=== PATIENT | female | born 1950 | race Caucasian/White ===

== ENCOUNTER 2020-10-20 09:28 | Outpatient (REF) | payer MEDICARE, SELFPAY ==
[2020-10-20 10:09] LABS: MANUAL DIFF FLAG NO
[2020-10-20 10:17] LABS: Basophils Absolute Auto 0.1 X10*3/uL (0.0-0.2); Basophils Percent Auto 0.7 % (0-2); Eosinophils Absolute Auto 0.2 X10*3/uL (0.0-0.4); Eosinophils Percent Auto 2.5 % (0-4); Hematocrit 37.3 % (37-47); Hemoglobin 12.7 g/dl (12.0-16.0); Imm Gran Abs Auto 0.04 X10*3/uL (0.00-0.03); Imm Gran Pct Auto 0.6 % (0.0-0.4); Lymphocytes Absolute Auto 1.5 X10*3/uL (1.2-4.9); Lymphocytes Percent Auto 20.9 % (20-40); Mean Corpuscular Hemoglobin 30.9 pg (27.0-33.0); Mean Corpuscular Volume 90.8 fL (80-98); Mean Platelet Volume 11.9 fL (9.4-12.3); Monocytes Absolute Auto 0.5 X10*3/uL (0.1-1.2); Monocytes Percent Auto 6.9 % (2-11); Neutrophils Percent Auto 68.4 % (45-73); Platelet Count 230 X10*3/uL (160-400); Red Blood Count 4.11 X10*6/uL (4.20-5.50); Red Cell Distribution Width 12.3 % (11.0-16.0); White Blood Count 7.3 X10*3/uL (4.8-10.8)
[2020-10-20 10:34] LABS: Anion Gap 12 (12-20); Blood Urea Nitrogen 14 mg/dL (9-16); Calcium 9.3 mg/dL (8.4-10.2); Carbon Dioxide 25 mmol/L (22-29); Chloride 106 mmol/L (96-108); Estimated Glomerular Filt Rate 57; Glucose Fasting 146 mg/dL (60-99); Glucose Urine UA NEG (NEG); Leukocyte Esterase Urine NEG (NEG); Nitrite Urine POS (NEG); PH 5.5 (5.0-8.0); Potassium 4.3 mmol/l (3.3-5.1); Sodium 139 mmol/L (135-145); Specific Gravity - Urine >= 1.030 (1.005-1.025); Urine Blood NEG (NEG); Urine Ketones NEG (NEG); Urine Protein NEG (NEG-TRACE)
[2020-10-20 10:41] LABS: Appearance Urine HAZY; Color Urine YELLOW
[2020-10-20 11:31] LABS: Bacteria Urine 2+ /LPF; RBC Urine 0-2 /HPF (0); Squamous Epithelial Cell Urine 2+ /LPF
== END 2020-10-20 09:29 | disposition home or self-care (01) ==
LOC: HO.LAB 09:28
PROVIDERS: PCP Internal Medicine; Visit Provider Nurse Practitioner Family
DX: N23 Unspecified renal colic (principal)
CPT/HCPCS: 36415; 80048; 81001; 85025

== ENCOUNTER 2020-10-22 14:20 | Outpatient (REF) | payer MEDICARE, SELFPAY ==
--- NOTE | 2020-10-22 14:23 | US_ITS ---
EXAMINATION: US RETROPERITONEAL LIMITED (RENAL ONLY) CLINICAL INFORMATION: Unspecified renal colic. COMPARISON: KUB dated 11/28/2006. TECHNIQUE: Real-time imaging of the kidneys. FINDINGS: RIGHT KIDNEY: 12.2 x 4.1 x 6.1 cm (SAG x AP x TRV). The kidney is normal in size, contour, and echogenicity. Renal cortical thickness is normal. No renal calculi or hydronephrosis. There is anechoic cyst right kidney upper pole measuring 1.8 x 1.3 x 1.5 cm LEFT KIDNEY: 11.4 x 5.7 x 5.4 cm (SAG x AP x TRV). The kidney is normal in size, lobulated contour and normal echogenicity. Renal cortical thickness is normal. No calculi or focal parenchymal lesions. No hydronephrosis. US/US renal BI IMPRESSION: Anechoic cyst upper pole right kidney. Slightly laterally left kidney contour but no focal lesion seen. There are no echogenic renal calculi or hydronephrosis.
== END 2020-10-22 14:21 | disposition home or self-care (01) ==
LOC: HO.HMGCX 14:20
PROVIDERS: PCP Internal Medicine; Visit Provider Nurse Practitioner Family
DX: N23 Unspecified renal colic (principal)
CPT/HCPCS: 76775

== ENCOUNTER → 2021-03-02 12:59 | Outpatient (BNVA) | payer MEDICARE, SELFPAY | PROVIDERS: PCP Internal Medicine; Referring Provider Internal Medicine; Visit Provider Internal Medicine | DX: I25.10 Atherosclerotic heart disease of native coronary artery without angina pectoris (principal); I10 Essential (primary) hypertension; E78.5 Hyperlipidemia, unspecified; E11.8 Type 2 diabetes mellitus with unspecified complications; F17.200 Nicotine dependence, unspecified, uncomplicated; Z95.5 Presence of coronary angioplasty implant and graft; Z79.899 Other long term (current) drug therapy; Z71.6 Tobacco abuse counseling | CPT/HCPCS: 93005; 99212 ==

== ENCOUNTER 2021-05-07 12:32 | Outpatient (REF) | payer MEDICARE, SELFPAY ==
--- NOTE | ~2021-05-07 | MM_ITS ---
EXAMINATION: BONE DENSITOMETRY CLINICAL INDICATION: Other specified disorders of bone density and structure. COMPARISON: Previous BD dated 11/28/2017 and baseline BD dated 11/28/2006. TECHNIQUE: Using a [employer] DXA System (software version: 13.1) manufactured by [employer], dual-energy x-ray absorptiometry was performed of the lumbar spine and left hip. The images are of good technical quality. Summary results are attached. FINDINGS: AP SPINE L1-L4: Current: BMD 1.231 g/cm2, Z-score 1.7, T-score 0.4, normal, 3.2% increase from previous, 18.8% increase from baseline (<5% change is not significant). Prior: BMD 1.193 g/cm2. Baseline: BMD 1.036 g/cm2. LEFT FEMUR, NECK: Current: BMD 0.888 g/cm2, Z-score 0.4, T-score -1.1, osteopenia. Prior: BMD 0.842 g/cm2. Baseline: BMD 0.908 g/cm2. LEFT FEMUR, TOTAL: Current: BMD 0.979 g/cm2, Z-score 1.1, T-score -0.2, normal, 5.0% decrease from previous, 2.6% decrease from baseline (<5% change is not significant). Prior: BMD 1.031 g/cm2. Baseline: BMD 1.005 g/cm2. IDENTIFIED RISK FACTORS: Recurrent falls, low calcium intake. Early menopause, secondary osteoporosis, glucocorticoids (chronic), thiazide, hysterectomy, bilateral oophorectomy. HISTORY OF FRACTURE: None listed. MEDICATIONS: Calcium supplements or multivitamin, vitamin D. MM/XR DEXA axial skeleton IMPRESSION: 1. DIAGNOSIS: Osteopenia based on the lowest T-score value of -1.1 in the femoral neck applying World Health Organization criteria. 2. 10-YEAR FRACTURE RISK PREDICTION, FRAX: Major osteoporotic fracture (clinical spine, forearm, hip or shoulder) 14.4%. Hip fracture 2.0%. 3. Treatment Recommendations: NOF guidelines recommend consideration for treatment in postmenopausal women and men age 50 and older presenting with the following: -A hip or vertebral (clinical or morphometric) fracture. -T-score less than or equal to -2.5 at the femoral neck or spine after appropriate evaluation to exclude secondary causes. -Low bone mass at the hip or spine and a 10-year fracture probability by FRAX of greater than or equal to 3% for hip fracture or greater than or equal to 20% for major osteoporotic fracture based on the [place] adapted WHO algorithm. 4. Other Recommendations: All treatment decisions require clinical judgment and consideration of individual patient factors, including patient preferences, comorbidities, previous drug use, risk factors not captured in the FRAX model (e.g. frailty, falls, vitamin D deficiency, increased bone turnover, interval significant decline in bone density) and possible under or overestimation of fracture risk by FRAX. Additional medical evaluation for secondary cause of low bone mineral density may be appropriate. FUTURE SCAN RECOMMENDATION: People with diagnosed cases of osteoporosis or at high risk for fracture should have regular bone mineral density tests. For patients eligible for Medicare, routine testing is allowed once every 2 years. The testing frequency can be increased to one year for patients who have rapidly progressing disease, those who are receiving or discontinuing medical therapy to restore bone mass, or have additional risk factors.
--- NOTE | ~2021-05-07 | MM_ITS ---
EXAMINATION: MM SCREENING DIGITAL BREAST TOMOSYNTHESIS, BILATERAL CLINICAL INFORMATION: Screening. Asymptomatic. The lifetime risk of breast cancer based on the Tyrer-Cuzick Model is 3%. COMPARISON: Mammography: 11/28/2017, 11/02/2016, 04/11/2015 TECHNIQUE: Digital breast tomosynthesis is performed in both the craniocaudal and mediolateral oblique views along with computer-aided detection (CAD). Synthesized 2D images are generated from the tomosynthesis. Additional left MLO view is provided. FINDINGS: There are scattered areas of fibroglandular density (ACR BI-RADS breast composition Category b). There are no significant masses, abnormal calcifications, or other abnormalities. Parenchymal pattern is similar to prior studies. No significant changes. MM/MM tomosynthesis screening BI IMPRESSION: No mammographic evidence of malignancy. ASSESSMENT: BI-RADS 1: Negative RECOMMENDATION: Routine annual mammography screening. This patient's information was entered into a reminder system with a target due date for their next mammogram.
== END 2021-05-07 12:33 | disposition home or self-care (01) ==
LOC: HO.MAMMO 12:32
PROVIDERS: PCP Internal Medicine; Visit Provider Internal Medicine
DX: Z12.31 Encounter for screening mammogram for malignant neoplasm of breast (principal); M85.89 Other specified disorders of bone density and structure, multiple sites; E83.51 Hypocalcemia; Z78.0 Asymptomatic menopausal state; E27.49 Other adrenocortical insufficiency; Z90.710 Acquired absence of both cervix and uterus; Z90.722 Acquired absence of ovaries, bilateral
CPT/HCPCS: 77063; 77067; 77080

== ENCOUNTER 2021-06-09 07:44 | Outpatient (REF) | payer MEDICARE, SELFPAY ==
[2021-06-10 09:25] LABS: BV Int Neg Control Negative (Negative)
[2021-06-10 09:26] LABS: BV Int Pos Control Positive (Positive)
== END 2021-06-09 07:45 | disposition home or self-care (01) ==
LOC: HO.LAB 07:44
PROVIDERS: PCP Internal Medicine; Visit Provider Obstetrics & Gynecology
DX: B37.3 Candidiasis of vulva and vagina (principal); B37.2 Candidiasis of skin and nail
CPT/HCPCS: 87480; 87510; 87660; 99212

== ENCOUNTER 2021-09-07 16:39 | Outpatient (REF) | payer MEDICARE, SELFPAY | END 2021-09-07 16:40 | disposition home or self-care (01) | LOC: HO.LNP 16:39 | PROVIDERS: Visit Provider Physician Assistant Medical | DX: Z20.822 Contact with and (suspected) exposure to COVID-19 (principal); R05.9 Cough, unspecified | CPT/HCPCS: U0003; U0005 ==

== ENCOUNTER → 2022-02-23 09:53 | Outpatient (BNVA) | payer MEDICARE, SELFPAY | PROVIDERS: PCP Internal Medicine; Visit Provider Internal Medicine Endocrinology, Diabetes & Metabolism | DX: E11.65 Type 2 diabetes mellitus with hyperglycemia (principal) | CPT/HCPCS: 82947; 83036; 99202 ==

== ENCOUNTER → 2022-02-28 13:26 | Outpatient (BNVA) | payer MEDICARE, SELFPAY | PROVIDERS: PCP Internal Medicine; Visit Provider Registered Nurse Diabetes Educator | DX: E11.65 Type 2 diabetes mellitus with hyperglycemia (principal) | CPT/HCPCS: 99211 ==

== ENCOUNTER 2022-03-01 09:12 | Outpatient (REF) | payer MEDICARE, SELFPAY ==
[2022-03-01 09:46] LABS: MANUAL DIFF FLAG NO
[2022-03-01 10:18] LABS: Basophils Absolute Auto 0.1 X10*3/uL (0.0-0.2); Basophils Percent Auto 0.8 % (0-2); Eosinophils Absolute Auto 0.2 X10*3/uL (0.0-0.4); Eosinophils Percent Auto 2.3 % (0-4); Hematocrit 39.8 % (37.0-47.0); Hemoglobin 13.5 g/dl (12.0-16.0); Imm Gran Abs Auto 0.03 X10*3/uL (0.00-0.03); Imm Gran Pct Auto 0.4 % (0.0-0.4); Lymphocytes Absolute Auto 1.9 X10*3/uL (1.2-4.9); Lymphocytes Percent Auto 21.9 % (20-40); Mean Corpuscular HGB Conc 33.9 g/dl (31.0-35.0); Mean Corpuscular Hemoglobin 30.2 pg (27.0-33.0); Mean Platelet Volume 12.3 fL (9.4-12.3); Monocytes Absolute Auto 0.5 X10*3/uL (0.1-1.2); Monocytes Percent Auto 5.8 % (2-11); Neutrophils Absolute Auto 5.8 x10*3/uL (2.0-8.3); Neutrophils Percent Auto 68.8 % (45-73); Platelet Count 251 X10*3/uL (160-400); Red Blood Count 4.47 X10*6/uL (4.20-5.50); Red Cell Distribution Width 12.3 % (11.0-16.0); White Blood Count 8.4 X10*3/uL (4.8-10.8)
[2022-03-01 10:38] LABS: Alanine Aminotransferase 17 U/L (0-31); Albumin Level 4.6 g/dL (3.5-5.0); Alkaline Phosphatase 51 U/L (39-117); Anion Gap 14 (12-20); Aspartate Amino Transferase 13 U/L (5-31); Bilirubin Total 0.5 mg/dL (0.0-1.0); Blood Urea Nitrogen 17 mg/dL (9-16); Carbon Dioxide 24 mmol/L (22-29); Chloride 106 mmol/L (96-108); Cholesterol 122 mg/dL; Estimated Glomerular Filt Rate 56; Glucose Fasting 166 mg/dL (60-99); HDL Cholesterol 29 mg/dL; LDL Cholesterol Calculated 58 mg/dl; Potassium 4.4 mmol/L (3.3-5.1); Sodium 140 mmol/L (135-145); Total Protein 7.2 g/dL (6.5-8.0); Triglycerides 176 mg/dL
[2022-03-01 10:53] LABS: Estimated Average Glucose 212 mg/dL
[2022-03-01 11:00] LABS: Thyroid Stimulating Hormone 1.47 uIU/mL (0.32-4.0)
[2022-03-01 11:01] LABS: Free T4 (Free Thyroxine) 1.01 ng/dL (0.71-1.85)
[2022-03-01 11:16] LABS: Appearance Urine CLOUDY; Color Urine YELLOW; Glucose Urine UA NEG (NEG); Leukocyte Esterase Urine 1+ (NEG); Nitrite Urine POS (NEG); PH 5.5 (5.0-8.0); Specific Gravity - Urine >= 1.030 (1.005-1.025); Urine Blood NEG (NEG); Urine Ketones NEG (NEG); Urine Protein NEG (NEG-TRACE)
[2022-03-01 11:28] LABS: Folate 8.9 ng/mL (> or = 4.0); Vitamin B12 521 pg/mL (200-900)
[2022-03-01 11:29] LABS: Squamous Epithelial Cell Urine 2+ /LPF
[2022-03-01 11:30] LABS: Bacteria Urine 3+ /LPF; RBC Urine 0 /HPF (0)
[2022-03-01 11:58] LABS: Creatinine Urine 124.28 mg/dL; Microalbum/Creatinine Ratio Ur 24.9 ug/mg cr
[2022-03-05 21:06] LABS: Glutamic acid decarboxylase Ab <5 IU/mL (<5)
== END 2022-03-01 09:13 | disposition home or self-care (01) ==
LOC: HO.LAB 09:12
PROVIDERS: PCP Internal Medicine; Visit Provider Internal Medicine Endocrinology, Diabetes & Metabolism
DX: Z00.00 Encounter for general adult medical examination without abnormal findings (principal); E11.65 Type 2 diabetes mellitus with hyperglycemia; M85.89 Other specified disorders of bone density and structure, multiple sites
CPT/HCPCS: 36415; 80053; 80061; 81001; 81003; 82043; 82306; 82607; 82746; 83036; 84439; 84443; 85025; 86341

== ENCOUNTER 2022-08-05 08:09 | Day surgery (SDC) | payer MEDICARE, SELFPAY ==
[2022-08-01 14:36] VITALS: BMI 28.6
--- NOTE | 2022-08-04 14:13 | P.CONAN_ITS ---
Documented by User: Seda Guzman NP 08/04/22 14:15 HPI - Anesthesia Eval Consult details Narrative: 72yo F for Upper Endoscopy and Colonoscopy *Multiple Med Allergies* PMFSH Active Problems Active Problems: All Active Problems (Updated 08/01/22 @ 14:33 by Venita Armstrong, GEMINI) Colon cancer screening (Acute) Breast cancer screening by mammogram (Acute) Osteopenia (Acute) Vulvovaginitis ish albicans (Acute) Skin candidiasis (Acute) Vaginal candidiasis (Acute) Annual physical exam (Acute) Generalized anxiety disorder (Acute) Tobacco abuse (Acute) Diabetic neuropathy (Acute) COVID-19 virus infection (Acute) Essential hypertension (Acute) Type 2 diabetes mellitus with hyperglycemia (Acute) COPD (chronic obstructive pulmonary disease) (Acute) Osteoarthritis (Acute) Barretts esophagus (Acute) Hypercholesterolemia (Acute) Coronary artery disease (Acute) Past Medical History Medical History Barretts esophagus COPD (chronic obstructive pulmonary disease) Coronary artery disease Cough COVID-19 Diabetic nephropathy Diabetic neuropathy Essential hypertension Hip osteoarthritis Hypercholesterolemia Mitral valve prolapse Myocardial infarct Osteoarthritis Skin rash Type 2 diabetes mellitus with hyperglycemia Vitamin D deficiency Family History Family History Father CVD (cardiovascular disease) Dementia Heart valve replaced Mother Colon cancer Surgical History Surgical History Cystocele H/O heart artery stent History of cholecystectomy History of hysterectomy History of parathyroidectomy Social History Social History Housing: House Alcohol intake: never Patient Tobacco Use Status: Current someday Tobacco user Tobacco use type: Cigarette Cigarettes Per Day: 10 e-Cigarette/Vaping Use: Never Used Second Hand Smoke Exposure: No Use of substances other than those prescribed or required for medical reasons: No Are you DNR?: No Advance Directives: No Advance Directives Information Provided: Yes service: No Current occupational status: retired Cognitive needs: No Hearing needs: No Vision needs: Yes Meds Allergies Allergy/AdvReac Type Severity Reaction Status Date / Time azithromycin Allergy Severe rash Verified 07/19/22 11:34 cortisone [CORTISONE] Allergy Severe RASH HIVES Verified 07/19/22 11:34 AND SWELLING OF THE TONGUE Penicillins Allergy Severe ANAPHYLAXIS Verified 07/19/22 11:34 yeast, dried [yeast] Allergy Severe SHORTNESS Verified 07/19/22 11:34 OF BREATH omeprazole [From Prilosec] Allergy Intermediate BLISTERS Verified 07/19/22 11:34 Sulfa (Sulfonamide Allergy Intermediate Itching Verified 07/19/22 11:34 Antibiotics) niacin [Niacin] Allergy Mild RASH Verified 07/19/22 11:34 tetracycline [Tetracycline] Allergy Mild RASH Verified 07/19/22 11:34 acetic acid [Acetic Acid] Allergy Unknown SHORTNESS Verified 07/19/22 11:34 OF BREATH FROM VINEGAR adhesive tape Allergy Unknown RASH Verified 07/19/22 11:34 Clindamycin HCl Allergy Unknown rash Verified 07/19/22 11:34 fluconazole [Diflucan] Allergy Unknown Unknown Verified 07/19/22 11:34 procaine [From NOVOCAIN] Allergy Unknown RASH,SWELLING Verified 07/19/22 11:34 OF TONGUE,BLISTERING lorazepam [From Ativan] AdvReac Mild VOMITING/NA Verified 07/19/22 11:34 USEA morphine [MORPHINE] AdvReac Unknown NAUSEA Verified 07/19/22 11:34 From AVELOX Allergy Intermediate SWELLING/RA Uncoded 07/19/22 11:34 SH carrots, vinegar, yeast, Allergy Unknown Unknown Uncoded 07/19/22 11:34 chees SEASONAL ALLERGIES Allergy Unknown SNEEZING Uncoded 07/19/22 11:34 Home Medications Medication Instructions Recorded Confirmed Last Taken Type blood sugar diagnostic #10 ea 10/19/20 07/19/22 Unknown History calcium carbonate 600 mg calcium 600 mg PO DAILY 11/13/20 08/01/22 Unknown History (1,500 mg) tablet (Calcium) cholecalciferol (vitamin D3) 50 50 mcg PO DAILY 11/13/20 07/19/22 Unknown History mcg (2,000 unit) capsule aspirin 81 mg tablet,delayed 81 mg PO DAILY 03/02/21 08/01/22 Unknown History release (Adult Low Dose Aspirin) Exam Exam Date and Time: August 04, 2022 1413 Height,Weight and Vital Signs: Height 5 ft 5 in Weight 78.018 kg Pertinent Lab Results Pertinent Lab Results: Laboratory Tests 03/01/22 03/01/22 09:44 09:44 WBC 8.4 Hgb 13.5 Hct 39.8 Plt Count 251 Sodium 140 Potassium 4.4 Chloride 106 Carbon Dioxide 24 BUN 17 H Creatinine 0.98 Assessment and Plan Assessment Anesthesia Assessment: Chart Reviewed Documented by User: Jose Rafael Trejo MD 08/05/22 09:11 [facility] Past Medical History Medical History Barretts esophagus COPD (chronic obstructive pulmonary disease) Coronary artery disease Cough COVID-19 Diabetic nephropathy Diabetic neuropathy Essential hypertension Hip osteoarthritis Hypercholesterolemia Mitral valve prolapse Myocardial infarct Osteoarthritis Skin rash Type 2 diabetes mellitus with hyperglycemia Vitamin D deficiency Family History Family History Father CVD (cardiovascular disease) Dementia Heart valve replaced Mother Colon cancer Family history of problems with anesthesia: No Surgical History Surgical History Cystocele H/O heart artery stent History of cholecystectomy History of hysterectomy History of parathyroidectomy History of Problems with Anesthesia: No Social History Social History Housing: House Alcohol intake: never Patient Tobacco Use Status: Current someday Tobacco user Tobacco use type: Cigarette Cigarettes Per Day: 10 e-Cigarette/Vaping Use: Never Used Second Hand Smoke Exposure: No Use of substances other than those prescribed or required for medical reasons: No Are you DNR?: No Advance Directives: No Advance Directives Information Provided: Yes service: No Current occupational status: retired Cognitive needs: No Hearing needs: No Vision needs: Yes Meds Allergies Allergy/AdvReac Type Severity Reaction Status Date / Time azithromycin Allergy Severe rash Verified 07/19/22 11:34 cortisone [CORTISONE] Allergy Severe RASH HIVES Verified 07/19/22 11:34 AND SWELLING OF THE TONGUE Penicillins Allergy Severe ANAPHYLAXIS Verified 07/19/22 11:34 yeast, dried [yeast] Allergy Severe SHORTNESS Verified 07/19/22 11:34 OF BREATH omeprazole [From Prilosec] Allergy Intermediate BLISTERS Verified 07/19/22 11:34 Sulfa (Sulfonamide Allergy Intermediate Itching Verified 07/19/22 11:34 Antibiotics) niacin [Niacin] Allergy Mild RASH Verified 07/19/22 11:34 tetracycline [Tetracycline] Allergy Mild RASH Verified 07/19/22 11:34 acetic acid [Acetic Acid] Allergy Unknown SHORTNESS Verified 07/19/22 11:34 OF BREATH FROM VINEGAR adhesive tape Allergy Unknown RASH Verified 07/19/22 11:34 Clindamycin HCl Allergy Unknown rash Verified 07/19/22 11:34 fluconazole [Diflucan] Allergy Unknown Unknown Verified 07/19/22 11:34 procaine [From NOVOCAIN] Allergy Unknown RASH,SWELLING Verified 07/19/22 11:34 OF TONGUE,BLISTERING lorazepam [From Ativan] AdvReac Mild VOMITING/NA Verified 07/19/22 11:34 USEA morphine [MORPHINE] AdvReac Unknown NAUSEA Verified 07/19/22 11:34 From AVELOX Allergy Intermediate SWELLING/RA Uncoded 07/19/22 11:34 SH carrots, vinegar, yeast, Allergy Unknown Unknown Uncoded 07/19/22 11:34 chees SEASONAL ALLERGIES Allergy Unknown SNEEZING Uncoded 07/19/22 11:34 Home Medications Medication Instructions Recorded Confirmed Last Taken Type blood sugar diagnostic #10 ea 10/19/20 07/19/22 Unknown History calcium carbonate 600 mg calcium 600 mg PO DAILY 11/13/20 08/01/22 Unknown History (1,500 mg) tablet (Calcium) cholecalciferol (vitamin D3) 50 50 mcg PO DAILY 11/13/20 07/19/22 Unknown History mcg (2,000 unit) capsule aspirin 81 mg tablet,delayed 81 mg PO DAILY 03/02/21 08/01/22 Unknown History release (Adult Low Dose Aspirin) Exam Airway Mallampati Class: II TM Dist: >3cm Neck ROM: Full Loose/Missing/Broken Teeth: Yes (upper b/l side teeth all missing. total of 6 teeth up yop, lower missing many globally) Heart: [id number] Lungs: cta b/l Assessment and Plan Assessment Anesthesia Assessment: Anesthesia Plan Discussed Final Anesthetic Review Family History of Problems with Anesthesia: No History of Problems with Anesthesia: No NPO: Yes ASA Class: III Final Preanesthetic Review: No Changes in Pt Med Stat, Meds/Allgs Chart Reviewed, Consent Obtained/Reviewed and Anes Risks/Benef Reviewed Patient Risk: Intermediate Procedure Risk: Intermediate Assessment/Block/Sedation in SS: Assess/Block/Sedation-SS Anesthetic Plan Anesthetic Plan: MAC: and Agree w/ Assess. and Plan Disposition: Standard PACU
[2022-08-05 08:39] VITALS: BMI 28.3
[2022-08-05 08:58] VITALS: BP 138/65; PULSE 77; RESP 16; TEMP 36.1; O2SAT 96
[2022-08-05 09:08] LABS: Glucose, Whole Blood 136 mg/dL (60-115)
[2022-08-05] MEDS: Lactated Ringers 1,000 ML 100 ML IVCONT (09:09)
--- NOTE | 2022-08-05 09:42 | MHC.SHP ---
Pre-Procedural Eval Section A Date of Service: 08/05/22 The patient is an INPATIENT: No Changes since office visit: No Cold of Flu in the past 2 weeks, No New Medical Problems, No Changes in Medication and No Patient answered all questions The History & Physical has been completed within 30 days and I have reviewed it.: Yes Section B Chief Complaint: barretts,screening,hx of polyps Allergies: Allergies Allergy/AdvReac Type Severity Reaction Status Date / Time azithromycin Allergy Severe rash Verified 07/19/22 11:34 cortisone [CORTISONE] Allergy Severe RASH HIVES Verified 07/19/22 11:34 AND SWELLING OF THE TONGUE Penicillins Allergy Severe ANAPHYLAXIS Verified 07/19/22 11:34 yeast, dried [yeast] Allergy Severe SHORTNESS Verified 07/19/22 11:34 OF BREATH omeprazole [From Prilosec] Allergy Intermediate BLISTERS Verified 07/19/22 11:34 Sulfa (Sulfonamide Allergy Intermediate Itching Verified 07/19/22 11:34 Antibiotics) niacin [Niacin] Allergy Mild RASH Verified 07/19/22 11:34 tetracycline [Tetracycline] Allergy Mild RASH Verified 07/19/22 11:34 acetic acid [Acetic Acid] Allergy Unknown SHORTNESS Verified 07/19/22 11:34 OF BREATH FROM VINEGAR adhesive tape Allergy Unknown RASH Verified 07/19/22 11:34 Clindamycin HCl Allergy Unknown rash Verified 07/19/22 11:34 fluconazole [Diflucan] Allergy Unknown Unknown Verified 07/19/22 11:34 procaine [From NOVOCAIN] Allergy Unknown RASH,SWELLING Verified 07/19/22 11:34 OF TONGUE,BLISTERING lorazepam [From Ativan] AdvReac Mild VOMITING/NA Verified 07/19/22 11:34 USEA morphine [MORPHINE] AdvReac Unknown NAUSEA Verified 07/19/22 11:34 From AVELOX Allergy Intermediate SWELLING/RA Uncoded 07/19/22 11:34 SH carrots, vinegar, yeast, Allergy Unknown Unknown Uncoded 07/19/22 11:34 chees SEASONAL ALLERGIES Allergy Unknown SNEEZING Uncoded 07/19/22 11:34 Plan I have reviewed the history and physical and performed a pertinent physical examination on my patient. No changes have occurred unless specified.
[2022-08-05 10:28] VITALS: BP 129/61; PULSE 74; RESP 24; TEMP 36.3; O2SAT 99
--- NOTE | 2022-08-05 10:29 | P.BOP_ITS ---
Brief Operative Note Date of Service: 08/05/22 Pre-op diagnosis: screening,barretts Post-op diagnosis: same Procedure: egd colon Surgeon: Lior Villanueva Anesthesia: MAC Was an Tubing Machine Tender used for this Procedure?: No Estimated blood loss (mL): 2 Pathology: other Condition: stable Disposition: PACU
[2022-08-05 10:43] VITALS: BP 133/71; PULSE 75; RESP 20; TEMP 36.3; O2SAT 94
--- NOTE | 2022-08-05 23:55 | OP_ITS ---
SURGEON: Lior Villanueva MD INDICATIONS: 1. Bernal esophagus. 2. Colon cancer screening. PREOPERATIVE DIAGNOSIS: POSTOPERATIVE DIAGNOSIS: PROCEDURE PERFORMED: 1. Upper endoscopy with biopsy. 2. Colonoscopy to terminal ileum with biopsy. ESTIMATED BLOOD LOSS: COMPLICATIONS: ANESTHESIA: Monitored anesthesia care. ASSISTANTS: SPECIMENS: DESCRIPTION OF PROCEDURE: The procedure was performed on 08/05/2022. History and physical performed. The risks and benefits of the procedure were explained to the patient. Informed consent was obtained. The patient was placed in left lateral decubitus position. The Olympus videogastroscope was introduced into the esophagus, stomach, and duodenum. Examination was performed. The scope was removed. She was repositioned for colonoscopy. A digital rectal exam was performed and was found to be normal. The Olympus pediatric videocolonoscope was introduced into the rectum to the cecum without difficulty. The cecum was identified by transillumination, palpation, and identification of ileocecal valve. Examination was performed. The scope was removed. She tolerated both procedures well and returned to recovery room in stable condition. FINDINGS: Upper endoscopy of esophagus: The esophagus was remarkable for irregular EG junction. Biopsies were obtained from the EG junction. There were no raised lesions or ulcerated areas. Stomach: Stomach showed no evidence of masses, ulcers, or bleeding. Multiple benign-appearing gastric polyps were present in the body and fundus measuring less than 10 mm. These had been previously biopsied. Duodenum: The bulb and second portion were normal. Colonoscopy: The terminal ileum was examined and appeared normal. The visualized colonic mucosa within normal limits without evidence of masses or ulcers and biopsies were obtained from terminal ileum because of the patient's prior history of ileitis. No ileitis was identified. No polyps were seen. There was some stool colored mucosa limiting the sensitivity examination for detection of small polyps. This was washed and suctioned. No polyps were identified. Retroflexed examination showed some internal hemorrhoids. IMPRESSION: 1. Bernal esophagus. 2. Normal colonoscopy. RECOMMENDATIONS: 1. Follow up with biopsy results. 2. Consider repeat colonoscopy in 10 years for average risk individuals. MD NAHID Bundy/VIPUL / [id number]
== END 2022-08-05 11:15 | disposition home or self-care (01) ==
PROVIDERS: PCP Internal Medicine; Visit Provider Internal Medicine Gastroenterology
PROC: (CPT 45380; principal; 2022-08-05 09:30)
DX: Z12.11 Encounter for screening for malignant neoplasm of colon (principal); Z86.010 Personal history of colon polyps; Z80.0 Family history of malignant neoplasm of digestive organs; K64.8 Other hemorrhoids; K22.70 Barrett's esophagus without dysplasia; K21.9 Gastro-esophageal reflux disease without esophagitis; K31.7 Polyp of stomach and duodenum; Z79.899 Other long term (current) drug therapy; I25.10 Atherosclerotic heart disease of native coronary artery without angina pectoris; I25.2 Old myocardial infarction; Z98.61 Coronary angioplasty status; I25.82 Chronic total occlusion of coronary artery; I10 Essential (primary) hypertension; E11.9 Type 2 diabetes mellitus without complications; J45.909 Unspecified asthma, uncomplicated; Z79.51 Long term (current) use of inhaled steroids; Z79.4 Long term (current) use of insulin; Z79.82 Long term (current) use of aspirin; Z88.0 Allergy status to penicillin; Z88.1 Allergy status to other antibiotic agents; Z88.8 Allergy status to other drugs, medicaments and biological substances; F17.210 Nicotine dependence, cigarettes, uncomplicated; Z90.49 Acquired absence of other specified parts of digestive tract
CPT/HCPCS: 45380; 43239; 82947; 88305; 88313

== ENCOUNTER → 2022-09-21 09:06 | Outpatient (BNVA) | payer MEDICARE, SELFPAY | PROVIDERS: PCP Internal Medicine; Visit Provider Internal Medicine Endocrinology, Diabetes & Metabolism | DX: E11.65 Type 2 diabetes mellitus with hyperglycemia (principal); Z79.4 Long term (current) use of insulin | CPT/HCPCS: 82947; 99212 ==

== ENCOUNTER 2022-10-03 08:34 | Outpatient (REF) | payer MEDICARE, SELFPAY ==
[2022-10-03 10:14] LABS: Creatinine Urine 74.66 mg/dL; Microalbum/Creatinine Ratio Ur 33.4 ug/mg cr
[2022-10-03 10:16] LABS: Anion Gap 14 (12-20); Blood Urea Nitrogen 24 mg/dL (9-16); Carbon Dioxide 25 mmol/L (22-29); Chloride 107 mmol/L (96-108); Cholesterol 129 mg/dL; Estimated Glomerular Filt Rate 47; Glucose Random 153 mg/dL (60-115); HDL Cholesterol 30 mg/dL; LDL Cholesterol Calculated 60 mg/dl; Potassium 4.4 mmol/L (3.3-5.1); Sodium 142 mmol/L (135-145); Triglycerides 197 mg/dL
== END 2022-10-03 08:35 | disposition home or self-care (01) ==
LOC: HO.LAB 08:34
PROVIDERS: PCP Internal Medicine; Visit Provider Internal Medicine Endocrinology, Diabetes & Metabolism
DX: Z00.00 Encounter for general adult medical examination without abnormal findings (principal); E11.65 Type 2 diabetes mellitus with hyperglycemia
CPT/HCPCS: 36415; 80048; 80061; 82043

== ENCOUNTER → 2022-10-04 15:00 | Outpatient (BNVA) | payer MEDICARE, SELFPAY | PROVIDERS: PCP Internal Medicine; Visit Provider Registered Nurse Diabetes Educator | DX: E11.65 Type 2 diabetes mellitus with hyperglycemia (principal) | CPT/HCPCS: 99211 ==

== ENCOUNTER → 2022-10-19 14:39 | Outpatient (BNVA) | payer MEDICARE, SELFPAY | PROVIDERS: PCP Internal Medicine; Referring Provider Internal Medicine; Visit Provider Internal Medicine | DX: I25.10 Atherosclerotic heart disease of native coronary artery without angina pectoris (principal); I10 Essential (primary) hypertension; E78.5 Hyperlipidemia, unspecified; E11.8 Type 2 diabetes mellitus with unspecified complications; F17.210 Nicotine dependence, cigarettes, uncomplicated; I25.2 Old myocardial infarction; Z79.4 Long term (current) use of insulin; Z79.82 Long term (current) use of aspirin; Z79.899 Other long term (current) drug therapy | CPT/HCPCS: 93005; 99212 ==

== ENCOUNTER → 2022-12-13 09:31 | Outpatient (BNVA) | payer MEDICARE, SELFPAY | PROVIDERS: PCP Internal Medicine; Visit Provider Internal Medicine Endocrinology, Diabetes & Metabolism | DX: E11.65 Type 2 diabetes mellitus with hyperglycemia (principal); Z79.4 Long term (current) use of insulin | CPT/HCPCS: 82947; 99212 ==

== ENCOUNTER → 2023-01-04 10:56 | Outpatient (BNVA) | payer MEDICARE, SELFPAY | PROVIDERS: PCP Internal Medicine; Visit Provider Nurse Practitioner Family | DX: N39.0 Urinary tract infection, site not specified (principal) | CPT/HCPCS: 51798; 99202 ==

== ENCOUNTER 2023-01-11 12:20 | Outpatient (REF) | payer MEDICARE, SELFPAY ==
[2023-01-11 13:30] LABS: Appearance Urine Hazy; Color Urine Yellow; Glucose Urine UA 500 mg/dL (Negative); Leukocyte Esterase Urine Small (1+) (Negative); Nitrite Urine Positive (Negative); Specific Gravity - Urine >= 1.030 (1.005-1.025); UMIC TRIGGER UA YES; Urine Blood Negative (Negative); Urine Ketones Negative (Negative); Urine Protein Negative (Neg-Trace)
[2023-01-11 13:47] LABS: RBC Urine 0-2 /HPF (0-2)
[2023-01-11 13:48] LABS: Bacteria Urine 2+ (None Seen); Hyaline Casts Urine 0-2 /LPF (0-2)
== END 2023-01-11 12:21 | disposition home or self-care (01) ==
LOC: HO.LAB 12:20
PROVIDERS: PCP Internal Medicine; Visit Provider Nurse Practitioner Family
DX: N39.0 Urinary tract infection, site not specified (principal)
CPT/HCPCS: 81001; 87086; 87088; 87186

== ENCOUNTER 2023-02-20 09:40 | Outpatient (REF) | payer MEDICARE, SELFPAY ==
--- NOTE | ~2023-02-20 | US_ITS ---
EXAMINATION: US RETROPERITONEAL LIMITED (RENAL ONLY) CLINICAL INFORMATION: Urinary tract infection, site not specified. COMPARISON: Bilateral renal ultrasound dated 10/22/2020. KUBs dated 11/28/2006 and 03/21/2006. TECHNIQUE: Real-time imaging of the kidneys. FINDINGS: RIGHT KIDNEY: 12.2 x 4.2 x 5.9 cm (SAG x AP x TRV). The kidney is normal in size, contour, and echogenicity. Renal cortical thickness is normal. No renal calculi or hydronephrosis. Simple cyst in the upper pole measuring 1.3 cm, for which no imaging follow-up is recommended. LEFT KIDNEY: 11.4 x 5.0 x 4.7 cm (SAG x AP x TRV). The kidney is normal in size and echogenicity. Renal cortical thickness is normal. No calculi or focal parenchymal lesions. No hydronephrosis. US/US renal BI IMPRESSION: No acute sonographic abnormalities.
== END 2023-02-20 09:41 | disposition home or self-care (01) ==
LOC: HO.US 09:40
PROVIDERS: PCP Internal Medicine; Visit Provider Nurse Practitioner Family
DX: N39.0 Urinary tract infection, site not specified (principal)
CPT/HCPCS: 76775

== ENCOUNTER 2023-02-22 10:23 | Outpatient (REF) | payer MEDICARE, SELFPAY ==
--- NOTE | ~2023-02-22 | US_ITS ---
EXAMINATION: US PELVIS LIMITED (BLADDER) CLINICAL INFORMATION: Urinary tract infection. COMPARISON: Bilateral renal ultrasounds dated 02/20/2023 and 10/22/2020. KUB dated 11/28/2006. TECHNIQUE: Real-time imaging of the bladder. FINDINGS: BLADDER: Well distended and normal. Bilateral ureteral jets are demonstrated. Prevoid bladder volume is 259 mL. Postvoid bladder volume is 257 mL. US/US bladder IMPRESSION: Significant postvoid residual volume. No bladder wall thickening or radiopaque calculi. Normal bilateral ureteral jets.
== END 2023-02-22 10:24 | disposition home or self-care (01) ==
LOC: HO.HMGCX 10:23
PROVIDERS: PCP Internal Medicine; Visit Provider Nurse Practitioner Family
DX: N39.0 Urinary tract infection, site not specified (principal)
CPT/HCPCS: 76857

== ENCOUNTER 2023-03-07 09:25 | Outpatient (REF) | payer MEDICARE, SELFPAY | END 2023-03-07 09:26 | disposition home or self-care (01) | LOC: HO.LNP 09:25 | PROVIDERS: PCP Internal Medicine; Visit Provider Nurse Practitioner Family | DX: N39.0 Urinary tract infection, site not specified (principal); B37.9 Candidiasis, unspecified; F17.210 Nicotine dependence, cigarettes, uncomplicated; Z79.4 Long term (current) use of insulin; Z79.899 Other long term (current) drug therapy | CPT/HCPCS: 51798; 87086; 87088; 87186; 99212 ==

== ENCOUNTER → 2023-03-10 10:56 | Outpatient (BNVA) | payer MEDICARE, SELFPAY | PROVIDERS: PCP Internal Medicine; Visit Provider Nurse Practitioner Family ==

== ENCOUNTER 2023-04-08 10:24 | Outpatient (REF) | payer MEDICARE, SELFPAY ==
--- NOTE | ~2023-04-08 | MM_ITS ---
EXAMINATION: MM SCREENING DIGITAL BREAST TOMOSYNTHESIS, BILATERAL CLINICAL INFORMATION: Screening. Asymptomatic. The lifetime risk of breast cancer based on the Tyrer-Cuzick Model is 2%. COMPARISON: Mammography: 05/07/2021, 11/28/2017, 11/02/2016 TECHNIQUE: Digital breast tomosynthesis is performed in both the craniocaudal and mediolateral oblique views along with computer-aided detection (CAD). Synthesized 2D images are generated from the tomosynthesis. FINDINGS: There are scattered areas of fibroglandular density (ACR BI-RADS breast composition Category b). There are no significant masses, abnormal calcifications, or other abnormalities. Parenchymal pattern is similar to prior studies. There is no developing density or architectural abnormality. The axilla and skin contours are unremarkable. No significant changes. MM/MM tomosynthesis screening BI IMPRESSION: No mammographic evidence of malignancy. ASSESSMENT: BI-RADS 1: Negative RECOMMENDATION: Routine annual mammography screening. This patient's information was entered into a reminder system with a target due date for their next mammogram.
== END 2023-04-08 10:25 | disposition home or self-care (01) ==
LOC: HO.MAMMO 10:24
PROVIDERS: PCP Internal Medicine; Visit Provider Internal Medicine
DX: Z12.31 Encounter for screening mammogram for malignant neoplasm of breast (principal)
CPT/HCPCS: 77063; 77067

== ENCOUNTER 2023-04-19 11:50 | Outpatient (REF) | payer MEDICARE, SELFPAY ==
[2023-04-19 13:27] LABS: Appearance Urine Clear; Color Urine Yellow; Glucose Urine UA >=1000 mg/dL (Negative); Leukocyte Esterase Urine Trace (Negative); Nitrite Urine Negative (Negative); PH 5.5 (5.0-9.0); Specific Gravity - Urine 1.025 (1.005-1.025); UMIC TRIGGER UA YES; Urine Blood Negative (Negative); Urine Ketones Negative (Negative); Urine Protein Negative (Neg-Trace)
[2023-04-19 13:33] LABS: Bacteria Urine None Seen (None Seen); Hyaline Casts Urine 0-2 /LPF (0-2); RBC Urine 0-2 /HPF (0-2); WBC Urine 0-5 /HPF (0-5)
== END 2023-04-19 11:51 | disposition home or self-care (01) ==
LOC: HO.LAB 11:50
PROVIDERS: PCP Internal Medicine; Visit Provider Internal Medicine
DX: N39.0 Urinary tract infection, site not specified (principal)
CPT/HCPCS: 81001

== ENCOUNTER 2023-05-10 09:18 | Outpatient (AMB) | payer MEDICARE, SELFPAY ==
--- NOTE | 2023-05-10 09:19 | MHC.OFFVIS ---
Intake Vital Signs 05/10/23 09:22 Height 5 ft 5 in Weight 172 lb 13.478 oz BMI 28.8 BP 134/60 Blood Pressure Location Rt brachial Position Sitting Pulse 67 Pulse Source Pulse Oximeter Intake Visit Reasons: f/u Type 2 DM Intake Note: Patient present today to follow up on Type 2 Diabetes Mellitus. Last Diabetic Eye exam: December 2022 Last Podiatry Visit: Does not see a Rn Delivery Random Glucose: 224 mg/dl HgA1C: 8.7% 02/17/2023 Branch Services Manager Required: No Accompanied by: Grand Child Allergies azithromycin Allergy (Severe, Verified 05/10/23 09:23) rash cortisone [CORTISONE] Allergy (Severe, Verified 05/10/23 09:23) RASH HIVES AND SWELLING OF THE TONGUE nitrofurantoin Allergy (Severe, Verified 05/10/23 09:23) tongue swelling Penicillins Allergy (Severe, Verified 05/10/23 09:23) ANAPHYLAXIS yeast, dried [yeast] Allergy (Severe, Verified 05/10/23 09:23) SHORTNESS OF BREATH empagliflozin [From Jardiance] Allergy (Intermediate, Verified 05/10/23 09:23) swollen tongue omeprazole [From Prilosec] Allergy (Intermediate, Verified 05/10/23 09:23) BLISTERS Sulfa (Sulfonamide Antibiotics) Allergy (Intermediate, Verified 05/10/23 09:23) Itching niacin [Niacin] Allergy (Mild, Verified 05/10/23 09:23) RASH tetracycline [Tetracycline] Allergy (Mild, Verified 05/10/23 09:23) RASH acetic acid [Acetic Acid] Allergy (Unknown, Verified 05/10/23 09:23) SHORTNESS OF BREATH FROM VINEGAR adhesive tape Allergy (Unknown, Verified 05/10/23 09:23) RASH Clindamycin HCl Allergy (Unknown, Verified 05/10/23 09:23) rash procaine [From NOVOCAIN] Allergy (Unknown, Verified 05/10/23 09:23) RASH,SWELLING OF TONGUE,BLISTERING cefixime [From Suprax] Adverse Reaction (Intermediate, Verified 05/10/23 09:23) Swelling in throat dulaglutide [From Trulicity] Adverse Reaction (Intermediate, Verified 05/10/23 09:23) swelling of tongue lorazepam [From Ativan] Adverse Reaction (Mild, Verified 05/10/23 09:23) VOMITING/NAUSEA morphine [MORPHINE] Adverse Reaction (Unknown, Verified 05/10/23 09:23) NAUSEA fosfomycin Allergy (Severe, Uncoded 05/10/23 09:23) tongue swelling jardiance Allergy (Severe, Uncoded 05/10/23 09:23) Yeast infection levofloxacin Allergy (Severe, Uncoded 05/10/23 09:23) Hives From AVELOX Allergy (Intermediate, Uncoded 05/10/23 09:23) SWELLING/RASH carrots, vinegar, yeast, chees Allergy (Unknown, Uncoded 05/10/23 09:23) Unknown SEASONAL ALLERGIES Allergy (Unknown, Uncoded 05/10/23 09:23) SNEEZING HPI HPI Comments History of Present Illness Details 72 YO F who is seen in consultation for T2DM at the request of PCP. Initially diagnosed with T2DM in 2004 . Was initially started on treatment with metformin . Has taken a G LP 1 namely Trulicity in the past but stated it was stopped because it was ineffective but tolerated well. Janumet stopped by PCP and switched to metformin Lantus 48 units Lispro 5 units TID (not taking) metformin 1000 mg BID Trulicity couldn't tolerate because of tongue swelling glucometer download shows she is checking her point cares 1X a day on average. Average glucose is 141 with range 96-234 . 87% range with 13% hyperglycemia and 0% very hyperglycemic and no hypoglycemia Does not Reports low sugars . . No Family history of T2DM . Has eyes checked yearly, last eye exam Had appt 12/29/2022 , Has retinopathy. Has neuropathy takes gabapentin ,,Not sees podiatry. Denies nephropathy, on ARI/ARB. Has HLD, on [statin]. . Has CAD.Stents 2004 and 2011 She has challenges since taking care of her handicapped grandson and feels that grandson might dislodge a Sensor Saw diabetes education. [facility] Medical History (Updated 04/13/23 @ 09:10 by William Colón MD) Barretts esophagus Breast cancer screening by mammogram Colon cancer screening COPD (chronic obstructive pulmonary disease) Coronary artery disease Cough COVID-19 Diabetic nephropathy Diabetic neuropathy Essential hypertension Hip osteoarthritis Hypercholesterolemia Mitral valve prolapse Myocardial infarct Osteoarthritis Skin rash Tobacco abuse Type 2 diabetes mellitus with hyperglycemia Vitamin D deficiency Surgical History Cystocele H/O heart artery stent History of cholecystectomy History of hysterectomy History of parathyroidectomy Family History Father CVD (cardiovascular disease) Dementia Heart valve replaced Mother Colon cancer Social History Housing: House Alcohol intake: never Patient Tobacco Use Status: Current someday Tobacco user Tobacco use type: Cigarette Cigarettes Per Day: 1 Years Smoked: 40 +/- e-Cigarette/Vaping Use: Never Used Second Hand Smoke Exposure: No service: No Current occupational status: retired Cognitive needs: No Hearing needs: No Vision needs: Yes Female Reproductive History Menstrual Age of Menarche: 9 Physical Exam Vital Signs: Last Vital Signs Pulse 67 05/10/23 09:22 BP 134/60 05/10/23 09:22 BMI result Body Mass Index 28.8 Absence of Cushingoid features. Absence of acromegalic features. Neck exam reveals nl size thyroid about 15 gms. No thyroid nodules palpable. No carotid bruits present. Lungs CTA. Heart S1 S2, Reg R/R. No M/R/ G. Skin exam reveals absence of vitiligo or acanthosis nigricans. Abdominal exam reveals Soft NT/ND with NA BS. No organomegaly present. Neck Other: . Extrem Other: Visual exam of foot performed. No ulcerations or open lesions. No onchomycosis, no callouses.Pulses 2 + distally Sensation intact to monofilament exam. Vibratory sensation sensed is decreased with 128 Hz tuning fork Assessment & Plan Assessment & Plan (1) Type 2 diabetes mellitus with hyperglycemia: Comment: December 2016 eye and lasik Code(s): E11.65 - Type 2 diabetes mellitus with hyperglycemia Qualifiers: Diabetes mellitus fci insulin use: without fci use Qualified Code(s): E11.65 - Type 2 diabetes mellitus with hyperglycemia Plan: This is a 72-year-old white female with a history of type 2 diabetes being treated with metformin, and basal-bolus insulin with poor glycemic control and no known microvascular or macrovascular complications. Plan is have the patient hookup the Dexcom G6. She will follow-up with the natural resources extension educator. I will attempt to start Ozempic 0.25 mg Q weekly with titration as tolerated. If she cannot tolerate the Ozempic, we could reinitiate prandial insulin based on sensor readings Medications: New semaglutide (Ozempic) for 4 weeks 0.25 mg (0.4 mL) subcut QWEEK 3 mL 4RF Coding Level of Care Code Est Pt Level 4 (76241) Diagnoses Type 2 diabetes mellitus with hyperglycemia E11.65 Diabetes mellitus watermaster insulin use: without fci use
[2023-05-10 09:22] VITALS: BP 134/60; PULSE 67; BMI 28.8
[2023-05-10 09:35] LABS: Glucose, Whole Blood 224 mg/dL (60-115)
== END 2023-05-10 09:49 | disposition home or self-care (01) ==
PROVIDERS: PCP Internal Medicine; Visit Provider Internal Medicine Endocrinology, Diabetes & Metabolism
DX: E11.65 Type 2 diabetes mellitus with hyperglycemia (principal)
CPT/HCPCS: 99214

== ENCOUNTER → 2023-05-10 09:18 | Outpatient (BNVA) | payer MEDICARE, SELFPAY | PROVIDERS: Visit Provider Internal Medicine Endocrinology, Diabetes & Metabolism | DX: E11.65 Type 2 diabetes mellitus with hyperglycemia (principal) | CPT/HCPCS: 82947; 99212 ==

== ENCOUNTER 2023-05-23 14:18 | Outpatient (AMB) | payer MEDICARE, SELFPAY ==
--- NOTE | 2023-05-23 14:20 | MHC.PC.OV ---
Vital Signs 05/23/23 14:21 Height 5 ft 5 in Weight 171 lb BMI 28.5 BP 140/78 H Blood Pressure Location Lt brachial Position Sitting Pulse 64 Pulse Source Pulse Oximeter Pulse Oximetry (%) 97 Oxygen Delivery Method Room Air Intake Visit Reasons: DM, allergic reaction Allergies azithromycin Allergy (Severe, Verified 05/23/23 14:21) rash cortisone [CORTISONE] Allergy (Severe, Verified 05/23/23 14:21) RASH HIVES AND SWELLING OF THE TONGUE nitrofurantoin Allergy (Severe, Verified 05/23/23 14:21) tongue swelling Penicillins Allergy (Severe, Verified 05/23/23 14:21) ANAPHYLAXIS yeast, dried [yeast] Allergy (Severe, Verified 05/23/23 14:21) SHORTNESS OF BREATH empagliflozin [From Jardiance] Allergy (Intermediate, Verified 05/23/23 14:21) swollen tongue omeprazole [From Prilosec] Allergy (Intermediate, Verified 05/23/23 14:21) BLISTERS Sulfa (Sulfonamide Antibiotics) Allergy (Intermediate, Verified 05/23/23 14:21) Itching niacin [Niacin] Allergy (Mild, Verified 05/23/23 14:21) RASH tetracycline [Tetracycline] Allergy (Mild, Verified 05/23/23 14:21) RASH acetic acid [Acetic Acid] Allergy (Unknown, Verified 05/23/23 14:21) SHORTNESS OF BREATH FROM VINEGAR adhesive tape Allergy (Unknown, Verified 05/23/23 14:21) RASH Clindamycin HCl Allergy (Unknown, Verified 05/23/23 14:21) rash procaine [From NOVOCAIN] Allergy (Unknown, Verified 05/23/23 14:21) RASH,SWELLING OF TONGUE,BLISTERING cefixime [From Suprax] Adverse Reaction (Intermediate, Verified 05/23/23 14:21) Swelling in throat dulaglutide [From Trulicity] Adverse Reaction (Intermediate, Verified 05/23/23 14:21) swelling of tongue lorazepam [From Ativan] Adverse Reaction (Mild, Verified 05/23/23 14:21) VOMITING/NAUSEA morphine [MORPHINE] Adverse Reaction (Unknown, Verified 05/23/23 14:21) NAUSEA fosfomycin Allergy (Severe, Uncoded 05/23/23 14:21) tongue swelling jardiance Allergy (Severe, Uncoded 05/23/23 14:21) Yeast infection levofloxacin Allergy (Severe, Uncoded 05/23/23 14:21) Hives From AVELOX Allergy (Intermediate, Uncoded 05/23/23 14:21) SWELLING/RASH carrots, vinegar, yeast, chees Allergy (Unknown, Uncoded 05/23/23 14:21) Unknown SEASONAL ALLERGIES Allergy (Unknown, Uncoded 05/23/23 14:21) SNEEZING Tobacco use date assessed: 11/11/22 Fall risk assessment: No Falls in past year Last assessed Fall Risk: 05/23/23 Dental Screening Dental Screen Date: 05/23/23 Did you have a dental visit in the last 12 months?: Yes Did you have a dental problem in the last 6 months where you did not have access to dental care?: No Was dental information given to patient?: Patient has dentist HPI DM, allergic reaction HPI Details 72-year-old overweight female with diabetes mellitus uncontrolled COPD Bernal's esophagus hypercholesterolemia coronary artery disease hypertension last seen in March 2023 for physical exam patient is here for follow-up review of the notes has been follow up with endocrinology on and metformin basal bolus insulin. 3 weekd ago R shoulder carrying a heavy bag patient was referred to the Allergy and immunology to try to find out what antibiotic she is really allergic to and she was turned down because she was told that the do not do all testing. But discussed with the patient on the need to get checking in the Allergy immunology are the better % do it so called on the allergy immunology and they do penicillins to start with. With this advised patient to get a schedule with them. [facility] Medical History (Updated 05/23/23 @ 14:56 by William Colón MD) Barretts esophagus Breast cancer screening by mammogram Colon cancer screening COPD (chronic obstructive pulmonary disease) Coronary artery disease Cough COVID-19 Diabetic nephropathy Diabetic neuropathy Essential hypertension Hip osteoarthritis Hypercholesterolemia Mitral valve prolapse Myocardial infarct Osteoarthritis Skin rash Tobacco abuse Type 2 diabetes mellitus with hyperglycemia Vitamin D deficiency Surgical History Cystocele H/O heart artery stent History of cholecystectomy History of hysterectomy History of parathyroidectomy Family History Father CVD (cardiovascular disease) Dementia Heart valve replaced Mother Colon cancer Social History Housing: House Alcohol intake: never Patient Tobacco Use Status: Current someday Tobacco user Tobacco use type: Cigarette Cigarettes Per Day: 1 Years Smoked: 40 +/- Packs per year/per ci.00 e-Cigarette/Vaping Use: Never Used Second Hand Smoke Exposure: No service: No Current occupational status: retired Cognitive needs: No Hearing needs: No Vision needs: Yes Female Reproductive History Menstrual Age of Menarche: 9 Questionnaire PHQ-9 Over the last 2 weeks, how often have you been bothered by any of the following problems? 1. Little interest or pleasure in doing things: not at all 2. Feeling down, depressed, or hopeless: not at all 3. Trouble falling or staying asleep, or sleeping too much: not at all 4. Feeling tired or having little energy: not at all 5. Poor appetite or overeating: not at all 6. Feeling bad about yourself - or that you are a failure or have let yourself or your family down: not at all 7. Trouble concentrating on things, such as reading the newspaper or watching television: not at all 8. Moving or speaking so slowly that other people could have noticed. Or the opposite - being so fidgety or restless that you have been moving around a lot more than usual: not at all 9. Thoughts that you would be better off or of hurting yourself in some way: not at all Total score: 0 Depression Screening Interpretation: Negative Source: Developed by Drs. Michelet Roman, Clement Machuca and colleagues, with an educational debra from [employer]. Thrive Questionnaire Date Thrive assessed: 11/11/22 AUDIT C Alcohol Use Questionnaire (AUDIT-C) 1. How often do you have a drink containing alcohol?: Monthly or less 2. How many drinks containing alcohol do you have on a typical day when you are drinking?: 1 or 2 3. How often do you have six or more drinks on one occasion?: Never Total Score: 1 TALON-7 AMB Questionnaire TALON-7 Date TALON - 7 assessed: 11/11/22 Source: Developed by Drs. Michelet Roman, Clement Machuca and colleagues, with an educational debra from [employer]. Physical exam (Primary Care) Vital Signs: Last Vital Signs Pulse 64 05/23/23 14:21 BP 140/78 H 05/23/23 14:21 Pulse Ox 97 05/23/23 14:21 Oxygen Delivery Method Room Air 05/23/23 14:21 Care Plan Goal for BP management: tender on the R shoulder lateral m anterior , and posterior area, pain also on the R lateral epicondylitis area BMI result Body Mass Index 28.5 Tobacco/Smoking Status: Tobacco use Status Tobacco use date assessed 11/11/22 05/23/23 14:22 Patient Tobacco Use Status Current someday Tobacco 05/23/23 14:22 Tobacco use type Cigarette 05/23/23 14:22 e-Cigarette/Vaping Use Never Used 05/23/23 14:22 PHQ-9: PHQ-9 Score PHQ-9: Total score 0 05/23/23 14:56 Depression Screening Interpretation: Negative Thrive Assessment: Date of Thrive Assessment Date Thrive assessed 11/11/22 05/23/23 14:22 Const General: alert; No acute distress Eyes Conjunctivae: conjunctivae normal Resp Auscultation: clear to auscultation bilaterally Cardio Rate: regular rate Rhythm: regular rhythm GI Inspection: Yes normal to inspection Extrem General: Yes normal to inspection and No edema Results AMB Hemoglobin A1c AMB Hemoglobin A1c 9.1 % Last Edit by Yusra Davison CMA on 05/23/23 14:47 Results Reviewed Results Reviewed: Laboratory Last Values Hgb A1c (Clinic) 9.1 % (4.0-6.0) H 05/23/23 14:22 Assessment and Plan Assessment & Plan (1) Type 2 diabetes mellitus with hyperglycemia: Comment: December 2016 eye and lasik Code(s): E11.65 - Type 2 diabetes mellitus with hyperglycemia Qualifiers: Diabetes mellitus chcf insulin use: without long term care phlebotomist use Qualified Code(s): E11.65 - Type 2 diabetes mellitus with hyperglycemia Plan: Decrease the amount of carbohydrate intake, pasta, bread, rice and potatoes are all sugar and that is aside from all the sweet stuff, remember that fruits are good but they are Sweet also. Hemoglobin A1c goal of less than 7.0 patient follows up with Endocrinology right (2) COPD (chronic obstructive pulmonary disease): Code(s): J44.9 - Chronic obstructive pulmonary disease, unspecified Qualifiers: COPD type: emphysema Emphysema type: panlobular Qualified Code(s): J43.1 - Panlobular emphysema Plan: Continue with inhalers as needed (3) Barretts esophagus: Code(s): K22.70 - Bernal's esophagus without dysplasia Qualifiers: Bernal's esophagus type: without dysplasia Qualified Code(s): K22.70 - Bernal's esophagus without dysplasia Plan: Avoid the foods that causes that usually spicy foods, tomato products, juices, coffee, soda and foods that your sensitive to. After eating do not lie down, allow 3-4 hours before in lie down. And keep the head of bed above 30 degrees to avoid the acid from going up. (4) Hypercholesterolemia: Code(s): E78.00 - Pure hypercholesterolemia, unspecified Plan: Avoid fried foods, chicken skin, eggs, butter margarine, pastries and meat. Be it pork or beef they have a lot of cholesterol LDL goal of less than 70 and triglyceride of less than 150 patient is on fenofibrate 160 mg and rosuvastatin 20 mg once a day (5) Coronary artery disease: Comment: Stent placement January 2012 Code(s): I25.10 - Atherosclerotic heart disease of [place] coronary artery without angina pectoris Qualifiers: Associated angina: without angina Coronary Disease-Associated Artery/Lesion type: [place] artery [place] vs. transplanted heart: [place] heart Qualified Code(s): I25.10 - Atherosclerotic heart disease of [place] coronary artery without angina pectoris Plan: Control the cholesterol, weight, blood pressure, diabetes (6) Generalized anxiety disorder: Code(s): F41.1 - Generalized anxiety disorder Plan: Continue with medication (7) Essential hypertension: Code(s): I10 - Essential (primary) hypertension Plan: Continue with blood pressure medication. Decrease salt intake and exercise patient is on spironolactone 25 twice a day metoprolol lisinopril 40 mg (8) Multiple drug allergies: Code(s): Z88.9 - Allergy status to unspecified drugs, medicaments and biological substances (9) Lateral epicondylitis, right elbow: Code(s): M77.11 - Lateral epicondylitis, right elbow (10) Shoulder pain, right: Code(s): M25.511 - Pain in right shoulder Orders: Orders PT Evaluation and Treatment Today M25.511 - Pain in right shoulder, M77.11 - Lateral epicondylitis, right elbow XR DEXA axial skeleton Today M81.0 - Age-related osteoporosis without current pathological fracture, M85.89 - Other specified disorders of bone density and structure, multiple sites AMB Hemoglobin A1c Today Z13.9 - Encounter for screening, unspecified Referrals Allergy & Immunology Referral Z88.9 - Allergy status to unspecified drugs, medicaments and biological substances Allergy & Immunology Referral T78.40XA - Allergy, unspecified, initial encounter, Z88.9 - Allergy status to unspecified drugs, medicaments and biological substances Orthopedics Referral M25.511 - Pain in right shoulder, M77.11 - Lateral epicondylitis, right elbow Medications: New blood pressure monitor (Blood Pressure Kit) As directed 1 ea 0RF I10 - Essential (primary) hypertension Refilled lisinopril 40 mg PO DAILY 90 tabs 2RF I10 - Essential (primary) hypertension lansoprazole 30 mg PO DAILY 90 caps 3RF M77.11 - Lateral epicondylitis, right elbow fenofibrate 160 mg PO DAILY 90 tabs 2RF M77.11 - Lateral epicondylitis, right elbow Coding Level of Care Code Est Pt Level 4 (81180) Diagnoses Type 2 diabetes mellitus with hyperglycemia E11.65 Diabetes mellitus chcf insulin use: without chcf use COPD (chronic obstructive pulmonary disease) J43.1 COPD type: emphysema Emphysema type: panlobular Barretts esophagus K22.70 Bernal's esophagus type: without dysplasia Hypercholesterolemia E78.00 Coronary artery disease I25.10 Associated angina: without angina Coronary Disease-Associated Artery/Lesion type: [place] artery [place] vs. transplanted heart: [place] heart Generalized anxiety disorder F41.1 Essential hypertension I10 Multiple drug allergies Z88.9 Lateral epicondylitis, right elbow M77.11 Shoulder pain, right M25.511
[2023-05-23 14:21] VITALS: BP 140/78; PULSE 64; O2SAT 97; BMI 28.5
== END 2023-05-23 15:07 | disposition home or self-care (01) ==
PROVIDERS: Visit Provider Internal Medicine
DX: E11.65 Type 2 diabetes mellitus with hyperglycemia (principal); K22.70 Barrett's esophagus without dysplasia; I10 Essential (primary) hypertension; Z88.9 Allergy status to unspecified drugs, medicaments and biological substances; E78.00 Pure hypercholesterolemia, unspecified; I25.10 Atherosclerotic heart disease of native coronary artery without angina pectoris; F41.1 Generalized anxiety disorder; J43.1 Panlobular emphysema; M77.11 Lateral epicondylitis, right elbow; M25.511 Pain in right shoulder
CPT/HCPCS: 83036; 99214

== ENCOUNTER 2023-06-30 09:49 | Outpatient (AMB) | payer MEDICARE, SELFPAY ==
--- NOTE | 2023-06-30 09:51 | A.OFFVIS_ITS ---
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 Xrays obtained in office. Patient reports about 6-7 weeks ago while carrying groceries her arm got pulled down causing a jerking motion that caused pain hours later as well as swelling. She has numbness in hand and is unable to lay on right side. Hx of right RTC injury in 2003 and was working with PT. Limited ROM stating unable to put her arm behind her. Finds little relief with Ibuprofen and asperceme. Allergies azithromycin Allergy (Severe, Verified 06/30/23 10:19) rash cortisone [CORTISONE] Allergy (Severe, Verified 06/30/23 10:19) RASH HIVES AND SWELLING OF THE TONGUE nitrofurantoin Allergy (Severe, Verified 06/30/23 10:19) tongue swelling Penicillins Allergy (Severe, Verified 06/30/23 10:19) ANAPHYLAXIS yeast, dried [yeast] Allergy (Severe, Verified 06/30/23 10:19) SHORTNESS OF BREATH empagliflozin [From Jardiance] Allergy (Intermediate, Verified 06/30/23 10:19) swollen tongue omeprazole [From Prilosec] Allergy (Intermediate, Verified 06/30/23 10:19) BLISTERS Sulfa (Sulfonamide Antibiotics) Allergy (Intermediate, Verified 06/30/23 10:19) Itching niacin [Niacin] Allergy (Mild, Verified 06/30/23 10:19) RASH tetracycline [Tetracycline] Allergy (Mild, Verified 06/30/23 10:19) RASH acetic acid [Acetic Acid] Allergy (Unknown, Verified 06/30/23 10:19) SHORTNESS OF BREATH FROM VINEGAR adhesive tape Allergy (Unknown, Verified 06/30/23 10:19) RASH Clindamycin HCl Allergy (Unknown, Verified 06/30/23 10:19) rash procaine [From NOVOCAIN] Allergy (Unknown, Verified 06/30/23 10:19) RASH,SWELLING OF TONGUE,BLISTERING cefixime [From Suprax] Adverse Reaction (Intermediate, Verified 06/30/23 10:19) Swelling in throat dulaglutide [From Trulicity] Adverse Reaction (Intermediate, Verified 06/30/23 10:19) swelling of tongue lorazepam [From Ativan] Adverse Reaction (Mild, Verified 06/30/23 10:19) VOMITING/NAUSEA morphine [MORPHINE] Adverse Reaction (Unknown, Verified 06/30/23 10:19) NAUSEA fosfomycin Allergy (Severe, Uncoded 06/30/23 10:19) tongue swelling jardiance Allergy (Severe, Uncoded 06/30/23 10:19) Yeast infection levofloxacin Allergy (Severe, Uncoded 06/30/23 10:19) Hives From AVELOX Allergy (Intermediate, Uncoded 06/30/23 10:19) SWELLING/RASH carrots, vinegar, yeast, chees Allergy (Unknown, Uncoded 06/30/23 10:19) Unknown SEASONAL ALLERGIES Allergy (Unknown, Uncoded 06/30/23 10:19) SNEEZING HPI 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 She also c/o limited ROM and numbness in her hand. She finds difficulty to reach her back or lay on her right side. She finds mild relief with ibuprofen and aspercreme. She has a history of right RTC injury in 2003. [facility] Medical History (Updated 06/30/23 @ 10:39 by Malaika Landaverde PA-C) Barretts esophagus Breast cancer screening by mammogram Colon cancer screening COPD (chronic obstructive pulmonary disease) Coronary artery disease Cough COVID-19 Diabetic nephropathy Diabetic neuropathy Essential hypertension Hip osteoarthritis Hypercholesterolemia Mitral valve prolapse Myocardial infarct Osteoarthritis Skin rash Tobacco abuse Type 2 diabetes mellitus with hyperglycemia Vitamin D deficiency Surgical History Cystocele H/O heart artery stent History of cholecystectomy History of hysterectomy History of parathyroidectomy Family History Father CVD (cardiovascular disease) Dementia Heart valve replaced Mother Colon cancer Social History (Updated 06/30/23 @ 10:21 by MACHELLE Carcamo) Housing: House Alcohol intake: never Patient Tobacco Use Status: Current someday Tobacco user Tobacco use type: Cigarette Cigarettes Per Day: 1 Years Smoked: 40 +/- e-Cigarette/Vaping Use: Never Used Second Hand Smoke Exposure: No service: No Current occupational status: retired Current occupation: right hand dominant Cognitive needs: No Hearing needs: No Vision needs: Yes Female Reproductive History Menstrual Age of Menarche: 9 Review of Systems Const All systems reviewed & are unremarkable except as noted in HPI and below Physical Exam Vital Signs: BMI result Body Mass Index 28.5 Const General: cooperative, healthy appearing, comfortable, no acute distress, well developed and alert Orientation/consciousness: patient oriented x3 HEENT Head: Yes normal to inspection, Yes normocephalic and Yes atraumatic Eyes General: appearance normal, both eyes and all related structures Resp Effort & Inspection: normal respiratory effort and able to speak in complete sentences Cardio Rate: regular rate Peripheral pulses: Peripheral pulses 2+ throughout GI Palpation (GI): Soft to palpation Skin Lesions: no lesions Rashes: no rashes Neuro General: patient oriented x3 Extrem Other: Right shoulder normal to inspection. Tenderness over the bicipital groove and along the deltoid region of the shoulder. Forward flexion to 175, external rotation to 90, internal rotation to S1. She has some discomfort with RTC strength testing but is able to activate the tendon. Negative Flanagan and cross body abduction. NVI. Results Reviewed Results Reviewed: X-rays of the right shoulder obtained in the office today show mild AC joint arthritis with type 2 acromion. Assessment & Plan Assessment & Plan (1) Tendinitis of right rotator cuff: Code(s): M75.81 - Other shoulder lesions, right shoulder Plan We discussed options which include physical therapy, steroid injection and anti- inflammatories use. She is unable to have a steroid injection given the side effects she experiences with metallic taste. She is currently taking ibuprofen at home and was receptive to beginning a course of formal physical therapy. She will work on ROM, RTC and periscapular stabilization. I also encouraged them to work on e stim and an iontophoresis if she is able to tolerate this. If symptoms persist or worsens, patient will contact the office and we can discuss further options like an MRI, otherwise follow-up as needed. Orders: Orders XR shoulder RT min 2V Today M25.511 - Pain in right shoulder PT Evaluation and Treatment Today M75.81 - Other shoulder lesions, right shoulder Patient Instructions: Scribed for Malaika Landaverde PA-C, by Kaden Ruiz medical biller/coder, on 06/30/2023 at 10:00 AM KRISTEN. Malaika Leiva PA-C, have personally reviewed and agree with the information entered by the scribe. Coding Level of Care Code New Pt Level 3 (93416) Diagnoses Tendinitis of right rotator cuff M75.81
[2023-06-30 10:26] VITALS: BMI 28.5
== END 2023-06-30 11:41 | disposition home or self-care (01) ==
PROVIDERS: PCP Internal Medicine; Visit Provider Physician Assistant
DX: M75.81 Other shoulder lesions, right shoulder (principal)
CPT/HCPCS: 99203

== ENCOUNTER 2023-06-30 13:39 | Outpatient (REF) | payer MEDICARE, SELFPAY ==
--- NOTE | ~2023-06-30 | XR_ITS ---
EXAMINATION: XR SHOULDER, RIGHT CLINICAL INFORMATION: Pain. COMPARISON: None available. TECHNIQUE: AP neutral, scapular Y and axillary views of the right shoulder are submitted. FINDINGS: Bony alignment and mineralization are normal. The glenohumeral joint is intact. The acromioclavicular and coracoclavicular intervals are normal. There is cortical irregularity of the greater tuberosity of the proximal right humerus. No fracture or dislocation is seen. There is no soft tissue calcification or foreign body. No right pneumothorax is seen. XR/XR shoulder RT min 2V IMPRESSION: 1. No fracture or dislocation is seen. 2. There is cortical irregularity of the greater tuberosity proximal right humerus, which can be associated with rotator cuff impingement. No bernadette calcific tendinitis is seen.
== END 2023-06-30 13:40 | disposition home or self-care (01) ==
LOC: HO.HOSX 13:39
PROVIDERS: Visit Provider Physician Assistant
DX: M25.511 Pain in right shoulder (principal); M75.81 Other shoulder lesions, right shoulder
CPT/HCPCS: 73030; 99202

== ENCOUNTER 2023-07-21 10:56 | Outpatient (REF) | payer MEDICARE, SELFPAY ==
--- NOTE | ~2023-07-21 | MM_ITS ---
EXAMINATION: BONE DENSITOMETRY CLINICAL INDICATION: Age-related osteoporosis without current pathological fracture. COMPARISON: Previous BD dated 05/07/2021 and baseline BD dated 11/28/2006. TECHNIQUE: Using a [employer] DXA System (software version: 13.1) manufactured by [employer], dual-energy x-ray absorptiometry was performed of the lumbar spine and left hip. The images are of good technical quality. Summary results are attached. FINDINGS: LEFT FEMUR, NECK: Current: BMD 0.891 g/cm2, Z-score 0.6, T-score -1.1, osteopenia. Prior: BMD 0.888 g/cm2. Baseline: BMD 0.908 g/cm2. LEFT FEMUR, TOTAL: Current: BMD 1.004 g/cm2, Z-score 1.4, T-score 0.0, normal, 2.6% increase from previous, 0.1% decrease from baseline (<5% change is not significant). Prior: BMD 0.979 g/cm2. Baseline: BMD 1.005 g/cm2. AP SPINE L1-L4: Current: BMD 1.294 g/cm2, Z-score 2.3, T-score 0.9, normal, 5.1% increase from previous, 24.9% increase from baseline (<5% change is not significant). Prior: BMD 1.231 g/cm2. Baseline: BMD 1.036 g/cm2. IDENTIFIED RISK FACTORS: Early menopause, secondary osteoporosis, hysterectomy, bilateral oophorectomy, glucocorticoids (chronic), recurrent falls. HISTORY OF FRACTURE: None listed. MEDICATIONS: Calcium supplements or multivitamin, vitamin D. MM/XR DEXA axial skeleton IMPRESSION: 1. DIAGNOSIS: Osteopenia based on the lowest T-score value of -1.1 in the femoral neck applying World Health Organization criteria. 2. 10-YEAR FRACTURE RISK PREDICTION, FRAX: Major osteoporotic fracture (clinical spine, forearm, hip or shoulder) 14.9%. Hip fracture 2.5%. 3. Treatment Recommendations: NOF guidelines recommend consideration for treatment in postmenopausal women and men age 50 and older presenting with the following: -A hip or vertebral (clinical or morphometric) fracture. -T-score less than or equal to -2.5 at the femoral neck or spine after appropriate evaluation to exclude secondary causes. -Low bone mass at the hip or spine and a 10-year fracture probability by FRAX of greater than or equal to 3% for hip fracture or greater than or equal to 20% for major osteoporotic fracture based on the [place] adapted WHO algorithm. 4. Other Recommendations: All treatment decisions require clinical judgment and consideration of individual patient factors, including patient preferences, comorbidities, previous drug use, risk factors not captured in the FRAX model (e.g. frailty, falls, vitamin D deficiency, increased bone turnover, interval significant decline in bone density) and possible under or overestimation of fracture risk by FRAX. Additional medical evaluation for secondary cause of low bone mineral density may be appropriate. FUTURE SCAN RECOMMENDATION: People with diagnosed cases of osteoporosis or at high risk for fracture should have regular bone mineral density tests. For patients eligible for Medicare, routine testing is allowed once every 2 years. The testing frequency can be increased to one year for patients who have rapidly progressing disease, those who are receiving or discontinuing medical therapy to restore bone mass, or have additional risk factors.
== END 2023-07-21 10:57 | disposition home or self-care (01) ==
LOC: HO.MAMMO 10:56
PROVIDERS: PCP Internal Medicine; Visit Provider Internal Medicine
DX: Z13.820 Encounter for screening for osteoporosis (principal); Z78.0 Asymptomatic menopausal state; M81.0 Age-related osteoporosis without current pathological fracture; M85.89 Other specified disorders of bone density and structure, multiple sites
CPT/HCPCS: 77080

== ENCOUNTER 2023-07-27 13:36 | Outpatient (AMB) | payer MEDICARE, SELFPAY ==
--- NOTE | 2023-07-27 13:38 | A.OFFVIS_ITS ---
Intake Vital Signs 07/27/23 13:41 Height 5 ft 5 in Weight 170 lb 10.205 oz BMI 28.4 BP 160/67 H Blood Pressure Location Rt brachial Position Sitting Respiration 16 Pulse 76 Pulse Source Pulse Oximeter Pulse Oximetry (%) 96 Oxygen Delivery Method Room Air Intake Visit Reasons: 6 month follow up Intake Note: Patient here for follow up with no EKG Allergies azithromycin Allergy (Severe, Verified 07/27/23 13:44) rash cortisone [CORTISONE] Allergy (Severe, Verified 07/27/23 13:44) RASH HIVES AND SWELLING OF THE TONGUE nitrofurantoin Allergy (Severe, Verified 07/27/23 13:44) tongue swelling Penicillins Allergy (Severe, Verified 07/27/23 13:44) ANAPHYLAXIS yeast, dried [yeast] Allergy (Severe, Verified 07/27/23 13:44) SHORTNESS OF BREATH empagliflozin [From Jardiance] Allergy (Intermediate, Verified 07/27/23 13:44) swollen tongue omeprazole [From Prilosec] Allergy (Intermediate, Verified 07/27/23 13:44) BLISTERS Sulfa (Sulfonamide Antibiotics) Allergy (Intermediate, Verified 07/27/23 13:44) Itching niacin [Niacin] Allergy (Mild, Verified 07/27/23 13:44) RASH tetracycline [Tetracycline] Allergy (Mild, Verified 07/27/23 13:44) RASH acetic acid [Acetic Acid] Allergy (Unknown, Verified 07/27/23 13:44) SHORTNESS OF BREATH FROM VINEGAR adhesive tape Allergy (Unknown, Verified 07/27/23 13:44) RASH Clindamycin HCl Allergy (Unknown, Verified 07/27/23 13:44) rash procaine [From NOVOCAIN] Allergy (Unknown, Verified 07/27/23 13:44) RASH,SWELLING OF TONGUE,BLISTERING cefixime [From Suprax] Adverse Reaction (Intermediate, Verified 07/27/23 13:44) Swelling in throat dulaglutide [From Trulicity] Adverse Reaction (Intermediate, Verified 07/27/23 13:44) swelling of tongue lorazepam [From Ativan] Adverse Reaction (Mild, Verified 07/27/23 13:44) VOMITING/NAUSEA morphine [MORPHINE] Adverse Reaction (Unknown, Verified 07/27/23 13:44) NAUSEA fosfomycin Allergy (Severe, Uncoded 07/27/23 13:44) tongue swelling jardiance Allergy (Severe, Uncoded 07/27/23 13:44) Yeast infection levofloxacin Allergy (Severe, Uncoded 07/27/23 13:44) Hives From AVELOX Allergy (Intermediate, Uncoded 07/27/23 13:44) SWELLING/RASH carrots, vinegar, yeast, chees Allergy (Unknown, Uncoded 07/27/23 13:44) Unknown SEASONAL ALLERGIES Allergy (Unknown, Uncoded 07/27/23 13:44) SNEEZING Medication List - Last Reconciled 07/27/23 by Dion Roque MD albuterol sulfate 90 mcg/actuation 1 puff PO Q4H PRN aspirin (Adult Low Dose Aspirin) 81 mg PO DAILY blood pressure monitor (Blood Pressure Kit) As directed blood pressure test kit-large As directed blood sugar diagnostic As directed blood sugar diagnostic (Accu-Chek Guide test strips) As directed check BS TID blood sugar diagnostic (Accu-Chek Guide test strips) As directed check the BS TID calcium carbonate (Calcium) 600 mg PO DAILY cholecalciferol (vitamin D3) 50 mcg PO DAILY cyanocobalamin (vitamin B-12) 1,000 mcg PO DAILY fenofibrate 160 mg PO DAILY fluticasone propionate 50 mcg/actuation 2 sprays intranasal DAILY 90 days gabapentin 100 mg PO DAILY 90 days insulin glargine (Lantus Solostar U-100 Insulin) 48 units (0.48 mL) subcut DAILY 90 days lancets (Accu-Chek Fastclix Lancet Drum) 1 ea topical TID 90 days lansoprazole 30 mg PO DAILY lisinopril 40 mg PO DAILY metformin 1,000 mg PO BIDWMEAL 90 days metoprolol tartrate PO; 2 tabs in the AM, 1 tabs in the PM 90 days pen needle, diabetic (BD Ultra-Fine Micro Pen Needle) As directed inject once a day Insulin pen needle, diabetic (BD Marisela 2nd Gen Pen Needle) As directed rosuvastatin 20 mg PO DAILY spironolactone 25 mg PO BID HPI HPI Comments History of Present Illness Details Alicia returns for follow-up regarding coronary artery disease. To recall, she had a myocardial infarction in 2004 and had LAD stent placed. Then had NSTEMI 2011 leading to another stent placement. Then she had chest pains in 2019 leading to one further cardiac catheterization but no new interventions. Then another episode of chest pain leading to [facility] hospitalization and had a stress test and then discharged home. Otherwise numerous cardiovascular risk factors including diabetes, hypertension, dyslipidemia. Chronic smoker. Overall, she is feeling good. No new concerns. No symptoms like angina. [facility] Medical History (Updated 06/30/23 @ 10:39 by Malaika Landaverde PA-C) Myocardial infarct COVID-19 Tobacco abuse Cough Skin rash Breast cancer screening by mammogram Colon cancer screening Essential hypertension Mitral valve prolapse Diabetic neuropathy Type 2 diabetes mellitus with hyperglycemia Hip osteoarthritis Diabetic nephropathy Vitamin D deficiency COPD (chronic obstructive pulmonary disease) Osteoarthritis Barretts esophagus Hypercholesterolemia Coronary artery disease Surgical History Cystocele H/O heart artery stent History of cholecystectomy History of hysterectomy History of parathyroidectomy Family History (Reviewed 05/10/23 @ 09:24 by Phyllis Lizarraga [facility]) Father CVD (cardiovascular disease) Dementia Heart valve replaced Mother Colon cancer Social History (Updated 06/30/23 @ 10:21 by Richa Cortes Makayla) Housing: House Alcohol intake: never Patient Tobacco Use Status: Current someday Tobacco user Tobacco use type: Cigarette Cigarettes Per Day: 1 Years Smoked: 40 +/- e-Cigarette/Vaping Use: Never Used Second Hand Smoke Exposure: No service: No Current occupational status: retired Current occupation: right hand dominant Cognitive needs: No Hearing needs: No Vision needs: Yes Female Reproductive History Menstrual Age of Menarche: 9 Review of Systems Const Denies weakness ENT Denies dizziness Card Denies chest pain, Denies chest pain with activity, Denies syncope, Denies rapid heart rate, Denies pedal edema, Denies edema, Denies leg edema, Denies lightheadedness, Denies palpitations, Denies dyspnea, Denies dyspnea on exertion and Denies orthopnea Resp Denies cough, Denies dyspnea and Denies dyspnea on exertion GI Denies hematochezia and Denies change in stool character Reports no additional complaints and Reports as per HPI Musc Denies abnormal gait, Denies muscle weakness, Denies numbness, Denies radiating pain into limb and Denies tingling Skin/Breast Reports system reviewed and no additional complaints, except as documented and Reports as per HPI Neuro Denies abnormal gait, Denies dizziness, Denies syncope, Denies numbness, Denies tingling and Denies weakness Psych Reports no additional complaints and Reports as per HPI Endo Denies palpitations Wilbur/Lymph Reports no additional complaints and Reports as per HPI Aller/Immun Reports no additional complaints and Reports as per HPI Physical Exam Vital Signs: Last Vital Signs Pulse 76 07/27/23 13:41 Resp 16 07/27/23 13:41 BP 160/67 H 07/27/23 13:41 Pulse Ox 96 07/27/23 13:41 Oxygen Delivery Method Room Air 07/27/23 13:41 BMI result Body Mass Index 28.4 Const General: comfortable and no acute distress Orientation/consciousness: patient oriented x3 HEENT Other: Unremarkable Head: Yes normal to inspection Neck Neck: Yes normal visual inspection Chest Chest palpation & inspection: normal inspection of the chest Resp Auscultation: clear to auscultation bilaterally Cardio Palpation: normal PMI Heart sounds: S1 normal heart sound present, S2 normal heart sound present, no gallops, no murmurs and no rubs GI Palpation (GI): Soft to palpation Back/Spine/Pelvis Other: unremarkable Skin General skin exam: no rashes or lesions noted Neuro General: patient oriented x3 Extrem General: Yes normal to inspection Psych Mental Status: mental status grossly normal Assessment & Plan Assessment & Plan (1) Atherosclerotic cardiovascular disease: Code(s): I25.10 - Atherosclerotic heart disease of teller coronary artery without angina pectoris Plan: Last cardiac catheterization reviewed from 2019. That revealed moderate mid LAD disease with patent proximal LAD stent/mild ISR. Nonobstructive disease elsewhere. Myocardial perfusion imaging study with modified Abraham protocol 10/2019 showed normal perfusion at exercise capacity of 4.6 Mets. Echocardiogram from 2017 with normal LVEF, mild diastolic dysfunction and otherwise unremarkable. Remains stable. Can continue aspirin statins. Last LDL 60 mg/dL. (2) Essential hypertension: Code(s): I10 - Essential (primary) hypertension Plan: Blood pressure on the higher side. On lisinopril/spironolactone. Add amlodipine. Advised patient to monitor home blood pressures and report. (3) Other and unspecified hyperlipidemia: Code(s): E78.5 - Hyperlipidemia, unspecified Plan: On rosuvastatin 20 mg daily. Not able tolerate anything higher. LDL 60 mg/dL. (4) Type 2 diabetes mellitus with unspecified complications: Code(s): E11.8 - Type 2 diabetes mellitus with unspecified complications Plan: On insulin, Janumet. Last hemoglobin A1c is 9.1%. Less than optimal control. Medications: New amlodipine 5 mg PO DAILY 90 tabs 3RF Coding Level of Care Code Est Pt Level 4 (00971) Diagnoses Atherosclerotic cardiovascular disease I25.10 Essential hypertension I10 Other and unspecified hyperlipidemia E78.5 Type 2 diabetes mellitus with unspecified complications E11.8
[2023-07-27 13:41] VITALS: BP 160/67; PULSE 76; RESP 16; O2SAT 96; BMI 28.4
== END 2023-07-27 14:06 | disposition home or self-care (01) ==
PROVIDERS: PCP Internal Medicine; Visit Provider Internal Medicine
DX: I25.10 Atherosclerotic heart disease of native coronary artery without angina pectoris (principal); I10 Essential (primary) hypertension; E78.5 Hyperlipidemia, unspecified; E11.8 Type 2 diabetes mellitus with unspecified complications
CPT/HCPCS: 99214

== ENCOUNTER → 2023-07-27 13:36 | Outpatient (BNVA) | payer MEDICARE, SELFPAY | PROVIDERS: PCP Internal Medicine; Visit Provider Internal Medicine | DX: I25.10 Atherosclerotic heart disease of native coronary artery without angina pectoris (principal); I10 Essential (primary) hypertension; E78.5 Hyperlipidemia, unspecified; E11.8 Type 2 diabetes mellitus with unspecified complications; Z79.4 Long term (current) use of insulin; Z79.82 Long term (current) use of aspirin; Z79.899 Other long term (current) drug therapy | CPT/HCPCS: 99212 ==

== ENCOUNTER 2023-09-06 13:36 | Outpatient (AMB) | payer MEDICARE, SELFPAY ==
[2023-09-06 14:44] VITALS: BP 130/72; PULSE 74; TEMP 36.6; O2SAT 97; BMI 29.0
--- NOTE | 2023-09-06 14:44 | AM.OFFWIN_ITS ---
Intake Vital Signs 09/06/23 14:44 Height 5 ft 5 in Weight 174 lb 6 oz BMI 29.0 BP 130/72 Blood Pressure Location Lt brachial Position Sitting Pulse 74 Pulse Source Pulse Oximeter Temp 97.8 F Temp Source Temporal Artery Scan Pulse Oximetry (%) 97 Oxygen Delivery Method Room Air Intake Visit Reasons: EP, headache, cough, chest congestion (masked) Intake Note: pt is here for c/o headache, cough, chest congestion over 2 weeks Patient Tobacco Use Status: Current someday Tobacco user Allergies azithromycin Allergy (Severe, Verified 09/06/23 14:44) rash cortisone [CORTISONE] Allergy (Severe, Verified 09/06/23 14:44) RASH HIVES AND SWELLING OF THE TONGUE nitrofurantoin Allergy (Severe, Verified 09/06/23 14:44) tongue swelling Penicillins Allergy (Severe, Verified 09/06/23 14:44) ANAPHYLAXIS yeast, dried [yeast] Allergy (Severe, Verified 09/06/23 14:44) SHORTNESS OF BREATH empagliflozin [From Jardiance] Allergy (Intermediate, Verified 09/06/23 14:44) swollen tongue omeprazole [From Prilosec] Allergy (Intermediate, Verified 09/06/23 14:44) BLISTERS Sulfa (Sulfonamide Antibiotics) Allergy (Intermediate, Verified 09/06/23 14:44) Itching niacin [Niacin] Allergy (Mild, Verified 09/06/23 14:44) RASH tetracycline [Tetracycline] Allergy (Mild, Verified 09/06/23 14:44) RASH acetic acid [Acetic Acid] Allergy (Unknown, Verified 09/06/23 14:44) SHORTNESS OF BREATH FROM VINEGAR adhesive tape Allergy (Unknown, Verified 09/06/23 14:44) RASH Clindamycin HCl Allergy (Unknown, Verified 09/06/23 14:44) rash procaine [From NOVOCAIN] Allergy (Unknown, Verified 09/06/23 14:44) RASH,SWELLING OF TONGUE,BLISTERING cefixime [From Suprax] Adverse Reaction (Intermediate, Verified 09/06/23 14:44) Swelling in throat dulaglutide [From Trulicity] Adverse Reaction (Intermediate, Verified 09/06/23 14:44) swelling of tongue lorazepam [From Ativan] Adverse Reaction (Mild, Verified 09/06/23 14:44) VOMITING/NAUSEA morphine [MORPHINE] Adverse Reaction (Unknown, Verified 09/06/23 14:44) NAUSEA fosfomycin Allergy (Severe, Uncoded 07/27/23 13:44) tongue swelling jardiance Allergy (Severe, Uncoded 07/27/23 13:44) Yeast infection levofloxacin Allergy (Severe, Uncoded 07/27/23 13:44) Hives From AVELOX Allergy (Intermediate, Uncoded 07/27/23 13:44) SWELLING/RASH carrots, vinegar, yeast, chees Allergy (Unknown, Uncoded 07/27/23 13:44) Unknown SEASONAL ALLERGIES Allergy (Unknown, Uncoded 07/27/23 13:44) SNEEZING Do you need a note to return to daycare/school/sports/work: Yes HPI HPI Comments History of Present Illness Details Patient is a 73-year-old female in today for a sick visit. Patient reports for the past 2 weeks she has had a cough that is sometimes dry and sometimes productive, headache, body aches, And low-grade fever. Patient denies shortness of breath chest pain. Patient has tried her albuterol inhaler at home, with little effect. States that it feels like she needs to produce expectorant, but feels like she is unable to actually clear the phlegm. Patient has several allergies and sensitivities to medications, including many a ntibiotics. For patient's head is normocephalic, TM visible pearly novak. No nasal discharge. Pharynx normal. Patient has expiratory wheeze. Breath sounds slightly diminished. Patient likely has upper respiratory infection. Unlikely to be atypical presentation coronary syndrome, pneumonia, or acute respiratory distress. Patient will be given DuoNeb treatment in office. Will prescribe prednisone to be taken over the next 5 days. Will get back to patient with chest x-ray and respiratory swab results. Patient has been educated on signs of worsening symptoms, and when to return to the walk-in and when to present to the emergency room. Patient has been educated on the side effects of medications. [facility] Medical History (Updated 06/30/23 @ 10:39 by Malaika Landaverde PA-C) Myocardial infarct COVID-19 Tobacco abuse Cough Skin rash Breast cancer screening by mammogram Colon cancer screening Essential hypertension Mitral valve prolapse Diabetic neuropathy Type 2 diabetes mellitus with hyperglycemia Hip osteoarthritis Diabetic nephropathy Vitamin D deficiency COPD (chronic obstructive pulmonary disease) Osteoarthritis Barretts esophagus Hypercholesterolemia Coronary artery disease Surgical History Cystocele H/O heart artery stent History of cholecystectomy History of hysterectomy History of parathyroidectomy Family History Father CVD (cardiovascular disease) Dementia Heart valve replaced Mother Colon cancer Social History (Updated 06/30/23 @ 10:21 by Richa Cortes Makayla) Housing: House Alcohol intake: never Patient Tobacco Use Status: Current someday Tobacco user Tobacco use type: Cigarette Cigarettes Per Day: 1 Years Smoked: 40 +/- e-Cigarette/Vaping Use: Never Used Second Hand Smoke Exposure: No service: No Current occupational status: retired Current occupation: right hand dominant Cognitive needs: No Hearing needs: No Vision needs: Yes Female Reproductive History Menstrual Age of Menarche: 9 Review of Systems Const All systems reviewed & are unremarkable except as noted in HPI and below Reports headache(s) Eyes Denies eye discharge ENT Denies dizziness, Denies otalgia, Denies facial pain, Reports headache(s) and Reports sore throat Resp Reports cough and Reports wheezing Neuro Denies dizziness and Reports headache(s) Aller/Immun Reports wheezing Physical Exam Vital Signs: Last Vital Signs Temp 97.8 F 09/06/23 14:44 Pulse 74 09/06/23 14:44 BP 130/72 09/06/23 14:44 Pulse Ox 97 09/06/23 14:44 Oxygen Delivery Method Room Air 09/06/23 14:44 BMI result Body Mass Index 29.0 Vital signs reviewed are unremarkable Const General: cooperative and no acute distress Orientation/consciousness: patient oriented x3 Limitations: no limitations HEENT Head: Yes normocephalic Ears: TM's normal bilaterally General nose exam: Normal external nose present Neck Neck: Yes normal visual inspection and Yes no lymphadenopathy Resp Effort & Inspection: Actively coughing and no respiratory distress Auscultation: wheezes Cardio Rate: regular rate Rhythm: regular rhythm Neuro General: patient oriented x3 Assessment & Plan Assessment & Plan (1) Upper respiratory infection: Code(s): J06.9 - Acute upper respiratory infection, unspecified Qualifiers: URI type: unspecified viral URI Qualified Code(s): J06.9 - Acute upper respiratory infection, unspecified Plan: patient has had chest x-ray and upper respiratory swab. Patient had DuoNeb treatment in office with good effect. Mucous was loose post treatment. Patient will be prescribed prednisone to be taken over the next 5 days. Patient has been educated on side effects of medication. Instructed on signs of worsening symptoms and when to return to the walk-in clinic and when to present to the ER. Orders: Orders AMB Nebulizer Treatment Today R05.9 - Cough, unspecified SARS-CoV2/FLU/RSV Today J06.9 - Acute upper respiratory infection, unspecified XR chest 2V Today J39.9 - Disease of upper respiratory tract, unspecified Medications: New ipratropium-albuterol 0.5 mg-3 mg(2.5 mg base)/3 mL 3 mL inhalation ONCE 3 mL 0RF R05.9 - Cough, unspecified Coding Level of Care Code Est Pt Level 3 (61995) Diagnoses Viral upper respiratory tract infection J06.9 URI type: unspecified viral URI
== END 2023-09-06 16:27 | disposition home or self-care (01) ==
PROVIDERS: PCP Internal Medicine; Visit Provider Nurse Practitioner Primary Care
DX: J06.9 Acute upper respiratory infection, unspecified (principal)
CPT/HCPCS: 99213

== ENCOUNTER 2023-09-06 15:12 | Outpatient (REF) | payer MEDICARE, SELFPAY ==
--- NOTE | ~2023-09-06 | XR_ITS ---
EXAMINATION: XR CHEST CLINICAL INFORMATION: Upper respiratory tract infection. COMPARISON: 08/20/2019 TECHNIQUE: 2 views of the chest were obtained. FINDINGS: The lungs are well expanded. No focal consolidation. No pleural effusion. Cardiac silhouette is unchanged. XR/XR chest 2V IMPRESSION: No acute abnormality.
[2023-09-06 18:29] LABS: Influenza A PCR NEGATIVE (Negative); Influenza B PCR NEGATIVE (Negative); Resp Syncy Virus RNA Qual PCR NEGATIVE (Negative); SARS COV2 PCR INHOUSE NEGATIVE (Negative)
== END 2023-09-06 15:13 | disposition home or self-care (01) ==
LOC: HO.HMGCX 15:12
PROVIDERS: PCP Internal Medicine; Visit Provider Nurse Practitioner Primary Care
DX: J06.9 Acute upper respiratory infection, unspecified (principal); Z11.52 Encounter for screening for COVID-19
CPT/HCPCS: 0241U; 71046

== ENCOUNTER 2023-10-09 15:14 | Outpatient (AMB) | payer MEDICARE, SELFPAY ==
[2023-10-09 15:18] VITALS: BP 142/68; PULSE 69; O2SAT 97; BMI 28.8
--- NOTE | 2023-10-09 15:18 | MHC.PC.OV ---
Vital Signs 10/09/23 15:18 Height 5 ft 5 in Weight 173 lb BMI 28.8 BP 142/68 H Pulse 69 Pulse Source Pulse Oximeter Pulse Oximetry (%) 97 Oxygen Delivery Method Room Air Intake Visit Reasons: Discuss Allergies / Medications - need A1C Scrum Coach Required: No Allergies cortisone [CORTISONE] Allergy (Severe, Verified 10/09/23 15:21) RASH HIVES AND SWELLING OF THE TONGUE nitrofurantoin Allergy (Severe, Verified 10/09/23 15:21) tongue swelling Penicillins Allergy (Severe, Verified 10/09/23 15:21) ANAPHYLAXIS yeast, dried [yeast] Allergy (Severe, Verified 10/09/23 15:21) SHORTNESS OF BREATH empagliflozin [From Jardiance] Allergy (Intermediate, Verified 10/09/23 15:21) swollen tongue omeprazole [From Prilosec] Allergy (Intermediate, Verified 10/09/23 15:21) BLISTERS Sulfa (Sulfonamide Antibiotics) Allergy (Intermediate, Verified 10/09/23 15:21) Itching niacin [Niacin] Allergy (Mild, Verified 10/09/23 15:21) RASH tetracycline [Tetracycline] Allergy (Mild, Verified 10/09/23 15:21) RASH acetic acid [Acetic Acid] Allergy (Unknown, Verified 10/09/23 15:21) SHORTNESS OF BREATH FROM VINEGAR adhesive tape Allergy (Unknown, Verified 10/09/23 15:21) RASH Clindamycin HCl Allergy (Unknown, Verified 10/09/23 15:21) rash procaine [From NOVOCAIN] Allergy (Unknown, Verified 10/09/23 15:21) RASH,SWELLING OF TONGUE,BLISTERING cefixime [From Suprax] Adverse Reaction (Intermediate, Verified 10/09/23 15:21) Swelling in throat dulaglutide [From Trulicity] Adverse Reaction (Intermediate, Verified 10/09/23 15:21) swelling of tongue hydrochlorothiazide Adverse Reaction (Intermediate, Unverified 10/09/23 15:55) hypercalcemia lorazepam [From Ativan] Adverse Reaction (Mild, Verified 10/09/23 15:21) VOMITING/NAUSEA morphine [MORPHINE] Adverse Reaction (Unknown, Verified 10/09/23 15:21) NAUSEA fosfomycin Allergy (Severe, Uncoded 10/09/23 15:21) tongue swelling jardiance Allergy (Severe, Uncoded 10/09/23 15:21) Yeast infection levofloxacin Allergy (Severe, Uncoded 10/09/23 15:21) Hives From AVELOX Allergy (Intermediate, Uncoded 10/09/23 15:21) SWELLING/RASH carrots, vinegar, yeast, chees Allergy (Unknown, Uncoded 10/09/23 15:21) Unknown SEASONAL ALLERGIES Allergy (Unknown, Uncoded 10/09/23 15:21) SNEEZING Medication List - Last Reconciled 10/09/23 by William Colón MD albuterol sulfate 90 mcg/actuation 1 puff PO Q4H PRN amlodipine 10 mg PO DAILY aspirin (Adult Low Dose Aspirin) 81 mg PO DAILY blood pressure monitor (Blood Pressure Kit) As directed blood pressure test kit-large As directed blood sugar diagnostic As directed blood sugar diagnostic (Accu-Chek Guide test strips) As directed check BS TID blood sugar diagnostic (Accu-Chek Guide test strips) As directed check the BS TID calcium carbonate (Calcium) 600 mg PO DAILY cholecalciferol (vitamin D3) 50 mcg PO DAILY cyanocobalamin (vitamin B-12) 1,000 mcg PO DAILY fenofibrate 160 mg PO DAILY fluticasone propionate 50 mcg/actuation 2 sprays intranasal DAILY 90 days gabapentin 100 mg PO DAILY 90 days insulin aspart U-100 (Novolog FlexPen U-100 Insulin aspart) 2- 10 units TID subcutaneously use as directed; Sliding scale insulin glargine (Lantus Solostar U-100 Insulin) 48 units (0.48 mL) subcut DAILY 90 days lancets (Accu-Chek Fastclix Lancet Drum) 1 ea topical TID 90 days lansoprazole 30 mg PO DAILY lisinopril 40 mg PO DAILY metformin 1,000 mg PO BIDWMEAL 90 days metoprolol tartrate PO; 2 tabs in the AM, 1 tabs in the PM 90 days pen needle, diabetic (BD Ultra-Fine Micro Pen Needle) As directed inject once a day Insulin pen needle, diabetic (BD Marisela 2nd Gen Pen Needle) As directed rosuvastatin 20 mg PO DAILY spironolactone 25 mg PO BID Tobacco use date assessed: 10/09/23 Fall risk assessment: No Falls in past year Last assessed Fall Risk: 10/09/23 HPI Discuss Allergies / Medications - need A1C HPI Details 73-year-old overweight female smoker with uncontrolled diabetes mellitus COPD Bernal's esophagus hypercholesterolemia coronary artery disease(2005 [place] with LAD stent, 2012 and STEMI another stent) cardiac catheterization 2019 stress test nuclear October 2019 negative. hypertension generalized anxiety disorder last seen in April 2023 patient is here for follow-up patient's colonoscopy is up-to-date July 2022 mammograms up-to-date bone density is up-to-date. Patient had an upper respiratory tract infection in 09/06/2023 chest x-ray as well as flu RSV COVID test negative. Patient did follow-up with cardiology June 2023 continuing with aspirin 81 mg and statins. For the blood pressure on lisinopril spironolactone additional amlodipine given. Review of the notes also in June 2023 had an x-ray of the right shoulder showing rotator cuff impingement [facility] Medical History (Updated 10/09/23 @ 16:14 by William Colón MD) Tobacco abuse Myocardial infarct COVID-19 Cough Skin rash Breast cancer screening by mammogram Colon cancer screening Essential hypertension Mitral valve prolapse Diabetic neuropathy Type 2 diabetes mellitus with hyperglycemia Hip osteoarthritis Diabetic nephropathy Vitamin D deficiency COPD (chronic obstructive pulmonary disease) Osteoarthritis Barretts esophagus Hypercholesterolemia Coronary artery disease Surgical History H/O heart artery stent Cystocele History of parathyroidectomy History of hysterectomy History of cholecystectomy Family History Father CVD (cardiovascular disease) Dementia Heart valve replaced Mother Colon cancer Social History (Updated 06/30/23 @ 10:21 by MACHELLE Carcamo) Housing: House Alcohol intake: never Patient Tobacco Use Status: Current someday Tobacco user Tobacco use type: Cigarette Cigarettes Per Day: 1 Years Smoked: 40 +/- Packs per year/per ci.00 e-Cigarette/Vaping Use: Never Used Second Hand Smoke Exposure: No service: No Current occupational status: retired Current occupation: right hand dominant Cognitive needs: No Hearing needs: No Vision needs: Yes Female Reproductive History Menstrual Age of Menarche: 9 Questionnaire Thrive Questionnaire Date Thrive assessed: 11/11/22 AUDIT C Alcohol Use Questionnaire (AUDIT-C) 1. How often do you have a drink containing alcohol?: Monthly or less 2. How many drinks containing alcohol do you have on a typical day when you are drinking?: 1 or 2 3. How often do you have six or more drinks on one occasion?: Never Total Score: 1 TALON-7 AMB Questionnaire TALON-7 Date TALON - 7 assessed: 11/11/22 Source: Developed by Drs. Michelet Roman, Kelly Bynum, Clement Malloy and colleagues, with an educational debra from [employer]. Physical exam (Primary Care) Vital Signs: Last Vital Signs Pulse 69 10/09/23 15:18 BP 142/68 H 10/09/23 15:18 Pulse Ox 97 10/09/23 15:18 Oxygen Delivery Method Room Air 10/09/23 15:18 BMI result Body Mass Index 28.8 Tobacco/Smoking Status: Tobacco use Status Tobacco use date assessed 10/09/23 10/09/23 15:24 Patient Tobacco Use Status Current someday Tobacco 10/09/23 15:24 Tobacco use type Cigarette 10/09/23 15:24 e-Cigarette/Vaping Use Never Used 10/09/23 15:24 Thrive Assessment: Date of Thrive Assessment Date Thrive assessed 11/11/22 10/09/23 15:24 Const General: alert; No acute distress Eyes Conjunctivae: conjunctivae normal Resp Auscultation: clear to auscultation bilaterally Cardio Rate: regular rate Rhythm: regular rhythm GI Inspection: Yes normal to inspection Extrem General: Yes normal to inspection and No edema Office Procedures Flu Questionnaire Does the patient have a severe egg allergy?: No Does the patient have severe life threatening allergies?: No Does the patient have a fever or illness today?: No Has the patient ever had Guillain-[place] Syndrome?: No Has the patient ever had any past reaction to a flu shot?: No Results AMB Hemoglobin A1c AMB Hemoglobin A1c 9.6 % Last Edit by MACHELLE Carlisle on 10/09/23 15:30 Immunizations flu vacc [id number] 6mos up(PF) 60 mcg(15 mcgx4)/0.5 mL IM syringe Performing Provider: William Colón MD Performing Location: [facility] Administered by: MACHELLE Carlisle on 10/09/23 15:29 Dose Route Admin Location Dispensed Lot Number Expiration Date NDC Treasury Director 0.5 mL IM Left Deltoid 0.5 mL [id number] 04/28/24 37358-310-26 [email or web address] VIS Given Date VIS Provided VIS Publication Date 10/09/23 Single Vaccine 21 Eligibility Eligibility Date Funding Source Not VFC Eligible 10/09/23 Private Results Reviewed Results Reviewed: Laboratory Last Values Hgb A1c (Clinic) 9.6 % (4.0-6.0) H 10/09/23 14:32 Assessment and Plan Assessment & Plan (1) Type 2 diabetes mellitus with hyperglycemia: Comment: December 2016 eye and lasik Code(s): E11.65 - Type 2 diabetes mellitus with hyperglycemia Qualifiers: Diabetes mellitus assisted insulin use: without assisted use Qualified Code(s): E11.65 - Type 2 diabetes mellitus with hyperglycemia Plan: Decrease the amount of carbohydrate intake, pasta, bread, rice and potatoes are all sugar and that is aside from all the sweet stuff, remember that fruits are good but they are Sweet also. Hemoglobin A1c goal of less than 7.0 patient is on Lantus and metformin. With the higher hemoglobin A1c will add short-acting insulin to take 3 times a day before meals. Sliding scale given to the patient. (2) Coronary artery disease: Comment: Stent placement January 2012 Code(s): I25.10 - Atherosclerotic heart disease of [place] coronary artery without angina pectoris Qualifiers: Coronary Disease-Associated Artery/Lesion type: [place] artery [place] vs. transplanted heart: [place] heart Associated angina: without angina Qualified Code(s): I25.10 - Atherosclerotic heart disease of [place] coronary artery without angina pectoris Plan: Control the cholesterol, weight, blood pressure, diabetes continue with aspirin 81 mg once a day (3) Hypercholesterolemia: Code(s): E78.00 - Pure hypercholesterolemia, unspecified Plan: Avoid fried foods, chicken skin, eggs, butter margarine, pastries and meat. Be it pork or beef they have a lot of cholesterol LDL goal of less than 70 and triglyceride of less than 150 patient is on fenofibrate and rosuvastatin. Request for blood work (4) Barretts esophagus: Code(s): K22.70 - Bernal's esophagus without dysplasia Qualifiers: Bernal's esophagus type: without dysplasia Qualified Code(s): K22.70 - Bernal's esophagus without dysplasia Plan: Avoid the foods that causes that usually spicy foods, tomato products, juices, coffee, soda and foods that your sensitive to. After eating do not lie down, allow 3-4 hours before in lie down. And keep the head of bed above 30 degrees to avoid the acid from going up. (5) COPD (chronic obstructive pulmonary disease): Code(s): J44.9 - Chronic obstructive pulmonary disease, unspecified Qualifiers: COPD type: emphysema Emphysema type: panlobular Qualified Code(s): J43.1 - Panlobular emphysema Plan: Continue with inhaler as needed (6) Essential hypertension: Code(s): I10 - Essential (primary) hypertension Plan: Continue with blood pressure medication. Decrease salt intake and exercise amlodipine 5 mg once a day lisinopril 40 mg once a day metoprolol tartrate. Blood pressure continues to be elevated will add/increase amlodipine (7) Generalized anxiety disorder: Code(s): F41.1 - Generalized anxiety disorder Plan: Continue with present medication (8) Tobacco abuse: Comment: august 2022 STopped Code(s): Z72.0 - Tobacco use Plan: Patient Strongly advised to stop smoking! Orders: Orders Complete Blood Count Auto Diff Today E11.65 - Type 2 diabetes mellitus with hyperglycemia Comprehensive Met. Panel Today E11.65 - Type 2 diabetes mellitus with hyperglycemia Free T4 (Free Thyroxine) Today E11.65 - Type 2 diabetes mellitus with hyperglycemia Thyroid Stimulating Hormone Today E11.65 - Type 2 diabetes mellitus with hyperglycemia Lipid Panel Today E11.65 - Type 2 diabetes mellitus with hyperglycemia, E78.00 - Pure hypercholesterolemia, unspecified Creatinine Urine Today E11.65 - Type 2 diabetes mellitus with hyperglycemia Vitamin B12 and Folate Today E11.65 - Type 2 diabetes mellitus with hyperglycemia Vitamin D 25-OH Total Today E11.65 - Type 2 diabetes mellitus with hyperglycemia AMB Hemoglobin A1c Today E11.65 - Type 2 diabetes mellitus with hyperglycemia Influenza [id number] Immunization Today Z23 - Encounter for immunization Microalbumin, Random (w Creat) Today E11.65 - Type 2 diabetes mellitus with hyperglycemia Medications: New insulin aspart U-100 (Novolog FlexPen U-100 Insulin aspart) 2- 10 units TID subcutaneously use as directed; Sliding scale 15 mL 3RF E11.65 - Type 2 diabetes mellitus with hyperglycemia Changed From amlodipine 5 mg PO DAILY 90 tabs 3RF To amlodipine 10 mg PO DAILY 90 tabs 3RF From pen needle, diabetic (BD Ultra-Fine Micro Pen Needle) As directed inject once a day Insulin 100 ea 3RF E11.65 - Type 2 diabetes mellitus with hyperglycemia To pen needle, diabetic (BD Ultra-Fine Micro Pen Needle) As directed inject4 x a day Insulin 400 ea 3RF E11.65 - Type 2 diabetes mellitus with hyperglycemia Coding Level of Care Code Est Pt Level 4 (05342) Diagnoses Type 2 diabetes mellitus with hyperglycemia, without long-term current use of insulin E11.65 Diabetes mellitus assisted insulin use: without moth exterminator use Coronary artery disease involving [place] coronary artery of [place] heart without angina pectoris I25.10 Coronary Disease-Associated Artery/Lesion type: [place] artery [place] vs. transplanted heart: [place] heart Associated angina: without angina Hypercholesterolemia E78.00 Bernal's esophagus without dysplasia K22.70 Bernla's esophagus type: without dysplasia Panlobular emphysema J43.1 COPD type: emphysema Emphysema type: panlobular Essential hypertension I10 Generalized anxiety disorder F41.1 Tobacco abuse Z72.0
== END 2023-10-09 16:16 | disposition home or self-care (01) ==
PROVIDERS: PCP Internal Medicine; Visit Provider Internal Medicine
DX: E11.65 Type 2 diabetes mellitus with hyperglycemia (principal); J43.1 Panlobular emphysema; I25.10 Atherosclerotic heart disease of native coronary artery without angina pectoris; Z23 Encounter for immunization; E78.00 Pure hypercholesterolemia, unspecified; K22.70 Barrett's esophagus without dysplasia; I10 Essential (primary) hypertension; F41.1 Generalized anxiety disorder; Z72.0 Tobacco use
CPT/HCPCS: 83036; 90471; 90686; 99214

== ENCOUNTER 2023-12-15 10:42 | Outpatient (REF) | payer MEDICARE, SELFPAY ==
[2023-12-15 10:57] LABS: MANUAL DIFF FLAG NO
[2023-12-15 11:46] LABS: Appearance Urine Cloudy; Color Urine Yellow; Glucose Urine UA 500 mg/dL (Negative); Leukocyte Esterase Urine Small (1+) (Negative); Nitrite Urine Positive (Negative); PH 5.5 (5.0-9.0); UMIC TRIGGER UA YES; Urine Blood Negative (Negative); Urine Ketones Negative (Negative); Urine Protein Negative (Neg-Trace)
[2023-12-15 11:49] LABS: Bacteria Urine 4+ (None Seen); Hyaline Casts Urine 0-2 /LPF (0-2); RBC Urine 0-2 /HPF (0-2); WBC Urine >50 /HPF (0-5)
[2023-12-15 12:20] LABS: Creatinine Urine 98.58 mg/dL; Microalbum/Creatinine Ratio Ur 29.4 ug/mg cr (<30)
[2023-12-15 12:21] LABS: Basophils Absolute Auto 0.1 X10*3/uL (0.0-0.2); Basophils Percent Auto 0.7 % (0-2); Eosinophils Absolute Auto 0.2 X10*3/uL (0.0-0.4); Eosinophils Percent Auto 2.7 % (0-4); Hematocrit 36.2 % (37.0-47.0); Hemoglobin 12.6 g/dl (12.0-16.0); Imm Gran Abs Auto 0.02 X10*3/uL (0.00-0.03); Imm Gran Pct Auto 0.3 % (0.0-0.4); Lymphocytes Absolute Auto 1.6 X10*3/uL (1.2-4.9); Lymphocytes Percent Auto 22.7 % (20-40); Mean Corpuscular HGB Conc 34.8 g/dl (31.0-35.0); Mean Corpuscular Hemoglobin 31.3 pg (27.0-33.0); Mean Platelet Volume 11.8 fL (9.4-12.3); Monocytes Absolute Auto 0.5 X10*3/uL (0.1-1.2); Monocytes Percent Auto 6.9 % (2-11); Neutrophils Absolute Auto 4.7 x10*3/uL (2.0-8.3); Neutrophils Percent Auto 66.7 % (45-73); Platelet Count 244 X10*3/uL (160-400); Red Blood Count 4.02 X10*6/uL (4.20-5.50); Red Cell Distribution Width 12.3 % (11.0-16.0); White Blood Count 7.1 X10*3/uL (4.8-10.8)
[2023-12-15 12:44] LABS: Alanine Aminotransferase 15 U/L (0-31); Albumin Level 4.4 g/dL (3.5-5.0); Alkaline Phosphatase 56 U/L (39-117); Anion Gap 12 (12-20); Aspartate Amino Transferase 14 U/L (5-31); Bilirubin Total 0.3 mg/dL (0.0-1.0); Blood Urea Nitrogen 18 mg/dL (9-16); Calcium 9.3 mg/dL (8.4-10.2); Carbon Dioxide 25 mmol/L (22-29); Chloride 105 mmol/L (96-108); Cholesterol 115 mg/dL (<200); Estimated Glomerular Filt Rate 54; Free T4 (Free Thyroxine) 0.92 ng/dL (0.71-1.85); Glucose Random 253 mg/dL (60-115); HDL Cholesterol 31 mg/dL (>40); LDL Cholesterol Calculated 54 mg/dL (<100); Sodium 138 mmol/L (135-145); Thyroid Stimulating Hormone 1.33 uIU/mL (0.32-4.0); Total Protein 7.1 g/dL (6.5-8.0); Triglycerides 152 mg/dL (<150); Vitamin D 25-OH Total 32.6 ng/mL (>30)
[2023-12-15 12:53] LABS: Folate 6.1 ng/mL (> or = 4.0); Vitamin B12 759 pg/mL (200-900)
== END 2023-12-15 10:43 | disposition home or self-care (01) ==
LOC: HO.LAB 10:42
PROVIDERS: PCP Internal Medicine; Visit Provider Internal Medicine
DX: E11.65 Type 2 diabetes mellitus with hyperglycemia (principal); E78.00 Pure hypercholesterolemia, unspecified; N39.0 Urinary tract infection, site not specified
CPT/HCPCS: 36415; 80053; 80061; 81001; 82043; 82306; 82570; 82607; 82746; 84439; 84443; 85025

== ENCOUNTER 2023-12-18 15:19 | Outpatient (AMB) | payer MEDICARE, SELFPAY ==
--- NOTE | 2023-12-18 15:22 | MHC.PC.OV ---
Vital Signs 12/18/23 15:25 Height 5 ft 5 in Weight 174 lb 6 oz BMI 29.0 BP 120/60 Blood Pressure Location Lt brachial Position Sitting Pulse 67 Pulse Source Pulse Oximeter Pulse Oximetry (%) 96 Oxygen Delivery Method Room Air Intake Visit Reasons: Hypertension Intake Note: Patient is here to follow up on HTN, DM. Paper Stacker Required: No Setter Induction Heating Equipment: Not Required per policy Accompanied by: Self / Same As Patient Allergies cortisone [CORTISONE] Allergy (Severe, Verified 12/18/23 15:24) RASH HIVES AND SWELLING OF THE TONGUE nitrofurantoin Allergy (Severe, Verified 12/18/23 15:24) tongue swelling Penicillins Allergy (Severe, Verified 12/18/23 15:24) ANAPHYLAXIS yeast, dried [yeast] Allergy (Severe, Verified 12/18/23 15:24) SHORTNESS OF BREATH empagliflozin [From Jardiance] Allergy (Intermediate, Verified 12/18/23 15:24) swollen tongue omeprazole [From Prilosec] Allergy (Intermediate, Verified 12/18/23 15:24) BLISTERS Sulfa (Sulfonamide Antibiotics) Allergy (Intermediate, Verified 12/18/23 15:24) Itching niacin [Niacin] Allergy (Mild, Verified 12/18/23 15:24) RASH tetracycline [Tetracycline] Allergy (Mild, Verified 12/18/23 15:24) RASH acetic acid [Acetic Acid] Allergy (Unknown, Verified 12/18/23 15:24) SHORTNESS OF BREATH FROM VINEGAR adhesive tape Allergy (Unknown, Verified 12/18/23 15:24) RASH Clindamycin HCl Allergy (Unknown, Verified 12/18/23 15:24) rash procaine [From NOVOCAIN] Allergy (Unknown, Verified 12/18/23 15:24) RASH,SWELLING OF TONGUE,BLISTERING cefixime [From Suprax] Adverse Reaction (Intermediate, Verified 12/18/23 15:24) Swelling in throat dulaglutide [From Trulicity] Adverse Reaction (Intermediate, Verified 12/18/23 15:24) swelling of tongue hydrochlorothiazide Adverse Reaction (Intermediate, Verified 12/18/23 15:24) hypercalcemia lorazepam [From Ativan] Adverse Reaction (Mild, Verified 12/18/23 15:24) VOMITING/NAUSEA morphine [MORPHINE] Adverse Reaction (Unknown, Verified 12/18/23 15:24) NAUSEA fosfomycin Allergy (Severe, Uncoded 12/18/23 15:24) tongue swelling jardiance Allergy (Severe, Uncoded 12/18/23 15:24) Yeast infection levofloxacin Allergy (Severe, Uncoded 12/18/23 15:24) Hives From AVELOX Allergy (Intermediate, Uncoded 12/18/23 15:24) SWELLING/RASH carrots, vinegar, yeast, chees Allergy (Unknown, Uncoded 12/18/23 15:24) Unknown SEASONAL ALLERGIES Allergy (Unknown, Uncoded 12/18/23 15:24) SNEEZING Medication List - Last Reconciled 12/18/23 by William Colón MD albuterol sulfate 90 mcg/actuation 1 puff PO Q4H PRN amlodipine 10 mg PO DAILY aspirin (Adult Low Dose Aspirin) 81 mg PO DAILY blood pressure monitor (Blood Pressure Kit) As directed blood pressure test kit-large As directed blood sugar diagnostic As directed blood sugar diagnostic (Accu-Chek Guide test strips) As directed check BS TID blood sugar diagnostic (Accu-Chek Guide test strips) As directed check the BS TID calcium carbonate (Calcium) 600 mg PO DAILY cholecalciferol (vitamin D3) 50 mcg PO DAILY cyanocobalamin (vitamin B-12) 1,000 mcg PO DAILY doxycycline hyclate 100 mg PO BID fenofibrate 160 mg PO DAILY fluticasone propionate 50 mcg/actuation 2 sprays intranasal DAILY 90 days gabapentin 100 mg PO DAILY 90 days insulin glargine (Lantus Solostar U-100 Insulin) 48 units (0.48 mL) subcut DAILY 90 days insulin lispro (Humalog KwikPen (U-100) Insulin) 10 units (0.1 mL) subcut TID 30 days lancets (Accu-Chek Fastclix Lancet Drum) 1 ea topical TID 90 days lansoprazole 30 mg PO DAILY lisinopril 40 mg PO DAILY metformin 1,000 mg PO BIDWMEAL 90 days metoprolol tartrate PO; 2 tabs in the AM, 1 tabs in the PM 90 days pen needle, diabetic (BD Ultra-Fine Micro Pen Needle) As directed inject4 x a day Insulin pen needle, diabetic (BD Marisela 2nd Gen Pen Needle) As directed rosuvastatin 20 mg PO DAILY spironolactone 25 mg PO BID Tobacco use date assessed: 12/18/23 Fall risk assessment: 2 + Falls in past year Last assessed Fall Risk: 12/18/23 Dental Screening Dental Screen Date: 12/18/23 Did you have a dental visit in the last 12 months?: Yes Did you have a dental problem in the last 6 months where you did not have access to dental care?: No Was dental information given to patient?: Patient has dentist HPI Hypertension HPI Details 73-year-old overweight female smoker with uncontrolled diabetes mellitus coronary artery disease hypercholesterolemia Bernal's esophagus COPD hypertension and generalized anxiety disorder coming in for follow-up. Last seen in September 2023. Patient was started on short-acting insulin but did not receive it as the insurance did not cover for NovoLog but I was not informed. As far as smoking is concerned patient does smoke here and there and discussed that has not really stopping smoking. As far as the blood work is concerned discussed about the results. [facility] Medical History (Updated 10/09/23 @ 16:14 by William Colón MD) Tobacco abuse Myocardial infarct COVID-19 Cough Skin rash Breast cancer screening by mammogram Colon cancer screening Essential hypertension Mitral valve prolapse Diabetic neuropathy Type 2 diabetes mellitus with hyperglycemia Hip osteoarthritis Diabetic nephropathy Vitamin D deficiency COPD (chronic obstructive pulmonary disease) Osteoarthritis Barretts esophagus Hypercholesterolemia Coronary artery disease Surgical History H/O heart artery stent Cystocele History of parathyroidectomy History of hysterectomy History of cholecystectomy Family History Father CVD (cardiovascular disease) Dementia Heart valve replaced Mother Colon cancer Social History Housing: House Alcohol intake: never Patient Tobacco Use Status: Current someday Tobacco user Tobacco use type: Cigarette Cigarettes Per Day: 1 Years Smoked: 40 +/- Packs per year/per ci.00 e-Cigarette/Vaping Use: Never Used Second Hand Smoke Exposure: No service: No Current occupational status: retired Current occupation: right hand dominant Cognitive needs: No Hearing needs: No Vision needs: Yes Female Reproductive History Menstrual Age of Menarche: 9 Questionnaire PHQ-9 Over the last 2 weeks, how often have you been bothered by any of the following problems? 1. Little interest or pleasure in doing things: not at all 2. Feeling down, depressed, or hopeless: not at all 3. Trouble falling or staying asleep, or sleeping too much: not at all 4. Feeling tired or having little energy: not at all 5. Poor appetite or overeating: not at all 6. Feeling bad about yourself - or that you are a failure or have let yourself or your family down: not at all 7. Trouble concentrating on things, such as reading the newspaper or watching television: not at all 8. Moving or speaking so slowly that other people could have noticed. Or the opposite - being so fidgety or restless that you have been moving around a lot more than usual: not at all 9. Thoughts that you would be better off or of hurting yourself in some way: not at all Total score: 0 Depression Screening Interpretation: Negative Depression Screening Done: Yes Source: Developed by Drs. Michelet Roman, Kelly Bynum, Clement Malloy and colleagues, with an educational debra from [employer]. Thrive Questionnaire Date Thrive assessed: 12/18/23 I am a: Patient Within the past 12 months, did the food you bought not last and you didn't have the money to get more?: Never true Within the past 12 months, did you worry whether your food would run out before you got money to buy more?: Never true Do you have trouble paying for medicines?: No Do you have trouble getting transportation to medical appointments?: No Do you have trouble paying your heating and electricity bill?: No Do you have trouble taking care of your child, family member or friend?: No Do you have trouble with day-to-day activities such as bathing, preparing meals, shopping, managing finances, etc.?: No Are you currently unemployed and looking for a job?: No Are you interested in more education?: No Currently or been in a relationship where the following occur: no concerns reported THRIVE Score: 0 AUDIT C Alcohol Use Questionnaire (AUDIT-C) 1. How often do you have a drink containing alcohol?: Never Total Score: 0 TALON-7 AMB Questionnaire TALON-7 Date TALON - 7 assessed: 12/18/23 Feeling nervous, anxious, or on edge: 0 = Not at all Not being able to stop or control worryin = Not at all Worrying too much about different things: 0 = Not at all Trouble relaxin = Not at all Being so restless that it is hard to sit still: 0 = Not at all Becoming easily annoyed or irritable: 0 = Not at all Feeling afraid as if something awful might happen: 0 = Not at all Total TALON-7 score (0-4 normal; 5-9 mild; 10-14 moderate; 15-21 severe): 0 Source: Developed by Drs. Michelet Roman, Kelly Bynum, Clement Malloy and colleagues, with an educational debra from [employer]. Physical exam (Primary Care) Vital Signs: Last Vital Signs Pulse 67 12/18/23 15:25 BP 120/60 12/18/23 15:25 Pulse Ox 96 12/18/23 15:25 Oxygen Delivery Method Room Air 12/18/23 15:25 BMI result Body Mass Index 29.0 Tobacco/Smoking Status: Tobacco use Status Tobacco use date assessed 12/18/23 12/18/23 15:27 Patient Tobacco Use Status Current someday Tobacco 12/18/23 15:27 Tobacco use type Cigarette 12/18/23 15:27 e-Cigarette/Vaping Use Never Used 12/18/23 15:27 PHQ-9: PHQ-9 Score PHQ-9: Total score 0 12/18/23 15:27 Depression Screening Interpretation: Negative Thrive Assessment: Date of Thrive Assessment Date Thrive assessed 12/18/23 12/18/23 15:27 Currently or been in a relationship where the following occur: no concerns reported Const General: alert; No acute distress Eyes Conjunctivae: conjunctivae normal Resp Auscultation: clear to auscultation bilaterally Cardio Rate: regular rate Rhythm: regular rhythm GI Inspection: Yes normal to inspection Extrem General: Yes normal to inspection and No edema Assessment and Plan Assessment & Plan (1) Tobacco abuse: Comment: august 2022 STopped Code(s): Z72.0 - Tobacco use Plan: still smoking once in a while and did smoke 1 week ago (2) COPD (chronic obstructive pulmonary disease): Code(s): J44.9 - Chronic obstructive pulmonary disease, unspecified Qualifiers: COPD type: emphysema Emphysema type: panlobular Qualified Code(s): J43.1 - Panlobular emphysema Plan: Continue with the inhalers (3) Barretts esophagus: Code(s): K22.70 - Bernal's esophagus without dysplasia Qualifiers: Bernal's esophagus type: without dysplasia Qualified Code(s): K22.70 - Bernal's esophagus without dysplasia Plan: Avoid the foods that causes that usually spicy foods, tomato products, juices, coffee, soda and foods that your sensitive to. After eating do not lie down, allow 3-4 hours before in lie down. And keep the head of bed above 30 degrees to avoid the acid from going up. (4) Hypercholesterolemia: Code(s): E78.00 - Pure hypercholesterolemia, unspecified Plan: Avoid fried foods, chicken skin, eggs, butter margarine, pastries and meat. Be it pork or beef they have a lot of cholesterol LDL goal of less than 70 and triglyceride of less than 150 blood work done November 2023 (5) Coronary artery disease: Comment: Stent placement January 2012 Code(s): I25.10 - Atherosclerotic heart disease of [place] coronary artery without angina pectoris Qualifiers: Coronary Disease-Associated Artery/Lesion type: [place] artery [place] vs. transplanted heart: [place] heart Associated angina: without angina Qualified Code(s): I25.10 - Atherosclerotic heart disease of [place] coronary artery without angina pectoris Plan: Control the cholesterol, weight, blood pressure, diabetes continue with aspirin 81 mg once a day (6) Type 2 diabetes mellitus with hyperglycemia: Comment: December 2016 eye and lasik Code(s): E11.65 - Type 2 diabetes mellitus with hyperglycemia Qualifiers: Diabetes mellitus senior care insulin use: without senior care use Qualified Code(s): E11.65 - Type 2 diabetes mellitus with hyperglycemia Plan: Decrease the amount of carbohydrate intake, pasta, bread, rice and potatoes are all sugar and that is aside from all the sweet stuff, remember that fruits are good but they are Sweet also. Hemoglobin A1c goal of less than 7.0. Patient takes NovoLog and Lantus metformin a 1000 mg twice a day (7) Essential hypertension: Code(s): I10 - Essential (primary) hypertension Plan: Continue with blood pressure medication. Decrease salt intake and exercise continue with lisinopril 40 mg once a day (8) Urinary tract infection: Code(s): N39.0 - Urinary tract infection, site not specified Plan: due to multiple allergy to antibiotics - referral to ID Orders: Referrals Infectious Disease Referral N39.0 - Urinary tract infection, site not specified Medications: New insulin lispro (Humalog KwikPen (U-100) Insulin) or as directed 10 units (0.1 mL) subcut TID 30 days 15 mL 4RF E11.65 - Type 2 diabetes mellitus with hyperglycemia Discontinued insulin aspart U-100 (Novolog FlexPen U-100 Insulin aspart) Discontinued Reason: Insurance Denied 2- 10 units TID subcutaneously use as directed; Sliding scale 15 mL 3RF E11.65 - Type 2 diabetes mellitus with hyperglycemia Coding Level of Care Code Est Pt Level 4 (09258) Diagnoses Tobacco abuse Z72.0 Panlobular emphysema J43.1 COPD type: emphysema Emphysema type: panlobular Bernal's esophagus without dysplasia K22.70 Bernal's esophagus type: without dysplasia Hypercholesterolemia E78.00 Coronary artery disease involving [place] coronary artery of [place] heart without angina pectoris I25.10 Coronary Disease-Associated Artery/Lesion type: [place] artery [place] vs. transplanted heart: [place] heart Associated angina: without angina Type 2 diabetes mellitus with hyperglycemia, without long-term current use of insulin E11.65 Diabetes mellitus intermodal dispatcher insulin use: without senior care use Essential hypertension I10 Urinary tract infection N39.0
[2023-12-18 15:25] VITALS: BP 120/60; PULSE 67; O2SAT 96; BMI 29.0
== END 2023-12-18 15:57 | disposition home or self-care (01) ==
PROVIDERS: PCP Internal Medicine; Visit Provider Internal Medicine
DX: J43.1 Panlobular emphysema (principal); E11.65 Type 2 diabetes mellitus with hyperglycemia; Z72.0 Tobacco use; K22.70 Barrett's esophagus without dysplasia; E78.00 Pure hypercholesterolemia, unspecified; I25.10 Atherosclerotic heart disease of native coronary artery without angina pectoris; I10 Essential (primary) hypertension; N39.0 Urinary tract infection, site not specified
CPT/HCPCS: 99214

== ENCOUNTER 2024-01-08 13:19 | Outpatient (AMB) | payer MEDICARE, SELFPAY ==
--- NOTE | 2024-01-08 13:23 | MHC.OFFVIS ---
Intake Vital Signs 01/08/24 13:36 Height 5 ft 5 in Weight 176 lb BMI 29.3 Pulse 80 Pulse Source Pulse Oximeter Pulse Oximetry (%) 98 Intake Visit Reasons: REf.Po,Lorenver,UTI Allergies cortisone [CORTISONE] Allergy (Severe, Verified 03 13:36) RASH HIVES AND SWELLING OF THE TONGUE nitrofurantoin Allergy (Severe, Verified 01/08/24 13:36) tongue swelling Penicillins Allergy (Severe, Verified 01/08/24 13:36) ANAPHYLAXIS yeast, dried [yeast] Allergy (Severe, Verified 01/08/24 13:36) SHORTNESS OF BREATH empagliflozin [From Jardiance] Allergy (Intermediate, Verified 01/08/24 13:36) swollen tongue omeprazole [From Prilosec] Allergy (Intermediate, Verified 01/08/24 13:36) BLISTERS Sulfa (Sulfonamide Antibiotics) Allergy (Intermediate, Verified 01/08/24 13:36) Itching niacin [Niacin] Allergy (Mild, Verified 01/08/24 13:36) RASH tetracycline [Tetracycline] Allergy (Mild, Verified 01/08/24 13:36) RASH acetic acid [Acetic Acid] Allergy (Unknown, Verified 01/08/24 13:36) SHORTNESS OF BREATH FROM VINEGAR adhesive tape Allergy (Unknown, Verified 01/08/24 13:36) RASH Clindamycin HCl Allergy (Unknown, Verified 01/08/24 13:36) rash procaine [From NOVOCAIN] Allergy (Unknown, Verified 01/08/24 13:36) RASH,SWELLING OF TONGUE,BLISTERING cefixime [From Suprax] Adverse Reaction (Intermediate, Verified 01/08/24 13:36) Swelling in throat dulaglutide [From Trulicity] Adverse Reaction (Intermediate, Verified 01/08/24 13:36) swelling of tongue hydrochlorothiazide Adverse Reaction (Intermediate, Verified 01/08/24 13:36) hypercalcemia lorazepam [From Ativan] Adverse Reaction (Mild, Verified 01/08/24 13:36) VOMITING/NAUSEA morphine [MORPHINE] Adverse Reaction (Unknown, Verified 01/08/24 13:36) NAUSEA fosfomycin Allergy (Severe, Uncoded 12/18/23 15:24) tongue swelling jardiance Allergy (Severe, Uncoded 02/19/24 15:24) Yeast infection levofloxacin Allergy (Severe, Uncoded 12/18/23 15:24) Hives From AVELOX Allergy (Intermediate, Uncoded 12/18/23 15:24) SWELLING/RASH carrots, vinegar, yeast, chees Allergy (Unknown, Uncoded 12/18/23 15:24) Unknown SEASONAL ALLERGIES Allergy (Unknown, Uncoded 12/18/23 15:24) SNEEZING HPI HPI Comments History of Present Illness Details She is referred by Dr Colón for concern over urinary tract infections. She reports having had UTIs since age 8 and has been on multiple antibiotics over the years. She has bladder and rectal prolapse again and has had surgery by Dr Garcia or Urology three times for it with good success and liked him very much. She has seen Kandi Paez NP Urology here but reports not seeing the Urologist. She has accumulated allergies to macrobid with tongue swelling,PCN anaphylaxis,sulfa itching,tetracycline rash,Clindamycin rash,cefoxitin throat swelling ,Levaquin hives and fosfomycin tongue swelling. She does take benadryl with antibiotics. She is worried that there is nothing she can use. Most recently she had pelvic cramping and frequency with small amounts urine and had WBC found in urine. on December 15 although there is no urine or blood culture seen here. She was given Doxycycline 100 mg bid on 12/15 and noticed after two days she had throat swelling and stopped medication. She has not been on methenamine and doesnt mention vaginal estrogen. She also has diabetes and has glucose in urine. She has had Klebsiella pneumonia 02/2023 sensitive to Gentamicin in urine. She has been referred to Allergy Clinic but not sure what can be done there. She has DM,CAD,COPD. [facility] Medical History Tobacco abuse Myocardial infarct COVID-19 Cough Skin rash Breast cancer screening by mammogram Colon cancer screening Essential hypertension Mitral valve prolapse Diabetic neuropathy Type 2 diabetes mellitus with hyperglycemia Hip osteoarthritis Diabetic nephropathy Vitamin D deficiency COPD (chronic obstructive pulmonary disease) Osteoarthritis Barretts esophagus Hypercholesterolemia Coronary artery disease Surgical History H/O heart artery stent Cystocele History of parathyroidectomy History of hysterectomy History of cholecystectomy Family History Father CVD (cardiovascular disease) Dementia Heart valve replaced Mother Colon cancer Social History Housing: House Alcohol intake: never Patient Tobacco Use Status: Current someday Tobacco user Tobacco use type: Cigarette Cigarettes Per Day: 1 Years Smoked: 40 +/- e-Cigarette/Vaping Use: Never Used Second Hand Smoke Exposure: No service: No Current occupational status: retired Current occupation: right hand dominant Cognitive needs: No Hearing needs: No Vision needs: Yes Female Reproductive History Menstrual Age of Menarche: 9 Review of Systems Const All systems reviewed & are unremarkable except as noted in HPI and below Physical Exam Vital Signs: Last Vital Signs Pulse 80 01/08/24 13:36 Pulse Ox 98 01/08/24 13:36 BMI result Body Mass Index 29.3 Const General: cooperative HEENT Other: upper mouth area ?torus palatini ?other Head: Yes normal to inspection Face and sinus: Yes normal facial exam Mouth: Normal oral and palatal mucosa present Teeth and gingiva: dentition normal Eyes General: appearance normal, both eyes and all related structures Pupils: Equal, round and reactive pupils present Resp Effort & Inspection: normal respiratory effort Cardio Rate: regular rate Rhythm: regular rhythm GI Palpation (GI): Soft to palpation and nontender General: Yes no CVA tenderness Back/Spine/Pelvis Back: no CVA tenderness Skin General skin exam: no rashes or lesions noted Neuro General: moves all extremities Cranial nerves: Yes Equal, round and reactive pupils present Extrem General: Yes normal to inspection Psych Appearance: grossly normal Assessment & Plan Assessment & Plan (1) Allergic reaction: Code(s): T78.40XA - Allergy, unspecified, initial encounter (2) Urinary tract infection: Code(s): N39.0 - Urinary tract infection, site not specified (3) Female cystocele: Code(s): N81.10 - Cystocele, unspecified Plan: She has UTI and no oral agents able to tolerate due to allergic reactions even Doxycycline recently. That urinary tract infection she says did disappear on own and has not had sepsis or chills or fever. She does take cranberry juice but denies taking other urine acidifying agents. It is probably true not much Allergy can offer except immediate short term desensitization to penicillin if urgently needed for a particular immediate reason and this desensitization is not always residential. Bladder prolapse is concern. Plan She can try one week methenamine 1 g bid ,start with one week and then give monthly script if working for urinary symptoms and see in six months. I dont need to see her again if not on this medication. For now if fever or chills or sepsis type symptoms such as confusion come to ER ,possibly Gentamicin IV can work. Otherwise see Urology (wants to see pelvic floor clinic at [facility]). Otherwise maximize blood glucose control. Call us within a week about methenamine. She is going to have us see her boyfriend she mentioned about chronic MRSA postop knee infection as he currently is seen in [place]. Coding Level of Care Code New Pt Level 4 (74163) Diagnoses Allergic reaction T78.40XA Urinary tract infection N39.0 Female cystocele N81.10
[2024-01-08 13:36] VITALS: PULSE 80; O2SAT 98; BMI 29.3
== END 2024-01-08 14:06 | disposition home or self-care (01) ==
LOC: HO.HID 13:19
PROVIDERS: PCP Internal Medicine; Visit Provider Internal Medicine
DX: T78.40XA Allergy, unspecified, initial encounter (principal); N39.0 Urinary tract infection, site not specified; N81.10 Cystocele, unspecified
CPT/HCPCS: 99204; 99214

== ENCOUNTER → 2024-01-08 13:19 | Outpatient (BNVA) | payer MEDICARE, SELFPAY | PROVIDERS: PCP Internal Medicine; Visit Provider Internal Medicine | DX: N39.0 Urinary tract infection, site not specified (principal); N81.10 Cystocele, unspecified; T78.40XA Allergy, unspecified, initial encounter | CPT/HCPCS: 99202 ==

== ENCOUNTER 2024-01-24 10:11 | Outpatient (AMB) | payer MEDICARE, SELFPAY ==
[2024-01-24 10:16] VITALS: BP 138/64; PULSE 69; BMI 28.6
--- NOTE | 2024-01-24 10:16 | A.OFFVIS_ITS ---
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 Accompanied by: Self / Same As Patient Allergies cortisone [CORTISONE] Allergy (Severe, Verified 01/24/24 10:17) RASH HIVES AND SWELLING OF THE TONGUE nitrofurantoin Allergy (Severe, Verified 01/24/24 10:17) tongue swelling Penicillins Allergy (Severe, Verified 01/24/24 10:17) ANAPHYLAXIS yeast, dried [yeast] Allergy (Severe, Verified 01/24/24 10:17) SHORTNESS OF BREATH empagliflozin [From Jardiance] Allergy (Intermediate, Verified 01/24/24 10:17) swollen tongue omeprazole [From Prilosec] Allergy (Intermediate, Verified 01/24/24 10:17) BLISTERS Sulfa (Sulfonamide Antibiotics) Allergy (Intermediate, Verified 01/24/24 10:17) Itching niacin [Niacin] Allergy (Mild, Verified 01/24/24 10:17) RASH tetracycline [Tetracycline] Allergy (Mild, Verified 01/24/24 10:17) RASH acetic acid [Acetic Acid] Allergy (Unknown, Verified 01/24/24 10:17) SHORTNESS OF BREATH FROM VINEGAR adhesive tape Allergy (Unknown, Verified 01/24/24 10:17) RASH Clindamycin HCl Allergy (Unknown, Verified 01/24/24 10:17) rash procaine [From NOVOCAIN] Allergy (Unknown, Verified 01/24/24 10:17) RASH,SWELLING OF TONGUE,BLISTERING cefixime [From Suprax] Adverse Reaction (Intermediate, Verified 01/24/24 10:17) Swelling in throat dulaglutide [From Trulicity] Adverse Reaction (Intermediate, Verified 01/24/24 1 0:17) swelling of tongue hydrochlorothiazide Adverse Reaction (Intermediate, Verified 01/24/24 10:17) hypercalcemia methenamine Adverse Reaction (Intermediate, Verified 01/24/24 10:18) Yeast Infection lorazepam [From Ativan] Adverse Reaction (Mild, Verified 01/24/24 10:17) VOMITING/NAUSEA morphine [MORPHINE] Adverse Reaction (Unknown, Verified 01/24/24 10:17) NAUSEA fosfomycin Allergy (Severe, Uncoded 01/24/24 10:17) tongue swelling jardiance Allergy (Severe, Uncoded 01/24/24 10:17) Yeast infection levofloxacin Allergy (Severe, Uncoded 01/24/24 10:17) Hives From AVELOX Allergy (Intermediate, Uncoded 01/24/24 10:17) SWELLING/RASH carrots, vinegar, yeast, chees Allergy (Unknown, Uncoded 01/24/24 10:17) Unknown SEASONAL ALLERGIES Allergy (Unknown, Uncoded 01/24/24 10:17) SNEEZING Medication List - Last Reconciled 01/24/24 by Dion Roque MD albuterol sulfate 90 mcg/actuation 1 puff PO Q4H PRN amlodipine 10 mg PO DAILY aspirin (Adult Low Dose Aspirin) 81 mg PO DAILY blood pressure monitor (Blood Pressure Kit) As directed blood pressure test kit-large As directed blood sugar diagnostic As directed blood sugar diagnostic (Accu-Chek Guide test strips) As directed check BS TID blood sugar diagnostic (Accu-Chek Guide test strips) As directed check the BS TID calcium carbonate (Calcium) 600 mg PO DAILY cholecalciferol (vitamin D3) 50 mcg PO DAILY cyanocobalamin (vitamin B-12) 1,000 mcg PO DAILY fenofibrate 160 mg PO DAILY fluticasone propionate 50 mcg/actuation 2 sprays intranasal DAILY 90 days gabapentin 100 mg PO DAILY 90 days insulin glargine (Lantus Solostar U-100 Insulin) 48 units (0.48 mL) subcut DAILY 90 days insulin lispro (Humalog KwikPen (U-100) Insulin) 10 units (0.1 mL) subcut TID 30 days lancets (Accu-Chek Fastclix Lancet Drum) 1 ea topical TID 90 days lansoprazole 30 mg PO DAILY lisinopril 40 mg PO DAILY metformin 1,000 mg PO BIDWMEAL 90 days metoprolol tartrate PO; 2 tabs in the AM, 1 tabs in the PM 90 days pen needle, diabetic (BD Ultra-Fine Micro Pen Needle) As directed inject4 x a day Insulin pen needle, diabetic (BD Marisela 2nd Gen Pen Needle) As directed rosuvastatin 20 mg PO DAILY spironolactone 25 mg PO BID HPI HPI Comments History of Present Illness Details Alicia returns for follow-up regarding coronary artery disease. To recall, she had a myocardial infarction in 2004 and had LAD stent placed. Then had NSTEMI 2011 leading to another stent placement. Then she had chest pains in 2019 leading to one further cardiac catheterization but no new interventions. Then another episode of chest pain leading to [facility] pitalization and had a stress test and then discharged home. Otherwise numerous cardiovascular risk factors including diabetes, hypertension, dyslipidemia. Chronic smoker. Since last seen, no new complaints. No angina or shortness of breath or palpitations or in fact anything cardiac sounding. She states she has no cardiac issues whatsoever. [facility] Medical History Tobacco abuse Myocardial infarct COVID-19 Cough Skin rash Breast cancer screening by mammogram Colon cancer screening Essential hypertension Mitral valve prolapse Diabetic neuropathy Type 2 diabetes mellitus with hyperglycemia Hip osteoarthritis Diabetic nephropathy Vitamin D deficiency COPD (chronic obstructive pulmonary disease) Osteoarthritis Barretts esophagus Hypercholesterolemia Coronary artery disease Surgical History H/O heart artery stent Cystocele History of parathyroidectomy History of hysterectomy History of cholecystectomy Family History Father CVD (cardiovascular disease) Dementia Heart valve replaced Mother Colon cancer Social History Housing: House Alcohol intake: never Patient Tobacco Use Status: Current someday Tobacco user Tobacco use type: Cigarette Cigarettes Per Day: 1 Years Smoked: 40 +/- e-Cigarette/Vaping Use: Never Used Second Hand Smoke Exposure: No service: No Current occupational status: retired Current occupation: right hand dominant Cognitive needs: No Hearing needs: No Vision needs: Yes Female Reproductive History Menstrual Age of Menarche: 9 Review of Systems Const Denies weakness ENT Denies dizziness Card Denies chest pain, Denies chest pain with activity, Denies syncope, Denies rapid heart rate, Denies pedal edema, Denies edema, Denies leg edema, Denies lightheadedness, Denies palpitations, Denies dyspnea, Denies dyspnea on exertion and Denies orthopnea Resp Denies cough, Denies dyspnea and Denies dyspnea on exertion GI Denies hematochezia and Denies change in stool character Musc Denies abnormal gait, Denies muscle cramps, Denies muscle weakness, Denies numbness, Denies radiating pain into limb and Denies tingling Neuro Denies abnormal gait, Denies dizziness, Denies syncope, Denies numbness, Denies tingling and Denies weakness Endo Denies palpitations Physical Exam Vital Signs: Last Vital Signs Pulse 69 01/24/24 10:16 BP 138/64 01/24/24 10:16 BMI result Body Mass Index 28.6 Const General: comfortable and no acute distress Orientation/consciousness: patient oriented x3 HEENT Other: Unremarkable Head: Yes normal to inspection Neck Neck: Yes normal visual inspection Chest Chest palpation & inspection: normal inspection of the chest Resp Auscultation: clear to auscultation bilaterally Cardio Palpation: normal PMI Heart sounds: S1 normal heart sound present, S2 normal heart sound present, no gallops, no murmurs and no rubs GI Palpation (GI): Soft to palpation Back/Spine/Pelvis Other: unremarkable Skin General skin exam: no rashes or lesions noted Neuro General: patient oriented x3 Extrem General: Yes normal to inspection Psych Mental Status: mental status grossly normal Office Procedures EKG Details: EKG with sinus rhythm at 69/Min; right bundle-branch block pattern. [id number], Complete Assessment & Plan Assessment & Plan (1) Atherosclerotic cardiovascular disease: Code(s): I25.10 - Atherosclerotic heart disease of [place] coronary artery without angina pectoris Plan: Last cardiac catheterization reviewed from 2019. That revealed moderate mid LAD disease with patent proximal LAD stent/mild ISR. Nonobstructive disease elsewhere. Myocardial perfusion imaging study with modified Abraham protocol 10/2019 showed normal perfusion at exercise capacity of 4.6 Mets. Echocardiogram from 2017 with normal LVEF, mild diastolic dysfunction and otherwise unremarkable. Clinically no angina at all. Right bundle-branch block on the EKGs probably from smoking and any lung disease like COPD. Can continue aspirin, statins. Last LDL 54 mg/dL. (2) Essential hypertension: Code(s): I10 - Essential (primary) hypertension Plan: Stable on current regimen including amlodipine, lisinopril, spironolactone. (3) Other and unspecified hyperlipidemia: Code(s): E78.5 - Hyperlipidemia, unspecified Plan: On rosuvastatin 20 mg daily. Not able tolerate anything higher. LDL 60 mg/dL. (4) Type 2 diabetes mellitus with unspecified complications: Code(s): E11.8 - Type 2 diabetes mellitus with unspecified complications Plan: On insulin, Metformin. Last hemoglobin A1c is 9.6%. Not adequately controlled. Coding Level of Care Code Est Pt Level 4 (05538) Diagnoses Atherosclerotic cardiovascular disease I25.10 Essential hypertension I10 Other and unspecified hyperlipidemia E78.5 Type 2 diabetes mellitus with unspecified complications E11.8 CPT Codes EKG - CPT: 85018-[id number], Complete ([id number])
== END 2024-01-24 10:32 | disposition home or self-care (01) ==
PROVIDERS: PCP Internal Medicine; Visit Provider Internal Medicine
DX: I25.10 Atherosclerotic heart disease of native coronary artery without angina pectoris (principal); I10 Essential (primary) hypertension; E78.5 Hyperlipidemia, unspecified; E11.8 Type 2 diabetes mellitus with unspecified complications
CPT/HCPCS: 93010; 99214

== ENCOUNTER → 2024-01-24 10:11 | Outpatient (BNVA) | payer MEDICARE, SELFPAY | PROVIDERS: PCP Internal Medicine; Visit Provider Internal Medicine | DX: I25.10 Atherosclerotic heart disease of native coronary artery without angina pectoris (principal); I25.2 Old myocardial infarction; I10 Essential (primary) hypertension; E78.5 Hyperlipidemia, unspecified; E11.8 Type 2 diabetes mellitus with unspecified complications; F17.210 Nicotine dependence, cigarettes, uncomplicated | CPT/HCPCS: 93005; 99212 ==

== ENCOUNTER 2024-02-07 13:12 | Outpatient (AMB) | payer MEDICARE, SELFPAY ==
--- NOTE | 2024-02-07 13:15 | MHC.PC.OV ---
Vital Signs 02/07/24 13:16 Height 5 ft 5 in Weight 172 lb BMI 28.6 BP 140/76 H Blood Pressure Location Lt brachial Position Sitting Pulse 79 Pulse Source Pulse Oximeter Pulse Oximetry (%) 96 Oxygen Delivery Method Room Air Intake Visit Reasons: DM Allergies cortisone [CORTISONE] Allergy (Severe, Verified 02/07/24 13:16) RASH HIVES AND SWELLING OF THE TONGUE nitrofurantoin Allergy (Severe, Verified 02/07/24 13:16) tongue swelling Penicillins Allergy (Severe, Verified 02/07/24 13:16) ANAPHYLAXIS yeast, dried [yeast] Allergy (Severe, Verified 02/07/24 13:16) SHORTNESS OF BREATH empagliflozin [From Jardiance] Allergy (Intermediate, Verified 02/07/24 13:16) swollen tongue omeprazole [From Prilosec] Allergy (Intermediate, Verified 02/07/24 13:16) BLISTERS Sulfa (Sulfonamide Antibiotics) Allergy (Intermediate, Verified 02/07/24 13:16) Itching niacin [Niacin] Allergy (Mild, Verified 02/07/24 13:16) RASH tetracycline [Tetracycline] Allergy (Mild, Verified 02/07/24 13:16) RASH acetic acid [Acetic Acid] Allergy (Unknown, Verified 02/07/24 13:16) SHORTNESS OF BREATH FROM VINEGAR adhesive tape Allergy (Unknown, Verified 02/07/24 13:16) RASH Clindamycin HCl Allergy (Unknown, Verified 02/07/24 13:16) rash procaine [From NOVOCAIN] Allergy (Unknown, Verified 02/07/24 13:16) RASH,SWELLING OF TONGUE,BLISTERING cefixime [From Suprax] Adverse Reaction (Intermediate, Verified 02/07/24 13:16) Swelling in throat dulaglutide [From Trulicity] Adverse Reaction (Intermediate, Verified 02/07/24 13:16) swelling of tongue hydrochlorothiazide Adverse Reaction (Intermediate, Verified 02/07/24 13:16) hypercalcemia methenamine Adverse Reaction (Intermediate, Verified 02/07/24 13:16) Yeast Infection lorazepam [From Ativan] Adverse Reaction (Mild, Verified 02/07/24 13:16) VOMITING/NAUSEA morphine [MORPHINE] Adverse Reaction (Unknown, Verified 02/07/24 13:16) NAUSEA fosfomycin Allergy (Severe, Uncoded 02/07/24 13:16) tongue swelling jardiance Allergy (Severe, Uncoded 02/07/24 13:16) Yeast infection levofloxacin Allergy (Severe, Uncoded 02/07/24 13:16) Hives From AVELOX Allergy (Intermediate, Uncoded 02/07/24 13:16) SWELLING/RASH carrots, vinegar, yeast, chees Allergy (Unknown, Uncoded 02/07/24 13:16) Unknown SEASONAL ALLERGIES Allergy (Unknown, Uncoded 02/07/24 13:16) SNEEZING Medication List - Last Reconciled 02/07/24 by William Colón MD albuterol sulfate 90 mcg/actuation 1 puff PO Q4H PRN amlodipine 10 mg PO DAILY aspirin (Adult Low Dose Aspirin) 81 mg PO DAILY blood pressure monitor (Blood Pressure Kit) As directed blood pressure test kit-large As directed blood sugar diagnostic As directed blood sugar diagnostic (Accu-Chek Guide test strips) As directed check BS TID blood sugar diagnostic (Accu-Chek Guide test strips) As directed check the BS TID calcium carbonate (Calcium) 600 mg PO DAILY cholecalciferol (vitamin D3) 50 mcg PO DAILY cyanocobalamin (vitamin B-12) 1,000 mcg PO DAILY fenofibrate 160 mg PO DAILY fluticasone propionate 50 mcg/actuation 2 sprays intranasal DAILY 90 days gabapentin 100 mg PO DAILY 90 days insulin glargine (Lantus Solostar U-100 Insulin) 48 units (0.48 mL) subcut DAILY 90 days insulin lispro (Humalog KwikPen (U-100) Insulin) 6 u in am , 8 u noon and 6 u evening subcutaneously 3 times a day; or as directed 30 days lancets (Accu-Chek Fastclix Lancet Drum) 1 ea topical TID 90 days lansoprazole 30 mg PO DAILY lisinopril 40 mg PO DAILY metformin 1,000 mg PO BIDWMEAL 90 days metoprolol tartrate PO; 2 tabs in the AM, 1 tabs in the PM 90 days pen needle, diabetic (BD Ultra-Fine Micro Pen Needle) As directed inject4 x a day Insulin pen needle, diabetic (BD Marisela 2nd Gen Pen Needle) As directed rosuvastatin 20 mg PO DAILY spironolactone 25 mg PO BID Tobacco use date assessed: 02/07/24 Fall risk assessment: No Falls in past year Last assessed Fall Risk: 02/07/24 Dental Screening Dental Screen Date: 02/07/24 Did you have a dental visit in the last 12 months?: Yes Did you have a dental problem in the last 6 months where you did not have access to dental care?: No Was dental information given to patient?: Patient has dentist HPI DM HPI Details 73-year-old overweight female smoker with uncontrolled diabetes mellitus Barretts esophagus hypercholesterolemia coronary artery disease(ND 2004 lad stent) hypertension coming in for follow-up. Last seen in November 2023. Patient's colonoscopy is up-to-date mammograms up-to-date in bone density up-to-date. Patient has followed up with Cardiology seen in December2023 went through patient's machine and blood sugars patient's blood sugar in the morning are running about 134 to 238. And so patient has been using mostly 2 units in the morning at noon time blood sugars are running at 380 and dinner blood sugars are running about 160-180 with the bedtime sugars running 200-300. So discussed with the patient to do a fixed insulin does of the Humalog at 6 units in the morning, 8 units at noon and 6 units at dinner time. [facility] Medical History Tobacco abuse Myocardial infarct COVID-19 Cough Skin rash Breast cancer screening by mammogram Colon cancer screening Essential hypertension Mitral valve prolapse Diabetic neuropathy Type 2 diabetes mellitus with hyperglycemia Hip osteoarthritis Diabetic nephropathy Vitamin D deficiency COPD (chronic obstructive pulmonary disease) Osteoarthritis Barretts esophagus Hypercholesterolemia Coronary artery disease Surgical History H/O heart artery stent Cystocele History of parathyroidectomy History of hysterectomy History of cholecystectomy Family History Father CVD (cardiovascular disease) Dementia Heart valve replaced Mother Colon cancer Social History Housing: House Alcohol intake: never Patient Tobacco Use Status: Current someday Tobacco user Tobacco use type: Cigarette Cigarettes Per Day: 1 Years Smoked: 40 +/- e-Cigarette/Vaping Use: Never Used Second Hand Smoke Exposure: No service: No Current occupational status: retired Current occupation: right hand dominant Cognitive needs: No Hearing needs: No Vision needs: Yes Female Reproductive History Menstrual Age of Menarche: 9 Questionnaire PHQ-9 Over the last 2 weeks, how often have you been bothered by any of the following problems? 1. Little interest or pleasure in doing things: not at all 2. Feeling down, depressed, or hopeless: not at all 3. Trouble falling or staying asleep, or sleeping too much: not at all 4. Feeling tired or having little energy: not at all 5. Poor appetite or overeating: not at all 6. Feeling bad about yourself - or that you are a failure or have let yourself or your family down: not at all 7. Trouble concentrating on things, such as reading the newspaper or watching television: not at all 8. Moving or speaking so slowly that other people could have noticed. Or the opposite - being so fidgety or restless that you have been moving around a lot more than usual: not at all 9. Thoughts that you would be better off or of hurting yourself in some way: not at all Total score: 0 Depression Screening Interpretation: Negative Depression Screening Done: Yes Source: Developed by Drs. Michelet Roman, Kelly Bynum, Clement Malloy and colleagues, with an educational debra from [employer]. Thrive Questionnaire Date Thrive assessed: 02/07/24 I am a: Patient What is your living situation today?: I have a steady place to live Within the past 12 months, did the food you bought not last and you didn't have the money to get more?: Never true Within the past 12 months, did you worry whether your food would run out before you got money to buy more?: Never true Do you have trouble paying for medicines?: No Do you have trouble getting transportation to medical appointments?: No Do you have trouble paying your heating and electricity bill?: No Do you have trouble taking care of your child, family member or friend?: No Do you have trouble with day-to-day activities such as bathing, preparing meals, shopping, managing finances, etc.?: No Are you currently unemployed and looking for a job?: No Are you interested in more education?: No Currently or been in a relationship where the following occur: no concerns reported THRIVE Score: 0 AUDIT C Alcohol Use Questionnaire (AUDIT-C) 1. How often do you have a drink containing alcohol?: Never Total Score: 0 TALON-7 AMB Questionnaire TALON-7 Date TALON - 7 assessed: 02/07/24 Feeling nervous, anxious, or on edge: 0 = Not at all Not being able to stop or control worryin = Not at all Worrying too much about different things: 0 = Not at all Trouble relaxin = Not at all Being so restless that it is hard to sit still: 0 = Not at all Becoming easily annoyed or irritable: 0 = Not at all Feeling afraid as if something awful might happen: 0 = Not at all Total TALON-7 score (0-4 normal; 5-9 mild; 10-14 moderate; 15-21 severe): 0 Source: Developed by Drs. Michelet Roman, Kelly Bynum, Clement Malloy and colleagues, with an educational debra from [employer]. Physical exam (Primary Care) Vital Signs: Last Vital Signs Pulse 79 02/07/24 13:16 BP 140/76 H 02/07/24 13:16 Pulse Ox 96 02/07/24 13:16 Oxygen Delivery Method Room Air 02/07/24 13:16 BMI result Body Mass Index 28.6 Tobacco/Smoking Status: Tobacco use Status Tobacco use date assessed 02/07/24 02/07/24 13:24 Patient Tobacco Use Status Current someday Tobacco 02/07/24 13:24 Tobacco use type Cigarette 02/07/24 13:24 e-Cigarette/Vaping Use Never Used 02/07/24 13:24 PHQ-9: PHQ-9 Score PHQ-9: Total score 0 02/07/24 13:24 Depression Screening Interpretation: Negative Thrive Assessment: Date of Thrive Assessment Date Thrive assessed 02/07/24 02/07/24 13:24 Currently or been in a relationship where the following occur: no concerns reported Const General: alert; No acute distress Eyes Conjunctivae: conjunctivae normal Resp Auscultation: clear to auscultation bilaterally Cardio Rate: regular rate Rhythm: regular rhythm GI Inspection: Yes normal to inspection Extrem General: Yes normal to inspection and No edema Results AMB Hemoglobin A1c AMB Hemoglobin A1c 8.9 % Last Edit by Yusra Davison CMA on 02/07/24 13:44 Assessment and Plan Assessment & Plan (1) Type 2 diabetes mellitus with hyperglycemia: Comment: December 2016 eye and lasik Code(s): E11.65 - Type 2 diabetes mellitus with hyperglycemia Qualifiers: 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 Hemoglobin A1c goal of less than 7.0. Patient on Lantus at 48 units with Humalog sliding scale metformin a 1000 mg twice a day (2) COPD (chronic obstructive pulmonary disease): Code(s): J44.9 - Chronic obstructive pulmonary disease, unspecified Qualifiers: COPD type: emphysema Emphysema type: panlobular Qualified Code(s): J43.1 - Panlobular emphysema Plan: Continue with the inhaler as needed (3) Barretts esophagus: Code(s): K22.70 - Bernal's esophagus without dysplasia Qualifiers: Bernal's esophagus type: without dysplasia Qualified Code(s): K22.70 - Bernal's esophagus without dysplasia Plan: Avoid the foods that causes that usually spicy foods, tomato products, juices, coffee, soda and foods that your sensitive to. After eating do not lie down, allow 3-4 hours before in lie down. And keep the head of bed above 30 degrees to avoid the acid from going up. (4) Hypercholesterolemia: Code(s): E78.00 - Pure hypercholesterolemia, unspecified Plan: Avoid fried foods, chicken skin, eggs, butter margarine, pastries and meat. Be it pork or beef they have a lot of cholesterol November 2022 last blood work on rosuvastatin 20 mg once a day and fenofibrate 160 mg once a day (5) Coronary artery disease: Comment: Stent placement January 2012 Code(s): I25.10 - Atherosclerotic heart disease of [place] coronary artery without angina pectoris Qualifiers: Coronary Disease-Associated Artery/Lesion type: [place] artery [place] vs. transplanted heart: [place] heart Associated angina: without angina Qualified Code(s): I25.10 - Atherosclerotic heart disease of [place] coronary artery without angina pectoris Plan: Control the cholesterol, weight, blood pressure, diabetes continue with baby aspirin once a day (6) Essential hypertension: Code(s): I10 - Essential (primary) hypertension Plan: Continue with blood pressure medication. Decrease salt intake and exercise takes amlodipine 10 mg once a day lisinopril 40 mg once a day metoprolol tartrate 50 mg twice a day (7) Generalized anxiety disorder: Code(s): F41.1 - Generalized anxiety disorder Plan: Continue with present medication Medications: Changed From insulin lispro (Humalog KwikPen (U-100) Insulin) or as directed 10 units (0.1 mL) subcut TID 30 days 15 mL 4RF E11.65 - Type 2 diabetes mellitus with hyperglycemia To insulin lispro (Humalog KwikPen (U-100) Insulin) 6 u in am , 8 u noon and 6 u evening subcutaneously 3 times a day; or as directed 30 days 15 mL 4RF E11.65 - Type 2 diabetes mellitus with hyperglycemia Coding Level of Care Code Est Pt Level 4 (47464) Diagnoses Type 2 diabetes mellitus with hyperglycemia, without long-term current use of insulin E11.65 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 transplanted heart: [place] heart Associated angina: without angina Essential hypertension I10 Generalized anxiety disorder F41.1
[2024-02-07 13:16] VITALS: BP 140/76; PULSE 79; O2SAT 96; BMI 28.6
== END 2024-02-07 13:52 | disposition home or self-care (01) ==
PROVIDERS: PCP Internal Medicine; Visit Provider Internal Medicine
DX: E11.65 Type 2 diabetes mellitus with hyperglycemia (principal); J43.1 Panlobular emphysema; K22.70 Barrett's esophagus without dysplasia; E78.00 Pure hypercholesterolemia, unspecified; I25.10 Atherosclerotic heart disease of native coronary artery without angina pectoris; I10 Essential (primary) hypertension; F41.1 Generalized anxiety disorder
CPT/HCPCS: 83036; 99214

== ENCOUNTER 2024-03-17 20:20 | Emergency (ER) | payer MEDICARE, SELFPAY ==
--- NOTE | 2024-03-17 | ECG_ITS ---
Test Reason : HEAVY CHEST Blood Pressure : / mmHG Vent. Rate : 080 BPM Atrial Rate : 080 BPM P-R Int : 172 ms QRS Dur : 124 ms QT Int : 422 ms P-R-T Axes : 057 051 035 degrees QTc Int : 486 ms Normal sinus rhythm Right bundle branch block Abnormal ECG When compared with ECG of 20-AUG-2019 10:24, Right bundle branch block is now Present Referred By: Generic ED Physician Electronically Signed By:Ted De Souza
--- NOTE | ~2024-03-17 | XR_ITS ---
EXAMINATION: XR CHEST CLINICAL INFORMATION: Chest pain. Lower extremity edema. COMPARISON: 09/06/2023 TECHNIQUE: Frontal view of the chest was obtained. FINDINGS: The cardiomediastinal silhouette is stable. There is no focal lung consolidation or pleural effusion. The bony structures and soft tissues are unremarkable. XR/XR chest 1V IMPRESSION: No acute cardiopulmonary process.
[2024-03-17 20:23] VITALS: BP 165/70; PULSE 85; RESP 22; TEMP 37.1; O2SAT 95; BMI 29.7
[2024-03-17 21:04] LABS: MANUAL DIFF FLAG NO
[2024-03-17 21:05] LABS: Basophils Absolute Auto 0.1 X10*3/uL (0.0-0.2); Basophils Percent Auto 0.7 % (0-2); Eosinophils Absolute Auto 0.3 X10*3/uL (0.0-0.4); Hematocrit 36.2 % (37.0-47.0); Hemoglobin 12.7 g/dl (12.0-16.0); Imm Gran Abs Auto 0.02 X10*3/uL (0.00-0.03); Imm Gran Pct Auto 0.2 % (0.0-0.4); Lymphocytes Absolute Auto 2.6 X10*3/uL (1.2-4.9); Lymphocytes Percent Auto 30.2 % (20-40); Mean Corpuscular HGB Conc 35.1 g/dl (31.0-35.0); Mean Corpuscular Hemoglobin 31.2 pg (27.0-33.0); Mean Corpuscular Volume 88.9 fL (80.0-98.0); Mean Platelet Volume 11.5 fL (9.4-12.3); Monocytes Absolute Auto 0.5 X10*3/uL (0.1-1.2); Monocytes Percent Auto 6.1 % (2-11); Neutrophils Absolute Auto 5.2 x10*3/uL (2.0-8.3); Neutrophils Percent Auto 59.8 % (45-73); Platelet Count 263 X10*3/uL (160-400); Red Blood Count 4.07 X10*6/uL (4.20-5.50); Red Cell Distribution Width 12.3 % (11.0-16.0); White Blood Count 8.6 X10*3/uL (4.8-10.8)
[2024-03-17 21:10] LABS: INTERNATIONAL NORM RATIO 0.9 (0.9-1.1); Prothrombin Time 11.3 SEC (11.1-13.3)
[2024-03-17 21:22] LABS: Alanine Aminotransferase 18 U/L (0-31); Albumin Level 4.5 g/dL (3.5-5.0); Alkaline Phosphatase 58 U/L (39-117); Anion Gap 17 (12-20); Aspartate Amino Transferase 15 U/L (5-31); Bilirubin Total 0.3 mg/dL (0.0-1.0); Blood Urea Nitrogen 21 mg/dL (9-16); Calcium 10.3 mg/dL (8.4-10.2); Carbon Dioxide 22 mmol/L (22-29); Chloride 103 mmol/L (96-108); Creatinine Clr Calc Pharmacy 52.9; Estimated Glomerular Filt Rate 55; Glucose Random 292 mg/dL (60-115); Magnesium 1.2 mg/dL (1.6-2.6); Potassium 3.8 mmol/L (3.3-5.1); Sodium 138 mmol/L (135-145)
[2024-03-17 21:25] LABS: B Type Natriuretic Peptide 18 pg/mL (<100)
[2024-03-17 21:28] LABS: Troponin-I High Sensitivity < 2.7 ng/L (<3.5-17.0)
--- NOTE | 2024-03-17 22:26 | ED.GENADULT ---
HPI - General Adult General Chief complaint: General Medical Stated complaint: both legs swollen/chest feels heavy(not pain) Time Seen by Provider: 03/17/24 22:26 Source: patient Mode of arrival: ambulatory Limitations: no limitations History of Present Illness ED Provider: Linda Vora NP HPI narrative: Patient is a 73-year-old female with history of NE, HTN, T2DM, diabetic neuropathy, COPD, osteoarthritis, CAD presenting to the emergency department with complaint of new swelling to bilateral lower legs. She reports some improvement in swelling while asleep/when she woke in the morning, but reports swelling worsened throughout the day. Complains of chronic foot pain due to neuropathy for which she is on gabapentin. She then commented that she had some heartburn, and states her daughters insisted she come in for evaluation. States she did not eat dinner, only a few crackers. Denies associated dyspnea, diaphoresis, dizziness, lightheadednes. MD complaint: leg swelling, heartburn Onset (ago): day(s) Location: abdomen and lower extremity Quality: burning (epigastric) Associated symptoms: denies other symptoms Treatments prior to arrival: none Related Data Home Medications ?Medication ?Instructions ?Recorded ?Confirmed blood sugar diagnostic #10 ea 10/19/20 02/07/24 calcium carbonate (Calcium 600) 600 mg PO DAILY 11/13/20 02/07/24 cholecalciferol (vitamin D3) 50 50 mcg PO DAILY 11/13/20 02/07/24 mcg (2,000 unit) capsule aspirin 81 mg tablet,delayed 81 mg PO DAILY 03/02/21 02/07/24 release (Adult Low Dose Aspirin) pen needle, diabetic 32 gauge x #50 ea 09/21/22 02/07/24 (BD Marisela 2nd Gen Pen Needle) Previous Rx's ?Medication ?Instructions ?Recorded blood sugar diagnostic (Accu-Chek ##3 07/19/22 Guide test strips) blood sugar diagnostic (Accu-Chek #3 boxes 07/19/22 Guide test strips) lancets (Accu-Chek Fastclix Lancet 1 ea topical TID 90 days #306 ea 07/19/22 Drum) blood pressure test kit-large #1 ea 12/21/22 gabapentin 100 mg capsule 100 mg PO DAILY 90 days #90 caps 03/06/23 blood pressure monitor (Blood #1 ea 05/23/23 Pressure Kit) fenofibrate 160 mg tablet 160 mg PO DAILY #90 tabs 05/23/23 lisinopril 40 mg tablet 40 mg PO DAILY #90 tabs 05/23/23 lansoprazole 30 mg capsule,delayed 30 mg PO DAILY #90 caps 07/26/23 release albuterol sulfate 90 mcg/actuation 1 puff PO Q4H PRN shortness of 09/01/23 aerosol inhaler breath or wheezing #18 grams amlodipine 10 mg tablet 10 mg PO DAILY #90 tabs 10/09/23 pen needle, diabetic 32 gauge x #400 ea 10/09/23/ (BD Ultra-Fine Micro Pen Needle) metformin 1,000 mg tablet 1,000 mg PO BIDWMEAL 90 days #180 11/02/23 tabs cyanocobalamin (vitamin B-12) 1,000 mcg PO DAILY #90 tabs 11/22/23 1,000 mcg tablet spironolactone 25 mg tablet 25 mg PO BID #180 tabs 11/22/23 fluticasone propionate 50 2 spray intranasal DAILY 90 days 12/25/23 mcg/actuation nasal #3 ea spray,suspension metoprolol tartrate 50 mg tablet See Rx Instructions PO .COMPLEX 90 12/28/23 days #270 tabs rosuvastatin 20 mg tablet 20 mg PO DAILY #90 tabs 01/25/24 insulin lispro 100 unit/mL See Rx Instructions subcut TID 30 02/07/24 subcutaneous pen (Humalog KwikPen days #15 mL (U-100) Insulin) insulin glargine 100 unit/mL (3 48 unit (0.48 mL) subcut DAILY 90 02/21/24 mL) subcutaneous pen (Lantus days #15 mL Solostar U-100 Insulin) Allergies Allergy/AdvReac Type Severity Reaction Status Date / Time cortisone [CORTISONE] Allergy Severe RASH HIVES Verified 03/17/24 20:26 AND SWELLING OF THE TONGUE nitrofurantoin Allergy Severe tongue Verified 03/17/24 20:26 swelling Penicillins Allergy Severe ANAPHYLAXIS Verified 03/17/24 20:26 yeast, dried [yeast] Allergy Severe SHORTNESS Verified 03/17/24 20:26 OF BREATH empagliflozin Allergy Intermediate swollen Verified 03/17/24 20:26 [From Jardiance] tongue omeprazole [From Prilosec] Allergy Intermediate BLISTERS Verified 03/17/24 20:26 Sulfa (Sulfonamide Allergy Intermediate Itching Verified 03/17/24 20:26 Antibiotics) niacin [Niacin] Allergy Mild RASH Verified 03/17/24 20:26 tetracycline [Tetracycline] Allergy Mild RASH Verified 03/17/24 20:26 acetic acid [Acetic Acid] Allergy Unknown SHORTNESS Verified 03/17/24 20:26 OF BREATH FROM VINEGAR adhesive tape Allergy Unknown RASH Verified 03/17/24 20:26 Clindamycin HCl Allergy Unknown rash Verified 03/17/24 20:26 procaine [From NOVOCAIN] Allergy Unknown RASH,SWELLING Verified 03/17/24 20:26 OF TONGUE,BLISTERING cefixime [From Suprax] AdvReac Intermediate Swelling Verified 03/17/24 20:26 in throat dulaglutide [From Trulicity] AdvReac Intermediate swelling Verified 03/17/24 20:26 of tongue hydrochlorothiazide AdvReac Intermediate hypercalcem Verified 03/17/24 20:26 ia methenamine AdvReac Intermediate Yeast Verified 03/17/24 20:26 Infection lorazepam [From Ativan] AdvReac Mild VOMITING/NA Verified 03/17/24 20:26 USEA morphine [MORPHINE] AdvReac Unknown NAUSEA Verified 03/17/24 20:26 fosfomycin Allergy Severe tongue Uncoded 02/07/24 13:16 swelling jardiance Allergy Severe Yeast Uncoded 02/07/24 13:16 infection levofloxacin Allergy Severe Hives Uncoded 02/07/24 13:16 From AVELOX Allergy Intermediate SWELLING/RA Uncoded 02/07/24 13:16 SH carrots, vinegar, yeast, Allergy Unknown Unknown Uncoded 02/07/24 13:16 chees SEASONAL ALLERGIES Allergy Unknown SNEEZING Uncoded 02/07/24 13:16 Review of Systems Review of Systems: As per HPI. Yes all other systems are reviewed and are negative Constitutional: Constitutional: Reports as per HPI [facility] Past Medical History Medical History Tobacco abuse Myocardial infarct COVID-19 Cough Skin rash Breast cancer screening by mammogram Colon cancer screening Essential hypertension Mitral valve prolapse Diabetic neuropathy Type 2 diabetes mellitus with hyperglycemia Hip osteoarthritis Diabetic nephropathy Vitamin D deficiency COPD (chronic obstructive pulmonary disease) Osteoarthritis Barretts esophagus Hypercholesterolemia Coronary artery disease Surgical History H/O heart artery stent Cystocele History of parathyroidectomy History of hysterectomy History of cholecystectomy Family History Family History Father CVD (cardiovascular disease) Dementia Heart valve replaced Mother Colon cancer Social History Social History Housing: House Alcohol intake: never Patient Tobacco Use Status: Current someday Tobacco user Tobacco use type: Cigarette Cigarettes Per Day: 1 Years Smoked: 40 +/- Smoked in Last 30 Days: No e-Cigarette/Vaping Use: Never Used Second Hand Smoke Exposure: No Advance Directives: No Advance Directives Information Provided: No Do you have a plan to hurt others: No Plan service: No Current occupational status: retired Current occupation: right hand dominant Cognitive needs: No Hearing needs: No Vision needs: Yes Physical Exam ED Vital Signs: Vital Signs - 24 hr 03/17/24 20:23 03/18/24 00:36 Temperature 98.7 F 98.2 F Pulse Rate 85 75 Respiratory Rate 22 H 22 H Blood Pressure 165/70 H 126/54 L Pulse Oximetry 95 94 Oxygen Delivery Method Room Air Room Air BMI result Body Mass Index 29.7 Vital signs have been reviewed and appear to be correct. Blood pressure elevated. Heart rate normal. Respiratory rate normal. Temperature normal. Oxygen saturation normal. Const General: cooperative, healthy appearing and no acute distress Orientation/consciousness: oriented to person, oriented to place, oriented to time and patient oriented x3 Limitations: no limitations [facility] Head: Yes normocephalic and Yes atraumatic Ears: external ears normal General nose exam: Normal external nose present Face and sinus: Yes face symmetric Mouth: oropharynx normal and moist mucous membranes Throat: Yes uvula midline Eyes Pupils: Equal, round and reactive pupils present Neck Neck: Yes normal visual inspection and Yes supple Resp Effort & Inspection: normal respiratory effort and able to speak in complete sentences Auscultation: clear to auscultation bilaterally Cardio Rate: regular rate Rhythm: regular rhythm Heart sounds: S1 normal heart sound present and S2 normal heart sound present GI Palpation (GI): Soft to palpation and nontender Auscultation: normoactive bowel sounds General: Yes no CVA tenderness Back/Spine/Pelvis Back: no CVA tenderness Skin General skin exam: elasticity normal and turgor normal Neuro General: oriented to person, oriented to place, oriented to time, patient oriented x3, moves all extremities, no focal motor deficits and CN's II-XI intact bilaterally Cranial nerves: Yes Equal, round and reactive pupils present Cognition (Neuro): normal cognition Extrem General: Yes full ROM, Yes no pedal edema and Yes no calf tenderness Right lower extremity: ankle Details: edema Details: pitting and 1+; no tenderness and no unusual warmth and foot Details: vascular exam Details: dorsalis pedis pulse present and posterior tibial pulse present Left lower extremity: ankle Details: pitting edema Details: pitting and 1+; no tenderness and no warmth and foot Details: vascular exam Details: dorsalis pedis pulse present and posterior tibial pulse present Psych Mental Status: mental status grossly normal Affect: normal affect Thought process: Normal thought process present Medications Administered Discontinued Medications Generic Name Dose Route Start Last Admin Trade Name Freq PRN Reason Stop Dose Admin Magnesium Sulfate 2 gm in 50 mls @ 25 mls/hr 03/17/24 22:28 03/18/24 00:47 Magnesium Sulfate/H2o IV 03/18/24 00:27 Infused ONCE ONE Infusion Medical Decision Making Medical Decision Making [facility] Narrative: Patient is a 73-year-old female with history of NE, HTN, T2DM, diabetic neuropathy, COPD, osteoarthritis, CAD presenting to the emergency department with complaint of new swelling to bilateral lower legs. On exam patient is awake, A+Ox3, VS WNL, afebrile, normal neurological exam without focal deficits, physical exam findings as above. Given reported symptoms and physical exam findings, initial differential includes ACS, GERD, PUD, dependent edema, CHF. Labs notable for no leukocytosis, no anemia, elevated BUN, elevated glucose, no anion gap, magnesium of 1.2, negative troponin, normal TSH. IV magnesium ordered, will repeat troponin. Initial EKG notable for normal sinus rhythm with right bundle branch block which patient has no history of on prior EKGs. HEART score of 6. 23:26 Patient complaining of feeling lightheaded, having additional episode of heartburn, states lasted just a few minutes. Will repeat EKG and troponin. X-ray notable for no evidence of CHF. My interpretation is in agreement with the radiologist's interpretation. BNP is within normal limits. Repeat troponin negative. Case discussed with Dr. Adam who accepts admission to medicine. Differential Diagnosis Differential Diagnoses: The differential diagnosis associated with the presentation includes As per [facility]. Admission/Observation Consideration of admission/observation: Escalation of care including admission/observation considered Consult Healthcare Provider Management of the patient was discussed with: Hospitalist Lab Data [facility] Lab Attestation statement: I reviewed the patient's lab results. As per MDM. 03/17/24 20:57 03/17/24 20:57 Labs: Lab Results 03/17/24 Range/Units 20:57 WBC 8.6 (4.8-10.8) X10*3/uL RBC 4.07 L (4.20-5.50) X10*6/uL Hgb 12.7 (12.0-16.0) g/dl Hct 36.2 L (37.0-47.0) % MCV 88.9 (80.0-98.0) fL MCH 31.2 (27.0-33.0) pg MCHC 35.1 H (31.0-35.0) g/dl RDW 12.3 (11.0-16.0) % Plt Count 263 (160-400) X10*3/uL MPV 11.5 (9.4-12.3) fL Immature Gran % (Auto) 0.2 (0.0-0.4) % Neut % (Auto) 59.8 (45-73) % Lymph % (Auto) 30.2 (20-40) % [place] % (Auto) 6.1 (2-11) % Eos % (Auto) 3.0 (0-4) % Baso % (Auto) 0.7 (0-2) % Lymph # (Auto) 2.6 (1.2-4.9) X10*3/uL [place] # (Auto) 0.5 (0.1-1.2) X10*3/uL Eos # (Auto) 0.3 (0.0-0.4) X10*3/uL Baso # (Auto) 0.1 (0.0-0.2) X10*3/uL Abs Immat Gran (auto) 0.02 (0.00-0.03) X10*3/uL Absolute Neuts (auto) 5.2 (2.0-8.3) x10*3/uL Absolute Nucleated RBC 0.000 (0.0-0.012) X10*3/uL Nucleated RBC % (auto) 0.0 (0.0-0.2) /100WBC PT 11.3 (11.1-13.3) SEC INR 0.9 (0.9-1.1) Sodium 138 (135-145) mmol/L Potassium 3.8 (3.3-5.1) mmol/L Chloride 103 (96-108) mmol/L Carbon Dioxide 22 (22-29) mmol/L Anion Gap 17 (12-20) BUN 21 H (9-16) mg/dL Creatinine 0.98 (0.5-1.4) mg/dL Estim Creat Clear Calc 52.9 Estimated GFR 55 Random Glucose 292 H (60-115) mg/dL Calcium 10.3 H D (8.4-10.2) mg/dL Magnesium 1.2 L* (1.6-2.6) mg/dL Total Bilirubin 0.3 (0.0-1.0) mg/dL AST 15 (5-31) U/L ALT 18 (0-31) U/L Alkaline Phosphatase 58 (39-117) U/L Troponin I High Sens < 2.7 (<3.5-17.0) ng/L B-Natriuretic Peptide 18 (<100) pg/mL Total Protein 7.0 (6.5-8.0) g/dL Albumin 4.5 (3.5-5.0) g/dL TSH 2.09 (0.32-4.0) uIU/mL Independent Interpretation I performed an independent interpretation of an: EKG (First EKG shows normal sinus rhythm with right bundle-branch block, rate 80 beats per minute, normal IL interval, prolonged QTC, no history of RBBB on prior EKGs; 2nd EKG shows normal sinus rhythm with right bundle-branch block, rate 76 beats per minute, normal IL interval, prolonged QTC) Scores Heart Score History: -1- moderately suspicious ECG: -1- non specific repolarization disturbance Age: -2- > or = 65 Risk factory: -2- 3 or more risk factors or treated atherosclerosis Troponin: -0- < or = normal limit Score: 6 Risk: 16.6% Discharge Plan Discharge Patient Disposition: Admitted As Inpatient Print Language: Kinyarwanda
[2024-03-17] MEDS: Magnesium Sulfate/H2O 2 GM/50 ML PIGGYBACK IV (22:45)
[2024-03-17 23:16] LABS: TSH reflex Free T4 2.09 uIU/mL (0.32-4.0)
--- NOTE | 2024-03-17 23:25 | ECG_ITS ---
Test Reason : chest pain Blood Pressure : / mmHG Vent. Rate : 076 BPM Atrial Rate : 076 BPM P-R Int : 166 ms QRS Dur : 124 ms QT Int : 438 ms P-R-T Axes : 043 045 026 degrees QTc Int : 492 ms Normal sinus rhythm Right bundle branch block Abnormal ECG When compared with ECG of 17-MAR-2024 20:49, No significant change was found Referred By: Leana Vora Electronically Signed By:Ted De Souza
[2024-03-18 00:36] VITALS: BP 126/54; PULSE 75; RESP 22; TEMP 36.8; O2SAT 94
--- NOTE | 2024-03-18 00:51 | PC.NURSE ---
Pt c/o complaint of new swelling to bilateral lower legs. She reports some improvement in swelling while asleep/when she woke in the morning, but reports swelling worsened throughout the day. c/o chronic foot pain due to neuropathy for which she is on gabapentin. She then commented that she had some heartburn, a MG infusing tolerating well denies any Chest pressure
[2024-03-18 01:01] LABS: Troponin-I High Sensitivity < 2.7 ng/L (<3.5-17.0)
[2024-03-18 01:09] LABS: Glucose, Whole Blood 203 mg/dL (60-115)
--- NOTE | 2024-03-18 01:50 | MHC.EDTECH ---
Pt ambulated to and from bathroom with steady gait, denied any shortness of breath or lightheadedness. RN aware. Pt back to bed, vital signs taken, call garcia within reach.
[2024-03-18 02:06] VITALS: BP 135/48; PULSE 75; RESP 22; TEMP 36.6; O2SAT 93
--- NOTE | 2024-03-18 03:30 | PC.NURSE ---
pt assessed, spo2 86-88% ON ROOM AIR while sleeping, nasal cannula placed oxygen at 1Liter
[2024-03-18 04:20] VITALS: BP 135/46; PULSE 69; RESP 18; O2SAT 91
[2024-03-18 05:23] VITALS: BP 132/38; PULSE 69; RESP 16; TEMP 36.6; O2SAT 92
--- NOTE | 2024-03-18 06:42 | PM.EVENT ---
Event Note Date of Service: 03/18/24 Event Note: ED provider discussed case with me. Patient presented to ED c/o heartburn and asked to admit pt due to hypomagnesemia. I recommeded to repeat magnesium level and decide to admit if magnesium level is still low, otherwise, I do not see indications for admission. Repeat magnesium level has not been obtained. I did order it. Time Spent With Patient Time: Total time managing care of this patient today ____ minutes.
[2024-03-18 07:33] LABS: Glucose, Whole Blood 209 mg/dL (60-115)
[2024-03-18 07:46] VITALS: BP 148/78; PULSE 77; RESP 14; TEMP 36.6; O2SAT 96
[2024-03-18 08:01] LABS: MANUAL DIFF FLAG NO
[2024-03-18 08:04] LABS: Basophils Absolute Auto 0.1 X10*3/uL (0.0-0.2); Basophils Percent Auto 0.6 % (0-2); Eosinophils Absolute Auto 0.2 X10*3/uL (0.0-0.4); Eosinophils Percent Auto 2.5 % (0-4); Hemoglobin 12.6 g/dl (12.0-16.0); Imm Gran Abs Auto 0.02 X10*3/uL (0.00-0.03); Imm Gran Pct Auto 0.2 % (0.0-0.4); Lymphocytes Percent Auto 21.6 % (20-40); Mean Corpuscular Hemoglobin 31.2 pg (27.0-33.0); Mean Corpuscular Volume 89.1 fL (80.0-98.0); Monocytes Absolute Auto 0.6 X10*3/uL (0.1-1.2); Monocytes Percent Auto 6.8 % (2-11); Neutrophils Absolute Auto 6.4 x10*3/uL (2.0-8.3); Neutrophils Percent Auto 68.3 % (45-73); Platelet Count 254 X10*3/uL (160-400); Red Blood Count 4.04 X10*6/uL (4.20-5.50); Red Cell Distribution Width 12.4 % (11.0-16.0); White Blood Count 9.4 X10*3/uL (4.8-10.8)
[2024-03-18 08:22] LABS: Alanine Aminotransferase 17 U/L (0-31); Albumin Level 4.4 g/dL (3.5-5.0); Alkaline Phosphatase 58 U/L (39-117); Anion Gap 15 (12-20); Aspartate Amino Transferase 15 U/L (5-31); Bilirubin Direct 0.2 mg/dL (0.0-0.5); Bilirubin Total 0.4 mg/dL (0.0-1.0); Blood Urea Nitrogen 16 mg/dL (9-16); Calcium 9.9 mg/dL (8.4-10.2); Carbon Dioxide 25 mmol/L (22-29); Chloride 105 mmol/L (96-108); Creatinine Clr Calc Pharmacy 57.6; Estimated Glomerular Filt Rate > 60; Glucose Random 221 mg/dL (60-115); Magnesium 1.7 mg/dL (1.6-2.6); Potassium 4.6 mmol/L (3.3-5.1); Sodium 140 mmol/L (135-145); Total Protein 6.9 g/dL (6.5-8.0)
[2024-03-18 08:24] LABS: Troponin-I High Sensitivity < 2.7 ng/L (<3.5-17.0)
[2024-03-18 09:27] VITALS: BP 148/78; PULSE 77; RESP 14; TEMP 36.6; O2SAT 96
== END 2024-03-18 09:27 | disposition home or self-care (01) ==
PROVIDERS: Physician Assistant; Registered Nurse Emergency; Emergency Provider Internal Medicine; PCP Internal Medicine
DX: R60.0 Localized edema (principal); E83.42 Hypomagnesemia; K21.9 Gastro-esophageal reflux disease without esophagitis; R07.89 Other chest pain; E11.9 Type 2 diabetes mellitus without complications; I10 Essential (primary) hypertension; E78.00 Pure hypercholesterolemia, unspecified; J44.9 Chronic obstructive pulmonary disease, unspecified; Z79.4 Long term (current) use of insulin; Z79.02 Long term (current) use of antithrombotics/antiplatelets; F17.210 Nicotine dependence, cigarettes, uncomplicated
CPT/HCPCS: 36415; 71045; 80048; 80053; 80076; 82947; 83735; 83880; 84443; 84484; 85025; 85610; 93005; 96365; 96366; 99285; J3475

== ENCOUNTER → 2024-03-17 20:49 | Outpatient (BNV) | payer MEDICARE, SELFPAY | PROVIDERS: Emergency Provider Internal Medicine; PCP Internal Medicine; Visit Provider Internal Medicine Cardiovascular Disease | DX: I45.10 Unspecified right bundle-branch block (principal); R94.31 Abnormal electrocardiogram [ECG] [EKG] | CPT/HCPCS: 93010 ==

== ENCOUNTER 2024-03-20 14:03 | Outpatient (AMB) | payer MEDICARE, SELFPAY ==
--- NOTE | 2024-03-20 14:30 | A.OFFPC_ITS ---
Vital Signs 03/20/24 14:31 Height 5 ft 5 in Weight 172 lb BMI 28.6 BP 118/62 Blood Pressure Location Lt brachial Position Sitting Pulse 79 Pulse Source Pulse Oximeter Pulse Oximetry (%) 98 Oxygen Delivery Method Room Air Intake Visit Reasons: DM Allergies cortisone [CORTISONE] Allergy (Severe, Verified 03/20/24 14:31) RASH HIVES AND SWELLING OF THE TONGUE nitrofurantoin Allergy (Severe, Verified 03/20/24 14:31) tongue swelling Penicillins Allergy (Severe, Verified 03/20/24 14:31) ANAPHYLAXIS yeast, dried [yeast] Allergy (Severe, Verified 03/20/24 14:31) SHORTNESS OF BREATH empagliflozin [From Jardiance] Allergy (Intermediate, Verified 03/20/24 14:31) swollen tongue omeprazole [From Prilosec] Allergy (Intermediate, Verified 03/20/24 14:31) BLISTERS Sulfa (Sulfonamide Antibiotics) Allergy (Intermediate, Verified 03/20/24 14:31) Itching niacin [Niacin] Allergy (Mild, Verified 03/20/24 14:31) RASH tetracycline [Tetracycline] Allergy (Mild, Verified 03/20/24 14:31) RASH acetic acid [Acetic Acid] Allergy (Unknown, Verified 03/20/24 14:31) SHORTNESS OF BREATH FROM VINEGAR adhesive tape Allergy (Unknown, Verified 03/20/24 14:31) RASH Clindamycin HCl Allergy (Unknown, Verified 03/20/24 14:31) rash procaine [From NOVOCAIN] Allergy (Unknown, Verified 03/20/24 14:31) RASH,SWELLING OF TONGUE,BLISTERING cefixime [From Suprax] Adverse Reaction (Intermediate, Verified 03/20/24 14:31) Swelling in throat dulaglutide [From Trulicity] Adverse Reaction (Intermediate, Verified 03/20/24 14:31) swelling of tongue hydrochlorothiazide Adverse Reaction (Intermediate, Verified 03/20/24 14:31) hypercalcemia methenamine Adverse Reaction (Intermediate, Verified 03/20/24 14:31) Yeast Infection lorazepam [From Ativan] Adverse Reaction (Mild, Verified 03/20/24 14:31) VOMITING/NAUSEA morphine [MORPHINE] Adverse Reaction (Unknown, Verified 03/20/24 14:31) NAUSEA fosfomycin Allergy (Severe, Uncoded 03/20/24 14:31) tongue swelling jardiance Allergy (Severe, Uncoded 03/20/24 14:31) Yeast infection levofloxacin Allergy (Severe, Uncoded 03/20/24 14:31) Hives From AVELOX Allergy (Intermediate, Uncoded 03/20/24 14:31) SWELLING/RASH carrots, vinegar, yeast, chees Allergy (Unknown, Uncoded 03/20/24 14:31) Unknown SEASONAL ALLERGIES Allergy (Unknown, Uncoded 03/20/24 14:31) SNEEZING Medication List - Last Reconciled 03/20/24 by William Colón MD albuterol sulfate 90 mcg/actuation 1 puff PO Q4H PRN amlodipine 5 mg (1/2 x 10 mg) PO DAILY aspirin (Adult Low Dose Aspirin) 81 mg PO DAILY blood pressure monitor (Blood Pressure Kit) As directed blood pressure test kit-large As directed blood sugar diagnostic As directed blood sugar diagnostic (Accu-Chek Guide test strips) As directed check BS TID blood sugar diagnostic (Accu-Chek Guide test strips) As directed check the BS TID calcium carbonate (Calcium 600) 600 mg PO DAILY cholecalciferol (vitamin D3) 50 mcg PO DAILY cyanocobalamin (vitamin B-12) 1,000 mcg PO DAILY fenofibrate 160 mg PO DAILY fluticasone propionate 50 mcg/actuation 2 sprays intranasal DAILY 90 days gabapentin 100 mg PO DAILY 90 days insulin glargine (Lantus Solostar U-100 Insulin) 48 units subcut BEDTIME insulin lispro (Humalog KwikPen (U-100) Insulin) 10 u in am , 12 u noon and 6 u evening subcutaneously 3 times a day; or as directed 30 days lancets (Accu-Chek Fastclix Lancet Drum) 1 ea topical TID 90 days lansoprazole 30 mg PO DAILY lisinopril 40 mg PO DAILY metformin 1,000 mg PO BIDWMEAL 90 days metoprolol tartrate PO; 2 tabs in the AM, 1 tabs in the PM 90 days pen needle, diabetic (BD Ultra-Fine Micro Pen Needle) As directed inject4 x a day Insulin pen needle, diabetic (BD Marisela 2nd Gen Pen Needle) As directed rosuvastatin 20 mg PO DAILY spironolactone 25 mg PO BID Tobacco use date assessed: 02/07/24 Fall risk assessment: No Falls in past year Last assessed Fall Risk: 03/20/24 Dental Screening Dental Screen Date: 02/07/24 HPI DM HPI Details 73-year-old overweight female with uncon trolled diabetes mellitus COPD Barretts esophagus hypercholesterolemia coronary artery disease hypertension and generalized anxiety disorder last seen in January 2024. Colonoscopy up-to-date 07/2022 mammogram is up-to-date bone density is up-to-date. Review of the notes ER visit in February 2024 with lower extremity swelling. Patient also complains of chronic foot pain on gabapentin blood work was requested noted magnesium to be low and replacement done. [facility]LY [facility] Medical History Tobacco abuse Myocardial infarct COVID-19 Cough Skin rash Breast cancer screening by mammogram Colon cancer screening Essential hypertension Mitral valve prolapse Diabetic neuropathy Type 2 diabetes mellitus with hyperglycemia Hip osteoarthritis Diabetic nephropathy Vitamin D deficiency COPD (chronic obstructive pulmonary disease) Osteoarthritis Barretts esophagus Hypercholesterolemia Coronary artery disease Surgical History H/O heart artery stent Cystocele History of parathyroidectomy History of hysterectomy History of cholecystectomy Family History Father CVD (cardiovascular disease) Dementia Heart valve replaced Mother Colon cancer Social History Housing: House Alcohol intake: never Patient Tobacco Use Status: Current someday Tobacco user Tobacco use type: Cigarette Cigarettes Per Day: 1 Years Smoked: 40 +/- e-Cigarette/Vaping Use: Never Used Second Hand Smoke Exposure: No service: No Current occupational status: retired Current occupation: right hand dominant Cognitive needs: No Hearing needs: No Vision needs: Yes Female Reproductive History Menstrual Age of Menarche: 9 Questionnaire PHQ-9 Over the last 2 weeks, how often have you been bothered by any of the following problems? 1. Little interest or pleasure in doing things: not at all 2. Feeling down, depressed, or hopeless: not at all 3. Trouble falling or staying asleep, or sleeping too much: not at all 4. Feeling tired or having little energy: not at all 5. Poor appetite or overeating: not at all 6. Feeling bad about yourself - or that you are a failure or have let yourself or your family down: not at all 7. Trouble concentrating on things, such as reading the newspaper or watching television: not at all 8. Moving or speaking so slowly that other people could have noticed. Or the opposite - being so fidgety or restless that you have been moving around a lot more than usual: not at all 9. Thoughts that you would be better off or of hurting yourself in some way: not at all Total score: 0 Depression Screening Interpretation: Negative Depression Screening Done: Yes Source: Developed by Drs. Michelet Roman, Kelly Bynum, Clement Malloy and colleagues, with an educational debra from [employer]. Thrive Questionnaire Date Thrive assessed: 02/07/24 AUDIT C Alcohol Use Questionnaire (AUDIT-C) 1. How often do you have a drink containing alcohol?: Never Total Score: 0 TALON-7 AMB Questionnaire TALON-7 Date TALON - 7 assessed: 02/07/24 Source: Developed by Drs. Michelet Roman, Kelly Bynum, Clement Malloy and colleagues, with an educational debra from [employer]. Physical exam (Primary Care) Vital Signs: Last Vital Signs Pulse 79 03/20/24 14:31 BP 118/62 03/20/24 14:31 Pulse Ox 98 03/20/24 14:31 Oxygen Delivery Method Room Air 03/20/24 14:31 BMI result Body Mass Index 28.6 Tobacco/Smoking Status: Tobacco use Status Tobacco use date assessed 02/07/24 03/20/24 14:37 Patient Tobacco Use Status Current someday Tobacco 03/20/24 14:37 Tobacco use type Cigarette 03/20/24 14:37 e-Cigarette/Vaping Use Never Used 03/20/24 14:37 PHQ-9: PHQ-9 Score PHQ-9: Total score 0 03/20/24 14:37 Depression Screening Interpretation: Negative Thrive Assessment: Date of Thrive Assessment Date Thrive assessed 02/07/24 03/20/24 14:37 Const General: alert; No acute distress Eyes Conjunctivae: conjunctivae normal Chest Other: Ulnar deviation of the right 5th finger noted Resp Auscultation: clear to auscultation bilaterally Cardio Rate: regular rate Rhythm: regular rhythm GI Inspection: Yes normal to inspection Extrem General: Yes normal to inspection and No edema Assessment and Plan Assessment & Plan (1) Coronary artery disease: Comment: Stent placement January 2012 Code(s): I25.10 - Atherosclerotic heart disease of [place] coronary artery without angina pectoris Qualifiers: Coronary Disease-Associated Artery/Lesion type: [place] artery [place] vs. transplanted heart: [place] heart Associated angina: without angina Qualified Code(s): I25.10 - Atherosclerotic heart disease of [place] coronary artery without angina pectoris Plan: Control the cholesterol, weight, blood pressure, diabetes continue with aspirin 81 mg once a day (2) Hypercholesterolemia: Code(s): E78.00 - Pure hypercholesterolemia, unspecified Plan: That was Avoid fried foods, chicken skin, eggs, butter margarine, pastries and meat. Be it pork or beef they have a lot of cholesterol LDL goal of less than 70 preferably less than 60 on fenofibrate and rosuvastatin 20 mg once a day November 2023 LDL at goal at 54 (3) Type 2 diabetes mellitus with hyperglycemia: Comment: December 2016 eye and lasik Code(s): E11.65 - Type 2 diabetes mellitus with hyperglycemia Qualifiers: Diabetes mellitus shelter insulin use: without shelter use Qualified Code(s): E11.65 - Type 2 diabetes mellitus with hyperglycemia Plan: Decrease the amount of carbohydrate intake, pasta, bread, rice and potatoes are all sugar and that is aside from all the sweet stuff, remember that fruits are good but they are Sweet also. Hemoglobin A1c goal of less than 7.0 on metformin a 1000 mg twice a day Humalog sliding scale Lantus at 48 units once a day swelling of the tongue from Trulicity Jardiance had same problem.. Blood sugar numbers checked and record provided will do some adjustment on insulin (4) Barretts esophagus: Code(s): K22.70 - Bernal's esophagus without dysplasia Qualifiers: Bernal's esophagus type: without dysplasia Qualified Code(s): K22.70 - Bernal's esophagus without dysplasia Plan: Avoid the foods that causes that usually spicy foods, tomato products, juices, coffee, soda and foods that your sensitive to. After eating do not lie down, allow 3-4 hours before in lie down. And keep the head of bed above 30 degrees to avoid the acid from going up. (5) COPD (chronic obstructive pulmonary disease): Code(s): J44.9 - Chronic obstructive pulmonary disease, unspecified Qualifiers: COPD type: emphysema Emphysema type: panlobular Qualified Code(s): J43.1 - Panlobular emphysema Plan: Continue with the inhaler (6) Essential hypertension: Code(s): I10 - Essential (primary) hypertension Plan: Continue with blood pressure medication. Decrease salt intake and exercise amlodipine 10 mg once a day lisinopril 40 mg once a day metoprolol tartrate. PAtient admits has not been taking lisinopril. So because of the BP good - advised to start on lisinopril 40 mg and decrease amlodipine to 5 mg- discussed the side effects from amlodipine with leg swelling. (7) Deviation of finger of right hand: Code(s): M20.001 - Unspecified deformity of right finger(s) Orders: Orders Comprehensive Met. Panel 3 Months E11.65 - Type 2 diabetes mellitus with hyperglycemia Magnesium 3 Months E11.65 - Type 2 diabetes mellitus with hyperglycemia Thyroid Stimulating Hormone 3 Months E11.65 - Type 2 diabetes mellitus with hyperglycemia Free T4 (Free Thyroxine) 3 Months E11.65 - Type 2 diabetes mellitus with hyperglycemia XR hand RT 2V Today M20.001 - Unspecified deformity of right finger(s) Rheumatoid Factor 3 Months M20.001 - Unspecified deformity of right finger(s) Erythrocyte Sedimentation Rate 3 Months M20.001 - Unspecified deformity of right finger(s) Complete Blood Count Auto Diff 3 Months E11.65 - Type 2 diabetes mellitus with hyperglycemia Hemoglobin A1c 3 Months E11.65 - Type 2 diabetes mellitus with hyperglycemia Vitamin B12 and Folate 3 Months E11.65 - Type 2 diabetes mellitus with hyperglycemia Lipid Panel 3 Months E11.65 - Type 2 diabetes mellitus with hyperglycemia, E78.00 - Pure hypercholesterolemia, unspecified B Type Natriuretic Peptide 3 Months I25.10 - Atherosclerotic heart disease of [place] coronary artery without angina pectoris Medications: Changed From amlodipine 10 mg PO DAILY 90 tabs 3RF To amlodipine 5 mg (1/2 x 10 mg) PO DAILY 90 tabs 3RF From insulin lispro (Humalog KwikPen (U-100) Insulin) 6 u in am , 8 u noon and 6 u evening subcutaneously 3 times a day; or as directed 30 days 15 mL 4RF E11.65 - Type 2 diabetes mellitus with hyperglycemia To insulin lispro (Humalog KwikPen (U-100) Insulin) 10 u in am , 12 u noon and 6 u evening subcutaneously 3 times a day; or as directed 30 days 15 mL 4RF E11.65 - Type 2 diabetes mellitus with hyperglycemia Refilled lisinopril 40 mg PO DAILY 90 tabs 2RF I10 - Essential (primary) hypertension blood sugar diagnostic (Accu-Chek Guide test strips) As directed check the BS TID 300 ea 3RF E11.65 - Type 2 diabetes mellitus with hyperglycemia fenofibrate 160 mg PO DAILY 90 tabs 2RF M77.11 - Lateral epicondylitis, right elbow Coding Level of Care Code Est Pt Level 4 (91543) Diagnoses Coronary artery disease involving [place] coronary artery of [place] heart without angina pectoris I25.10 Coronary Disease-Associated Artery/Lesion type: [place] artery [place] vs. transplanted heart: [place] heart Associated angina: without angina Hypercholesterolemia E78.00 Type 2 diabetes mellitus with hyperglycemia, without long-term current use of insulin E11.65 Diabetes mellitus long term care pharmacist insulin use: without shelter use Bernal's esophagus without dysplasia K22.70 Bernal's esophagus type: without dysplasia Panlobular emphysema J43.1 COPD type: emphysema Emphysema type: panlobular Essential hypertension I10 Deviation of finger of right hand M20.001
[2024-03-20 14:31] VITALS: BP 118/62; PULSE 79; O2SAT 98; BMI 28.6
== END 2024-03-20 15:24 | disposition home or self-care (01) ==
LOC: HO.HMGH 14:06
PROVIDERS: PCP Internal Medicine; Visit Provider Internal Medicine
DX: I25.10 Atherosclerotic heart disease of native coronary artery without angina pectoris (principal); J43.1 Panlobular emphysema; E11.65 Type 2 diabetes mellitus with hyperglycemia; E78.00 Pure hypercholesterolemia, unspecified; K22.70 Barrett's esophagus without dysplasia; I10 Essential (primary) hypertension; M20.001 Unspecified deformity of right finger(s)
CPT/HCPCS: 99214

== ENCOUNTER 2024-04-22 11:20 | Outpatient (REF) | payer MEDICARE, SELFPAY ==
--- NOTE | ~2024-04-22 | XR_ITS ---
EXAMINATION: XR HAND, RIGHT CLINICAL INFORMATION: Arthritic pain and deformity, worse of the fifth digit. COMPARISON: None available. TECHNIQUE: PA, lateral, and oblique views of the right hand. FINDINGS: Bony alignment and mineralization are normal. There is moderate osteoarthritic change of the first carpometacarpal joint. There is arthritic change of the second, third and fifth distal interphalangeal joints. This is particularly pronounced of the fifth distal interphalangeal joint, where there is full effacement of the joint space. No fracture or dislocation is seen. There is mild osteoarthritic change of the first carpometacarpal joint. There is narrowing of the radiocarpal joint. The proximal and distal carpal rows are intact. There is no focal bone erosion. There is no focal soft tissue swelling, gas or foreign body. XR/XR hand RT 2V IMPRESSION: There are multi-focal osteoarthritic changes of the right hand and wrist, as detailed. No fracture or dislocation is seen. There is no bone erosion.
[2024-04-22 11:52] LABS: MANUAL DIFF FLAG NO
[2024-04-22 12:40] LABS: Basophils Absolute Auto 0.1 X10*3/uL (0.0-0.2); Basophils Percent Auto 0.6 % (0-2); Eosinophils Absolute Auto 0.2 X10*3/uL (0.0-0.4); Eosinophils Percent Auto 2.2 % (0-4); Hematocrit 36.1 % (37.0-47.0); Hemoglobin 12.6 g/dl (12.0-16.0); Imm Gran Abs Auto 0.03 X10*3/uL (0.00-0.03); Imm Gran Pct Auto 0.3 % (0.0-0.4); Lymphocytes Absolute Auto 1.9 X10*3/uL (1.2-4.9); Lymphocytes Percent Auto 21.6 % (20-40); Mean Corpuscular HGB Conc 34.9 g/dl (31.0-35.0); Mean Corpuscular Hemoglobin 31.4 pg (27.0-33.0); Mean Platelet Volume 11.5 fL (9.4-12.3); Monocytes Absolute Auto 0.5 X10*3/uL (0.1-1.2); Neutrophils Percent Auto 69.3 % (45-73); Platelet Count 261 X10*3/uL (160-400); Red Blood Count 4.01 X10*6/uL (4.20-5.50); Red Cell Distribution Width 12.7 % (11.0-16.0); White Blood Count 8.7 X10*3/uL (4.8-10.8)
[2024-04-22 12:49] LABS: Estimated Average Glucose 192 mg/dL; Hemoglobin A1c % 8.3 % (<6.0)
[2024-04-22 13:09] LABS: Appearance Urine Cloudy; Color Urine Yellow; Glucose Urine UA 100 mg/dL (Negative); Leukocyte Esterase Urine Trace (Negative); Nitrite Urine Positive (Negative); PH 5.5 (5.0-9.0); Specific Gravity - Urine 1.025 (1.005-1.025); UMIC TRIGGER UA YES; Urine Blood Negative (Negative); Urine Ketones Trace mg/dL (Negative); Urine Protein Negative (Neg-Trace)
[2024-04-22 13:19] LABS: Erythrocyte Sedimentation Rate 8 MM/HR (0-20)
[2024-04-22 13:26] LABS: Bacteria Urine 4+ (None Seen); Hyaline Casts Urine 0-2 /LPF (0-2); RBC Urine 0-2 /HPF (0-2); WBC Urine 0-5 /HPF (0-5)
[2024-04-22 13:35] LABS: B Type Natriuretic Peptide 23 pg/mL (<100)
[2024-04-22 13:46] LABS: Rheumatoid Factor < 13.0 IU/mL (<15.0)
[2024-04-22 13:54] LABS: Creatinine Urine 169.84 mg/dL
[2024-04-22 13:57] LABS: Free T4 (Free Thyroxine) 0.85 ng/dL (0.71-1.85); Thyroid Stimulating Hormone 1.32 uIU/mL (0.32-4.0)
[2024-04-22 14:12] LABS: Folate 5.6 ng/mL (> or = 4.0); Vitamin B12 738 pg/mL (200-900)
[2024-04-22 14:17] LABS: Alanine Aminotransferase 16 U/L (0-31); Albumin Level 4.5 g/dL (3.5-5.0); Alkaline Phosphatase 62 U/L (39-117); Anion Gap 16 (12-20); Aspartate Amino Transferase 14 U/L (5-31); Bilirubin Total 0.3 mg/dL (0.0-1.0); Blood Urea Nitrogen 20 mg/dL (9-16); Calcium 9.9 mg/dL (8.4-10.2); Carbon Dioxide 25 mmol/L (22-29); Chloride 106 mmol/L (96-108); Cholesterol 116 mg/dL (<200); Estimated Glomerular Filt Rate 53; Glucose Random 200 mg/dL (60-115); HDL Cholesterol 30 mg/dL (>40); LDL Cholesterol Calculated 29 mg/dL (<100); Magnesium 1.2 mg/dL (1.6-2.6); Sodium 143 mmol/L (135-145); Total Protein 7.1 g/dL (6.5-8.0); Triglycerides 287 mg/dL (<150)
== END 2024-04-22 11:21 | disposition home or self-care (01) ==
LOC: HO.XRAY 11:20
PROVIDERS: PCP Internal Medicine; Visit Provider Internal Medicine
DX: M20.001 Unspecified deformity of right finger(s) (principal); E11.65 Type 2 diabetes mellitus with hyperglycemia; I25.10 Atherosclerotic heart disease of native coronary artery without angina pectoris; E78.00 Pure hypercholesterolemia, unspecified; N39.0 Urinary tract infection, site not specified
CPT/HCPCS: 36415; 73120; 80053; 80061; 81001; 82570; 82607; 82746; 83036; 83735; 83880; 84439; 84443; 85025; 85652; 86431

== ENCOUNTER 2024-04-29 16:09 | Outpatient (AMB) | payer MEDICARE, SELFPAY ==
[2024-04-29 16:26] VITALS: BP 110/50; PULSE 70; O2SAT 98; BMI 29.3
--- NOTE | 2024-04-29 16:26 | A.OFFPC_ITS ---
Vital Signs 04/29/24 16:26 Height 5 ft 5 in Weight 176 lb BMI 29.3 BP 110/50 L Blood Pressure Location Lt brachial Position Sitting Pulse 70 Pulse Source Pulse Oximeter Pulse Oximetry (%) 98 Oxygen Delivery Method Room Air Intake Visit Reasons: Annual Physical - see comment Medical Historian Required: No Noteman: Not Required per policy Accompanied by: Self / Same As Patient Allergies cortisone [CORTISONE] Allergy (Severe, Verified 04/29/24 16:26) RASH HIVES AND SWELLING OF THE TONGUE nitrofurantoin Allergy (Severe, Verified 04/29/24 16:26) tongue swelling Penicillins Allergy (Severe, Verified 04/29/24 16:26) ANAPHYLAXIS yeast, dried [yeast] Allergy (Severe, Verified 04/29/24 16:26) SHORTNESS OF BREATH empagliflozin [From Jardiance] Allergy (Intermediate, Verified 04/29/24 16:) swollen tongue omeprazole [From Prilosec] Allergy (Intermediate, Verified 04/29/24 16:) BLISTERS Sulfa (Sulfonamide Antibiotics) Allergy (Intermediate, Verified 04/29/24 16:26) Itching niacin [Niacin] Allergy (Mild, Verified 04/29/24 16:26) RASH tetracycline [Tetracycline] Allergy (Mild, Verified 04/29/24 16:26) RASH acetic acid [Acetic Acid] Allergy (Unknown, Verified 04/29/24 16:26) SHORTNESS OF BREATH FROM VINEGAR adhesive tape Allergy (Unknown, Verified 04/29/24 16:26) RASH Clindamycin HCl Allergy (Unknown, Verified 04/29/24 16:26) rash procaine [From NOVOCAIN] Allergy (Unknown, Verified 04/29/24 16:26) RASH,SWELLING OF TONGUE,BLISTERING cefixime [From Suprax] Adverse Reaction (Intermediate, Verified 04/29/24 16:26) Swelling in throat dulaglutide [From Trulicity] Adverse Reaction (Intermediate, Verified 04/29/24 16:26) swelling of tongue hydrochlorothiazide Adverse Reaction (Intermediate, Verified 04/29/24 16:26) hypercalcemia methenamine Adverse Reaction (Intermediate, Verified 04/29/24 16:26) Yeast Infection lorazepam [From Ativan] Adverse Reaction (Mild, Verified 04/29/24 16:26) VOMITING/NAUSEA morphine [MORPHINE] Adverse Reaction (Unknown, Verified 04/29/24 16:26) NAUSEA fosfomycin Allergy (Severe, Uncoded 04/29/24 16:26) tongue swelling jardiance Allergy (Severe, Uncoded 04/29/24 16:26) Yeast infection levofloxacin Allergy (Severe, Uncoded 04/29/24 16:26) Hives From AVELOX Allergy (Intermediate, Uncoded 04/29/24 16:26) SWELLING/RASH carrots, vinegar, yeast, chees Allergy (Unknown, Uncoded 04/29/24 16:26) Unknown SEASONAL ALLERGIES Allergy (Unknown, Uncoded 04/29/24 16:26) SNEEZING Medication List - Last Reconciled 04/29/24 by William Colón MD albuterol sulfate 90 mcg/actuation 1 puff PO Q4H PRN amlodipine 5 mg (1/2 x 10 mg) PO DAILY aspirin (Adult Low Dose Aspirin) 81 mg PO DAILY blood pressure monitor (Blood Pressure Kit) As directed blood pressure test kit-large As directed blood sugar diagnostic As directed blood sugar diagnostic (Accu-Chek Guide test strips) As directed check BS TID blood sugar diagnostic (Accu-Chek Guide test strips) As directed check the BS TID calcium carbonate (Calcium 600) 600 mg PO DAILY cholecalciferol (vitamin D3) 50 mcg PO DAILY cyanocobalamin (vitamin B-12) 1,000 mcg PO DAILY fenofibrate 160 mg PO DAILY fluticasone propionate 50 mcg/actuation 2 sprays intranasal DAILY 90 days gabapentin 100 mg PO DAILY 90 days insulin glargine (Lantus Solostar U-100 Insulin) 48 units subcut BEDTIME insulin lispro (Humalog KwikPen (U-100) Insulin) 10 u in am , 12 u noon and 6 u evening subcutaneously 3 times a day; or as directed 30 days lancets (Accu-Chek Fastclix Lancet Drum) 1 ea topical TID 90 days lansoprazole 30 mg PO DAILY lisinopril 40 mg PO DAILY magnesium oxide 400 mg PO DAILY metformin 1,000 mg PO BIDWMEAL 90 days metoprolol tartrate PO; 2 tabs in the AM, 1 tabs in the PM 90 days pen needle, diabetic (BD Ultra-Fine Micro Pen Needle) As directed inject4 x a day Insulin pen needle, diabetic (BD Marisela 2nd Gen Pen Needle) As directed rosuvastatin 20 mg PO DAILY spironolactone 25 mg PO BID Tobacco use date assessed: 02/07/24 Fall risk assessment: No Falls in past year Last assessed Fall Risk: 04/29/24 Dental Screening Dental Screen Date: 02/07/24 HPI Annual Physical - see comment HPI Details 73-year-old overweight female with an un controlled diabetes mellitus coronary artery disease hypercholesterolemia Barretts esophagus COPD hypertension coming in for physical exam last seen in 03/18/2024 last hemoglobin A1c is 8.9 now hemoglobin A1c is 8.3. Patient's colonoscopy last done in 08/18/2022 mammogram is due this month bone density is up-to-date. [facility] Medical History (Updated 04/29/24 @ 16:56 by William Colón MD) Tobacco abuse Myocardial infarct COVID-19 Cough Skin rash Breast cancer screening by mammogram Colon cancer screening Essential hypertension Mitral valve prolapse Diabetic neuropathy Type 2 diabetes mellitus with hyperglycemia Hip osteoarthritis Diabetic nephropathy Vitamin D deficiency COPD (chronic obstructive pulmonary disease) Osteoarthritis Barretts esophagus Hypercholesterolemia Coronary artery disease Surgical History H/O heart artery stent Cystocele History of parathyroidectomy History of hysterectomy History of cholecystectomy Family History Father CVD (cardiovascular disease) Dementia Heart valve replaced Mother Colon cancer Social History (Updated 04/29/24 @ 16:54 by William Colón MD) Housing: House Alcohol intake: never Patient Tobacco Use Status: Former Tobacco user Tobacco use type: Cigarette Cigarettes Per Day: 1 Years Smoked: 40 +/- quit 02/2024 e-Cigarette/Vaping Use: Never Used Second Hand Smoke Exposure: No service: No Current occupational status: retired Current occupation: right hand dominant Cognitive needs: No Hearing needs: No Vision needs: Yes Female Reproductive History Menstrual Age of Menarche: 9 Questionnaire Thrive Questionnaire Date Thrive assessed: 02/07/24 TALON-7 AMB Questionnaire TALON-7 Date TALON - 7 assessed: 02/07/24 Source: Developed by Drs. Michelet Roman, Kelly Bynum, Clement Malloy and colleagues, with an educational debra from [employer]. Review of Systems Const Denies poor appetite and Denies weakness Eyes Denies no additional complaints ENT Reports Normal hearing present, Denies dizziness, Denies nasal congestion, Denies tinnitus and Denies sore throat Card Denies chest pain, Denies syncope, Denies rapid heart rate and Denies dyspnea Resp Denies cough and Denies dyspnea GI Denies change in stool character, Reports constipation, Denies diarrhea, Denies nausea and Denies vomiting Denies urinary frequency, Denies difficulty voiding and Denies dysuria Neuro Reports Normal hearing present, Denies confusion, Denies dizziness, Denies syncope and Denies weakness Psych Denies confusion Physical exam (Primary Care) Vital Signs: Last Vital Signs Pulse 70 04/29/24 16:26 BP 110/50 L 04/29/24 16:26 Pulse Ox 98 04/29/24 16:26 Oxygen Delivery Method Room Air 04/29/24 16:26 BMI result Body Mass Index 29.3 Tobacco/Smoking Status: Tobacco use Status Tobacco use date assessed 02/07/24 04/29/24 16:28 Patient Tobacco Use Status Former Tobacco user 04/29/24 16:54 Tobacco use type Cigarette 04/29/24 16:54 e-Cigarette/Vaping Use Never Used 04/29/24 16:54 Thrive Assessment: Date of Thrive Assessment Date Thrive assessed 02/07/24 04/29/24 16:28 Const General: No confusion Orientation/consciousness: No confusion HENMT Head: Yes normocephalic Ears: external ears normal and TM's normal bilaterally Face and sinus: Yes normal facial exam Mouth: moist mucous membranes Throat: Yes tonsils normal Eyes Conjunctivae: conjunctivae normal Pupils: Equal, round and reactive pupils present and Pupil accommodation reflex normal Direct Ophthalmoscopy: normal light reflex Neck Neck: No lymphadenopathy Thyroid: Thyroid normal Chest Chest palpation & inspection: normal inspection of the chest Resp Effort & Inspection: normal respiratory effort and no audible wheezes Auscultation: clear to auscultation bilaterally, no crackles, no wheezes and lung sounds not diminished Cardio Rate: regular rate Rhythm: regular rhythm Peripheral pulses: radial pulses present and dorsalis pedis present GI Palpation (GI): no masses Auscultation: normal bowel sounds and normoactive bowel sounds Rectal Exam - Female: deferred Skin General skin exam: no rashes or lesions noted Rashes: no rashes Neuro General: No confusion Cranial nerves: Yes Equal, round and reactive pupils present and Yes Normal hearing present Cognition (Neuro): normal cognition Gait exam (Neuro): Normal gait present Motor exam (neuro): 5/5 motor strength present throughout Deep tendon reflexes (DTR's): Right brachioradialis reflex intensity grade: 2+, Left brachioradialis reflex intensity grade: 2+, Right patellar reflex intensity grade: 2+ and Left patellar reflex intensity grade: 2+ Extrem General: No edema Immunizations tetanus-diphtheria toxoids-Td 2 Lf unit-2 Lf unit/0.5 mL IM suspension Performing Provider: William Colón MD Performing [facility] Administered by: PAOLA Morrow on 04/29/24 17:17 Dose Route Admin Location Dispensed Lot Number Expiration Date NDC Toll Mechanic 0.5 mL IM Left Deltoid 0.5 mL [id number] 12/09/24 [address]-3 [employer] VIS Given Date VIS Provided VIS Publication Date 04/29/24 Single Vaccine 21 Eligibility Eligibility Date Funding Source Not [facility] Eligible 04/29/24 [facility] Assessment and Plan Assessment & Plan (1) Annual physical exam: Code(s): Z00.00 - Encounter for general adult medical examination without abnormal findings Plan: Patient is advised to eat healthy, keep well hydrated, keep active and have adequate sleep. (2) Type 2 diabetes mellitus with hyperglycemia: Comment: December 2016 eye and lasik Code(s): E11.65 - Type 2 diabetes mellitus with hyperglycemia Qualifiers: Diabetes mellitus fpc insulin use: without oil burner servicer and installer use Qualified Code(s): E11.65 - Type 2 diabetes mellitus with hyperglycemia Plan: Decrease the amount of carbohydrate intake, pasta, bread, rice and potatoes are all sugar and that is aside from all the sweet stuff, remember that fruits are good but they are Sweet also. Hemoglobin A1c goal of less than 7.0 patient is taking Lantus at 48 units at bedtime Humalog sliding scale metformin a 1000 mg twice a day (3) Hypercholesterolemia: Code(s): E78.00 - Pure hypercholesterolemia, unspecified Plan: Avoid fried foods, chicken skin, eggs, butter margarine, pastries and meat. Be it pork or beef they have a lot of cholesterol LDL goal of less than 70 and triglyceride of less than 150 patient on rosuvastatin 20 mg at once a day fenofibrate 160 mg once a day (4) Essential hypertension: Code(s): I10 - Essential (primary) hypertension Plan: Continue with blood pressure medication. Decrease salt intake and exercise on amlodipine 5 mg once a day lisinopril 40 mg once a day and spironolactone 25 mg twice a day (5) Barretts esophagus: Code(s): K22.70 - Bernal's esophagus without dysplasia Qualifiers: Bernal's esophagus type: without dysplasia Qualified Code(s): K22.70 - Bernal's esophagus without dysplasia Plan: Avoid the foods that causes that usually spicy foods, tomato products, juices, coffee, soda and foods that your sensitive to. After eating do not lie down, allow 3-4 hours before in lie down. And keep the head of bed above 30 degrees to avoid the acid from going up. (6) Coronary artery disease: Comment: Stent placement January 2012 Code(s): I25.10 - Atherosclerotic heart disease of [place] coronary artery without angina pectoris Qualifiers: Associated angina: without angina Coronary Disease-Associated Artery/Lesion type: [place] artery [place] vs. transplanted heart: [place] heart Qualified Code(s): I25.10 - Atherosclerotic heart disease of [place] coronary artery without angina pectoris Plan: Control the cholesterol, weight, blood pressure, diabetes continue with aspirin 81 mg once a day (7) Generalized anxiety disorder: Code(s): F41.1 - Generalized anxiety disorder Plan: Stable (8) Tobacco abuse: Comment: august 2022 STopped 02/2024 Code(s): Z72.0 - Tobacco use (9) Hearing deficit: Code(s): H91.90 - Unspecified hearing loss, unspecified ear Plan: aware of the ear problem Orders: Orders Td State Immunization Today Z23 - Encounter for immunization Medications: New tetanus-diphtheria toxoids-Td 0.5 mL IM ONCE 0.5 mL 0RF Z23 - Encounter for immunization magnesium oxide 400 mg PO DAILY 30 caps 2RF Coding Level of Care Code Est Pt Prev Care >65y(35326) Diagnoses Annual physical exam Z00.00 Type 2 diabetes mellitus with hyperglycemia, without long-term current use of insulin E11.65 Diabetes mellitus fpc insulin use: without oil burner servicer and installer use Hypercholesterolemia E78.00 Essential hypertension I10 Bernal's esophagus without dysplasia K22.70 Bernal's esophagus type: without dysplasia Coronary artery disease involving [place] coronary artery of [place] heart without angina pectoris I25.10 Associated angina: without angina Coronary Disease-Associated Artery/Lesion type: [place] artery [place] vs. transplanted heart: [place] heart Generalized anxiety disorder F41.1 Tobacco abuse Z72.0 Hearing deficit H91.90
== END 2024-04-29 17:24 | disposition home or self-care (01) ==
PROVIDERS: PCP Internal Medicine; Visit Provider Internal Medicine
DX: Z00.00 Encounter for general adult medical examination without abnormal findings (principal); E11.65 Type 2 diabetes mellitus with hyperglycemia; E78.00 Pure hypercholesterolemia, unspecified; Z23 Encounter for immunization; I10 Essential (primary) hypertension; K22.70 Barrett's esophagus without dysplasia; I25.10 Atherosclerotic heart disease of native coronary artery without angina pectoris; F41.1 Generalized anxiety disorder; Z72.0 Tobacco use
CPT/HCPCS: 90471; 90714; 99397

== ENCOUNTER 2024-05-09 13:20 | Outpatient (REF) | payer MEDICARE, SELFPAY ==
[2024-05-09 14:33] LABS: Magnesium 1.5 mg/dL (1.6-2.6)
== END 2024-05-09 13:21 | disposition home or self-care (01) ==
LOC: HO.LAB 13:20
PROVIDERS: PCP Internal Medicine; Visit Provider Internal Medicine
DX: E83.42 Hypomagnesemia (principal)
CPT/HCPCS: 36415; 83735

== ENCOUNTER 2024-05-10 15:02 | Outpatient (AMB) | payer MEDICARE, SELFPAY ==
[2024-05-10 15:15] VITALS: BP 132/68; PULSE 72; O2SAT 96; BMI 29.3
--- NOTE | 2024-05-10 15:15 | A.OFFPC_ITS ---
Vital Signs 05/10/24 15:15 Height 5 ft 5 in Weight 176 lb BMI 29.3 BP 132/68 Blood Pressure Location Lt brachial Position Sitting Pulse 72 Pulse Source Pulse Oximeter Pulse Oximetry (%) 96 Oxygen Delivery Method Room Air Intake Visit Reasons: DM Allergies cortisone [CORTISONE] Allergy (Severe, Verified 05/10/24 15:16) RASH HIVES AND SWELLING OF THE TONGUE nitrofurantoin Allergy (Severe, Verified 05/10/24 15:16) tongue swelling Penicillins Allergy (Severe, Verified 05/10/24 15:16) ANAPHYLAXIS yeast, dried [yeast] Allergy (Severe, Verified 05/10/24 15:16) SHORTNESS OF BREATH empagliflozin [From Jardiance] Allergy (Intermediate, Verified 05/10/24 15:16) swollen tongue omeprazole [From Prilosec] Allergy (Intermediate, Verified 05/10/24 15:16) BLISTERS Sulfa (Sulfonamide Antibiotics) Allergy (Intermediate, Verified 05/10/24 15:16) Itching niacin [Niacin] Allergy (Mild, Verified 05/10/24 15:16) RASH tetracycline [Tetracycline] Allergy (Mild, Verified 05/10/24 15:16) RASH acetic acid [Acetic Acid] Allergy (Unknown, Verified 05/10/24 15:16) SHORTNESS OF BREATH FROM VINEGAR adhesive tape Allergy (Unknown, Verified 05/10/24 15:16) RASH Clindamycin HCl Allergy (Unknown, Verified 05/10/24 15:16) rash procaine [From NOVOCAIN] Allergy (Unknown, Verified 05/10/24 15:16) RASH,SWELLING OF TONGUE,BLISTERING cefixime [From Suprax] Adverse Reaction (Intermediate, Verified 05/10/24 15:16) Swelling in throat dulaglutide [From Trulicity] Adverse Reaction (Intermediate, Verified 05/10/24 15:16) swelling of tongue hydrochlorothiazide Adverse Reaction (Intermediate, Verified 05/10/24 15:16) hypercalcemia methenamine Adverse Reaction (Intermediate, Verified 05/10/24 15:16) Yeast Infection lorazepam [From Ativan] Adverse Reaction (Mild, Verified 05/10/24 15:16) VOMITING/NAUSEA morphine [MORPHINE] Adverse Reaction (Unknown, Verified 05/10/24 15:16) NAUSEA fosfomycin Allergy (Severe, Uncoded 05/10/24 15:16) tongue swelling jardiance Allergy (Severe, Uncoded 05/10/24 15:16) Yeast infection levofloxacin Allergy (Severe, Uncoded 05/10/24 15:16) Hives From AVELOX Allergy (Intermediate, Uncoded 05/10/24 15:16) SWELLING/RASH carrots, vinegar, yeast, chees Allergy (Unknown, Uncoded 05/10/24 15:16) Unknown SEASONAL ALLERGIES Allergy (Unknown, Uncoded 05/10/24 15:16) SNEEZING Tobacco use date assessed: 02/07/24 Fall risk assessment: 1 Fall in past year Last assessed Fall Risk: 05/10/24 Dental Screening Dental Screen Date: 02/07/24 HPI DM HPI Details 73-year-old overweight female smoker wit h uncontrolled diabetes mellitus hypertension hypercholesterolemia Barretts esophagus coronary artery disease and generalized anxiety disorder coming in for follow-up. Last seen for physical earlier this month. Patient is up-to-date with colonoscopy due for mammogram this time. BS am 91-160 noon 95-260 dinner 148-135 PFSH Medical History (Updated 05/10/24 @ 15:41 by William Colón MD) Tobacco abuse Myocardial infarct COVID-19 Cough Skin rash Breast cancer screening by mammogram Colon cancer screening Essential hypertension Mitral valve prolapse Diabetic neuropathy Type 2 diabetes mellitus with hyperglycemia Hip osteoarthritis Diabetic nephropathy Vitamin D deficiency COPD (chronic obstructive pulmonary disease) Osteoarthritis Barretts esophagus Hypercholesterolemia Coronary artery disease Surgical History H/O heart artery stent Cystocele History of parathyroidectomy History of hysterectomy History of cholecystectomy Family History Father CVD (cardiovascular disease) Dementia Heart valve replaced Mother Colon cancer Social History (Updated 04/29/24 @ 16:54 by William Colón MD) Housing: House Alcohol intake: never Patient Tobacco Use Status: Former Tobacco user Tobacco use type: Cigarette Cigarettes Per Day: 1 Years Smoked: 40 +/- quit 02/2024 e-Cigarette/Vaping Use: Never Used Second Hand Smoke Exposure: No service: No Current occupational status: retired Current occupation: right hand dominant Cognitive needs: No Hearing needs: No Vision needs: Yes Female Reproductive History Menstrual Age of Menarche: 9 Questionnaire PHQ-9 Over the last 2 weeks, how often have you been bothered by any of the following problems? 1. Little interest or pleasure in doing things: not at all 2. Feeling down, depressed, or hopeless: not at all 3. Trouble falling or staying asleep, or sleeping too much: not at all 4. Feeling tired or having little energy: not at all 5. Poor appetite or overeating: not at all 6. Feeling bad about yourself - or that you are a failure or have let yourself or your family down: not at all 7. Trouble concentrating on things, such as reading the newspaper or watching television: not at all 8. Moving or speaking so slowly that other people could have noticed. Or the opposite - being so fidgety or restless that you have been moving around a lot more than usual: not at all 9. Thoughts that you would be better off or of hurting yourself in some way: not at all Total score: 0 Depression Screening Interpretation: Negative Depression Screening Done: Yes Source: Developed by Drs. Michleet Roman, Clement Machuca and colleagues, with an educational debra from [employer]. Thrive Questionnaire Date Thrive assessed: 02/07/24 AUDIT C Alcohol Use Questionnaire (AUDIT-C) 1. How often do you have a drink containing alcohol?: Never Total Score: 0 TALON-7 AMB Questionnaire TALON-7 Date TALON - 7 assessed: 02/07/24 Source: Developed by Drs. Michelet Roman, Clement Machuca and colleagues, with an educational debra from [employer]. Physical exam (Primary Care) Vital Signs: Last Vital Signs Pulse 72 05/10/24 15:15 BP 132/68 05/10/24 15:15 Pulse Ox 96 05/10/24 15:15 Oxygen Delivery Method Room Air 05/10/24 15:15 BMI result Body Mass Index 29.3 Tobacco/Smoking Status: Tobacco use Status Tobacco use date assessed 02/07/24 05/10/24 15:25 Patient Tobacco Use Status Former Tobacco user 05/10/24 15:25 Tobacco use type Cigarette 05/10/24 15:25 e-Cigarette/Vaping Use Never Used 07/12/24 15:25 PHQ-9: PHQ-9 Score PHQ-9: Total score 0 05/10/24 15:43 Depression Screening Interpretation: Negative Thrive Assessment: Date of Thrive Assessment Date Thrive assessed 02/07/24 05/10/24 15:25 Const General: alert; No acute distress Eyes Conjunctivae: conjunctivae normal Resp Auscultation: clear to auscultation bilaterally Cardio Rate: regular rate Rhythm: regular rhythm GI Inspection: Yes normal to inspection Extrem General: Yes normal to inspection and No edema Assessment and Plan Assessment & Plan (1) Hypomagnesemia: Code(s): E83.42 - Hypomagnesemia Plan: Patient has been taking magnesium will try to increase the dose. (2) Type 2 diabetes mellitus with hyperglycemia: Comment: December 2016 eye and lasik Code(s): E11.65 - Type 2 diabetes mellitus with hyperglycemia Qualifiers: Diabetes mellitus intermediate insulin use: without intermediate use Qualified Code(s): E11.65 - Type 2 diabetes mellitus with hyperglycemia Plan: Decrease the amount of carbohydrate intake, pasta, bread, rice and potatoes are all sugar and that is aside from all the sweet stuff, remember that fruits are good but they are Sweet also. Hemoglobin A1c goal of less than 7.0 patient is on insulin at 48 units once a day with Humalog sliding scale metformin a 1000 mg twice a day (3) COPD (chronic obstructive pulmonary disease): Code(s): J44.9 - Chronic obstructive pulmonary disease, unspecified Qualifiers: COPD type: emphysema Emphysema type: panlobular Qualified Code(s): J43.1 - Panlobular emphysema Plan: Continue with the inhalers with albuterol as needed (4) Barretts esophagus: Code(s): K22.70 - Bernal's esophagus without dysplasia Qualifiers: Bernal's esophagus type: without dysplasia Qualified Code(s): K22.70 - Bernal's esophagus without dysplasia Plan: Avoid the foods that causes that usually spicy foods, tomato products, juices, coffee, soda and foods that your sensitive to. After eating do not lie down, allow 3-4 hours before in lie down. And keep the head of bed above 30 degrees to avoid the acid from going up. (5) Coronary artery disease: Comment: Stent placement January 2012 Code(s): I25.10 - Atherosclerotic heart disease of [place] coronary artery without angina pectoris Qualifiers: Associated angina: without angina Coronary Disease-Associated Artery/Lesion type: [place] artery [place] vs. transplanted heart: [place] heart Qualified Code(s): I25.10 - Atherosclerotic heart disease of [place] coronary artery without angina pectoris Plan: Control the cholesterol, weight, blood pressure, diabetes continue with aspirin 81 mg once a day (6) Hypercholesterolemia: Code(s): E78.00 - Pure hypercholesterolemia, unspecified Plan: Avoid fried foods, chicken skin, eggs, butter margarine, pastries and meat. Be it pork or beef they have a lot of cholesterol on fenofibrate 160 mg once a day and rosuvastatin 20 mg once a day Medications: Changed From insulin lispro (Humalog KwikPen (U-100) Insulin) 10 u in am , 12 u noon and 6 u evening subcutaneously 3 times a day; or as directed 30 days 15 mL 4RF E11.65 - Type 2 diabetes mellitus with hyperglycemia To insulin lispro (Humalog KwikPen (U-100) Insulin) 10 u in am , 14 u noon and 6 u evening subcutaneously 3 times a day; or as directed 15 mL 4RF 30 days E11.65 - Type 2 diabetes mellitus with hyperglycemia Coding Level of Care Code Est Pt Level 4 (68569) Diagnoses Hypomagnesemia E83.42 Type 2 diabetes mellitus with hyperglycemia, without long-term current use of insulin E11.65 Diabetes mellitus exterminator insulin use: without exterminator use Panlobular emphysema J43.1 COPD type: emphysema Emphysema type: panlobular Bernal's esophagus without dysplasia K22.70 Bernal's esophagus type: without dysplasia Coronary artery disease involving [place] coronary artery of [place] heart without angina pectoris I25.10 Associated angina: without angina Coronary Disease-Associated Artery/Lesion type: [place] artery [place] vs. transplanted heart: [place] heart Hypercholesterolemia E78.00
== END 2024-05-10 16:00 | disposition home or self-care (01) ==
PROVIDERS: PCP Internal Medicine; Visit Provider Internal Medicine
DX: E83.42 Hypomagnesemia (principal); E11.65 Type 2 diabetes mellitus with hyperglycemia; J43.1 Panlobular emphysema; K22.70 Barrett's esophagus without dysplasia; I25.10 Atherosclerotic heart disease of native coronary artery without angina pectoris; E78.00 Pure hypercholesterolemia, unspecified
CPT/HCPCS: 99214

== ENCOUNTER 2024-05-19 15:56 | Emergency (ER) | payer MEDICARE, SELFPAY ==
[2024-05-19 15:59] VITALS: BP 138/63; PULSE 78; RESP 18; TEMP 36; O2SAT 96; BMI 29.0
--- NOTE | 2024-05-19 16:00 | ED.GENADULT ---
HPI - General Adult General Chief complaint: Nausea/Vomiting/Diarrhea Stated complaint: diarrhea, tremors, weakness, headache, low energy Time Seen by Provider: 05/19/24 17:21 History of Present Illness ED Provider: Markie YOUNG narrative: The patient is a 73-year-old woman who says that at around 04:00 this morning she developed copious loose stools. She says that she has had more loose bowel movements this morning and today than she can count. She says that at 1 point she felt that she was having diffuse muscle spasms and that her jaw felt like it was locked up. She has had nausea. No significant abdominal pain. Patient had a presentation that was somewhat similar 2 months ago. At that time she also had significant peripheral edema. She had recently been started on amlodipine. She was treated and released from the emergency room. Her amlodipine dosage was reduced and she was also put on lisinopril. She has had no recurrence of the peripheral edema. Your magnesium when she was here on March 17 was 1.2. She also had an outpatient check of her magnesium on 04/22. It was 1.2 at that time as well. She is on oral magnesium at this point. While waiting to be seen in the emergency room the patient has loose stool seemed to have subsided but she still feels quite weak and worn out. No fevers. Related Data Home Medications ?Medication ?Instructions ?Recorded ?Confirmed blood sugar diagnostic #10 ea 10/19/20 04/29/24 calcium carbonate (Calcium 600) 600 mg PO DAILY 11/13/20 04/29/24 cholecalciferol (vitamin D3) 50 50 mcg PO DAILY 11/13/20 04/29/24 mcg (2,000 unit) capsule aspirin 81 mg tablet,delayed 81 mg PO DAILY 03/02/21 04/29/24 release (Adult Low Dose Aspirin) pen needle, diabetic 32 gauge x #50 ea 09/21/22 04/29/24 (BD Marisela 2nd Gen Pen Needle) insulin glargine 100 unit/mL (3 48 unit subcut BEDTIME 03/18/24 04/29/24 mL) subcutaneous pen (Lantus Solostar U-100 Insulin) Previous Rx's ?Medication ?Instructions ?Recorded blood sugar diagnostic (Accu-Chek ##3 07/19/22 Guide test strips) lancets (Accu-Chek Fastclix Lancet 1 ea topical TID 90 days #306 ea 07/19/22 Drum) blood pressure test kit-large #1 ea 12/21/22 blood pressure monitor (Blood #1 ea 05/23/23 Pressure Kit) lansoprazole 30 mg capsule,delayed 30 mg PO DAILY #90 caps 07/26/23 release albuterol sulfate 90 mcg/actuation 1 puff PO Q4H PRN shortness of 09/01/23 aerosol inhaler breath or wheezing #18 grams pen needle, diabetic 32 gauge x #400 ea 10/09/2311/02 (BD Ultra-Fine Micro Pen Needle) metformin 1,000 mg tablet 1,000 mg PO BIDWMEAL 90 days #180 11/02/23 tabs cyanocobalamin (vitamin B-12) 1,000 mcg PO DAILY #90 tabs 11/22/23 1,000 mcg tablet spironolactone 25 mg tablet 25 mg PO BID #180 tabs 11/22/23 fluticasone propionate 50 2 spray intranasal DAILY 90 days 12/25/23 mcg/actuation nasal #3 ea spray,suspension metoprolol tartrate 50 mg tablet See Rx Instructions PO .COMPLEX 90 12/28/23 days #270 tabs rosuvastatin 20 mg tablet 20 mg PO DAILY #90 tabs 01/25/24 amlodipine 10 mg tablet 5 mg (1/2 x 10 mg) PO DAILY #90 03/20/24 tabs blood sugar diagnostic (Accu-Chek #300 ea 03/20/24 Guide test strips) fenofibrate 160 mg tablet 160 mg PO DAILY #90 tabs 03/20/24 lisinopril 40 mg tablet 40 mg PO DAILY #90 tabs 03/20/24 gabapentin 100 mg capsule 100 mg PO DAILY 90 days #90 caps 03/29/24 magnesium oxide 400 mg PO DAILY #30 caps 04/29/24 insulin lispro 100 unit/mL See Rx Instructions subcut TID 30 05/10/24 subcutaneous pen (Humalog #15 mL (U-100) Insulin) Allergies Allergy/AdvReac Type Severity Reaction Status Date / Time cortisone [CORTISONE] Allergy Severe RASH HIVES Verified 05/19/24 16:04 AND SWELLING OF THE TONGUE nitrofurantoin Allergy Severe tongue Verified 05/19/24 16:04 swelling Penicillins Allergy Severe ANAPHYLAXIS Verified 05/19/24 16:04 yeast, dried [yeast] Allergy Severe SHORTNESS Verified 05/19/24 16:04 OF BREATH empagliflozin Allergy Intermediate swollen Verified 05/19/24 16:04 [From Jardiance] tongue omeprazole [From Prilosec] Allergy Intermediate BLISTERS Verified 05/19/24 16:04 Sulfa (Sulfonamide Allergy Intermediate Itching Verified 05/19/24 16:04 Antibiotics) niacin [Niacin] Allergy Mild RASH Verified 05/19/24 16:04 tetracycline [Tetracycline] Allergy Mild RASH Verified 05/19/24 16:04 acetic acid [Acetic Acid] Allergy Unknown SHORTNESS Verified 05/19/24 16:04 OF BREATH FROM VINEGAR adhesive tape Allergy Unknown RASH Verified 05/19/24 16:04 Clindamycin HCl Allergy Unknown rash Verified 05/19/24 16:04 procaine [From NOVOCAIN] Allergy Unknown RASH,SWELLING Verified 05/19/24 16:04 OF TONGUE,BLISTERING cefixime [From Suprax] AdvReac Intermediate Swelling Verified 05/19/24 16:04 in throat dulaglutide [From Trulicity] AdvReac Intermediate swelling Verified 05/19/24 16:04 of tongue hydrochlorothiazide AdvReac Intermediate hypercalcem Verified 05/19/24 16:04 ia methenamine AdvReac Intermediate Yeast Verified 05/19/24 16:04 Infection lorazepam [From Ativan] AdvReac Mild VOMITING/NA Verified 05/19/24 16:04 USEA morphine [MORPHINE] AdvReac Unknown NAUSEA Verified 05/19/24 16:04 fosfomycin Allergy Severe tongue Uncoded 05/10/24 15:16 swelling jardiance Allergy Severe Yeast Uncoded 05/10/24 15:16 infection levofloxacin Allergy Severe Hives Uncoded 05/10/24 15:16 From AVELOX Allergy Intermediate SWELLING/RA Uncoded 05/10/24 15:16 SH carrots, vinegar, yeast, Allergy Unknown Unknown Uncoded 05/10/24 15:16 chees SEASONAL ALLERGIES Allergy Unknown SNEEZING Uncoded 05/10/24 15:16 Review of Systems Review of Systems: Yes all other systems are reviewed and are negative PMFSH Past Medical History Medical History (Updated 05/19/24 @ 19:05 by Kamron Aden MD) Tobacco abuse Myocardial infarct COVID-19 Cough Skin rash Breast cancer screening by mammogram Colon cancer screening Essential hypertension Mitral valve prolapse Diabetic neuropathy Type 2 diabetes mellitus with hyperglycemia Hip osteoarthritis Diabetic nephropathy Vitamin D deficiency COPD (chronic obstructive pulmonary disease) Osteoarthritis Barretts esophagus Hypercholesterolemia Coronary artery disease Surgical History H/O heart artery stent Cystocele History of parathyroidectomy History of hysterectomy History of cholecystectomy Family History Family History Father CVD (cardiovascular disease) Dementia Heart valve replaced Mother Colon cancer Social History Social History (Updated 04/29/24 @ 16:54 by William Colón MD) Housing: House Alcohol intake: never Patient Tobacco Use Status: Former Tobacco user Tobacco use type: Cigarette Cigarettes Per Day: 1 Years Smoked: 40 +/- quit 02/2024 e-Cigarette/Vaping Use: Never Used Second Hand Smoke Exposure: No Advance Directives: No Advance Directives Information Provided: Yes Do you have a plan to hurt others: No Plan service: No Current occupational status: retired Current occupation: right hand dominant Cognitive needs: No Hearing needs: No Vision needs: Yes Physical Exam ED Vital Signs: Vital Signs - 24 hr 05/19/24 15:59 05/19/24 16:42 05/19/24 19:16 Temperature 96.8 F 97.7 F 97.9 F Pulse Rate 78 75 74 Respiratory Rate 18 16 17 Blood Pressure 138/63 104/51 L 126/52 L Pulse Oximetry 96 93 95 Oxygen Delivery Method Room Air Room Air Room Air BMI result Body Mass Index 29.0 Const Other: The patient is awake and alert. She looks somewhat worn out but not acutely toxic. HENMT Other: Face is symmetrical. Mucous membranes moist. Eyes Other: Pupils are round equal, no scleral icterus Neck Other: No JVD Resp Effort & Inspection: normal respiratory effort Auscultation: clear to auscultation bilaterally Cardio Rate: regular rate Rhythm: regular rhythm Heart sounds: S1 normal heart sound present and S2 normal heart sound present GI Other: Abdomen is soft and non-tender Skin Other: Skin is pale and dry. Neuro Other: The patient is awake and alert with a normal mental status. Cranial nerves are intact. Moving all extremities normally. Normal coordination. Grossly neurologically intact. Extrem Other: No peripheral edema Course Course Course Narrative: This is a rapid medical exam. Deferred additional HPI, ROS, PE to primary provider. 73 yo female with history of HTN, DM, OA, CAD here with complaints of multiple episodes of diarrhea (>20), nausea. No vomiting, abdominal pain, fever. C/o generalized malaise, weakness, body cramps and concerned magnesium was low. Negative covid at home. Will obtain labs, stool studies, viral testing. 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 Medications Administered Discontinued Medications Generic Name Dose Route Start Last Admin Trade Name Freq PRN Reason Stop Dose Admin Sodium Chloride 1,000 mls @ 999 mls/hr 05/19/24 17:30 05/19/24 18:01 Ns IV 05/19/24 18:30 999 mls/hr .Q1H1M TIANNA Administration Magnesium Sulfate 2 gm in 50 mls @ 150 mls/hr 05/19/24 17:29 05/19/24 18:31 Magnesium Sulfate/H2o IV 05/19/24 17:48 Infused ONCE ONE Infusion Medical Decision Making Medical Decision Making [facility] Narrative: The patient is a very pleasant 73-year-old woman who reports having numerous loose stools starting at 04:00 this morning. She then felt weak and worn out. She came to the emergency room. She has been having problems with low magnesium lately. She is on supplemental magnesium already. After arriving in the emergency room her loose stool seemed to have spontaneously stopped. She has a benign abdomen. I think she may be mildly dehydrated. Her magnesium is slightly low. She was given 1 L of IV normal saline and 2 g of IV magnesium. She felt considerably better. She seemed well enough for discharge. Lab Data 05/19/24 16:33 05/19/24 16:33 Labs: Lab Results 05/19/24 Range/Units 16:33 WBC 8.9 (4.8-10.8) X10*3/uL RBC 4.20 (4.20-5.50) X10*6/uL Hgb 13.2 (12.0-16.0) g/dl Hct 38.1 (37.0-47.0) % MCV 90.7 (80.0-98.0) fL MCH 31.4 (27.0-33.0) pg MCHC 34.6 (31.0-35.0) g/dl RDW 12.7 (11.0-16.0) % Plt Count 308 (160-400) X10*3/uL MPV 11.3 (9.4-12.3) fL Immature Gran % (Auto) 0.2 (0.0-0.4) % Neut % (Auto) 70.6 (45-73) % Lymph % (Auto) 21.1 (20-40) % Beadle % (Auto) 5.1 (2-11) % Eos % (Auto) 2.3 (0-4) % Baso % (Auto) 0.7 (0-2) % Lymph # (Auto) 1.9 (1.2-4.9) X10*3/uL Beadle # (Auto) 0.5 (0.1-1.2) X10*3/uL Eos # (Auto) 0.2 (0.0-0.4) X10*3/uL Baso # (Auto) 0.1 (0.0-0.2) X10*3/uL Abs Immat Gran (auto) 0.02 (0.00-0.03) X10*3/uL Absolute Neuts (auto) 6.3 (2.0-8.3) x10*3/uL Absolute Nucleated RBC 0.000 (0.0-0.012) X10*3/uL Nucleated RBC % (auto) 0.0 (0.0-0.2) /100WBC Sodium 140 (135-145) mmol/L Potassium 4.4 (3.3-5.1) mmol/L Chloride 109 H (96-108) mmol/L Carbon Dioxide 20 L (22-29) mmol/L Anion Gap 15 (12-20) BUN 22 H (9-16) mg/dL Creatinine 1.04 (0.5-1.4) mg/dL Estim Creat Clear Calc 49.3 Estimated GFR 52 Random Glucose 112 (60-115) mg/dL Calcium 10.6 H D (8.4-10.2) mg/dL Magnesium 1.5 L (1.6-2.6) mg/dL Total Bilirubin 0.3 (0.0-1.0) mg/dL Direct Bilirubin 0.1 (0.0-0.5) mg/dL AST 12 (5-31) U/L ALT 14 (0-31) U/L Alkaline Phosphatase 62 (39-117) U/L Total Protein 7.5 (6.5-8.0) g/dL Albumin 4.7 (3.5-5.0) g/dL Influenza Type A (PCR) NEGATIVE (Negative) Influenza Type B (PCR) NEGATIVE (Negative) RSV RNA Qual (PCR) NEGATIVE (Negative) SARS-CoV-2 RNA (RT-PCR) NEGATIVE (Negative) Discharge Plan Discharge Clinical Impression: Frequent loose stools Patient Disposition: Home, Self-Care Additional Instructions: Your magnesium was only slightly low today. Your magnesium was 1.5 today. This was only slightly low (normal is from 1.6-2.6). Please continue your regular medications including your supplemental magnesium. Please plan on following up with your regular doctor if you have any ongoing symptoms. Return to the emergency room if significantly worse. Prescriptions: No Action (DME) blood pressure test kit-large Kit See Rx Instructions .Route Qty: 1 0RF Rx Instructions: As directed lansoprazole 30 mg capsule,delayed release(DR/EC) 30 mg PO DAILY Qty: 90 3RF albuterol sulfate 90 mcg/actuation HFA aerosol inhaler 1 puff PO Q4H PRN (Reason: shortness of breath or wheezing) Qty: 18 3RF metformin 1,000 mg tablet 1,000 mg PO BIDWMEAL 90 Days Qty: 180 3RF cyanocobalamin (vitamin B-12) 1,000 mcg tablet 1,000 mcg PO DAILY Qty: 90 2RF spironolactone 25 mg tablet 25 mg PO BID Qty: 180 2RF fluticasone propionate 50 mcg/actuation spray,suspension 2 spray intranasal DAILY 90 Days Qty: 3 3RF Rx Instructions: administer into each nostril metoprolol tartrate 50 mg tablet See Rx Instructions PO .COMPLEX 90 Days Qty: 270 2RF Rx Instructions: PO; 2 tabs in the AM, 1 tabs in the PM rosuvastatin 20 mg tablet 20 mg PO DAILY Qty: 90 3RF gabapentin 100 mg capsule 100 mg PO DAILY 90 Days Qty: 90 3RF insulin glargine [Lantus Solostar U-100 Insulin] 100 unit/mL (3 mL) insulin pen 48 unit subcut BEDTIME Rx Instructions: or as directed (DME) Accu-Chek Guide test strips Strip See Rx Instructions .ROUTE TID Qty: 10 Rx Instructions: As directed cholecalciferol (vitamin D3) 50 mcg (2,000 unit) capsule 50 mcg PO DAILY calcium carbonate [Calcium 600] 600 mg calcium (1,500 mg) tablet 600 mg PO DAILY (DME) pen needle, diabetic [BD Ultra-Fine Micro Pen Needle] 32 gauge x 1/4 needle See Rx Instructions .Route Qty: 400 3RF Rx Instructions: As directed inject4 x a day Insulin lancets [Accu-Chek Fastclix Lancet Drum] Misc 1 ea topical TID 90 Days Qty: 306 3RF (DME) Accu-Chek Guide test strips Strip See Rx Instructions .Route Qty: 3 3RF Rx Instructions: As directed check BS TID (DME) blood pressure monitor [Blood Pressure Kit] Kit See Rx Instructions .ROUTE .MEDSUPPLY Qty: 1 0RF Rx Instructions: As directed ipratropium-albuterol 0.5 mg-3 mg(2.5 mg base)/3 mL solution for nebulization 3 ml inhalation ONCE Qty: 3 0RF magnesium oxide 400 mg magnesium capsule 400 mg PO DAILY Qty: 30 2RF lisinopril 40 mg tablet 40 mg PO DAILY Qty: 90 2RF amlodipine 10 mg tablet 5 mg PO DAILY Qty: 90 3RF (DME) Accu-Chek Guide test strips Strip See Rx Instructions .Route Qty: 300 3RF Rx Instructions: As directed check the BS TID fenofibrate 160 mg tablet 160 mg PO DAILY Qty: 90 2RF insulin lispro [Humalog KwikPen Insulin] 100 unit/mL insulin pen See Rx Instructions subcut TID 30 Days Qty: 15 4RF Rx Instructions: 10 u in am , 14 u noon and 6 u evening subcutaneously 3 times a day; or as directed aspirin [Adult Low Dose Aspirin] 81 mg tablet,delayed release (DR/EC) 81 mg PO DAILY (DME) pen needle, diabetic [BD Marisela 2nd Gen Pen Needle] 32 gauge x / needle See Rx Instructions .ROUTE DAILY Qty: 50 Rx Instructions: As directed Referrals: Po,William Roman MD [Primary Care Provider] - (loose stools, mild hypomagnesemia) Print Language: Setswana
[2024-05-19 16:42] VITALS: BP 104/51; PULSE 75; RESP 16; TEMP 36.5; O2SAT 93
[2024-05-19 16:45] LABS: MANUAL DIFF FLAG NO
[2024-05-19 16:57] LABS: Basophils Absolute Auto 0.1 X10*3/uL (0.0-0.2); Basophils Percent Auto 0.7 % (0-2); Eosinophils Absolute Auto 0.2 X10*3/uL (0.0-0.4); Eosinophils Percent Auto 2.3 % (0-4); Hematocrit 38.1 % (37.0-47.0); Hemoglobin 13.2 g/dl (12.0-16.0); Imm Gran Abs Auto 0.02 X10*3/uL (0.00-0.03); Imm Gran Pct Auto 0.2 % (0.0-0.4); Lymphocytes Absolute Auto 1.9 X10*3/uL (1.2-4.9); Lymphocytes Percent Auto 21.1 % (20-40); Mean Corpuscular HGB Conc 34.6 g/dl (31.0-35.0); Mean Corpuscular Hemoglobin 31.4 pg (27.0-33.0); Mean Corpuscular Volume 90.7 fL (80.0-98.0); Mean Platelet Volume 11.3 fL (9.4-12.3); Monocytes Absolute Auto 0.5 X10*3/uL (0.1-1.2); Monocytes Percent Auto 5.1 % (2-11); Neutrophils Absolute Auto 6.3 x10*3/uL (2.0-8.3); Neutrophils Percent Auto 70.6 % (45-73); Platelet Count 308 X10*3/uL (160-400); Red Cell Distribution Width 12.7 % (11.0-16.0); White Blood Count 8.9 X10*3/uL (4.8-10.8)
[2024-05-19 16:59] LABS: Alanine Aminotransferase 14 U/L (0-31); Albumin Level 4.7 g/dL (3.5-5.0); Alkaline Phosphatase 62 U/L (39-117); Anion Gap 15 (12-20); Aspartate Amino Transferase 12 U/L (5-31); Bilirubin Direct 0.1 mg/dL (0.0-0.5); Bilirubin Total 0.3 mg/dL (0.0-1.0); Blood Urea Nitrogen 22 mg/dL (9-16); Calcium 10.6 mg/dL (8.4-10.2); Carbon Dioxide 20 mmol/L (22-29); Chloride 109 mmol/L (96-108); Creatinine Clr Calc Pharmacy 49.3; Estimated Glomerular Filt Rate 52; Glucose Random 112 mg/dL (60-115); Magnesium 1.5 mg/dL (1.6-2.6); Potassium 4.4 mmol/L (3.3-5.1); Sodium 140 mmol/L (135-145); Total Protein 7.5 g/dL (6.5-8.0)
[2024-05-19 17:21] LABS: Influenza A PCR NEGATIVE (Negative); Influenza B PCR NEGATIVE (Negative); Resp Syncy Virus RNA Qual PCR NEGATIVE (Negative); SARS COV2 PCR INHOUSE NEGATIVE (Negative)
[2024-05-19] MEDS: Magnesium Sulfate/H2O 2 GM/50 ML PIGGYBACK IV (18:01)
[2024-05-19] MEDS: 0.9 % Sodium Chloride 1,000 ML 999 ML IV (18:01)
[2024-05-19 19:16] VITALS: BP 126/52; PULSE 74; RESP 17; TEMP 36.6; O2SAT 95
[2024-05-19 20:12] VITALS: BP 126/52; PULSE 74; RESP 17; TEMP 36.6; O2SAT 95
== END 2024-05-19 20:12 | disposition home or self-care (01) ==
PROVIDERS: Nurse Practitioner Family; Emergency Provider Emergency Medicine; PCP Internal Medicine
DX: R19.7 Diarrhea, unspecified (principal); R11.2 Nausea with vomiting, unspecified; R51.9 Headache, unspecified; R25.1 Tremor, unspecified; Z87.891 Personal history of nicotine dependence; Z03.818 Encounter for observation for suspected exposure to other biological agents ruled out; Z79.899 Other long term (current) drug therapy
CPT/HCPCS: 0241U; 80048; 80076; 83735; 85025; 96360; 96374; 99284; J3475

== ENCOUNTER 2024-07-16 09:42 | Outpatient (AMB) | payer MEDICARE, SELFPAY ==
--- NOTE | 2024-07-16 09:51 | MHC.PC.OV ---
Vital Signs 07/16/24 09:52 Height 5 ft 5 in Weight 179 lb 8 oz BMI 29.9 BP 146/70 H Blood Pressure Location Lt brachial Position Sitting Pulse 64 Pulse Source Pulse Oximeter Pulse Oximetry (%) 98 Oxygen Delivery Method Room Air Intake Visit Reasons: DM Intake Note: Patient is here to follow up on DM. Manager Equity Required: No Front Office Coordinator: Not Required per policy Accompanied by: Self / Same As Patient Allergies cortisone [CORTISONE] Allergy (Severe, Verified 07/16/24 09:52) RASH HIVES AND SWELLING OF THE TONGUE nitrofurantoin Allergy (Severe, Verified 07/16/24 09:52) tongue swelling Penicillins Allergy (Severe, Verified 07/16/24 09:52) ANAPHYLAXIS yeast, dried [yeast] Allergy (Severe, Verified 07/16/24 09:52) SHORTNESS OF BREATH amlodipine Allergy (Intermediate, Verified 07/16/24 09:57) swelling of feet empagliflozin [From Jardiance] Allergy (Intermediate, Verified 07/16/24 09:52) swollen tongue omeprazole [From Prilosec] Allergy (Intermediate, Verified 07/16/24 09:52) BLISTERS Sulfa (Sulfonamide Antibiotics) Allergy (Intermediate, Verified 07/16/24 09:52) Itching niacin [Niacin] Allergy (Mild, Verified 07/16/24 09:52) RASH tetracycline [Tetracycline] Allergy (Mild, Verified 07/16/24 09:52) RASH acetic acid [Acetic Acid] Allergy (Unknown, Verified 07/16/24 09:52) SHORTNESS OF BREATH FROM VINEGAR adhesive tape Allergy (Unknown, Verified 07/16/24 09:52) RASH Clindamycin HCl Allergy (Unknown, Verified 07/16/24 09:52) rash procaine [From NOVOCAIN] Allergy (Unknown, Verified 07/16/24 09:52) RASH,SWELLING OF TONGUE,BLISTERING cefixime [From Suprax] Adverse Reaction (Intermediate, Verified 07/16/24 09:52) Swelling in throat dulaglutide [From Trulicity] Adverse Reaction (Intermediate, Verified 07/16/24 09:52) swelling of tongue hydrochlorothiazide Adverse Reaction (Intermediate, Verified 07/16/24 09:52) hypercalcemia methenamine Adverse Reaction (Intermediate, Verified 07/16/24 09:52) Yeast Infection lorazepam [From Ativan] Adverse Reaction (Mild, Verified 07/16/24 09:52) VOMITING/NAUSEA morphine [MORPHINE] Adverse Reaction (Unknown, Verified 07/16/24 09:52) NAUSEA fosfomycin Allergy (Severe, Uncoded 07/16/24 09:52) tongue swelling jardiance Allergy (Severe, Uncoded 07/16/24 09:52) Yeast infection levofloxacin Allergy (Severe, Uncoded 07/16/24 09:52) Hives From AVELOX Allergy (Intermediate, Uncoded 07/16/24 09:52) SWELLING/RASH carrots, vinegar, yeast, chees Allergy (Unknown, Uncoded 07/16/24 09:52) Unknown SEASONAL ALLERGIES Allergy (Unknown, Uncoded 07/16/24 09:52) SNEEZING Medication List - Last Reconciled 07/16/24 by Elis Ortiz PA-C albuterol sulfate 90 mcg/actuation 1 puff PO Q4H PRN aspirin (Adult Low Dose Aspirin) 81 mg PO DAILY blood pressure monitor (Blood Pressure Kit) As directed blood pressure test kit-large As directed blood sugar diagnostic As directed blood sugar diagnostic (Accu-Chek Guide test strips) As directed check BS TID blood sugar diagnostic (Accu-Chek Guide test strips) As directed check the BS TID calcium carbonate (Calcium 600) 600 mg PO DAILY cholecalciferol (vitamin D3) 50 mcg PO DAILY cyanocobalamin (vitamin B-12) 1,000 mcg PO DAILY fenofibrate 160 mg PO DAILY fluticasone propionate 50 mcg/actuation 2 sprays intranasal DAILY 90 days gabapentin 100 mg PO DAILY 90 days insulin glargine (Lantus Solostar U-100 Insulin) 48 units (0.48 mL) subcut BEDTIME insulin lispro (Humalog KwikPen (U-100) Insulin) 10 u in am , 14 u noon and 6 u evening subcutaneously 3 times a day; or as directed 30 days lancets (Accu-Chek Fastclix Lancet Drum) 1 ea topical TID 90 days lansoprazole 30 mg PO DAILY lisinopril 40 mg PO DAILY magnesium oxide 400 mg PO DAILY metformin 1,000 mg PO BIDWMEAL 90 days metoprolol tartrate PO; 2 tabs in the AM, 1 tabs in the PM 90 days pen needle, diabetic (BD Ultra-Fine Micro Pen Needle) As directed inject4 x a day Insulin pen needle, diabetic (BD Marisela 2nd Gen Pen Needle) As directed rosuvastatin 20 mg PO DAILY spironolactone 25 mg PO BID Tobacco use date assessed: 02/07/24 Fall risk assessment: No Falls in past year Last assessed Fall Risk: 07/16/24 Dental Screening Dental Screen Date: 02/07/24 HPI DM HPI Details 74-year-old overweight female smoker with uncontrolled diabetes mellitus hypertension hypercholesterolemia Barretts esophagus coronary artery disease and generalized anxiety disorder coming in for follow-up.? Patient was last seen by Dr. Colón 05/10/2024 and insulin was adjusted to 14 units in the afternoon.? In review of the notes, patient was seen in [facility] 05/19/2024 for frequent loose stool added magnesium due to hypomagnesemia and follow up with PCP. Today she tells us she checks her sugars 3-4 times per day and since her last visit there has been several values below 100 lowest being 64. Typically her sugar ranges are AM 130-170, noon 64-227, PM 170-300. She has been consuming sugary drinks and various forms of carbs more recently. Her diet is inconsistent but she does eat crackers often. She has been using her medications faithfully and as directed. [facility] Medical History Tobacco abuse Myocardial infarct COVID-19 Cough Skin rash Breast cancer screening by mammogram Colon cancer screening Essential hypertension Mitral valve prolapse Diabetic neuropathy Type 2 diabetes mellitus with hyperglycemia Hip osteoarthritis Diabetic nephropathy Vitamin D deficiency COPD (chronic obstructive pulmonary disease) Osteoarthritis Barretts esophagus Hypercholesterolemia Coronary artery disease Surgical History H/O heart artery stent Cystocele History of parathyroidectomy History of hysterectomy History of cholecystectomy Family History Father CVD (cardiovascular disease) Dementia Heart valve replaced Mother Colon cancer Social History Housing: House Alcohol intake: never Patient Tobacco Use Status: Former Tobacco user Tobacco use type: Cigarette Cigarettes Per Day: 1 Years Smoked: 40 +/- quit 02/2024 e-Cigarette/Vaping Use: Never Used Second Hand Smoke Exposure: No service: No Current occupational status: retired Current occupation: right hand dominant Cognitive needs: No Hearing needs: No Vision needs: Yes Female Reproductive History Menstrual Age of Menarche: 9 Questionnaire Thrive Questionnaire Date Thrive assessed: 02/07/24 Are you currently unemployed and looking for a job?: No TALON-7 AMB Questionnaire TALON-7 Date TALON - 7 assessed: 02/07/24 Source: Developed by Drs. Michelet Roman, Kelly Bynum, Clement Malloy and colleagues, with an educational debra from [email or web address]. Review of Systems Const Denies chills, Denies fatigue and Denies fever(s) Eyes Details: History of macular degeneration Reports no additional complaints ENT Reports no additional complaints Card Denies chest pain, Denies leg edema, Denies lightheadedness and Denies dyspnea Resp Denies dyspnea GI Denies abdominal pain Details: Denies frequent urination or pain with urination Musc Details: Does complain of bilateral foot numbness and tingling Skin/Breast Reports system reviewed and no additional complaints, except as documented Endo Denies fatigue Physical exam (Primary Care) Vital Signs: Last Vital Signs Pulse 64 07/16/24 09:52 BP 146/70 H 07/16/24 09:52 Pulse Ox 98 07/16/24 09:52 Oxygen Delivery Method Room Air 07/16/24 09:52 BMI result Body Mass Index 29.9 Tobacco/Smoking Status: Tobacco use Status Tobacco use date assessed 02/07/24 07/16/24 10:01 Patient Tobacco Use Status Former Tobacco user 07/16/24 10:01 Tobacco use type Cigarette 07/16/24 10:01 e-Cigarette/Vaping Use Never Used 07/16/24 10:01 Are you ready to quit: No Tobacco cessation counseling provided: Yes Items discussed: Nicotine replacement Relapse Prevention: discussed the importance of a supportive environment and discussed dietary, exercise and/or lifestyle changes Number of minutes spent counselin CPT code: 21355 - 4-10 Minutes Thrive Assessment: Date of Thrive Assessment Date Thrive assessed 02/07/24 07/16/24 10:01 Const General: cooperative, healthy appearing, comfortable and no acute distress Orientation/consciousness: patient oriented x3 HENMT Head: Yes normocephalic Ears: hearing grossly normal bilaterally General nose exam: Normal external nose present Eyes General: appearance normal, both eyes and all related structures Conjunctivae: conjunctivae normal Neck Neck: Yes full ROM and Yes no lymphadenopathy Resp Effort & Inspection: normal respiratory effort Auscultation: clear to auscultation bilaterally, no crackles, no rales, no rhonchi and no wheezes Cardio Rate: regular rate Rhythm: regular rhythm Skin General skin exam: no rashes or lesions noted Neuro General: patient oriented x3 Gait exam (Neuro): Normal gait present Extrem General: Yes normal to inspection, Yes full ROM and No edema Psych Affect: normal affect Attitude: cooperative Insight: Good insight present (Psych) Judgement: Good judgement present (Psych) Results AMB Hemoglobin A1c AMB Hemoglobin A1c 8.7 % Last Edit by MACHELLE Martinez on 07/16/24 10:02 Results Reviewed Results Reviewed: Laboratory Last Values Hgb A1c (Clinic) 8.7 % (4.0-6.0) H 07/16/24 09:50 Assessment and Plan Assessment & Plan (1) Type 2 diabetes mellitus with hyperglycemia: Comment: December 2016 eye and lasik Code(s): E11.65 - Type 2 diabetes mellitus with hyperglycemia Qualifiers: Diabetes mellitus terminal operations 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 Patient is having labile blood sugars but does tend to have very high values in the afternoon. At this time does not feel it appropriate to adjust insulin as she does continue to have low blood sugars. No additional medications can be added as she does have allergy to Jardiance and Trulicity and would not be a good candidate for sulfonylureas. Referral to [facility] endocrinology placed today as well as referral to nutrition as patient does struggle with good diet. Decrease the amount of carbohydrates such as pasta, bread, rice, and potatoes and limit the amount of sweets. Although fruits are generally healthy they should be eaten in moderation as they are still high in sugar. Hemoglobin A1c goal of less than 7%. Continue on current medication. (2) Tobacco abuse: Comment: august 2022 STopped 02/2024 Code(s): Z72.0 - Tobacco use Plan: Discussed with patient the importance of smoking cessation and strongly encouraged to stop smoking. Offered nicotine replacement therapy at this visit but was declined by patient. Plan This note was constructed using voice recognition software. While every effort has been made to ensure accuracy and bsw, still areas may have been included sometimes these areas may affect the content or meeting of the given symptoms. Total time spent caring for the patient today was 30 minutes. This includes time spent before the visit reviewing the chart, time spent during the visit, and time spent after the visit and documentation. Orders: Orders AMB Hemoglobin A1c Today E11.65 - Type 2 diabetes mellitus with hyperglycemia Referrals Endocrinology Referral E11.65 - Type 2 diabetes mellitus with hyperglycemia Nutrition/Dietitian Referral E11.65 - Type 2 diabetes mellitus with hyperglycemia Medications: Refilled albuterol sulfate 90 mcg/actuation 1 puff PO Q4H PRN 18 grams 3RF shortness of breath or wheezing J43.1 - Panlobular emphysema Coding Level of Care Code Est Pt Level 4 (20132) Diagnoses Type 2 diabetes mellitus with hyperglycemia, without long-term current use of insulin E11.65 Diabetes mellitus penitentiary insulin use: without terminal operations supervisor use Tobacco abuse Z72.0 Additional Codes Vital Signs *Quality* - CPT code: 62222 - 4-10 Minutes ([id number])
[2024-07-16 09:52] VITALS: BP 146/70; PULSE 64; O2SAT 98; BMI 29.9
== END 2024-07-16 10:34 | disposition home or self-care (01) ==
PROVIDERS: PCP Internal Medicine
DX: E11.65 Type 2 diabetes mellitus with hyperglycemia (principal); Z72.0 Tobacco use

== ENCOUNTER → 2024-07-16 09:42 | Outpatient (BNVA) | payer MEDICARE, SELFPAY | PROVIDERS: PCP Internal Medicine | DX: E11.65 Type 2 diabetes mellitus with hyperglycemia (principal); Z87.891 Personal history of nicotine dependence | CPT/HCPCS: 83036; 99212 ==

== ENCOUNTER 2024-07-23 13:17 | Outpatient (AMB) | payer MEDICARE, SELFPAY ==
[2024-07-23 13:22] VITALS: BP 132/56; PULSE 71; BMI 29.6
--- NOTE | 2024-07-23 13:22 | MHC.OFFVIS ---
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 Required: No Accompanied by: Self / Same As Patient Allergies cortisone [CORTISONE] Allergy (Severe, Verified 07/16/24 09:52) RASH HIVES AND SWELLING OF THE TONGUE nitrofurantoin Allergy (Severe, Verified 07/16/24 09:52) tongue swelling Penicillins Allergy (Severe, Verified 07/16/24 09:52) ANAPHYLAXIS yeast, dried [yeast] Allergy (Severe, Verified 07/16/24 09:52) SHORTNESS OF BREATH amlodipine Allergy (Intermediate, Verified 07/16/24 09:57) swelling of feet empagliflozin [From Jardiance] Allergy (Intermediate, Verified 07/16/24 09:52) swollen tongue omeprazole [From Prilosec] Allergy (Intermediate, Verified 07/16/24 09:52) BLISTERS Sulfa (Sulfonamide Antibiotics) Allergy (Intermediate, Verified 07/16/24 09:52) Itching niacin [Niacin] Allergy (Mild, Verified 07/16/24 09:52) RASH tetracycline [Tetracycline] Allergy (Mild, Verified 07/16/24 09:52) RASH acetic acid [Acetic Acid] Allergy (Unknown, Verified 07/16/24 09:52) SHORTNESS OF BREATH FROM VINEGAR adhesive tape Allergy (Unknown, Verified 07/16/24 09:52) RASH Clindamycin HCl Allergy (Unknown, Verified 07/16/24 09:52) rash procaine [From NOVOCAIN] Allergy (Unknown, Verified 07/16/24 09:52) RASH,SWELLING OF TONGUE,BLISTERING cefixime [From Suprax] Adverse Reaction (Intermediate, Verified 07/16/24 09:52) Swelling in throat dulaglutide [From Trulicity] Adverse Reaction (Intermediate, Verified 07/16/24 09:52) swelling of tongue hydrochlorothiazide Adverse Reaction (Intermediate, Verified 07/16/24 09:52) hypercalcemia methenamine Adverse Reaction (Intermediate, Verified 07/16/24 09:52) Yeast Infection lorazepam [From Ativan] Adverse Reaction (Mild, Verified 07/16/24 09:52) VOMITING/NAUSEA morphine [MORPHINE] Adverse Reaction (Unknown, Verified 07/16/24 09:52) NAUSEA fosfomycin Allergy (Severe, Uncoded 07/16/24 09:52) tongue swelling jardiance Allergy (Severe, Uncoded 07/16/24 09:52) Yeast infection levofloxacin Allergy (Severe, Uncoded 07/16/24 09:52) Hives From AVELOX Allergy (Intermediate, Uncoded 07/16/24 09:52) SWELLING/RASH carrots, vinegar, yeast, chees Allergy (Unknown, Uncoded 07/16/24 09:52) Unknown SEASONAL ALLERGIES Allergy (Unknown, Uncoded 07/16/24 09:52) SNEEZING Medication List - Last Reconciled 07/23/24 by Dion Roque MD albuterol sulfate 90 mcg/actuation 1 puff PO Q4H PRN aspirin (Adult Low Dose Aspirin) 81 mg PO DAILY blood pressure monitor (Blood Pressure Kit) As directed blood pressure test kit-large As directed blood sugar diagnostic As directed blood sugar diagnostic (Accu-Chek Guide test strips) As directed check BS TID blood sugar diagnostic (Accu-Chek Guide test strips) As directed check the BS TID calcium carbonate (Calcium 600) 600 mg PO DAILY cholecalciferol (vitamin D3) 50 mcg PO DAILY cyanocobalamin (vitamin B-12) 1,000 mcg PO DAILY fenofibrate 160 mg PO DAILY fluticasone propionate 50 mcg/actuation 2 sprays intranasal DAILY 90 days gabapentin 100 mg PO DAILY 90 days insulin glargine (Lantus Solostar U-100 Insulin) 48 units (0.48 mL) subcut BEDTIME insulin lispro (Humalog KwikPen (U-100) Insulin) 10 u in am , 14 u noon and 6 u evening subcutaneously 3 times a day; or as directed 30 days lancets (Accu-Chek Fastclix Lancet Drum) 1 ea topical TID 90 days lansoprazole 30 mg PO DAILY lisinopril 40 mg PO DAILY magnesium oxide 400 mg PO DAILY metformin 1,000 mg PO BIDWMEAL 90 days metoprolol tartrate PO; 2 tabs in the AM, 1 tabs in the PM 90 days pen needle, diabetic (BD Ultra-Fine Micro Pen Needle) As directed inject4 x a day Insulin pen needle, diabetic (BD Marisela 2nd Gen Pen Needle) As directed rosuvastatin 20 mg PO DAILY spironolactone 25 mg PO BID HPI Comments Details: Alicia returns for follow-up regarding coronary artery disease. To recall, she had a myocardial infarction in 2004 and had LAD stent placed. Then had NSTEMI 2011 leading to another stent placement. Then she had chest pains in 2019 leading to one further cardiac catheterization but no new interventions. Then another episode of chest pain leading to [facility] hospitalization and had a stress test and then discharged home. Otherwise numerous cardiovascular risk factors including diabetes, hypertension, dyslipidemia. Chronic smoker. Earlier this year, it seems that she was seen in the emergency room for leg swelling. Any case, patient states she stopped the amlodipine as it was felt to be the culprit. Currently, she is doing fine. No new complaints like angina or shortness of breath. Getting along okay but she is still smoking. [facility] Medical History Tobacco abuse Myocardial infarct COVID-19 Cough Skin rash Breast cancer screening by mammogram Colon cancer screening Essential hypertension Mitral valve prolapse Diabetic neuropathy Type 2 diabetes mellitus with hyperglycemia Hip osteoarthritis Diabetic nephropathy Vitamin D deficiency COPD (chronic obstructive pulmonary disease) Osteoarthritis Barretts esophagus Hypercholesterolemia Coronary artery disease Surgical History H/O heart artery stent Cystocele History of parathyroidectomy History of hysterectomy History of cholecystectomy Family History Father CVD (cardiovascular disease) Dementia Heart valve replaced Mother Colon cancer Social History Housing: House Alcohol intake: never Patient Tobacco Use Status: Former Tobacco user Tobacco use type: Cigarette Cigarettes Per Day: 1 Years Smoked: 40 +/- quit 02/2024 e-Cigarette/Vaping Use: Never Used Second Hand Smoke Exposure: No service: No Current occupational status: retired Current occupation: right hand dominant Cognitive needs: No Hearing needs: No Vision needs: Yes Female Reproductive History Menstrual Age of Menarche: 9 Review of Systems Const Denies chills, Denies fatigue, Denies fever(s), Denies weight gain and Denies weight loss ENT Denies dizziness Card Denies chest pain, Denies leg edema, Denies lightheadedness, Denies palpitations, Denies dyspnea on exertion, Denies orthopnea and Denies other Resp Denies cough and Denies dyspnea on exertion GI Denies hematochezia and Denies change in stool character Musc Denies abnormal gait, Denies muscle weakness, Denies numbness, Denies radiating pain into limb and Denies tingling Neuro Denies abnormal gait, Denies dizziness, Denies numbness and Denies tingling Endo Denies fatigue and Denies palpitations Physical Exam Vital Signs: Last Vital Signs Pulse 71 07/23/24 13:22 BP 132/56 L 07/23/24 13:22 BMI result Body Mass Index 29.6 Const General: comfortable and no acute distress Orientation/consciousness: patient oriented x3 HEENT Other: Unremarkable Head: Yes normal to inspection Neck Neck: Yes normal visual inspection Chest Chest palpation & inspection: normal inspection of the chest Resp Auscultation: clear to auscultation bilaterally Cardio Palpation: normal PMI Heart sounds: S1 normal heart sound present, S2 normal heart sound present, no gallops, no murmurs and no rubs GI Palpation (GI): Soft to palpation Back/Spine/Pelvis Other: unremarkable Skin General skin exam: no rashes or lesions noted Neuro General: patient oriented x3 Extrem General: Yes normal to inspection Psych Mental Status: mental status grossly normal Assessment & Plan Assessment & Plan (1) Atherosclerotic cardiovascular disease: Code(s): I25.10 - Atherosclerotic heart disease of [place] coronary artery without angina pectoris Category: Medical Plan: Last cardiac catheterization reviewed from 2019. That revealed moderate mid LAD disease with patent proximal LAD stent/mild ISR. Nonobstructive disease elsewhere. Myocardial perfusion imaging study with modified Abraham protocol 10/2019 showed normal perfusion at exercise capacity of 4.6 Mets. Echocardiogram from 2017 with normal LVEF, mild diastolic dysfunction and otherwise unremarkable. She has no overt anginal-type symptoms but considering her extensive risk factor profile, we will plan on noninvasive workup including echocardiogram and stress test. Can continue aspirin, statins. Last LDL 29 mg/dL. (2) Essential hypertension: Code(s): I10 - Essential (primary) hypertension Category: Medical Plan: Currently on lisinopril and spironolactone. Not taking amlodipine anymore as she is concerned about leg swelling. (3) Other and unspecified hyperlipidemia: Code(s): E78.5 - Hyperlipidemia, unspecified Category: Medical Plan: On rosuvastatin 20 mg daily. Not able tolerate anything higher. LDL 29 mg/dL. (4) Type 2 diabetes mellitus with unspecified complications: Code(s): E11.8 - Type 2 diabetes mellitus with unspecified complications Category: Medical Plan: On insulin, Metformin. Last hemoglobin A1c is 8.7%. Not well controlled. It has been high for a while. (5) Tobacco abuse: Code(s): Z72.0 - Tobacco use Category: Medical Plan: Cardiovascular risk including heart attack and discussed. Strongly advised to quit. Orders: Orders CA echo transthoracic complete Today I25.10 - Atherosclerotic heart disease of [place] coronary artery without angina pectoris CA lexiscan stress w kaelyn Today I20.9 - Angina pectoris, unspecified NM cardiolite stress test Today R07.2 - Precordial pain Coding Level of Care Code Est Pt Level 4 (93525) Diagnoses Atherosclerotic cardiovascular disease I25.10 Essential hypertension I10 Other and unspecified hyperlipidemia E78.5 Type 2 diabetes mellitus with unspecified complications E11.8 Tobacco abuse Z72.0
== END 2024-07-23 14:00 | disposition home or self-care (01) ==
PROVIDERS: PCP Internal Medicine; Visit Provider Internal Medicine
DX: I25.10 Atherosclerotic heart disease of native coronary artery without angina pectoris (principal); I10 Essential (primary) hypertension; E78.5 Hyperlipidemia, unspecified; E11.8 Type 2 diabetes mellitus with unspecified complications; Z72.0 Tobacco use
CPT/HCPCS: 99214

== ENCOUNTER → 2024-07-23 13:17 | Outpatient (BNVA) | payer MEDICARE, SELFPAY | PROVIDERS: PCP Internal Medicine; Visit Provider Internal Medicine | DX: I25.10 Atherosclerotic heart disease of native coronary artery without angina pectoris (principal); I10 Essential (primary) hypertension; E78.5 Hyperlipidemia, unspecified; E11.8 Type 2 diabetes mellitus with unspecified complications; Z72.0 Tobacco use | CPT/HCPCS: 99212 ==

== ENCOUNTER → 2024-08-23 12:41 | Outpatient (REF) | payer MEDICARE, SELFPAY ==
--- NOTE | 2024-08-23 12:51 | CA_ITS ---
Transthoracic Echocardiogram Patient (Last, First, Middle): Alicia Franz K Gender: Female Date of : 1950 Age: 74 Procedure Date: 08/23/2024 Procedure Type: Transthoracic Echocardiogram Location: OP Height: 165.1 cm Weight: 78.02 kg BSA: 1.86 m2 Heart Rate: bpm BP: 150 / 70 mmHg Advertisement Compositor: TO Referring MD: Dion Roque MD Symptoms: I25.10 - Atherosclerotic heart disease of [place] coronary artery without... Study Quality: Fair/Contrast Conclusions: - Normal left ventricular size and systolic function. There is mildly increased left ventricular wall thickness. The visually estimated ejection fraction is between 60-65%. - Elevated filling pressures. - Normal right ventricular cavity size and systolic function. Findings Procedure Information Contrast agent, definity, is being given per protocol without apparent complications. Left Ventricle Normal left ventricular size and systolic function. There is mildly increased left ventricular wall thickness. The visually estimated ejection fraction is between 60-65%. There is no evidence of regional wall motion abnormalities. Abnormal diastolic function is noted. Spectral Doppler is indicative of an impaired relaxation filling pattern. Elevated filling pressures. Right Ventricle Normal right ventricular cavity size and systolic function. Atria The left atrium is normal in size. The right atrium is normal in size. Aortic Valve There is a normal trileaflet aortic valve. There is no aortic valve stenosis. There is no aortic valve regurgitation. Mitral Valve The mitral valve appears normal. There is trace mitral valve regurgitation. There is no mitral valve stenosis. Pulmonic Valve The pulmonic valve is normal. There is trace pulmonic valve regurgitation. Tricuspid Valve Normal tricuspid valve structure. There is trace tricuspid valve regurgitation. Tricuspid regurgitation envelope is inadequate for calculation of right ventricular systolic pressure. Normal right atrial pressure. Great Vessels The visualized portions of the pulmonary artery and branches are normal. Venous The inferior vena cava is normal in size and collapses greater than 50% with inspiration. Pericardium/Pleural Prominent epicardial adipose tissue noted. There is no evidence of pericardial effusion. Prior Study Comparison Changes noted compared to prior study dated: 05/16/2017. Elevated filling pressures. Measurements 2D Linear Measurements IVSd: 1.13 0.6-0.9/0.6-1.0 cm LVIDd: 4.73 3.9-5.3/4.2-5.9 cm LVIDd Index: 2.54 2.4-3.2/2.2-3.1 cm/m2 LVIDs: 3.07 2.0-3.6 cm LVPWd: 1.01 0.7-1.1 cm LA Diam: 4.00 2.7-3.8/3.0-4.0 cm LAIDs Index: 2.15 1.5-2.3 cm/m2 LV Mass: 227.16 67-162/88-224 g LV Mass Index: 122.13 43-95/49-115 g/m2 LVOT Diam: 2.10 3.0+(-)1.3 cm 2D Systolic Function EF 4C: 68.50 >55% EF 2C: 61.80 >55% EF BiP: 65.30 >55% Mitral Valve MV Pk E: 0.75 MV PK A: 0.86 MV Decel Time: 260.00 E/A: 0.90 E'Lateral: 5.33 E'Medial: 4.57 E/E' Med: 16.30 E/E' Lat: 14.00 PHT: 76.00 MVA PHT: 2.89 Decel Galax: 2.87 Aortic Valve AoV Pk Dl: 1.36 AoV Mn Dl: 0.90 AoV VTI: 0.29 AoV Pk Grad: 7.00 Aov Mn Grad: 4.00 KE[place]ON Cont.VTI: 2.40 LVOT LVOT Pk Dl: 0.97 LVOT Mn Dl: 0.59 LVOT VTI: 0.20 LVOT Pk Grad: 4.00 LVOT Mn Grad: 2.00 LVOT Diam: 2.10 LVOT Area: 3.46 Diastolic Function MV Pk E: 0.75 MV Pk A: 0.86 E/A: 0.90 E'Medial: 4.57 E/E' Med: 16.30 E' Laterial: 5.33 E/E' Lat: 14.00 Right Ventricle TAPSE (mm): 19.10 TVS' Dl: 10.80 Tricuspid Valve RA Press: 3.00 Great Vessels Aorta Sinus of Valsalva: 3.16 2.0-3.5 cm Ao Asc: 3.20 2.1-3.4 cm Updated in Other Vendor System with Status of Final Ted De Souza MD electronically signed on 08/25/2024 6:23:41 PM with status of Final
== END ==
LOC: HO.CARD 12:41
PROVIDERS: PCP Internal Medicine; Visit Provider Internal Medicine
DX: I25.10 Atherosclerotic heart disease of native coronary artery without angina pectoris (principal)
CPT/HCPCS: 93306; Q9957

== ENCOUNTER → 2024-08-23 12:51 | Outpatient (BNV) | payer MEDICARE, SELFPAY | PROVIDERS: PCP Internal Medicine; Visit Provider Internal Medicine Cardiovascular Disease | DX: I51.89 Other ill-defined heart diseases (principal) | CPT/HCPCS: 93306 ==

== ENCOUNTER 2024-09-02 17:00 | Outpatient (AMB) | payer MEDICARE, SELFPAY ==
--- NOTE | 2024-09-02 17:17 | A.OFFPC_ITS ---
Vital Signs 09/02/24 17:18 Height 5 ft 5 in Weight 179 lb BMI 29.8 BP 142/60 H Blood Pressure Location Lt brachial Position Sitting Pulse 89 Pulse Source Pulse Oximeter Pulse Oximetry (%) 96 Oxygen Delivery Method Room Air Intake Visit Reasons: 3 Month Follow Up Power Shear Operator Required: No Accompanied by: Self / Same As Patient Allergies cortisone [CORTISONE] Allergy (Severe, Verified 09/02/24 17:18) RASH HIVES AND SWELLING OF THE TONGUE nitrofurantoin Allergy (Severe, Verified 09/02/24 17:18) tongue swelling Penicillins Allergy (Severe, Verified 09/02/24 17:18) ANAPHYLAXIS yeast, dried [yeast] Allergy (Severe, Verified 09/02/24 17:18) SHORTNESS OF BREATH amlodipine Allergy (Intermediate, Verified 09/02/24 17:18) swelling of feet empagliflozin [From Jardiance] Allergy (Intermediate, Verified 09/02/24 17:18) swollen tongue omeprazole [From Prilosec] Allergy (Intermediate, Verified 09/02/24 17:18) BLISTERS Sulfa (Sulfonamide Antibiotics) Allergy (Intermediate, Verified 09/02/24 17:18) Itching niacin [Niacin] Allergy (Mild, Verified 09/02/24 17:18) RASH tetracycline [Tetracycline] Allergy (Mild, Verified 09/02/24 17:18) RASH acetic acid [Acetic Acid] Allergy (Unknown, Verified 09/02/24 17:18) SHORTNESS OF BREATH FROM VINEGAR adhesive tape Allergy (Unknown, Verified 09/02/24 17:18) RASH Clindamycin HCl Allergy (Unknown, Verified 09/02/24 17:18) rash procaine [From NOVOCAIN] Allergy (Unknown, Verified 09/02/24 17:18) RASH,SWELLING OF TONGUE,BLISTERING cefixime [From Suprax] Adverse Reaction (Intermediate, Verified 09/02/24 17:18) Swelling in throat dulaglutide [From Trulicity] Adverse Reaction (Intermediate, Verified 09/02/24 17:18) swelling of tongue hydrochlorothiazide Adverse Reaction (Intermediate, Verified 09/02/24 17:18) hypercalcemia methenamine Adverse Reaction (Intermediate, Verified 09/02/24 17:18) Yeast Infection lorazepam [From Ativan] Adverse Reaction (Mild, Verified 09/02/24 17:18) VOMITING/NAUSEA morphine [MORPHINE] Adverse Reaction (Unknown, Verified 09/02/24 17:18) NAUSEA fosfomycin Allergy (Severe, Uncoded 09/02/24 17:18) tongue swelling jardiance Allergy (Severe, Uncoded 09/02/24 17:18) Yeast infection levofloxacin Allergy (Severe, Uncoded 09/02/24 17:18) Hives From AVELOX Allergy (Intermediate, Uncoded 09/02/24 17:18) SWELLING/RASH carrots, vinegar, yeast, chees Allergy (Unknown, Uncoded 09/02/24 17:18) Unknown SEASONAL ALLERGIES Allergy (Unknown, Uncoded 09/02/24 17:18) SNEEZING Tobacco use date assessed: 02/07/24 Fall risk assessment: No Falls in past year Last assessed Fall Risk: 09/02/24 Dental Screening Dental Screen Date: 02/07/24 HPI 3 Month Follow Up HPI Details 74-year-old overweight female smoker wit h coronary artery disease Barretts esophagus COPD hypertension generalized anxiety disorder coming in for follow-up. Last seen in June 2024. Patient's colonoscopy is up-to-date 2 022 mammogram is due. with uncontrolled diabetes mellitus echocardiogram done in August 25Normal left ventricular size and systolic function. There is mildly increased left ventricular wall thickness. The visually estimated ejection fraction is between 60-65%. - Elevated filling pressures. - Normal right ventricular cavity size a nd systolic function. Continuing good statins and aspirin. As for the blood pressure lisinopril and spironolactone not taking amlodipine due to leg swelling. 3 days ago fever, vomiting,. b evelyn today. [facility] Medical History Tobacco abuse Myocardial infarct COVID-19 Cough Skin rash Breast cancer screening by mammogram Colon cancer screening Essential hypertension Mitral valve prolapse Diabetic neuropathy Type 2 diabetes mellitus with hyperglycemia Hip osteoarthritis Diabetic nephropathy Vitamin D deficiency COPD (chronic obstructive pulmonary disease) Osteoarthritis Barretts esophagus Hypercholesterolemia Coronary artery disease Surgical History H/O heart artery stent Cystocele History of parathyroidectomy History of hysterectomy History of cholecystectomy Family History Father CVD (cardiovascular disease) Dementia Heart valve replaced Mother Colon cancer Social History Housing: House Alcohol intake: never Patient Tobacco Use Status: Former Tobacco user Tobacco use type: Cigarette Cigarettes Per Day: 1 Years Smoked: 40 +/- quit 02/2024 e-Cigarette/Vaping Use: Never Used Second Hand Smoke Exposure: No service: No Current occupational status: retired Current occupation: right hand dominant Cognitive needs: No Hearing needs: No Vision needs: Yes Female Reproductive History Menstrual Age of Menarche: 9 Questionnaire Thrive Questionnaire Date Thrive assessed: 02/07/24 Are you currently unemployed and looking for a job?: No TALON-7 AMB Questionnaire TALON-7 Date TALON - 7 assessed: 02/07/24 Source: Developed by Drs. Michelet Roman, Kelly Bynum, Clement Malloy and colleagues, with an educational debra from [employer]. Physical exam (Primary Care) Vital Signs: Last Vital Signs Pulse 89 09/02/24 17:18 BP 142/60 H 09/02/24 17:18 Pulse Ox 96 09/02/24 17:18 Oxygen Delivery Method Room Air 09/02/24 17:18 BMI result Body Mass Index 29.8 Tobacco/Smoking Status: Tobacco use Status Tobacco use date assessed 02/07/24 09/02/24 17:18 Patient Tobacco Use Status Former Tobacco user 09/02/24 17:18 Tobacco use type Cigarette 09/02/24 17:18 e-Cigarette/Vaping Use Never Used 09/02/24 17:18 Thrive Assessment: Date of Thrive Assessment Date Thrive assessed 02/07/24 09/02/24 17:18 Const General: alert; No acute distress Eyes Conjunctivae: conjunctivae normal Resp Auscultation: clear to auscultation bilaterally Cardio Rate: regular rate Rhythm: regular rhythm GI Inspection: Yes normal to inspection Extrem General: Yes normal to inspection and No edema Office Procedures Flu Questionnaire Does the patient have a severe egg allergy?: No Immunizations Fluarix Triv [id number] (PF) 45 mcg (15 mcg x 3)/0.5 mL IM syringe Performing Provider: William Colón MD [facility] Documented (not given) by: PAOLA Morrow on 09/02/24 17:35 Reason Not Given: Received Previously Coding Level of Care Code Est Pt Level 4 (86863) Complex EM visit Add On G2211 Diagnoses Tobacco abuse Z72.0 Type 2 diabetes mellitus with hyperglycemia, without long-term current use of insulin E11.65 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 transplanted heart: [place] heart Associated angina: without angina Hypercholesterolemia E78.00 Panlobular emphysema J43.1 COPD type: emphysema Emphysema type: panlobular Bernal's esophagus without dysplasia K22.70 Bernal's esophagus type: without dysplasia Essential hypertension I10 Generalized anxiety disorder F41.1 Breast cancer screening by mammogram Z12.31 Assessment & Plan Assessment & Plan (1) Tobacco abuse: Code(s): Z72.0 - Tobacco use Category: Medical Plan: Strongly advised to stop smoking! (2) Type 2 diabetes mellitus with hyperglycemia: Comment: December 2016 eye and lasik Code(s): E11.65 - Type 2 diabetes mellitus with hyperglycemia Category: Medical Qualifiers: Diabetes mellitus exterminator helper termite insulin use: without exterminator helper termite use Qualified Code(s): E11.65 - Type 2 diabetes mellitus with hyperglycemia Plan: Decrease the amount of carbohydrate intake, pasta, bread, rice and potatoes are all sugar and that is aside from all the sweet stuff, remember that fruits are good but they are Sweet also. Hemoglobin A1c goal of less than 7.0 patient is on Lantus at 48 units once a day lispro/Humalog sliding scale metformin a 1000 mg twice a day (3) Coronary artery disease: Comment: Stent placement January 2012 Code(s): I25.10 - Atherosclerotic heart disease of [place] coronary artery without angina pectoris Category: Medical Qualifiers: Coronary Disease-Associated Artery/Lesion type: [place] artery [place] vs. transplanted heart: [place] heart Associated angina: without angina Qualified Code(s): I25.10 - Atherosclerotic heart disease of [place] coronary artery without angina pectoris Plan: Control the cholesterol, weight, blood pressure, diabetes continue with aspirin 81 mg once a day (4) Hypercholesterolemia: Code(s): E78.00 - Pure hypercholesterolemia, unspecified Category: Medical Plan: Avoid fried foods, chicken skin, eggs, butter margarine, pastries and meat. Be it pork or beef they have a lot of cholesterol LDL goal of below 70 and triglyceride of less than 150 on rosuvastatin 20 mg once a day and fenofibrate March 2024 last blood work. (5) COPD (chronic obstructive pulmonary disease): Code(s): J44.9 - Chronic obstructive pulmonary disease, unspecified Category: Medical Qualifiers: COPD type: emphysema Emphysema type: panlobular Qualified Code(s): J43.1 - Panlobular emphysema Plan: Continue with the albuterol inhaler, have to stop smoking! (6) Barretts esophagus: Code(s): K22.70 - Bernal's esophagus without dysplasia Category: Medical Qualifiers: Bernal's esophagus type: without dysplasia Qualified Code(s): K22.70 - Bernal's esophagus without dysplasia Plan: Avoid the foods that causes that usually spicy foods, tomato products, juices, coffee, soda and foods that your sensitive to. After eating do not lie down, allow 3-4 hours before in lie down. And keep the head of bed above 30 degrees to avoid the acid from going up. (7) Essential hypertension: Code(s): I10 - Essential (primary) hypertension Category: Medical Plan: Continue with blood pressure medication. Decrease salt intake and exercise presently on lisinopril 40 mg once a day metoprolol tartrate (8) Generalized anxiety disorder: Code(s): F41.1 - Generalized anxiety disorder Category: Medical Plan: Stable (9) Breast cancer screening by mammogram: Code(s): Z12.31 - Encounter for screening mammogram for malignant neoplasm of breast Category: Medical Plan: Mammogram requested Orders: Orders AMB Hemoglobin A1c Today E11.65 - Type 2 diabetes mellitus with hyperglycemia Influenza [id number] Immunization Today Z23 - Encounter for immunization MM tomosynthesis screening BI Today Z12.31 - Encounter for screening mammogram for malignant neoplasm of breast Medications: Refilled metoprolol tartrate PO; 2 tabs in the AM, 1 tabs in the PM 90 days 270 tabs 2RF I10 - Essential (primary) hypertension magnesium oxide 400 mg PO DAILY 90 caps 2RF
[2024-09-02 17:18] VITALS: BP 142/60; PULSE 89; O2SAT 96; BMI 29.8
== END 2024-09-02 17:52 | disposition home or self-care (01) ==
LOC: HO.HMCH 17:01
PROVIDERS: PCP Internal Medicine; Visit Provider Internal Medicine
DX: E11.65 Type 2 diabetes mellitus with hyperglycemia (principal); J43.1 Panlobular emphysema; Z72.0 Tobacco use; I25.10 Atherosclerotic heart disease of native coronary artery without angina pectoris; E78.00 Pure hypercholesterolemia, unspecified; K22.70 Barrett's esophagus without dysplasia; I10 Essential (primary) hypertension; F41.1 Generalized anxiety disorder; Z12.31 Encounter for screening mammogram for malignant neoplasm of breast

== ENCOUNTER → 2024-09-02 17:00 | Outpatient (BNVA) | payer MEDICARE, SELFPAY | PROVIDERS: PCP Internal Medicine; Visit Provider Internal Medicine | DX: E11.65 Type 2 diabetes mellitus with hyperglycemia (principal); I25.10 Atherosclerotic heart disease of native coronary artery without angina pectoris; E78.00 Pure hypercholesterolemia, unspecified; J43.1 Panlobular emphysema; K22.70 Barrett's esophagus without dysplasia; I10 Essential (primary) hypertension; F41.1 Generalized anxiety disorder; Z72.0 Tobacco use | CPT/HCPCS: 99212 ==

== ENCOUNTER 2024-09-09 11:20 | Outpatient (REF) | payer MEDICARE, SELFPAY ==
--- NOTE | ~2024-09-09 | MM_ITS ---
EXAMINATION: MM SCREENING DIGITAL BREAST TOMOSYNTHESIS, BILATERAL CLINICAL INFORMATION: Screening. Asymptomatic. COMPARISON: Mammography: Comparison is made with available priors TECHNIQUE: Digital breast mammography with tomosynthesis is performed in both the craniocaudal and mediolateral oblique views along with computer-aided detection (CAD). FINDINGS: There are scattered areas of fibroglandular density (ACR BI-RADS breast composition Category b). There are no significant masses, abnormal calcifications, or other abnormalities. MM/MM tomosynthesis screening BI IMPRESSION: No mammographic evidence of malignancy. ASSESSMENT: BI-RADS BI-RADS 1 - Negative RECOMMENDATION: Routine annual mammography screening. 1 year F/U This examination should not preclude the clinical evaluation of a suspicious palpable abnormality. This patient's information was entered into a reminder system with a target due date for their next mammogram. Electronically signed by: Gill Vázquez DO 09/18/2024 12:07 PM KRISTEN
== END 2024-09-09 11:21 | disposition home or self-care (01) ==
LOC: HO.MAMMO 11:20
PROVIDERS: PCP Internal Medicine; Visit Provider Internal Medicine
DX: Z12.31 Encounter for screening mammogram for malignant neoplasm of breast (principal)
CPT/HCPCS: 77063; 77067

== ENCOUNTER → 2024-09-09 11:30 | Outpatient (BNV) | payer MEDICARE, SELFPAY | PROVIDERS: PCP Internal Medicine; Visit Provider Internal Medicine | DX: Z12.31 Encounter for screening mammogram for malignant neoplasm of breast (principal) | CPT/HCPCS: 77063; 77067 ==

== ENCOUNTER → 2024-10-11 09:38 | Outpatient (REF) | payer MEDICARE, SELFPAY ==
--- NOTE | ~2024-10-11 | NM_ITS ---
Lexiscan Myocardial perfusion study Indication: Chest pain, coronary disease Technique: The patient was brought in for a Lexiscan perfusion study on 10/11/2024 and was injected 0.4 mg of Lexiscan intravenously. Within a minute of this injection 30 mCi of sestamibi was given intravenously. Images were obtained using the SPECT gamma camera interlaced with the gating device. Images were obtained in supine position. Resting perfusion study was performed on 10/14/2024. Patient was administered 30 mCi of sestamibi intravenously at rest. Images were then obtained in supine position. Total DLP 98 mGy-cm. Images were processed with the software and compared side to side in short axis, horizontal long axis and vertical long axis views. Findings: Raw aquisition reviewed. The stress perfusion study showed no significant perfusion abnormality. Both uncorrected as well as CT attenuation corrected images were reviewed. The gated study shows normal LV systolic function with calculated LVEF of 38%, but visually appears normal. LV cavity is normal in size. The gated study shows normal wall thickening and contraction of segments. Resting study shows no significant perfusion abnormality. Gating at rest reveals normal wall motion with ejection fraction at 42%, but visually normal. The findings are consistent with no clear reversible or fixed perfusion defects. NM/NM cardiolite stress test Impression: 1. Myocardial perfusion imaging study shows normal myocardial perfusion. 2. LVEF is visually normal. Gated calculation likely not accurate. 3. Transient ischemic dilatation not present. EKG component of the test reported separately. Electronically signed by: Dion Roque MD 10/14/2024 04:05 PM KRISTEN
--- NOTE | 2024-10-11 09:41 | CA_ITS ---
Acquisition Time: 2024-10-11 09:52:55 Total Exercise Time: 00:02:00 Test Indications: chest pain Medications: Protocol: LEXISCAN Max HR: 120 BPM 82% of Pred: 145 BPM Max BP: 122/060 mmHG Max Work Load: 1.6 METS Pharmacologic stress test with Lexiscan, while pt walked on the treadmill at 1 mph, with reports of SOB and headache, no chest discomfort, with isolated PACs, with normotensive response to injection. Nondiagnostic EKG for ischemia. In recovery, pt treated with IVP Aminophylline 75mg to reverse Lexiscan, after which pt feeling back to baseline. Nuclear images pending. Test reviewed with Dr. Reeves. Referred By: Dion Roque Overread By: ZEINAB PIPER
== END ==
LOC: HO.CARD 09:38
PROVIDERS: PCP Internal Medicine; Visit Provider Internal Medicine
DX: R07.2 Precordial pain (principal); I20.9 Angina pectoris, unspecified
CPT/HCPCS: 78452; 93017; A9500; J0280; J2785

== ENCOUNTER → 2024-10-11 09:41 | Outpatient (BNV) | payer MEDICARE, SELFPAY | PROVIDERS: PCP Internal Medicine; Visit Provider Nurse Practitioner Family | DX: I49.1 Atrial premature depolarization (principal); R06.02 Shortness of breath | CPT/HCPCS: 78452; 93016; 93018 ==

== ENCOUNTER 2024-12-01 13:56 | Emergency (ER) | payer MEDICARE, SELFPAY ==
--- NOTE | ~2024-12-01 | XR_ITS ---
CLINICAL HISTORY: swelling 3 view left ankle Comparison: None Findings: Bones intact. No dislocations. Calcaneal enthesophytes. No ankle effusion. Soft tissue edema. No radiopaque foreign body. IMPRESSION: No acute fracture. This document has been electronically signed by: Mahesh Prasad MD on 12/01/2024 15:31:32
--- NOTE | ~2024-12-01 | XR_ITS ---
CLINICAL HISTORY: swelling 2 view left tibia-fibula Comparison: None Findings No fractures or dislocations. No joint effusion. No significant arthritic change. No radiopaque foreign body. IMPRESSION: No acute findings This document has been electronically signed by: Mahesh Prasad MD on 12/01/2024 15:32:17
--- NOTE | ~2024-12-01 | US_ITS ---
CLINICAL HISTORY: left leg ankle swelling Venous duplex ultrasound left lower extremity Comparison: None Findings: The visualized deep veins are fully compressible with normal Doppler color flow and spectral tracings. No popliteal cyst. IMPRESSION: 1. Negative for left lower extremity deep vein thrombosis. This document has been electronically signed by: Mahesh Prasad MD on 12/01/2024 15:09:45
--- NOTE | ~2024-12-01 | XR_ITS ---
CLINICAL HISTORY: swelling 3 view left foot Comparison: None Findings: No fractures or dislocations. Degenerative changes of the midfoot with osteophytes. Calcaneal enthesophytes. No ankle effusion. No radiopaque foreign body. IMPRESSION: 1. No acute findings. This document has been electronically signed by: Mahesh Prasad MD on 12/01/2024 15:35:48
[2024-12-01 14:17] VITALS: BP 160/98; PULSE 78; RESP 18; TEMP 36.7; O2SAT 97
--- NOTE | 2024-12-01 14:22 | ED_ITS ---
HPI - General Adult General Chief complaint: General Medical Stated complaint: swollen feet Time Seen by Provider: 12/01/24 18:20 Source: patient, family and old records reviewed Mode of arrival: ambulatory Limitations: no limitations History of Present Illness ED Provider: JANIYA YOUNG narrative: 74 yo female with PMH of UTI, anxiety, CAD, DM2, elevated cholesterol, GERD who presents with c/o L ankle swelling no travel, injury, rash or redness. NO fevers and denies any pain with moving the joint itself. She denies priors on surgery on that leg MD complaint: L ankle swelling Onset (ago): day(s) (1) Location: left and lower extremity Radiation: non-radiation Severity: mild Relieving factors: none Exacerbating factors: none Associated symptoms: denies other symptoms Treatments prior to arrival: none Related Data Home Medications ?Medication ?Instructions ?Recorded ?Confirmed blood sugar diagnostic #10 ea 10/19/20 07/23/24 calcium carbonate (Calcium 600) 600 mg PO DAILY 11/13/20 07/23/24 cholecalciferol (vitamin D3) 50 50 mcg PO DAILY 11/13/20 07/23/24 mcg (2,000 unit) capsule aspirin 81 mg tablet,delayed 81 mg PO DAILY 03/02/21 07/23/24 release (Adult Low Dose Aspirin) pen needle, diabetic 32 gauge x #50 ea 09/21/22 07/23/24 (BD Marisela 2nd Gen Pen Needle) Previous Rx's ?Medication ?Instructions ?Recorded blood sugar diagnostic (Accu-Chek ##3 07/19/22 Guide test strips) lancets (Accu-Chek Fastclix Lancet 1 ea topical TID 90 days #306 ea 07/19/22 Drum) blood pressure test kit-large #1 ea 12/21/22 blood pressure monitor (Blood #1 ea 05/23/23 Pressure Kit) pen needle, diabetic 32 gauge x #400 ea 10/09/2311/02 (BD Ultra-Fine Micro Pen Needle) fluticasone propionate 50 2 spray intranasal DAILY 90 days 12/25/23 mcg/actuation nasal #3 ea spray,suspension rosuvastatin 20 mg tablet 20 mg PO DAILY #90 tabs 01/25/24 blood sugar diagnostic (Accu-Chek #300 ea 03/20/24 Guide test strips) gabapentin 100 mg capsule 100 mg PO DAILY 90 days #90 caps 03/29/24 insulin lispro 100 unit/mL See Rx Instructions subcut TID 30 05/10/24 subcutaneous pen (Humalog days #15 mL (U-100) Insulin) cyanocobalamin (vitamin B-12) 1,000 mcg PO DAILY #90 tabs 05/31/24 1,000 mcg tablet spironolactone 25 mg tablet 25 mg PO BID #180 tabs 07/30/24 lansoprazole 30 mg capsule,delayed 30 mg PO DAILY #90 caps 08/27/24 release magnesium oxide 400 mg PO DAILY #90 caps 09/02/24 metoprolol tartrate 50 mg tablet See Rx Instructions PO .COMPLEX 90 09/02/24 days #270 tabs insulin glargine 100 unit/mL (3 48 unit (0.48 mL) subcut BEDTIME 09/06/24 mL) subcutaneous pen (Lantus #15 mL Solostar U-100 Insulin) albuterol sulfate 90 mcg/actuation 1 puff PO Q4H PRN shortness of 11/03/24 aerosol inhaler breath or wheezing #18 grams fenofibrate 160 mg tablet 160 mg PO DAILY #90 tabs 11/14/24 lisinopril 40 mg tablet 40 mg PO DAILY #90 tabs 11/14/24 metformin 1,000 mg tablet 1,000 mg PO BIDWMEAL 90 days #180 11/14/24 tabs juana.stocking,knee,reg,smal #12 ea 12/01/24 Allergies Allergy/AdvReac Type Severity Reaction Status Date / Time cortisone [CORTISONE] Allergy Severe RASH HIVES Verified 12/01/24 14:19 AND SWELLING OF THE TONGUE nitrofurantoin Allergy Severe tongue Verified 12/01/24 14:19 swelling Penicillins Allergy Severe ANAPHYLAXIS Verified 12/01/24 14:19 yeast, dried [yeast] Allergy Severe SHORTNESS Verified 12/01/24 14:19 OF BREATH amlodipine Allergy Intermediate swelling Verified 12/01/24 14:19 of feet empagliflozin Allergy Intermediate swollen Verified 12/01/24 14:19 [From Jardiance] tongue omeprazole [From Prilosec] Allergy Intermediate BLISTERS Verified 12/01/24 14:19 Sulfa (Sulfonamide Allergy Intermediate Itching Verified 12/01/24 14:19 Antibiotics) niacin [Niacin] Allergy Mild RASH Verified 12/01/24 14:19 tetracycline [Tetracycline] Allergy Mild RASH Verified 12/01/24 14:19 acetic acid [Acetic Acid] Allergy Unknown SHORTNESS Verified 12/01/24 14:19 OF BREATH FROM VINEGAR adhesive tape Allergy Unknown RASH Verified 12/01/24 14:19 Clindamycin HCl Allergy Unknown rash Verified 12/01/24 14:19 procaine [From NOVOCAIN] Allergy Unknown RASH,SWELLING Verified 12/01/24 14:19 OF TONGUE,BLISTERING cefixime [From Suprax] AdvReac Intermediate Swelling Verified 12/01/24 14:19 in throat dulaglutide [From Trulicity] AdvReac Intermediate swelling Verified 12/01/24 14:19 of tongue hydrochlorothiazide AdvReac Intermediate hypercalcem Verified 12/01/24 14:19 ia methenamine AdvReac Intermediate Yeast Verified 12/01/24 14:19 Infection lorazepam [From Ativan] AdvReac Mild VOMITING/NA Verified 12/01/24 14:19 USEA morphine [MORPHINE] AdvReac Unknown NAUSEA Verified 12/01/24 14:19 fosfomycin Allergy Severe tongue Uncoded 09/02/24 17:18 swelling jardiance Allergy Severe Yeast Uncoded 09/02/24 17:18 infection levofloxacin Allergy Severe Hives Uncoded 09/02/24 17:18 From AVELOX Allergy Intermediate SWELLING/RA Uncoded 09/02/24 17:18 SH carrots, vinegar, yeast, Allergy Unknown Unknown Uncoded 09/02/24 17:18 chees SEASONAL ALLERGIES Allergy Unknown SNEEZING Uncoded 09/02/24 17:18 Review of Systems 2 Review of Systems: Constitutional : No Fever, No Chills ENT/Mouth : No Ear Pain, No Hoarseness, No sore throat Eyes: No Eye Pain, No Swelling, No Redness, No Foreign Body Cardiovascular : No Chest Pain, No SOB Respiratory : No Cough, No Dyspnea Gastrointestinal : No Nausea, No Vomiting, No Diarrhea, No abdominal Pain Genitourinary : No Dysuria, No Hematuria Musculoskeletal : no joint pain, No Myalgias, pos Joint Swelling Skin : No Skin lacerations, No rash Neuro : No Weakness, No Numbness All other systems reviewed and are negative PMFSH Past Medical History Attestation statement: The following information was validated with the patient. Source: old records reviewed Medical History Breast cancer screening by mammogram Tobacco abuse Myocardial infarct COVID-19 Cough Skin rash Colon cancer screening Essential hypertension Mitral valve prolapse Diabetic neuropathy Type 2 diabetes mellitus with hyperglycemia Hip osteoarthritis Diabetic nephropathy Vitamin D deficiency COPD (chronic obstructive pulmonary disease) Osteoarthritis Barretts esophagus Hypercholesterolemia Coronary artery disease Surgical History H/O heart artery stent Cystocele History of parathyroidectomy History of hysterectomy History of cholecystectomy Family History Family History Father CVD (cardiovascular disease) Dementia Heart valve replaced Mother Colon cancer Social History Social History Housing: House Alcohol intake: never Patient Tobacco Use Status: Former Tobacco user Tobacco use type: Cigarette Cigarettes Per Day: 1 Years Smoked: 40 +/- quit 02/2024 e-Cigarette/Vaping Use: Never Used Second Hand Smoke Exposure: No Advance Directives: No Advance Directives Information Provided: No Do you have a plan to hurt others: No Plan service: No Current occupational status: retired Current occupation: right hand dominant Cognitive needs: No Hearing needs: No Vision needs: Yes Physical Exam ED Vital Signs: Vital Signs - 24 hr 12/01/24 14:17 Temperature 98.1 F Pulse Rate 78 Respiratory Rate 18 Blood Pressure 160/98 H Pulse Oximetry 97 Oxygen Delivery Method Room Air BMI result Body Mass Index 30.0 Appearance: Alert. Oriented X3. No acute distress. Eyes: Pupils equal, round and reactive to light. ENT: Pharynx normal. Neck: Normal inspection. Neck supple. CVS: Normal heart rate and rhythm. Pulses normal. Respiratory: No respiratory distress. Breath sounds normal. Abdomen: Soft and non-tender. Skin: Skin warm and dry. Normal skin color. Normal skin turgor. Extremities: L ankle swelling but not pitting no rash and normal ROM distal NV intact no signs of infection Neuro: Oriented X 3. No motor deficit. No sensory deficit. CN2-12 intact Course Course Course Narrative: RME: 74-year-old female presents to ED for leg leg/ankle swelling. Patient denies any chest pain or shortness of breath. Patient denies any recent long travel or recent surgery. Patient has history of low magnesium. On exam positive for left ankle swelling lower leg without any redness, crepitus, tenderness, ecchymosis, or deformity. Vascular motor neuro exam extremity intact. Ultrasound x-ray labs ordered. Medications Administered Generic Name Dose Route Start Last Admin Trade Name Freq PRN Reason Stop Dose Admin Magnesium Sulfate 2 gm in 50 mls @ 25 mls/hr 12/01/24 18:20 12/01/24 18:39 Magnesium Sulfate/H2o IV 12/01/24 20:19 25 mls/hr ONCE ONE Administration Medical Decision Making Medical Decision Making MDM Narrative: 74 yo female with PMH of UTI, anxiety, CAD, DM2, elevated cholesterol, GERD who presents with c/o isolated L ankle swelling but NV intact and no signs of infection it really is just around the lateral ankle - she has normal ROM and no warmth or pain with any ROM. Suspect just pedal edema, will obtain DVT study and basic labs, offer compressive stocking Differential Diagnosis Differential Diagnoses: The differential diagnosis associated with the presentation includes mild swelling, pedal edema, DVT Admission/Observation Consideration of admission/observation: Escalation of care including admission/observation considered work up reassuring other than low mag stable for DC Lab Data [facility] Lab Attestation statement: I reviewed the patient's lab results. 12/01/24 14:42 12/01/24 14:42 Labs: Lab Results 12/01/24 12/01/24 12/01/24 Range/Units 14:42 18:29 18:36 WBC 11.2 H (4.8-10.8) X10*3/uL RBC 4.21 (4.20-5.50) X10*6/uL Hgb 13.2 (12.0-16.0) g/dl Hct 38.3 (37.0-47.0) % MCV 91.0 (80.0-98.0) fL MCH 31.4 (27.0-33.0) pg MCHC 34.5 (31.0-35.0) g/dl RDW 12.6 (11.0-16.0) % Plt Count 286 (160-400) X10*3/uL MPV 11.2 (9.4-12.3) fL Immature Gran % (Auto) 0.4 (0.0-0.4) % Neut % (Auto) 72.6 (45-73) % Lymph % (Auto) 18.1 L (20-40) % Ashley % (Auto) 6.4 (2-11) % Eos % (Auto) 1.8 (0-4) % Baso % (Auto) 0.7 (0-2) % Lymph # (Auto) 2.0 (1.2-4.9) X10*3/uL Ashley # (Auto) 0.7 (0.1-1.2) X10*3/uL Eos # (Auto) 0.2 (0.0-0.4) X10*3/uL Baso # (Auto) 0.1 (0.0-0.2) X10*3/uL Abs Immat Gran (auto) 0.04 H (0.00-0.03) X10*3/uL Absolute Neuts (auto) 8.1 (2.0-8.3) x10*3/uL Absolute Nucleated RBC 0.000 (0.0-0.012) X10*3/uL Nucleated RBC % (auto) 0.0 (0.0-0.2) /100WBC Hold Purple Top SEE NOTE PT 11.7 (10.9-12.4) SEC INR 1.0 (0.9-1.1) APTT 30.7 (26.0-36.8) SEC Sodium 138 (135-145) mmol/L Potassium 4.4 (3.3-5.1) mmol/L Chloride 105 (96-108) mmol/L Carbon Dioxide 22 (22-29) mmol/L Anion Gap 15 (12-20) BUN 15 (9-16) mg/dL Creatinine 0.99 (0.5-1.4) mg/dL Estim Creat Clear Calc 51.9 Estimated GFR 55 POC Glucose 157 H (60-115) mg/dL Random Glucose 260 H (60-115) mg/dL Calcium 9.6 D (8.4-10.2) mg/dL Magnesium 1.4 L* (1.6-2.6) mg/dL Total Bilirubin 0.4 (0.0-1.0) mg/dL AST 23 (5-31) U/L ALT 21 (0-31) U/L Alkaline Phosphatase 62 (39-117) U/L B-Natriuretic Peptide 17 (<100) pg/mL Total Protein 7.4 (6.5-8.0) g/dL Albumin 4.5 (3.5-5.0) g/dL Independent Interpretation I performed an independent interpretation of an: Plain X-Ray (normal ) and Ultrasound (neg DVT) Independent Historian Clinical information obtained from an independent historian. History obtained from or confirmed by: Spouse External Record Review External record reviewed: Outpatient record Prescription Management I considered prescription management with: Other Discharge Plan Discharge Clinical Impression: Hypomagnesemia, Edema of left ankle Patient Disposition: Home, Self-Care Instructions: Hypomagnesemia (ED), Swollen Ankle Joint (ED) Additional Instructions: xrays no broken bone no blood clot on ultrasound return for any worsening symptoms or concerns continue your medications follow up with your doctor might need further venous insufficiency work up Prescriptions: New (DME) juana.stocking,knee,reg,smal Misc See Rx Instructions .Route Qty: 12 0RF Rx Instructions: As directed No Action (DME) blood pressure test kit-large Kit See Rx Instructions .Route Qty: 1 0RF Rx Instructions: As directed fluticasone propionate 50 mcg/actuation spray,suspension 2 spray intranasal DAILY 90 Days Qty: 3 3RF Rx Instructions: administer into each nostril rosuvastatin 20 mg tablet 20 mg PO DAILY Qty: 90 3RF gabapentin 100 mg capsule 100 mg PO DAILY 90 Days Qty: 90 3RF cyanocobalamin (vitamin B-12) 1,000 mcg tablet 1,000 mcg PO DAILY Qty: 90 2RF spironolactone 25 mg tablet 25 mg PO BID Qty: 180 2RF lansoprazole 30 mg capsule,delayed release(DR/EC) 30 mg PO DAILY Qty: 90 3RF insulin glargine [Lantus Solostar U-100 Insulin] 100 unit/mL (3 mL) insulin pen 48 unit subcut BEDTIME Qty: 15 0RF Rx Instructions: or as directed albuterol sulfate 90 mcg/actuation HFA aerosol inhaler 1 puff PO Q4H PRN (Reason: shortness of breath or wheezing) Qty: 18 3RF lisinopril 40 mg tablet 40 mg PO DAILY Qty: 90 2RF metformin 1,000 mg tablet 1,000 mg PO BIDWMEAL 90 Days Qty: 180 3RF fenofibrate 160 mg tablet 160 mg PO DAILY Qty: 90 2RF (DME) Accu-Chek Guide test strips Strip See Rx Instructions .ROUTE TID Qty: 10 Rx Instructions: As directed cholecalciferol (vitamin D3) 50 mcg (2,000 unit) capsule 50 mcg PO DAILY calcium carbonate [Calcium 600] 600 mg calcium (1,500 mg) tablet 600 mg PO DAILY (DME) pen needle, diabetic [BD Ultra-Fine Micro Pen Needle] 32 gauge x 1/ needle See Rx Instructions .Route Qty: 400 3RF Rx Instructions: As directed inject4 x a day Insulin lancets [Accu-Chek Fastclix Lancet Drum] Misc 1 ea topical TID 90 Days Qty: 306 3RF (DME) Accu-Chek Guide test strips Strip See Rx Instructions .Route Qty: 3 3RF Rx Instructions: As directed check BS TID (DME) blood pressure monitor [Blood Pressure Kit] Kit See Rx Instructions .ROUTE .MEDSUPPLY Qty: 1 0RF Rx Instructions: As directed ipratropium-albuterol 0.5 mg-3 mg(2.5 mg base)/3 mL solution for nebulization 3 ml inhalation ONCE Qty: 3 0RF (DME) Accu-Chek Guide test strips Strip See Rx Instructions .Route Qty: 300 3RF Rx Instructions: As directed check the BS TID insulin lispro [Humalog KwikPen Insulin] 100 unit/mL insulin pen See Rx Instructions subcut TID 30 Days Qty: 15 4RF Rx Instructions: 10 u in am , 14 u noon and 6 u evening subcutaneously 3 times a day; or as directed aspirin [Adult Low Dose Aspirin] 81 mg tablet,delayed release (DR/EC) 81 mg PO DAILY (DME) pen needle, diabetic [BD Marisela 2nd Gen Pen Needle] 32 gauge x needle See Rx Instructions .ROUTE DAILY Qty: 50 Rx Instructions: As directed magnesium oxide 400 mg magnesium capsule 400 mg PO DAILY Qty: 90 2RF metoprolol tartrate 50 mg tablet See Rx Instructions PO .COMPLEX 90 Days Qty: 270 2RF Rx Instructions: PO; 2 tabs in the AM, 1 tabs in the PM Print Language: [place] Citizen
[2024-12-01 14:53] LABS: MANUAL DIFF FLAG NO
[2024-12-01 14:54] LABS: Basophils Absolute Auto 0.1 X10*3/uL (0.0-0.2); Basophils Percent Auto 0.7 % (0-2); Eosinophils Absolute Auto 0.2 X10*3/uL (0.0-0.4); Eosinophils Percent Auto 1.8 % (0-4); Hematocrit 38.3 % (37.0-47.0); Hemoglobin 13.2 g/dl (12.0-16.0); Imm Gran Abs Auto 0.04 X10*3/uL (0.00-0.03); Imm Gran Pct Auto 0.4 % (0.0-0.4); Lymphocytes Percent Auto 18.1 % (20-40); Mean Corpuscular HGB Conc 34.5 g/dl (31.0-35.0); Mean Corpuscular Hemoglobin 31.4 pg (27.0-33.0); Mean Platelet Volume 11.2 fL (9.4-12.3); Monocytes Absolute Auto 0.7 X10*3/uL (0.1-1.2); Monocytes Percent Auto 6.4 % (2-11); Neutrophils Absolute Auto 8.1 x10*3/uL (2.0-8.3); Neutrophils Percent Auto 72.6 % (45-73); Platelet Count 286 X10*3/uL (160-400); Red Blood Count 4.21 X10*6/uL (4.20-5.50); Red Cell Distribution Width 12.6 % (11.0-16.0); White Blood Count 11.2 X10*3/uL (4.8-10.8)
[2024-12-01 15:08] LABS: Prothrombin Time 11.7 SEC (10.9-12.4)
[2024-12-01 15:11] LABS: Partial Thromboplastin Time 30.7 SEC (26.0-36.8)
[2024-12-01 16:06] LABS: Alanine Aminotransferase 21 U/L (0-31); Albumin Level 4.5 g/dL (3.5-5.0); Alkaline Phosphatase 62 U/L (39-117); Anion Gap 15 (12-20); Aspartate Amino Transferase 23 U/L (5-31); Bilirubin Total 0.4 mg/dL (0.0-1.0); Blood Urea Nitrogen 15 mg/dL (9-16); Calcium 9.6 mg/dL (8.4-10.2); Carbon Dioxide 22 mmol/L (22-29); Chloride 105 mmol/L (96-108); Creatinine Clr Calc Pharmacy 51.9; Estimated Glomerular Filt Rate 55; Glucose Random 260 mg/dL (60-115); Magnesium 1.4 mg/dL (1.6-2.6); Potassium 4.4 mmol/L (3.3-5.1); Sodium 138 mmol/L (135-145); Total Protein 7.4 g/dL (6.5-8.0)
[2024-12-01 18:39] LABS: Glucose, Whole Blood 157 mg/dL (60-115)
[2024-12-01] MEDS: Magnesium Sulfate/H2O 2 GM/50 ML PIGGYBACK IV (18:39)
[2024-12-01 19:09] LABS: B Type Natriuretic Peptide 17 pg/mL (<100)
[2024-12-01 20:39] LABS: Troponin-I High Sensitivity < 2.7 ng/L (<3.5-17.0)
[2024-12-01 20:41] VITALS: BP 149/68; PULSE 68; RESP 20; TEMP 36.5; O2SAT 98
== END 2024-12-01 21:22 | disposition home or self-care (01) ==
PROVIDERS: Physician Assistant; Physician Assistant Medical; Emergency Provider Emergency Medicine; PCP Internal Medicine
DX: E83.42 Hypomagnesemia (principal); M25.472 Effusion, left ankle; R60.0 Localized edema; M25.572 Pain in left ankle and joints of left foot; R06.02 Shortness of breath; M79.672 Pain in left foot; I25.10 Atherosclerotic heart disease of native coronary artery without angina pectoris; E11.9 Type 2 diabetes mellitus without complications; Z79.4 Long term (current) use of insulin; Z79.899 Other long term (current) drug therapy; Z79.85 Long-term (current) use of injectable non-insulin antidiabetic drugs; Z87.891 Personal history of nicotine dependence
CPT/HCPCS: 36415; 73590; 73610; 73620; 80053; 82947; 83735; 83880; 84484; 85025; 85610; 85730; 93971; 96365; 96366; 99283; 99284; J3475

== ENCOUNTER → 2024-12-01 14:20 | Outpatient (BNV) | payer MEDICARE, SELFPAY | PROVIDERS: PCP Internal Medicine; Visit Provider Nuclear Medicine | DX: R22.42 Localized swelling, mass and lump, left lower limb (principal) | CPT/HCPCS: 73590; 73610; 73620; 93971 ==

== ENCOUNTER 2024-12-26 15:09 | Outpatient (AMB) | payer MEDICARE, SELFPAY ==
[2024-12-26 15:41] VITALS: BP 136/82; PULSE 86; O2SAT 97; BMI 30.3
--- NOTE | 2024-12-26 15:41 | A.OFFPC_ITS ---
Vital Signs 12/26/24 15:41 Height 5 ft 5 in Weight 182 lb BMI 30.3 BP 136/82 Blood Pressure Location Lt brachial Position Sitting Pulse 86 Pulse Source Pulse Oximeter Pulse Oximetry (%) 97 Oxygen Delivery Method Room Air Intake Visit Reasons: DM, CAD Remote Broadcast Engineer Required: No Accompanied by: Self / Same As Patient Allergies cortisone [CORTISONE] Allergy (Severe, Verified 12/26/24 15:42) RASH HIVES AND SWELLING OF THE TONGUE nitrofurantoin Allergy (Severe, Verified 12/26/24 15:42) tongue swelling Penicillins Allergy (Severe, Verified 12/26/24 15:42) ANAPHYLAXIS yeast, dried [yeast] Allergy (Severe, Verified 12/26/24 15:42) SHORTNESS OF BREATH amlodipine Allergy (Intermediate, Verified 12/26/24 15:42) swelling of feet empagliflozin [From Jardiance] Allergy (Intermediate, Verified 12/26/24 15:42) swollen tongue omeprazole [From Prilosec] Allergy (Intermediate, Verified 12/26/24 15:42) BLISTERS Sulfa (Sulfonamide Antibiotics) Allergy (Intermediate, Verified 12/26/24 15:42) Itching niacin [Niacin] Allergy (Mild, Verified 12/26/24 15:42) RASH tetracycline [Tetracycline] Allergy (Mild, Verified 12/26/24 15:42) RASH acetic acid [Acetic Acid] Allergy (Unknown, Verified 12/26/24 15:42) SHORTNESS OF BREATH FROM VINEGAR adhesive tape Allergy (Unknown, Verified 12/26/24 15:42) RASH Clindamycin HCl Allergy (Unknown, Verified 12/26/24 15:42) rash procaine [From NOVOCAIN] Allergy (Unknown, Verified 12/26/24 15:42) RASH,SWELLING OF TONGUE,BLISTERING cefixime [From Suprax] Adverse Reaction (Intermediate, Verified 12/26/24 15:42) Swelling in throat dulaglutide [From Trulicity] Adverse Reaction (Intermediate, Verified 12/26/24 15:42) swelling of tongue hydrochlorothiazide Adverse Reaction (Intermediate, Verified 12/26/24 15:42) hypercalcemia methenamine Adverse Reaction (Intermediate, Verified 12/26/24 15:42) Yeast Infection lorazepam [From Ativan] Adverse Reaction (Mild, Verified 12/26/24 15:42) VOMITING/NAUSEA morphine [MORPHINE] Adverse Reaction (Unknown, Verified 12/26/24 15:42) NAUSEA fosfomycin Allergy (Severe, Uncoded 12/26/24 15:42) tongue swelling jardiance Allergy (Severe, Uncoded 12/26/24 15:42) Yeast infection levofloxacin Allergy (Severe, Uncoded 12/26/24 15:42) Hives From AVELOX Allergy (Intermediate, Uncoded 12/26/24 15:42) SWELLING/RASH carrots, vinegar, yeast, chees Allergy (Unknown, Uncoded 12/26/24 15:42) Unknown SEASONAL ALLERGIES Allergy (Unknown, Uncoded 12/26/24 15:42) SNEEZING Tobacco use date assessed: 12/26/24 Fall risk assessment: 1 Fall in past year Last assessed Fall Risk: 12/26/24 Dental Screening Dental Screen Date: 12/26/24 Did you have a dental visit in the last 12 months?: No Did you have a dental problem in the last 6 months where you did not have access to dental care?: No Was dental information given to patient?: No PFS Medical History (Updated 12/26/24 @ 16:14 by William Colón MD) Breast cancer screening by mammogram Tobacco abuse Myocardial infarct COVID-19 Cough Skin rash Colon cancer screening Essential hypertension Mitral valve prolapse Diabetic neuropathy Type 2 diabetes mellitus with hyperglycemia Hip osteoarthritis Diabetic nephropathy Vitamin D deficiency COPD (chronic obstructive pulmonary disease) Osteoarthritis Barretts esophagus Hypercholesterolemia Coronary artery disease Surgical History H/O heart artery stent Cystocele History of parathyroidectomy History of hysterectomy History of cholecystectomy Family History Father CVD (cardiovascular disease) Dementia Heart valve replaced Mother Colon cancer Social History Housing: House Alcohol intake: never Patient Tobacco Use Status: Former Tobacco user Tobacco use type: Cigarette Cigarettes Per Day: 1 Years Smoked: 40 +/- quit 02/2024 Packs per year/per ci.00 e-Cigarette/Vaping Use: Never Used Second Hand Smoke Exposure: No service: No Current occupational status: retired Current occupation: right hand dominant Cognitive needs: No Hearing needs: No Vision needs: Yes Female Reproductive History Menstrual Age of Menarche: 9 Questionnaire PHQ-9 Over the last 2 weeks, how often have you been bothered by any of the following problems? 1. Little interest or pleasure in doing things: not at all 2. Feeling down, depressed, or hopeless: not at all 3. Trouble falling or staying asleep, or sleeping too much: not at all 4. Feeling tired or having little energy: not at all 5. Poor appetite or overeating: not at all 6. Feeling bad about yourself - or that you are a failure or have let yourself or your family down: not at all 7. Trouble concentrating on things, such as reading the newspaper or watching television: not at all 8. Moving or speaking so slowly that other people could have noticed. Or the opposite - being so fidgety or restless that you have been moving around a lot more than usual: not at all 9. Thoughts that you would be better off or of hurting yourself in some way: not at all Total score: 0 Depression Screening Interpretation: Negative Depression Screening Done: Yes Source: Developed by Drs. Michelet Roman, Kelly Bynum, Clement Malloy and colleagues, with an educational debra from [employer]. Thrive Questionnaire Date Thrive assessed: 12/26/24 I am a: Patient What is your living situation today?: I have a steady place to live Within the past 12 months, did the food you bought not last and you didn't have the money to get more?: Never true Within the past 12 months, did you worry whether your food would run out before you got money to buy more?: Never true Do you have trouble paying for medicines?: No Do you have trouble getting transportation to medical appointments?: No Do you have trouble paying your heating and electricity bill?: No Do you have trouble taking care of your child, family member or friend?: No Do you have trouble with day-to-day activities such as bathing, preparing meals, shopping, managing finances, etc.?: No Are you currently unemployed and looking for a job?: No Are you interested in more education?: No Please select the resources that you would like help with: None Currently or been in a relationship where the following occur: No concerns reported THRIVE Score: 0 AUDIT C Alcohol Use Questionnaire (AUDIT-C) 1. How often do you have a drink containing alcohol?: Never 3. How often do you have six or more drinks on one occasion?: Never Total Score: 0 TALON-7 AMB Questionnaire TALON-7 Date TALON - 7 assessed: 12/26/24 Feeling nervous, anxious, or on edge: 0 = Not at all Not being able to stop or control worryin = Not at all Worrying too much about different things: 0 = Not at all Trouble relaxin = Not at all Being so restless that it is hard to sit still: 0 = Not at all Becoming easily annoyed or irritable: 0 = Not at all Feeling afraid as if something awful might happen: 0 = Not at all Total TALON-7 score (0-4 normal; 5-9 mild; 10-14 moderate; 15-21 severe): 0 Source: Developed by Drs. Michelet Roman, Kelly Bynum, Clement Malloy and colleagues, with an educational debra from [employer]. Physical exam (Primary Care) Vital Signs: Last Vital Signs Pulse 86 12/26/24 15:41 BP 136/82 12/26/24 15:41 Pulse Ox 97 12/26/24 15:41 Oxygen Delivery Method Room Air 12/26/24 15:41 BMI result Body Mass Index 30.3 Tobacco/Smoking Status: Tobacco use Status Tobacco use date assessed 12/26/24 12/26/24 15:48 Patient Tobacco Use Status Former Tobacco user 12/26/24 15:48 Tobacco use type Cigarette 12/26/24 15:48 e-Cigarette/Vaping Use Never Used 12/26/24 15:48 PHQ-9: PHQ-9 Score PHQ-9: Total score 0 12/26/24 15:48 Depression Screening Interpretation: Negative Thrive Assessment: Date of Thrive Assessment Date Thrive assessed 12/26/24 12/26/24 15:48 Currently or been in a relationship where the following occur: No concerns reported Const General: alert; No acute distress Eyes Conjunctivae: conjunctivae normal Resp Auscultation: clear to auscultation bilaterally Cardio Rate: regular rate Rhythm: regular rhythm GI Inspection: Yes normal to inspection Extrem General: Yes normal to inspection and No edema Coding Level of Care Code Est Pt Level 4 (08579) Complex EM visit Add On G2211 Diagnoses Hypomagnesemia E83.42 Tobacco abuse Z72.0 Type 2 diabetes mellitus with hyperglycemia, without long-term current use of insulin E11.65 Diabetes mellitus senior care insulin use: without senior care use Coronary artery disease involving algaaciq coronary artery of algaaciq heart without angina pectoris I25.10 Associated angina: without angina Coronary Disease-Associated Artery/Lesion type: algaaciq artery [place] vs. transplanted heart: algaaciq heart Hypercholesterolemia E78.00 Bernal's esophagus without dysplasia K22.70 Bernal's esophagus type: without dysplasia Panlobular emphysema J43.1 COPD type: emphysema Emphysema type: panlobular Essential hypertension I10 Generalized anxiety disorder F41.1 Cognitive impairment R41.89 Assessment & Plan Assessment & Plan (1) Hypomagnesemia: Code(s): E83.42 - Hypomagnesemia Category: Medical Plan: Patient was given replacement (2) Tobacco abuse: Code(s): Z72.0 - Tobacco use Category: Medical Plan: Patient is strongly advised to stop smoking! (3) Type 2 diabetes mellitus with hyperglycemia: Comment: December 2016 eye and lasik Code(s): E11.65 - Type 2 diabetes mellitus with hyperglycemia Category: Medical Qualifiers: Diabetes mellitus senior care insulin use: without senior care use Qualified Code(s): E11.65 - Type 2 diabetes mellitus with hyperglycemia Plan: Decrease the amount of carbohydrate intake, pasta, bread, rice and potatoes are all sugar and that is aside from all the sweet stuff, remember that fruits are good but they are Sweet also. Patient presently on Lantus at 48 units with Humalog sliding scale metformin a 1000 mg twice a day (4) Coronary artery disease: Comment: Stent placement January 2012 Code(s): I25.10 - Atherosclerotic heart disease of algaaciq coronary artery without angina pectoris Category: Medical Qualifiers: Associated angina: without angina Coronary Disease-Associated Artery/Lesion type: algaaciq artery [place] vs. transplanted heart: algaaciq heart Qualified Code(s): I25.10 - Atherosclerotic heart disease of algaaciq coronary artery without angina pectoris Plan: Control the cholesterol, weight, blood pressure, diabetes continue with aspirin 81 mg once a day stress test negative (5) Hypercholesterolemia: Code(s): E78.00 - Pure hypercholesterolemia, unspecified Category: Medical Plan: Avoid fried foods, chicken skin, eggs, butter margarine, pastries and meat. Be it pork or beef they have a lot of cholesterol LDL goal of less than 70 and trig lyceride of less than 150 04/18/2023 last blood work patient is taking fenofibrate with rosuvastatin patient will need blood work in the next 3 months (6) Barretts esophagus: Code(s): K22.70 - Bernal's esophagus without dysplasia Category: Medical Qualifiers: Bernal's esophagus type: without dysplasia Qualified Code(s): K22.70 - Bernal's esophagus without dysplasia Plan: Avoid the foods that causes that usually spicy foods, tomato products, juices, coffee, soda and foods that your sensitive to. After eating do not lie down, al low 3-4 hours before in lie down. And keep the head of bed above 30 degrees to avoid the acid from going up. (7) COPD (chronic obstructive pulmonary disease): Code(s): J44.9 - Chronic obstructive pulmonary disease, unspecified Category: Medical Qualifiers: COPD type: emphysema Emphysema type: panlobular Qualified Code(s): J43.1 - Panlobular emphysema Plan: Patient is strongly advised to stop smoking. Albuterol inhaler as needed controlled (8) Essential hypertension: Code(s): I10 - Essential (primary) hypertension Category: Medical Plan: Continue with blood pressure medication. Decrease salt intake and exercise continue spironolactone 25 mg twice a day metoprolol tartrate lisinopril 40. (9) Generalized anxiety disorder: Code(s): F41.1 - Generalized anxiety disorder Category: Medical Plan: Continue with present medication (10) Cognitive impairment: Code(s): R41.89 - Other symptoms and signs involving cognitive functions and awareness Category: Medical Plan: MMSE 30/30 Plan History of Present Illness The patient is a 74-year-old female presenting for comprehensive management of her various chronic conditions, including coronary artery disease, Bernal's esophagus, and diabetes mellitus. She has also reported recent cognitive issues, suspected to be associated with a past episode of flu and potential hypomagnesemia. As part of her long-standing management plan, Lantus, Humalog, and metformin are used for glucose control, and omega-3 fatty acids are taken for cardiovascular health. Despite these interventions, her glucose levels remain suboptimal. Compression stockings were suggested to manage her edema, linked to low magnesium levels, which may have been aggravated by chronic use of lansoprazole. A recent cognitive assessment highlighted deficits suggestive of further neurological evaluation. Environmental factors such as vertigo onset and arthritis were also recognized, necessitating ongoing adjustments in her regimen. Health Maintenance - Last colonoscopy: July 2022 - Mammogram: Up to date as of August 2024 - Bone density assessment: Completed in June 2023 - Cardiovascular health: Aspirin 81 mg daily, fenofibrate and rosuvastatin for cholesterol management. - COPD management: Albuterol inhaler as needed. - Vaccinations: Flu vaccination was recommended given current COVID-19 and RSV prevalence. Social History - Patient is a smoker. - Came into contact with the flu recently. - Care provided by her daughter Suzanne during illness. - Patient has a significant other, Pete. Review of Systems - General: Reports fatigue following recent illness and significant cognitive symptoms. - Neurological: Reports episodes of vertigo and memory difficulties. - Musculoskeletal: Denies current pain but has a history of arthritis-related foot pain. - Respiratory: Chronic smoking history. - Gastrointestinal: Denies current gastrointestinal symptoms but is on lansoprazole. - Endocrine: Diabetes mellitus requiring multiple medications. Physical Exam - Neurological- Able to perform simple arithmetic and recall tasks with difficulty. - Extremities- Noted lower extremity edema. Results - Labs: Last A1c was 8.7, blood glucose level of 157, LDL of 29, normal renal and liver function, normalization of electrolytes post-replacement. - Tests: Recent normal myocardial perfusion imaging, normal stress test results. Plan The patient will continue her current regimen for diabetes management, including Lantus, Humalog, and metformin, with a referral to endocrinology for further glucose control optimization. Cardiovascular health will be monitored through current doses of aspirin and lipid-lowering agents, maintaining her LDL and triglyceride targets. Additionally, compression stockings and increased magnesium supplementation are planned to manage edema and correct electrolyte imbalance potentially caused by lansoprazole. To assess cognitive changes, the patient will undergo a CT scan of the head, and was advised TB modification of GERD medication to prevent further magnesium drainage. Smoking cessation counseling was reiterated as vital due to COPD history and its contribution to multiple health issues. Patient was informed and verbally consented to the use of an ambient scribe for clinic note documentation during this visit. Discussion Notes During our discussion, I informed the patient of her current health status, focusing on her diabetes control and the recent cognitive concerns which could potentially signal early dementia. We reviewed her medication regimen, including how each contributes to her management plan. I suggested a CT scan of the head for further evaluation of cognitive deficits, and we talked about adjusting GERD medication. I highlighted the negative impact of smoking on her existing health problems and strongly advised cessation. We talked about continued monitoring of her cholesterol levels and hypertension, and maintaining her current medication dosage. The need to escalate magnesium supplementation was discussed. Plans to consult endocrinology were finalized to address her suboptimal diabetes management. We agreed on follow-up on her lab results and emphasized adherence to medication. Compression stocking use was recommended for prolonged periods, excluding nighttime. Patient Instructions - Continue taking your diabetes medications as prescribed. - Wear your compression stockings during the day and remove them at night. - Increase magnesium supplementation to twice daily. - Schedule and attend appointments for a CT scan and with your electronic assembler group leader. - Work on quitting smoking; consider cessation resources. - Consider changing GERD medication as discussed; begin using Pepcid if lansoprazole continues to lower magnesium. - Monitor your blood pressure and blood glucose regularly. - Stay up to date with vaccinations and be mindful of flu, COVID-19, and RSV exposure. - Follow up in March for routine labs and consider scheduling a vascular surgery evaluation as discussed. Orders: Orders Lipid Panel 3 Months E11.65 - Type 2 diabetes mellitus with hyperglycemia, E78. 00 - Pure hypercholesterolemia, unspecified Vitamin B12 and Folate 3 Months E11.65 - Type 2 diabetes mellitus with hyperglycemia Vitamin D 25-OH Total 3 Months E11. - Type 2 diabetes mellitus with hyperglycemia Magnesium 3 Months E11.65 - Type 2 diabetes mellitus with hyperglycemia CT head/brain wo IV con Today R41.89 - Other symptoms and signs involving cognitive functions and awareness Complete Blood Count Auto Diff 3 Months E11.65 - Type 2 diabetes mellitus with hyperglycemia Comprehensive Met. Panel 3 Months E11.65 - Type 2 diabetes mellitus with hyperglycemia Free T4 (Free Thyroxine) 3 Months E11.65 - Type 2 diabetes mellitus with hyperglycemia Thyroid Stimulating Hormone 3 Months E11.65 - Type 2 diabetes mellitus with hyperglycemia AMB Hemoglobin A1c Today Z13.9 - Encounter for screening, unspecified Referrals Vascular Surgery Referral M79.89 - Other specified soft tissue disorders Medications: New compress.stocking,knee,reg,med As directed 20-30 mm HG 12 ea 0RF M79.89 - Other specified soft tissue disorders Refilled insulin glargine (Lantus Solostar U-100 Insulin) or as directed 48 units (0.48 mL) subcut BEDTIME 15 mL 0RF R41.89 - Other symptoms and signs involving cognitive functions and awareness lancets (Accu-Chek Fastclix Lancet Drum) 1 ea topical TID 306 ea 3RF 90 days E11.65 - Type 2 diabetes mellitus with hyperglycemia fluticasone propionate 50 mcg/actuation administer into each nostril 2 sprays intranasal DAILY 3 ea 3RF 90 days R41.89 - Other symptoms and signs involving cognitive functions and awareness
== END 2024-12-26 16:48 | disposition home or self-care (01) ==
PROVIDERS: PCP Internal Medicine; Visit Provider Internal Medicine
DX: E83.42 Hypomagnesemia (principal); E11.65 Type 2 diabetes mellitus with hyperglycemia; J43.1 Panlobular emphysema; Z72.0 Tobacco use; I25.10 Atherosclerotic heart disease of native coronary artery without angina pectoris; E78.00 Pure hypercholesterolemia, unspecified; K22.70 Barrett's esophagus without dysplasia; I10 Essential (primary) hypertension; F41.1 Generalized anxiety disorder; R41.89 Other symptoms and signs involving cognitive functions and awareness

== ENCOUNTER → 2024-12-26 15:09 | Outpatient (BNVA) | payer MEDICARE, SELFPAY | PROVIDERS: PCP Internal Medicine; Visit Provider Internal Medicine | DX: E83.42 Hypomagnesemia (principal); E11.65 Type 2 diabetes mellitus with hyperglycemia; I25.10 Atherosclerotic heart disease of native coronary artery without angina pectoris; E78.00 Pure hypercholesterolemia, unspecified; K22.70 Barrett's esophagus without dysplasia; J43.1 Panlobular emphysema; I10 Essential (primary) hypertension; F41.1 Generalized anxiety disorder; R41.89 Other symptoms and signs involving cognitive functions and awareness; Z72.0 Tobacco use | CPT/HCPCS: 99212 ==

== ENCOUNTER 2025-01-02 14:34 | Outpatient (AMB) | payer MEDICARE, SELFPAY ==
[2025-01-02 14:48] VITALS: BMI 30.3
--- NOTE | 2025-01-02 14:48 | A.OFFVIS_ITS ---
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 Pt states that LE swelling started in February 2024, has been to the ED multiple times for LE swelling and stated that magnesium levels have been an issue each time. Pt states that she has had some discoloration when she gets these severe bouts of swelling Accompanied by: Daughter Allergies cortisone [CORTISONE] Allergy (Severe, Verified 01/02/25 14:56) RASH HIVES AND SWELLING OF THE TONGUE nitrofurantoin Allergy (Severe, Verified 01/02/25 14:56) tongue swelling Penicillins Allergy (Severe, Verified 01/02/25 14:56) ANAPHYLAXIS yeast, dried [yeast] Allergy (Severe, Verified 01/02/25 14:56) SHORTNESS OF BREATH amlodipine Allergy (Intermediate, Verified 01/02/25 14:56) swelling of feet empagliflozin [From Jardiance] Allergy (Intermediate, Verified 01/02/25 14:56) swollen tongue omeprazole [From Prilosec] Allergy (Intermediate, Verified 01/02/25 14:56) BLISTERS Sulfa (Sulfonamide Antibiotics) Allergy (Intermediate, Verified 01/02/25 14:56) Itching niacin [Niacin] Allergy (Mild, Verified 01/02/25 14:56) RASH tetracycline [Tetracycline] Allergy (Mild, Verified 01/02/25 14:56) RASH acetic acid [Acetic Acid] Allergy (Unknown, Verified 01/02/25 14:56) SHORTNESS OF BREATH FROM VINEGAR adhesive tape Allergy (Unknown, Verified 01/02/25 14:56) RASH Clindamycin HCl Allergy (Unknown, Verified 01/02/25 14:56) rash procaine [From NOVOCAIN] Allergy (Unknown, Verified 01/02/25 14:56) RASH,SWELLING OF TONGUE,BLISTERING cefixime [From Suprax] Adverse Reaction (Intermediate, Verified 01/02/25 14:56) Swelling in throat dulaglutide [From Trulicity] Adverse Reaction (Intermediate, Verified 01/02/25 14:56) swelling of tongue hydrochlorothiazide Adverse Reaction (Intermediate, Verified 01/02/25 14:56) hypercalcemia methenamine Adverse Reaction (Intermediate, Verified 01/02/25 14:56) Yeast Infection lorazepam [From Ativan] Adverse Reaction (Mild, Verified 01/02/25 14:56) VOMITING/NAUSEA morphine [MORPHINE] Adverse Reaction (Unknown, Verified 01/02/25 14:56) NAUSEA fosfomycin Allergy (Severe, Uncoded 01/02/25 14:56) tongue swelling jardiance Allergy (Severe, Uncoded 01/02/25 14:56) Yeast infection levofloxacin Allergy (Severe, Uncoded 01/02/25 14:56) Hives From AVELOX Allergy (Intermediate, Uncoded 01/02/25 14:56) SWELLING/RASH carrots, vinegar, yeast, chees Allergy (Unknown, Uncoded 01/02/25 14:56) Unknown SEASONAL ALLERGIES Allergy (Unknown, Uncoded 01/02/25 14:56) SNEEZING HPI HPI STEWARD/STEWARDESS BANQUET/[facility] referral for edema: Details: Alicia carvajal a very pleasant 74-year-old female patient, is presenting today with her daughter and grandson with concerns of bilateral lower extremity swelling, left greater than right. She states this has been going on since February of 2024. There was no initial injuries or wounds. Complaints include discomfort and swelling of lower extremities as well as some weakness and fatigue of the lower extremities. It has been affecting their daily activities including walking and physical activity. It is noted more so in left leg. She does have a history of spinal arthritis, degenerative disc disorder in her back, and bilateral hip pain. She is a former smoker, smoking over 40 years approximately half to 1 pack per day, she states she quit yesterday. She is a diabetic. She states she has been in another hospital a few times over the last months for this increased swelling. She does have a history of neuropathy as well. She does have an extensive list of allergies, including adhesive tape. Patient denies any previous venous surgery or injections. Patient denies any history of DVT/ PE. Patient denies any history of phlebitis. Trial of compression includes - elevation They now present for vascular evaluation regarding their varicose veins. [facility] Medical History Breast cancer screening by mammogram Tobacco abuse Myocardial infarct COVID-19 Cough Skin rash Colon cancer screening Essential hypertension Mitral valve prolapse Diabetic neuropathy Type 2 diabetes mellitus with hyperglycemia Hip osteoarthritis Diabetic nephropathy Vitamin D deficiency COPD (chronic obstructive pulmonary disease) Osteoarthritis Barretts esophagus Hypercholesterolemia Coronary artery disease Surgical History H/O heart artery stent Cystocele History of parathyroidectomy History of hysterectomy History of cholecystectomy Family History Father CVD (cardiovascular disease) Dementia Heart valve replaced Mother Colon cancer Social History Housing: House Alcohol intake: never Patient Tobacco Use Status: Former Tobacco user Tobacco use type: Cigarette Cigarettes Per Day: 1 Years Smoked: 40 +/- quit 02/2024 e-Cigarette/Vaping Use: Never Used Second Hand Smoke Exposure: No service: No Current occupational status: retired Current occupation: right hand dominant Cognitive needs: No Hearing needs: No Vision needs: Yes Female Reproductive History Menstrual Age of Menarche: 9 Review of Systems Const Reports as per HPI and Denies weakness ENT Reports Normal hearing present and Denies dizziness Card Reports as per HPI, Denies chest pain, Denies chest pain at rest, Denies chest pain with activity, Denies dyspnea and Denies dyspnea on exertion Resp Reports as per HPI, Denies cough, Denies dyspnea and Denies dyspnea on exertion GI Reports as per HPI, Denies abdominal pain, Denies nausea and Denies vomiting Musc Denies numbness Skin/Breast Reports as per HPI, Denies erythema and Denies wounds Neuro Reports Normal hearing present, Denies dizziness, Denies numbness, Denies Sensory deficit (Neuro) and Denies weakness Psych Reports no additional complaints Endo Reports no additional complaints Physical Exam Vital Signs: BMI result Body Mass Index 30.3 Const General: healthy appearing and no acute distress Orientation/consciousness: patient oriented x3 HEENT Head: Yes normal to inspection Ears: hearing grossly normal bilaterally Mouth: Normal oral and palatal mucosa present Resp Effort & Inspection: normal respiratory effort and able to speak in complete sentences Auscultation: clear to auscultation bilaterally Cardio Jugular venous distension: no JVD Rate: regular rate Rhythm: regular rhythm Heart sounds: S1 normal heart sound present and S2 normal heart sound present Bruits: no abdominal aortic bruits, no carotid bruits, no femoral bruits and no renal bruits Peripheral pulses: Peripheral pulses 2+ throughout GI Inspection: Yes normal to inspection Palpation (GI): No Abdominal aortic bruit present Skin General skin exam: no rashes or lesions noted Wounds: no wounds Hair: normal Neuro General: patient oriented x3 Cranial nerves: Yes Normal hearing present Cognition (Neuro): normal cognition Gait exam (Neuro): Normal gait present Motor exam (neuro): 5/5 motor strength present throughout Sensory Exam: No Sensory deficit (Neuro) Extrem Other: Bilateral lower extremities: Palpable DP pulses. Left lower extremity: +2 nonpitting edema noted. Discoloration noted around the ankles and on the foot. Right lower extremity: +1 nonpitting edema noted. Slight discoloration noted in the foot CEAP: C - 4 E - primary A - superficial P - reflux General: Yes normal to inspection, Yes full ROM, Yes capillary refill normal and Yes normal gait Assessment & Plan Assessment & Plan (1) Varicose veins of both lower extremities with inflammation: Code(s): I83.11 - Varicose veins of right lower extremity with inflammation; I83.12 - Varicose veins of left lower extremity with inflammation Category: Medical Plan: Alicia is presenting today on a referral for concerns of bilateral lower extremity swelling, left greater than right. She states this has been going on since February of 2024. In short, the patient has evidence of venous insufficiency. I have discussed the pathophysiology with the patient. In addition I have provided informational material regarding venous disease to the patient. We have discussed conservative measures including compression, elevation, and exercise. We are able to provide her with a set of compression stockings. We discussed the importance of wearing them 8-12 hours a day and taking them off at night. I have taken the liberty of ordering venous insufficiency testing with the patient. They will follow up with me after testing. The patient had an opportunity to ask questions regarding the treatment plan. All questions were answered. Imaging studies, laboratory studies and physical exam results were discussed and reviewed in detail. No major barriers to understanding were identified. The patient expressed understanding and agreement with the above treatment plan. The patient is aware they should contact our office by phone for worsening of the current condition or the appearance of new symptoms. Thank you for allowing me to participate in the vascular care of this patient. If you have any questions or concerns regarding the treatment for the above condition please do not hesitate to contact me. The office telephone contact is [phone]. This note is constructed using voice recognition software. While every effort has been made to ensure accuracy, senior marketing associate errors may have been included. Thank you for allowing me to participate in the care of your patient. Yours sincerely, HIEN Tinoco Orders: Orders US venous duplex LE BI 1 Week I83.11 - Varicose veins of right lower extremity with inflammation, I83.12 - Varicose veins of left lower extremity with inflammation Coding Level of Care Code New Pt Level 4 (22431) Diagnoses Varicose veins of both lower extremities with inflammation I83.11; I83.12
--- OUTSIDE RECORDS SUMMARY | 2025-01-02 17:56 | XMS_ITS | Patient Health Record ---
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 Name Role Phone Po William WELLS Primary Care Provider Lior Guerrier Jr Unavailable Allergies Allergen (clinical drug ingredient) Drug/Non Drug Allergy documented on EMR Reaction Allergy Type Onset Date Status Penicillin Unknown Drug Allergy Active Cortisone Unknown Drug Allergy Active tetracycline Tetracycline HCl Unknown Drug Allergy Active omeprazole Prilosec Unknown Drug Allergy Active niacin Niacin Unknown Drug Allergy Active Reason For Referral No Information Medications Medication SIG (Take, Route, Frequency, Duration) Notes Start Date End Date Status Spironolactone 25 MG 1 tablet Orally Twi ce a day Active Fenofibrate 160 MG TK 1 T PO QD WF Oral Once a day Active Lisinopril 40 MG 1 tablet Orally Once a day Active Lantus SoloStar 100 UNIT/ML 1 Subcutaneous QD Active Aspir-81 81 MG 1 tablet Orally Once a day Active ProAir HFA 108 (90 Base) MCG/ACT 2 puffs as needed Inhalation every 4 hrs/prn Active Calcium + D3 600-200 MG-UNIT 1 Orally BID Active MiraLax (colon prep) 17 GM/SCOOP mixed with Gatorade or Crystal Light Orally begin at 5:00 p.m. the day before the procedure for 1 day 07/11/2022 Active Albuterol Sulfate (2.5 MG/3ML) 0.083% 3 ml Inhalation Three times a day Active Advair Diskus 100-50 MCG/DOSE 1 puff Inhalation Twice a day/prn Active Atorvastatin Calcium 80 MG 1 tablet Oral ly Once a day Active Metoprolol Tartrate 50 MG 1 tablet Orall y Twice a day Active Janumet 50-500 MG 1 tablet with meals Orally Twice a day Active Vitamin D 1000 UNIT 1 tablet Orally Once a day Active Lansoprazole 30 MG 1 CAPSULE ONCE A DAY ORALLY 30 DAY(S) for 30 Active Immunizations Vaccine Route Administration Date Status Comme nts Flu vaccine no Preserv 3 and > Unknown 08/12/2014 Admin istered Flu vaccine no Preserv 3 and > Unknown 07/14/2015 Admin istered Flu vaccine no Preserv 3 and > Unknown 08/30/2016 Admin istered Influenza Unknown 07/11/2022 Administered Social History Tobacco Use: Social History Observation Description Date Details (start date - stop date) Current Smoker NA - NA Tobacco Use/Smoking Question Answer Notes Patient is a current smoker Problems Problem Type SNOMED Code ICD Code Onset Dates Problem Status W/U Status Risk Notes Problem 739807105 Colon cancer screening (Z12.11) Active confirmed Problem 191385335 Personal history of colonic polyps (Z86.010) Active confirmed Problem 730343984 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) Active confirmed Problem 717706977 Irritable bowel syndrome with diarrhea (K58.0) Active confirmed Problem Gastric polyp (01724926) Gastric polyp (K31.7) Active confirmed Problem Bernal esophagus (447033311) Bernal esophagus (K22.70) Active confirmed Plan Of Treatment Future Test Test Name Order Date UPPER GI ENDOSCOPY 03/06/2013 COLONOSCOPY 03/06/2013 UPPER GI ENDOSCOPY 07/15/2015 COLONOSCOPY 07/15/2015 UPPER GI ENDOSCOPY 07/11/2022 COLONOSCOPY 07/11/2022 Insurance Providers Payer Name Payer Address Payer Phone Subscriber Number Group Number Insured Name Patient Relationship to Insured Coverage Start Date Coverage End Date [facility] Medicare Advantage Plan [address] [address] [place] [phone] [id number] ROHIT LECHUGA Self - patient is the insured Medical (General) History Medical History History ICD Code Bernal's esophagus/GERD las t EGD 11/20/15 focal area of Bernal's, no dysplasia Colon polyps, colonoscopy , hyperplastic polyp, five-year followup for previous history of adenomas. Focal ileitis noted on previous exams as well, not treated Coronary artery disease, his tory of [place] x2 with stent placement, sees Dr. Roque asthma hypertension vertigo DM Diabetes mellitus type 2 covid x 2 2021 Surgical History Surgery Date(Month/Year) cholecystectomy parathyroidectomy right shoulder separation hysterectomy Bladder suspension Cystocele rectocele repair x3
== END 2025-01-02 15:17 | disposition home or self-care (01) ==
PROVIDERS: PCP Internal Medicine; Visit Provider Physician Assistant Surgical
DX: I83.11 Varicose veins of right lower extremity with inflammation (principal); I83.12 Varicose veins of left lower extremity with inflammation
CPT/HCPCS: 99204

== ENCOUNTER → 2025-01-02 14:34 | Outpatient (BNVA) | payer MEDICARE, SELFPAY | PROVIDERS: PCP Internal Medicine; Visit Provider Physician Assistant Surgical | DX: I83.11 Varicose veins of right lower extremity with inflammation (principal); I83.12 Varicose veins of left lower extremity with inflammation; Z87.891 Personal history of nicotine dependence | CPT/HCPCS: 99202 ==

== ENCOUNTER 2025-01-23 07:11 | Outpatient (REF) | payer MEDICARE, SELFPAY ==
--- NOTE | ~2025-01-23 | CT_ITS ---
EXAMINATION: CT HEAD WITHOUT IV CONTRAST HISTORY: R41.89 - Other symptoms and signs involving cognitive functions and awareness. Cognitive impairment. TECHNIQUE: Unenhanced helical CT of the head was performed per standard departmental protocol. Coronal and sagittal reformats of the head were also evaluated. One or more of the following techniques was used for dose reduction: Automated exposure control, adjustment of the mA and/or kV according to patient size, use of iterative reconstruction technique. DLP: 706 mGy-cm COMPARISON: There are no prior studies for comparison. FINDINGS: BRAIN: The brain parenchyma is unremarkable. There is normal novak/white differentiation. The ventricular system is normal in size and configuration. There is no mass effect or midline shift. No intra- or extra-axial fluid collections are identified. SINUSES: The visualized paranasal sinuses are clear. The mastoid air cells and middle ear cavities are well pneumatized. ORBITS: The visualized orbits are unremarkable. BONES/SOFT TISSUES: The extracranial soft tissues are unremarkable. The calvarium is intact. No suspicious lytic or sclerotic lesions. CT/CT head/brain wo IV con IMPRESSION: Unremarkable unenhanced head CT. Electronically signed by: Michelet Caldwell MD 01/23/2025 07:55 AM EDT
== END 2025-01-23 07:12 | disposition home or self-care (01) ==
LOC: HO.CT 07:11
PROVIDERS: PCP Internal Medicine; Visit Provider Internal Medicine
DX: R41.89 Other symptoms and signs involving cognitive functions and awareness (principal); I25.10 Atherosclerotic heart disease of native coronary artery without angina pectoris; I10 Essential (primary) hypertension; E78.5 Hyperlipidemia, unspecified; E11.8 Type 2 diabetes mellitus with unspecified complications; Z72.0 Tobacco use
CPT/HCPCS: 70450; 93005; 99212

== ENCOUNTER → 2025-01-23 07:13 | Outpatient (BNV) | payer MEDICARE, SELFPAY | PROVIDERS: PCP Internal Medicine; Visit Provider Radiology Diagnostic Radiology | DX: R41.89 Other symptoms and signs involving cognitive functions and awareness (principal) | CPT/HCPCS: 70450 ==

== ENCOUNTER 2025-01-23 12:19 | Outpatient (AMB) | payer MEDICARE, SELFPAY ==
--- NOTE | 2025-01-23 12:29 | MHC.OFFVIS ---
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 Required: No Accompanied by: Self / Same As Patient Allergies cortisone [CORTISONE] Allergy (Severe, Verified 01/02/25 14:56) RASH HIVES AND SWELLING OF THE TONGUE nitrofurantoin Allergy (Severe, Verified 01/02/25 14:56) tongue swelling Penicillins Allergy (Severe, Verified 01/02/25 14:56) ANAPHYLAXIS yeast, dried [yeast] Allergy (Severe, Verified 01/02/25 14:56) SHORTNESS OF BREATH amlodipine Allergy (Intermediate, Verified 01/02/25 14:56) swelling of feet empagliflozin [From Jardiance] Allergy (Intermediate, Verified 01/02/25 14:56) swollen tongue omeprazole [From Prilosec] Allergy (Intermediate, Verified 01/02/25 14:56) BLISTERS Sulfa (Sulfonamide Antibiotics) Allergy (Intermediate, Verified 01/02/25 14:56) Itching niacin [Niacin] Allergy (Mild, Verified 01/02/25 14:56) RASH tetracycline [Tetracycline] Allergy (Mild, Verified 01/02/25 14:56) RASH acetic acid [Acetic Acid] Allergy (Unknown, Verified 01/02/25 14:56) SHORTNESS OF BREATH FROM VINEGAR adhesive tape Allergy (Unknown, Verified 01/02/25 14:56) RASH Clindamycin HCl Allergy (Unknown, Verified 01/02/25 14:56) rash procaine [From NOVOCAIN] Allergy (Unknown, Verified 01/02/25 14:56) RASH,SWELLING OF TONGUE,BLISTERING cefixime [From Suprax] Adverse Reaction (Intermediate, Verified 01/02/25 14:56) Swelling in throat dulaglutide [From Trulicity] Adverse Reaction (Intermediate, Verified 01/02/25 14:56) swelling of tongue hydrochlorothiazide Adverse Reaction (Intermediate, Verified 01/02/25 14:56) hypercalcemia methenamine Adverse Reaction (Intermediate, Verified 01/02/25 14:56) Yeast Infection lorazepam [From Ativan] Adverse Reaction (Mild, Verified 01/02/25 14:56) VOMITING/NAUSEA morphine [MORPHINE] Adverse Reaction (Unknown, Verified 01/02/25 14:56) NAUSEA fosfomycin Allergy (Severe, Uncoded 01/02/25 14:56) tongue swelling jardiance Allergy (Severe, Uncoded 01/02/25 14:56) Yeast infection levofloxacin Allergy (Severe, Uncoded 01/02/25 14:56) Hives From AVELOX Allergy (Intermediate, Uncoded 01/02/25 14:56) SWELLING/RASH carrots, vinegar, yeast, chees Allergy (Unknown, Uncoded 01/02/25 14:56) Unknown SEASONAL ALLERGIES Allergy (Unknown, Uncoded 01/02/25 14:56) SNEEZING Medication List - Last Reconciled 01/23/25 by Dion Roque MD albuterol sulfate 90 mcg/actuation 1 puff PO Q4H PRN aspirin (Adult Low Dose Aspirin) 81 mg PO DAILY blood pressure monitor (Blood Pressure Kit) As directed blood pressure test kit-large As directed blood sugar diagnostic As directed blood sugar diagnostic (Accu-Chek Guide test strips) As directed check BS TID blood sugar diagnostic (Accu-Chek Guide test strips) As directed check the BS TID calcium carbonate (Calcium 600) 600 mg PO DAILY cholecalciferol (vitamin D3) 50 mcg PO DAILY juana.stocking,knee,reg,smal As directed compress.stocking,knee,reg,med As directed 20-30 mm HG cyanocobalamin (vitamin B-12) 1,000 mcg PO DAILY fenofibrate 160 mg PO DAILY fluticasone propionate 50 mcg/actuation 2 sprays intranasal DAILY 90 days gabapentin 100 mg PO DAILY 90 days insulin glargine (Lantus Solostar U-100 Insulin) 48 units (0.48 mL) subcut BEDTIME insulin lispro (Humalog KwikPen (U-100) Insulin) 10 u in am , 14 u noon and 6 u evening subcutaneously 3 times a day; or as directed 30 days lancets (Accu-Chek Fastclix Lancet Drum) 1 ea topical TID 90 days lansoprazole 30 mg PO DAILY lisinopril 40 mg PO DAILY magnesium oxide 400 mg PO BID metformin 1,000 mg PO BIDWMEAL 90 days metoprolol tartrate PO; 2 tabs in the AM, 1 tabs in the PM 90 days pen needle, diabetic (BD Ultra-Fine Micro Pen Needle) As directed inject4 x a day Insulin pen needle, diabetic (BD Marisela 2nd Gen Pen Needle) As directed rosuvastatin 20 mg PO DAILY spironolactone 25 mg PO BID HPI Comments Details: Alicia returns for follow-up regarding coronary artery disease. To recall, she had a myocardial infarction in 2004 and had LAD stent placed. Then had NSTEMI 2011 leading to another stent placement. Then she had chest pains in 2019 leading to one further cardiac catheterization but no new interventions. Then another episode of chest pain leading to [facility] hospitalization and had a stress test and then discharged home. Otherwise numerous cardiovascular risk factors including diabetes, hypertension, dyslipidemia. Chronic smoker. She states she has not smoked in the last couple of weeks. Overall, she states she feels okay. No new concerns like angina. [facility] Medical History Breast cancer screening by mammogram Tobacco abuse Myocardial infarct COVID-19 Cough Skin rash Colon cancer screening Essential hypertension Mitral valve prolapse Diabetic neuropathy Type 2 diabetes mellitus with hyperglycemia Hip osteoarthritis Diabetic nephropathy Vitamin D deficiency COPD (chronic obstructive pulmonary disease) Osteoarthritis Barretts esophagus Hypercholesterolemia Coronary artery disease Surgical History H/O heart artery stent Cystocele History of parathyroidectomy History of hysterectomy History of cholecystectomy Family History Father CVD (cardiovascular disease) Dementia Heart valve replaced Mother Colon cancer Social History Housing: House Alcohol intake: never Patient Tobacco Use Status: Former Tobacco user Tobacco use type: Cigarette Cigarettes Per Day: 1 Years Smoked: 40 +/- quit 02/2024 e-Cigarette/Vaping Use: Never Used Second Hand Smoke Exposure: No service: No Current occupational status: retired Current occupation: right hand dominant Cognitive needs: No Hearing needs: No Vision needs: Yes Female Reproductive History Menstrual Age of Menarche: 9 Review of Systems Const Denies chills, Denies fatigue, Denies fever(s), Denies frequent falls, Denies weakness, Denies weight gain and Denies weight loss ENT Denies dizziness Card Denies chest pain, Denies leg edema, Denies lightheadedness, Denies palpitations, Denies dyspnea and Denies dyspnea on exertion Resp Denies cough, Denies dyspnea and Denies dyspnea on exertion GI Denies hematochezia Musc Denies abnormal gait, Denies muscle weakness, Denies numbness, Denies radiating pain into limb and Denies tingling Neuro Denies abnormal gait, Denies dizziness, Denies frequent falls, Denies numbness, Denies tingling and Denies weakness Endo Denies fatigue and Denies palpitations Physical Exam Vital Signs: Last Vital Signs Pulse 75 01/23/25 12:31 BP 132/70 01/23/25 12:31 BMI result Body Mass Index 30.5 Const General: comfortable and no acute distress Orientation/consciousness: patient oriented x3 HEENT Other: Unremarkable Head: Yes normal to inspection Neck Neck: Yes normal visual inspection Chest Chest palpation & inspection: normal inspection of the chest Resp Auscultation: clear to auscultation bilaterally Cardio Palpation: normal PMI Heart sounds: S1 normal heart sound present, S2 normal heart sound present, no gallops, no murmurs and no rubs GI Palpation (GI): Soft to palpation Back/Spine/Pelvis Other: unremarkable Skin General skin exam: no rashes or lesions noted Neuro General: patient oriented x3 Extrem General: Yes normal to inspection Psych Mental Status: mental status grossly normal Office Procedures EKG Details: EKG with underlying sinus rhythm at 75/Min; low-voltage QRS complexes; right bundle-branch block pattern; normal [place]; slight prolongation of corrected QT which could be in the context of bundle-branch block. [id number], Complete Assessment & Plan Assessment & Plan (1) Atherosclerotic cardiovascular disease: Code(s): I25.10 - Atherosclerotic heart disease of [place] coronary artery without angina pectoris Category: Medical Plan: Cardiac [id number] mid LAD disease with patent proximal LAD stent/mild ISR. Nonobstructive disease elsewhere. Echocardiogram 07/2024 with LVEF of 60-65%. No significant valvular findings. Myocardial perfusion imaging study from 09/2024 shows normal perfusion. Can continue aspirin, statins. Last LDL 29 mg/dL. (2) Essential hypertension: Code(s): I10 - Essential (primary) hypertension Category: Medical Plan: Currently on lisinopril and spironolactone. Not taking amlodipine anymore as she is concerned about leg swelling. (3) Other and unspecified hyperlipidemia: Code(s): E78.5 - Hyperlipidemia, unspecified Category: Medical Plan: On rosuvastatin 20 mg daily. Not able tolerate anything higher. LDL 29 mg/dL. (4) Type 2 diabetes mellitus with unspecified complications: Code(s): E11.8 - Type 2 diabetes mellitus with unspecified complications Category: Medical Plan: On insulin, Metformin. Last hemoglobin A1c is 8.7%. Suboptimal. (5) Tobacco abuse: Code(s): Z72.0 - Tobacco use Category: Medical Plan: She states that she has not smoked in the last couple of weeks. Medications: Changed From magnesium oxide 400 mg PO DAILY 90 caps 2RF To magnesium oxide 400 mg PO BID Coding Level of Care Code Est Pt Level 4 (08270) Complex EM visit Add On G2211 Diagnoses Atherosclerotic cardiovascular disease I25.10 Essential hypertension I10 Other and unspecified hyperlipidemia E78.5 Type 2 diabetes mellitus with unspecified complications E11.8 Tobacco abuse Z72.0 CPT Codes EKG - CPT: [id number], Complete ([id number])
[2025-01-23 12:31] VITALS: BP 132/70; PULSE 75; BMI 30.5
--- OUTSIDE RECORDS SUMMARY | 2025-01-23 15:36 | XMS_ITS | Patient Health Record ---
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) Active confirmed Problem 418578857 Irritable bowel syndrome with diarrhea (K58.0) Active confirmed Problem Gastric polyp (70562849) Gastric polyp (K31.7) Active confirmed Problem Bernal esophagus (209712563) Bernal esophagus (K22.70) Active confirmed Plan Of Treatment Future Test Test Name Order Date UPPER GI ENDOSCOPY 03/06/2013 COLONOSCOPY 03/06/2013 UPPER GI ENDOSCOPY 07/15/2015 COLONOSCOPY 07/15/2015 UPPER GI ENDOSCOPY 07/11/2022 COLONOSCOPY 07/11/2022 Insurance Providers Payer Name Payer Address Payer Phone Subscriber Number Group Number Insured Name Patient Relationship to Insured Coverage Start Date Coverage End Date [facility] Medicare Advantage Plan [address] [address] [place] [address] [phone] [id number] ROHIT LECHUGA Self - patient is the insured Medical (General) History Medical History History ICD Code Bernal's esophagus/GERD las t EGD 11/20/15 focal area of Bernal's, no dysplasia Colon polyps, colonoscopy , hyperplastic polyp, five-year followup for previous history of adenomas. Focal ileitis noted on previous exams as well, not treated Coronary artery disease, his tory of [place] x2 with stent placement, sees Dr. Roque asthma hypertension vertigo DM Diabetes mellitus type 2 covid x 2 2021 Surgical History Surgery Date(Month/Year) cholecystectomy parathyroidectomy right shoulder separation hysterectomy Bladder suspension Cystocele rectocele repair x3
== END 2025-01-23 12:47 | disposition home or self-care (01) ==
LOC: HO.HCS 12:20
PROVIDERS: PCP Internal Medicine; Visit Provider Internal Medicine
DX: I25.10 Atherosclerotic heart disease of native coronary artery without angina pectoris (principal); I10 Essential (primary) hypertension; E78.5 Hyperlipidemia, unspecified; E11.8 Type 2 diabetes mellitus with unspecified complications; Z72.0 Tobacco use
CPT/HCPCS: 93010; 99214; G2211

== ENCOUNTER 2025-02-04 10:14 | Outpatient (REF) | payer MEDICARE, SELFPAY ==
--- NOTE | ~2025-02-04 | US_ITS ---
EXAMINATION: US LOWER EXTREMITY VENOUS (REFLUX EXAM), BILATERAL CLINICAL INFORMATION: Varices. COMPARISON: Ultrasound DVT left lower extremity dated November 2024. TECHNIQUE: Color flow triplex imaging and compression Doppler was performed to evaluate both the deep and the superficial systems bilaterally. To evaluate the superficial system, the examination was performed in the upright position. Color-flow Doppler ultrasound and compression ultrasound were utilized. In addition, maneuvers were utilized to demonstrate reflux. FINDINGS: 1. DEEP VENOUS ULTRASOUND OF THE RIGHT LOWER EXTREMITY: Common Femoral Vein: Compressible, normal respiratory variation and augmented flow. Femoral Vein: Compressible, normal color flow and augmentation. Popliteal Vein: Compressible, normal augmentation. Deep Reflux: There is no evidence of reflux in the deep system in either the common femoral vein, superficial femoral or the popliteal vein. There is no evidence of a Shaw's cyst. 2. SUPERFICIAL ULTRASOUND WITH DOPPLER OF RIGHT LOWER EXTREMITY: GREAT SAPHENOUS VEIN: Saphenofemoral Junction: 0.8 cm; Reflux: 0 ms Proximal Thigh: 0.4 cm; Reflux: 0 ms Mid Thigh: 0.4 cm; Reflux: 0 ms Distal Thigh: 0.3 cm; Reflux: 0 ms At Knee: 0.3 cm; Reflux: 0 ms Proximal Calf: 0.3 cm; Reflux: 0 ms Mid Calf: 0.1 cm; Reflux: 0 ms Distal Calf: 0.1 cm; Reflux: 0 ms DUPLICATED MEDIAL GREAT SAPHENOUS VEIN: Diameter: None imaged Reflux: NA DUPLICATED LATERAL GREAT SAPHENOUS VEIN: Diameter: None imaged Reflux: NA SMALL SAPHENOUS VEIN: Saphenopopliteal Junction: 0.1 cm; Reflux: 0 ms Proximal: 0.2 cm; Reflux: 0 ms Distal: 0.1 cm; Reflux: 0 ms VEIN OF GIACOMINI: Size: 0.3 cm. Reflux: NA PERFORATORS: Location: None imaged Size: NA Reflux: NA VARICOSITIES: Location: Great saphenous vein mid calf. Size: 0.3 cm. Reflux: NA 3. DEEP VENOUS ULTRASOUND OF THE LEFT LOWER EXTREMITY: Common Femoral Vein: Compressible, normal respiratory variation and augmented flow. Femoral Vein: Compressible, normal color flow and augmentation. Popliteal Vein: Compressible, normal augmentation. Deep Reflux: There is no evidence of reflux in the deep system in either the common femoral vein, superficial femoral or the popliteal vein. There is no evidence of a Shaw's cyst. 4. SUPERFICIAL ULTRASOUND WITH DOPPLER OF LEFT LOWER EXTREMITY: GREAT SAPHENOUS VEIN: Saphenofemoral Junction: 0.7 cm; Reflux: 0 ms Proximal Thigh: 0.6 cm; Reflux: 0 ms Mid Thigh: 0.3 cm; Reflux: 0 ms Distal Thigh: 0.3 cm; Reflux: 0 ms At Knee: 0.4 cm; Reflux: 0 ms Proximal Calf: 0.2 cm; Reflux: 2136 ms Mid Calf: 0.2 cm; Reflux: 0 ms Distal Calf: 0.2 cm; Reflux: 0 ms DUPLICATED MEDIAL GREAT SAPHENOUS VEIN: Diameter: None imaged Reflux: NA DUPLICATED LATERAL GREAT SAPHENOUS VEIN: Diameter: 0.3 cm. Reflux: NA SMALL SAPHENOUS VEIN: Saphenopopliteal Junction: 0.2 cm; Reflux: 0 ms Proximal: 0.2 cm; Reflux: 0 ms Distal: 0.1 cm; Reflux: 0 ms VEIN OF GIACOMINI: Size: 0.2 cm. Reflux: NA PERFORATORS: Location: None imaged Size: NA Reflux: NA VARICOSITIES: Location: Great saphenous vein at the knee level. Size: 0.3 cm. Reflux: NA US/US venous insuf bilat IMPRESSION: Right: No venous insufficiency. Varices in the great saphenous vein mid calf without reflux. Left: Venous insufficiency, great saphenous vein, below the knee. Varices in the great saphenous vein at the knee level without reflux. Electronically signed by: Anshu Gresham MD 02/04/2025 11:31 AM EDT
--- OUTSIDE RECORDS SUMMARY | 2025-02-04 12:05 | XMS_ITS | Patient Health Record ---
Author Organization [facility] Address [address] [place] [address] Care Team Providers Care Student Assistance Counselor Name Role Phone Po William WELLS Primary [...] Problem Status W/U Status Risk Notes Problem [id number] Colon cancer screening (Z12.11) Active confirmed Problem 608359507 Personal history of colonic polyps (Z86.010) Active confirmed Problem 403764014 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) Active confirmed Problem 561649431 Irritable bowel syndrome with diarrhea (K58.0) Active confirmed Problem Gastric polyp (60232196) Gastric polyp (K31.7) Active confirmed Problem Bernal esophagus (476029174) Bernal esophagus (K22.70) Active confirmed Plan Of Treatment Future Test Test Name Order Date UPPER GI ENDOSCOPY 03/06/2013 COLONOSCOPY 03/06/2013 UPPER GI ENDOSCOPY 07/15/2015 COLONOSCOPY 07/15/2015 UPPER GI ENDOSCOPY 07/11/2022 COLONOSCOPY 07/11/2022 Insurance Providers Payer Name Payer Address Payer Phone Subscriber Number Group Number Insured Name Patient Relationship to Insured Coverage Start Date Coverage End Date [facility] Medicare Advantage Plan [address] [address] [place] [address] [phone] [id number] ROHIT LECHUGA Self - patient is the insured Medical (General) History Medical History History ICD Code Bernal's esophagus/GERD las t EGD 11/20/15 focal area of Bernal's, no dysplasia Colon polyps, colonoscopy , hyperplastic polyp, five-year followup for previous history of adenomas. Focal ileitis noted on previous exams as well, not treated Coronary artery disease, his tory of [place] x2 with stent placement, sees Dr. Roque asthma hypertension vertigo DM Diabetes mellitus type 2 covid x 2 2021 Surgical History Surgery Date(Month/Year) cholecystectomy parathyroidectomy right shoulder separation hysterectomy Bladder suspension Cystocele rectocele repair x3
== END 2025-02-04 10:15 | disposition home or self-care (01) ==
LOC: HO.US 10:14
PROVIDERS: PCP Internal Medicine; Visit Provider Physician Assistant Surgical
DX: I83.11 Varicose veins of right lower extremity with inflammation (principal); I83.12 Varicose veins of left lower extremity with inflammation
CPT/HCPCS: 93970

== ENCOUNTER → 2025-02-04 10:16 | Outpatient (BNV) | payer MEDICARE, SELFPAY | PROVIDERS: PCP Internal Medicine; Visit Provider Radiology Diagnostic Radiology | DX: I83.893 Varicose veins of bilateral lower extremities with other complications (principal) | CPT/HCPCS: 93970 ==

== ENCOUNTER 2025-02-18 10:36 | Outpatient (AMB) | payer MEDICARE, SELFPAY ==
[2025-02-18 10:49] VITALS: BMI 30.4
--- NOTE | 2025-02-18 10:49 | MHC.OFFVIS ---
Vital Signs 02/18/25 10:49 Height 5 ft 5 in Weight 183 lb BMI 30.4 Intake Visit Reasons: follow up s/p US 02/04/25 Intake Note: follow up US 02/04/25 for LE swelling, Left worse than Rigt LE. Pt states she has been wearing compression socks however they are causing some issues on her legs and swelling has not improved. Pt states she doesnt notice discoloration as much. Mold Stamper And Repairer Required: No Accompanied by: Self / Same As Patient Allergies cortisone [CORTISONE] Allergy (Severe, Verified 02/18/25 10:54) RASH HIVES AND SWELLING OF THE TONGUE nitrofurantoin Allergy (Severe, Verified 02/18/25 10:54) tongue swelling Penicillins Allergy (Severe, Verified 02/18/25 10:54) ANAPHYLAXIS yeast, dried [yeast] Allergy (Severe, Verified 02/18/25 10:54) SHORTNESS OF BREATH amlodipine Allergy (Intermediate, Verified 02/18/25 10:54) swelling of feet empagliflozin [From Jardiance] Allergy (Intermediate, Verified 02/18/25 10:54) swollen tongue omeprazole [From Prilosec] Allergy (Intermediate, Verified 02/18/25 10:54) BLISTERS Sulfa (Sulfonamide Antibiotics) Allergy (Intermediate, Verified 02/18/25 10:54) Itching niacin [Niacin] Allergy (Mild, Verified 02/18/25 10:54) RASH tetracycline [Tetracycline] Allergy (Mild, Verified 02/18/25 10:54) RASH acetic acid [Acetic Acid] Allergy (Unknown, Verified 02/18/25 10:54) SHORTNESS OF BREATH FROM VINEGAR adhesive tape Allergy (Unknown, Verified 02/18/25 10:54) RASH Clindamycin HCl Allergy (Unknown, Verified 02/18/25 10:54) rash procaine [From NOVOCAIN] Allergy (Unknown, Verified 02/18/25 10:54) RASH,SWELLING OF TONGUE,BLISTERING cefixime [From Suprax] Adverse Reaction (Intermediate, Verified 02/18/25 10:54) Swelling in throat dulaglutide [From Trulicity] Adverse Reaction (Intermediate, Verified 02/18/25 10:54) swelling of tongue hydrochlorothiazide Adverse Reaction (Intermediate, Verified 02/18/25 10:54) hypercalcemia methenamine Adverse Reaction (Intermediate, Verified 02/18/25 10:54) Yeast Infection lorazepam [From Ativan] Adverse Reaction (Mild, Verified 02/18/25 10:54) VOMITING/NAUSEA morphine [MORPHINE] Adverse Reaction (Unknown, Verified 02/18/25 10:54) NAUSEA fosfomycin Allergy (Severe, Uncoded 02/18/25 10:54) tongue swelling jardiance Allergy (Severe, Uncoded 02/18/25 10:54) Yeast infection levofloxacin Allergy (Severe, Uncoded 02/18/25 10:54) Hives From AVELOX Allergy (Intermediate, Uncoded 02/18/25 10:54) SWELLING/RASH carrots, vinegar, yeast, chees Allergy (Unknown, Uncoded 02/18/25 10:54) Unknown SEASONAL ALLERGIES Allergy (Unknown, Uncoded 02/18/25 10:54) SNEEZING HPI HPI follow up s/p [facility] 02/04/25: Details: Alicia is presenting today for a follow up to [facility], performed on 02/04/25. She continues to endorse intermittent L>R foot/lower extremity swelling. She states she did use the compression socks for a few days; however, on the second day, she had pain in the pretibial area of her left leg with some bruising, so she has been only using them for a shorter time frame, about 4h/day. She states that she has actually had a period of no swelling for about 1.5w but then the swelling came back over this past weekend. She states she has been trying to keep an eye on what she is eating/drinking. She does continue with Mag Oxide 400mg bid for hypomagnesemia. She has no new concerns this morning. [facility] Medical History Breast cancer screening by mammogram Tobacco abuse Myocardial infarct COVID-19 Cough Skin rash Colon cancer screening Essential hypertension Mitral valve prolapse Diabetic neuropathy Type 2 diabetes mellitus with hyperglycemia Hip osteoarthritis Diabetic nephropathy Vitamin D deficiency COPD (chronic obstructive pulmonary disease) Osteoarthritis Barretts esophagus Hypercholesterolemia Coronary artery disease Surgical History H/O heart artery stent Cystocele History of parathyroidectomy History of hysterectomy History of cholecystectomy Family History Father CVD (cardiovascular disease) Dementia Heart valve replaced Mother Colon cancer Social History Housing: House Alcohol intake: never Patient Tobacco Use Status: Former Tobacco user Tobacco use type: Cigarette Cigarettes Per Day: 1 Years Smoked: 40 +/- quit 02/2024 e-Cigarette/Vaping Use: Never Used Second Hand Smoke Exposure: No service: No Current occupational status: retired Current occupation: right hand dominant Cognitive needs: No Hearing needs: No Vision needs: Yes Female Reproductive History Menstrual Age of Menarche: 9 Review of Systems Const Reports as per HPI and Denies weakness ENT Reports Normal hearing present and Denies dizziness Card Reports as per HPI, Denies chest pain, Denies chest pain at rest, Denies chest pain with activity, Denies dyspnea and Denies dyspnea on exertion Resp Reports as per HPI, Denies cough, Denies dyspnea and Denies dyspnea on exertion GI Reports as per HPI, Denies abdominal pain, Denies nausea and Denies vomiting Musc Denies numbness Skin/Breast Reports as per HPI, Denies erythema and Denies wounds Neuro Reports Normal hearing present, Denies dizziness, Denies numbness, Denies Sensory deficit (Neuro) and Denies weakness Psych Reports no additional complaints Endo Reports no additional complaints Physical Exam Vital Signs: BMI result Body Mass Index 30.4 Const General: healthy appearing and no acute distress Orientation/consciousness: patient oriented x3 HEENT Head: Yes normal to inspection Ears: hearing grossly normal bilaterally Mouth: Normal oral and palatal mucosa present Resp Effort & Inspection: normal respiratory effort and able to speak in complete sentences Auscultation: clear to auscultation bilaterally Cardio Jugular venous distension: no JVD Rate: regular rate Rhythm: regular rhythm Heart sounds: S1 normal heart sound present and S2 normal heart sound present Bruits: no abdominal aortic bruits, no carotid bruits, no femoral bruits and no renal bruits Peripheral pulses: Peripheral pulses 2+ throughout GI Inspection: Yes normal to inspection Palpation (GI): No Abdominal aortic bruit present Skin General skin exam: no rashes or lesions noted Wounds: no wounds Hair: normal Neuro General: patient oriented x3 Cranial nerves: Yes Normal hearing present Cognition (Neuro): normal cognition Gait exam (Neuro): Normal gait present Motor exam (neuro): 5/5 motor strength present throughout Sensory Exam: No Sensory deficit (Neuro) Extrem Other: Left foot/ankle: trace peripheral edema Right foot/ankle: no edema noted. General: Yes normal to inspection, Yes full ROM, Yes capillary refill normal and Yes normal gait Results Reviewed Results Reviewed: Brief summary of venous insufficiency testing is as follows: right great saphenous vein: negative right small saphenous vein: negative right accessory vein: none present left great saphenous vein: negative, except for below the knee, with vein size of 0.2cm and reflux of 2136ms. left small saphenous vein: negative left accessory vein: none present Please note there is no evidence of any venous aneurysms or significant tortuosity Assessment & Plan Assessment & Plan (1) Varicose veins of both lower extremities with inflammation: Code(s): I83.11 - Varicose veins of right lower extremity with inflammation; I83.12 - Varicose veins of left lower extremity with inflammation Category: Medical Plan: Alicia is presenting today as a follow up to US, performed on 02/04/25. There was no insufficiency found on US, other than a small section of the left GSV below the knee. She continues with intermittent left lower extremity and foot swelling; she states she believes it to be related to her Mg levels, with increased swelling with lower levels. She continues with daily Mag Oxide 400mg bid. She does tolerate the compression socks; however, she can only wear them for appx 4h a day. We discussed that any amount of time she can wear them, the better. We discussed continuing with elevation and physical activity. We discussed the importance of a healthy, well balanced diet. We discussed to follow up with us only as needed. Thank you for allowing us to participate in the patient's care. If there are any questions or concerns, please do not hesitate to reach out to us. Coding Level of Care Code Est Pt Level 4 (48648) Diagnoses Varicose veins of both lower extremities with inflammation I83.11; I83.12 Comment review of US
--- OUTSIDE RECORDS SUMMARY | 2025-02-18 12:38 | XMS_ITS | Patient Health Record ---
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) Active confirmed Problem 077485245 Irritable bowel syndrome with diarrhea (K58.0) Active confirmed Problem Gastric polyp (11172762) Gastric polyp (K31.7) Active confirmed Problem Bernal esophagus (996634734) Bernal esophagus (K22.70) Active confirmed Plan Of Treatment Future Test Test Name Order Date UPPER GI ENDOSCOPY 03/06/2013 COLONOSCOPY 03/06/2013 UPPER GI ENDOSCOPY 07/15/2015 COLONOSCOPY 07/15/2015 UPPER GI ENDOSCOPY 07/11/2022 COLONOSCOPY 07/11/2022 Insurance Providers Payer Name Payer Address Payer Phone Subscriber Number Group Number Insured Name Patient Relationship to Insured Coverage Start Date Coverage End Date [facility] Medicare Advantage Plan [address] [address] [place] [address] [phone] [id number] ROHIT LECHUGA Self - patient is the insured Medical (General) History Medical History History ICD Code Bernal's esophagus/GERD las t EGD 11/20/15 focal area of Bernal's, no dysplasia Colon polyps, colonoscopy , hyperplastic polyp, five-year followup for previous history of adenomas. Focal ileitis noted on previous exams as well, not treated Coronary artery disease, his tory of [place] x2 with stent placement, sees Dr. Roque asthma hypertension vertigo DM Diabetes mellitus type 2 covid x 2 2021 Surgical History Surgery Date(Month/Year) cholecystectomy parathyroidectomy right shoulder separation hysterectomy Bladder suspension Cystocele rectocele repair x3
== END 2025-02-18 12:00 | disposition home or self-care (01) ==
LOC: HO.HVS 10:37
PROVIDERS: PCP Internal Medicine; Visit Provider Physician Assistant Surgical
DX: I83.11 Varicose veins of right lower extremity with inflammation (principal); I83.12 Varicose veins of left lower extremity with inflammation
CPT/HCPCS: 99214

== ENCOUNTER → 2025-02-18 10:36 | Outpatient (BNVA) | payer MEDICARE, SELFPAY | PROVIDERS: PCP Internal Medicine; Visit Provider Physician Assistant Surgical | DX: I83.11 Varicose veins of right lower extremity with inflammation (principal); I83.12 Varicose veins of left lower extremity with inflammation | CPT/HCPCS: 99212 ==

== ENCOUNTER 2025-04-04 14:14 | Outpatient (AMB) | payer MEDICARE, SELFPAY ==
--- OUTSIDE RECORDS SUMMARY | 2025-04-04 14:18 | XMS_ITS | Patient Health Record ---
Author Organization [facility] Address [address] [place] [address] Care Team Providers Care Supervisor Rides Name Role Phone Po William WELLS Primary Care Provider Lior Guerrire Jr Unavailable [phone] Allergies Allergen (clinical drug ingredient) Drug/Non Drug [...] Problem Status W/U Status Risk Notes Problem 069968340 Colon cancer screening (Z12.11) Active confirmed Problem 294721682 Personal history of colonic polyps (Z86.010) Active confirmed Problem 496868043 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) Active confirmed Problem 952960386 Irritable bowel syndrome with diarrhea (K58.0) Active confirmed Problem Gastric polyp (87511098) Gastric polyp (K31.7) Active confirmed Problem Bernal esophagus (K22.70) Active confirmed Plan Of Treatment Future Test Test Name Order Date UPPER GI ENDOSCOPY 03/06/2013 COLONOSCOPY 03/06/2013 UPPER GI ENDOSCOPY 07/15/2015 COLONOSCOPY 07/15/2015 UPPER GI ENDOSCOPY 07/11/2022 COLONOSCOPY 07/11/2022 Insurance Providers Payer Name Payer Address Payer Phone Subscriber Number Group Number Insured Name Patient Relationship to Insured Coverage Start Date Coverage End Date [facility] Medicare Advantage Plan [address] [address] [place] [address] [id number] ROHIT LECHUGA Self - patient is the insured Medical (General) History Medical History History ICD Code Bernal's esophagus/GERD las t EGD 11/20/15 focal area of Bernal's, no dysplasia Colon polyps, colonoscopy , hyperplastic polyp, five-year followup for previous history of adenomas. Focal ileitis noted on previous exams as well, not treated Coronary artery disease, his tory of [place] x2 with stent placement, sees Dr. Jude asthma hypertension vertigo DM Diabetes mellitus type 2 covid x 2 2021 Surgical History Surgery Date(Month/Year) cholecystectomy parathyroidectomy right shoulder separation hysterectomy Bladder suspension Cystocele rectocele repair x3
[2025-04-04 14:20] VITALS: BP 122/68; PULSE 80; O2SAT 98; BMI 29.8
--- NOTE | 2025-04-04 14:20 | A.OFFPC_ITS ---
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 Accompanied by: Self / Same As Patient Allergies cortisone [CORTISONE] Allergy (Severe, Verified 04/04/25 14:20) RASH HIVES AND SWELLING OF THE TONGUE nitrofurantoin Allergy (Severe, Verified 04/04/25 14:20) tongue swelling Penicillins Allergy (Severe, Verified 04/04/25 14:20) ANAPHYLAXIS yeast, dried [yeast] Allergy (Severe, Verified 04/04/25 14:20) SHORTNESS OF BREATH amlodipine Allergy (Intermediate, Verified 04/04/25 14:20) swelling of feet empagliflozin [From Jardiance] Allergy (Intermediate, Verified 04/04/25 14:20) swollen tongue omeprazole [From Prilosec] Allergy (Intermediate, Verified 04/04/25 14:20) BLISTERS Sulfa (Sulfonamide Antibiotics) Allergy (Intermediate, Verified 04/04/25 14:20) Itching niacin [Niacin] Allergy (Mild, Verified 04/04/25 14:20) RASH tetracycline [Tetracycline] Allergy (Mild, Verified 04/04/25 14:20) RASH acetic acid [Acetic Acid] Allergy (Unknown, Verified 04/04/25 14:20) SHORTNESS OF BREATH FROM VINEGAR adhesive tape Allergy (Unknown, Verified 04/04/25 14:20) RASH Clindamycin HCl Allergy (Unknown, Verified 04/04/25 14:20) rash procaine [From NOVOCAIN] Allergy (Unknown, Verified 04/04/25 14:20) RASH,SWELLING OF TONGUE,BLISTERING cefixime [From Suprax] Adverse Reaction (Intermediate, Verified 04/04/25 14:20) Swelling in throat dulaglutide [From Trulicity] Adverse Reaction (Intermediate, Verified 04/04/25 14:20) swelling of tongue hydrochlorothiazide Adverse Reaction (Intermediate, Verified 04/04/25 14:20) hypercalcemia methenamine Adverse Reaction (Intermediate, Verified 04/04/25 14:20) Yeast Infection lorazepam [From Ativan] Adverse Reaction (Mild, Verified 04/04/25 14:20) VOMITING/NAUSEA morphine [MORPHINE] Adverse Reaction (Unknown, Verified 04/04/25 14:20) NAUSEA fosfomycin Allergy (Severe, Uncoded 04/04/25 14:20) tongue swelling jardiance Allergy (Severe, Uncoded 04/04/25 14:20) Yeast infection levofloxacin Allergy (Severe, Uncoded 04/04/25 14:20) Hives From AVELOX Allergy (Intermediate, Uncoded 04/04/25 14:20) SWELLING/RASH carrots, vinegar, yeast, chees Allergy (Unknown, Uncoded 04/04/25 14:20) Unknown SEASONAL ALLERGIES Allergy (Unknown, Uncoded 04/04/25 14:20) SNEEZING Medication List - Last Reconciled 04/04/25 by Zina Nowak NP albuterol sulfate 90 mcg/actuation 1 puff PO Q4H PRN amlodipine 5 mg PO DAILY aspirin (Adult Low Dose Aspirin) 81 mg PO DAILY blood pressure monitor (Blood Pressure Kit) As directed blood sugar diagnostic (Accu-Chek Guide test strips) As directed check the BS TID compress.stocking,knee,reg,med As directed 20-30 mm HG cyanocobalamin (vitamin B-12) 1,000 mcg PO DAILY fenofibrate 160 mg PO DAILY fluticasone propionate 50 mcg/actuation 2 sprays intranasal DAILY 90 days gabapentin 100 mg PO DAILY 90 days insulin glargine (Lantus Solostar U-100 Insulin) 48 units (0.48 mL) subcut BEDTIME insulin lispro (Humalog KwikPen (U-100) Insulin) 10 u in am , 14 u noon and 6 u evening subcutaneously 3 times a day; or as directed 30 days lancets (Accu-Chek Fastclix Lancet Drum) 1 ea topical TID 90 days lansoprazole 30 mg PO DAILY lisinopril 40 mg PO DAILY magnesium oxide 400 mg PO BID metformin 1,000 mg PO BIDWMEAL 90 days metoprolol tartrate PO; 2 tabs in the AM, 1 tabs in the PM 90 days pen needle, diabetic (BD Ultra-Fine Micro Pen Needle) As directed inject4 x a day Insulin pen needle, diabetic (BD Marisela 2nd Gen Pen Needle) As directed rosuvastatin 40 mg PO DAILY spironolactone 25 mg PO BID Tobacco use date assessed: 04/04/25 Fall risk assessment: 2 + Falls in past year Last assessed Fall Risk: 04/04/25 Dental Screening Dental Screen Date: 04/04/25 Did you have a dental visit in the last 12 months?: No Did you have a dental problem in the last 6 months where you did not have access to dental care?: No Was dental information given to patient?: Patient has dentist HPI HPI Comments History of Present Illness Details 74 y/o Female patient with PMHx signific ant for HTN, NSTEMI with Cath, Varicose Veins, Osteopenia, TALON, T2DM, OA and CAD presents to the clinic for HDF. [place] [facility] [place] for evaluation and treatment of NSTEMI. She is currently under the Care of Cardiology @ [facility] Scan of Chest found incidental Solid 5 mm Pulmonary Nodule with Recommendation of repeat 12 months. Pt is a chronic cigarette smoker and declined Nicotine Patch. Medication changes: Amlodipine and ASA were added; Rosuvastatin was increased to 40 mg. [facility] Medical History (Updated 04/04/25 @ 15:05 by Zina Nowak NP) Pulmonary nodule NSTEMI (non-ST elevated myocardial infarction) Breast cancer screening by mammogram Tobacco abuse Myocardial infarct COVID-19 Cough Skin rash Colon cancer screening Essential hypertension Mitral valve prolapse Diabetic neuropathy Type 2 diabetes mellitus with hyperglycemia Hip osteoarthritis Diabetic nephropathy Vitamin D deficiency COPD (chronic obstructive pulmonary disease) Osteoarthritis Barretts esophagus Hypercholesterolemia Coronary artery disease Surgical History H/O heart artery stent Cystocele History of parathyroidectomy History of hysterectomy History of cholecystectomy Family History Father CVD (cardiovascular disease) Dementia Heart valve replaced Mother Colon cancer Social History Housing: House Alcohol intake: never Patient Tobacco Use Status: Former Tobacco user Tobacco use type: Cigarette Cigarettes Per Day: 1 Years Smoked: 40 +/- quit 02/2024 e-Cigarette/Vaping Use: Never Used Second Hand Smoke Exposure: No service: No Current occupational status: retired Current occupation: right hand dominant Cognitive needs: No Hearing needs: No Vision needs: Yes Female Reproductive History Menstrual Age of Menarche: 9 Questionnaire PHQ-9 Over the last 2 weeks, how often have you been bothered by any of the following problems? 1. Little interest or pleasure in doing things: more than half the days 2. Feeling down, depressed, or hopeless: several days 3. Trouble falling or staying asleep, or sleeping too much: not at all 4. Feeling tired or having little energy: several days 5. Poor appetite or overeating: not at all 6. Feeling bad about yourself - or that you are a failure or have let yourself or your family down: not at all 7. Trouble concentrating on things, such as reading the newspaper or watching television: not at all 8. Moving or speaking so slowly that other people could have noticed. Or the opposite - being so fidgety or restless that you have been moving around a lot more than usual: not at all 9. Thoughts that you would be better off or of hurting yourself in some way: not at all Total score: 4 Source: Developed by Drs. Michelet Roman, Kelly Bynum, Clement Malloy and colleagues, with an educational debra from [employer]. Thrive Questionnaire Date Thrive assessed: 04/04/25 I am a: Patient What is your living situation today?: I have a steady place to live Within the past 12 months, did the food you bought not last and you didn't have the money to get more?: Never true Within the past 12 months, did you worry whether your food would run out before you got money to buy more?: Never true Do you have trouble paying for medicines?: No Do you have trouble getting transportation to medical appointments?: No Do you have trouble paying your heating and electricity bill?: No Do you have trouble taking care of your child, family member or friend?: No Do you have trouble with day-to-day activities such as bathing, preparing meals, shopping, managing finances, etc.?: No Are you currently unemployed and looking for a job?: No Are you interested in more education?: No Please select the resources that you would like help with: None Currently or been in a relationship where the following occur: No concerns reported THRIVE Score: 0 AUDIT C Alcohol Use Questionnaire (AUDIT-C) 1. How often do you have a drink containing alcohol?: Never 3. How often do you have six or more drinks on one occasion?: Never Total Score: 0 TALON-7 AMB Questionnaire TALON-7 Date TALON - 7 assessed: 04/04/25 Feeling nervous, anxious, or on edge: 0 = Not at all Not being able to stop or control worryin = Not at all Worrying too much about different things: 0 = Not at all Trouble relaxin = Not at all Being so restless that it is hard to sit still: 0 = Not at all Becoming easily annoyed or irritable: 0 = Not at all Feeling afraid as if something awful might happen: 0 = Not at all Total TALON-7 score (0-4 normal; 5-9 mild; 10-14 moderate; 15-21 severe): 0 Source: Developed by Drs. Michelet Roman, Kelly Bynum, Clement Malloy and colleagues, with an educational debra from [employer]. Review of Systems Const All systems reviewed & are unremarkable except as noted in HPI and below Physical exam (Primary Care) Vital Signs: Last Vital Signs Pulse 80 04/04/25 14:20 BP 122/68 04/04/25 14:20 Pulse Ox 98 04/04/25 14:20 Oxygen Delivery Method Room Air 04/04/25 14:20 BMI result Body Mass Index 29.8 Tobacco/Smoking Status: Tobacco use Status Tobacco use date assessed 04/04/25 04/04/25 14:27 Patient Tobacco Use Status Former Tobacco user 04/04/25 14:27 Tobacco use type Cigarette 04/04/25 14:27 e-Cigarette/Vaping Use Never Used 04/04/25 14:27 PHQ-9: PHQ-9 Score PHQ-9: Total score 4 04/04/25 14:27 Thrive Assessment: Date of Thrive Assessment Date Thrive assessed 04/04/25 04/04/25 14:27 Currently or been in a relationship where the following occur: No concerns reported Const General: no acute distress Nutritional Appearance: obese Orientation/consciousness: patient oriented x3 Resp Effort & Inspection: normal respiratory effort and able to speak in complete sentences Auscultation: clear to auscultation bilaterally Cardio Rhythm: regular rhythm Heart sounds: S1 normal heart sound present and S2 normal heart sound present Neuro General: patient oriented x3, gait normal and moves all extremities Psych Speech and movement: Normal speech and movement present Coding Level of Care Code Est Pt Level 4 (81866) Diagnoses NSTEMI (non-ST elevated myocardial infarction) I21.4 Pulmonary nodule R91.1 Hypercholesterolemia E78.00 Time Spent (min) 20 Assessment & Plan Assessment & Plan (1) NSTEMI (non-ST elevated myocardial infarction): Code(s): I21.4 - Non-ST elevation (NSTEMI) myocardial infarction Category: Medical Plan: Managed by Cardiology. Amlodipine and ASA were added (2) Pulmonary nodule: Code(s): R91.1 - Solitary pulmonary nodule Category: Medical Plan: Repeat CT Chest in 12 months (3) Hypercholesterolemia: Code(s): E78.00 - Pure hypercholesterolemia, unspecified Category: Medical Plan: Rosuvastatin increased to 40 mg. Advised Lifestyle changes; weight loss, and exercise daily. Medications: New rosuvastatin 40 mg PO DAILY 90 tabs 0RF E78.00 - Pure hypercholesterolemia, unspecified Refilled gabapentin 100 mg PO DAILY 90 days 90 caps 3RF M85.89 - Other specified disorders of bone density and structure, multiple sites Discontinued ujana.stocking,knee,reg,smal Discontinued Reason: Duplicate As directed 12 ea 0RF M25.472 - Effusion, left ankle blood pressure test kit-large Discontinued Reason: Duplicate As directed 1 ea 0RF rosuvastatin Discontinued Reason: Doctor's Order 20 mg PO DAILY 90 tabs 3RF
== END 2025-04-04 15:08 | disposition home or self-care (01) ==
LOC: HO.HMCH 14:15
PROVIDERS: PCP Internal Medicine; Visit Provider Nurse Practitioner Family
DX: I25.2 Old myocardial infarction (principal); R91.1 Solitary pulmonary nodule; E78.00 Pure hypercholesterolemia, unspecified

== ENCOUNTER → 2025-04-04 14:14 | Outpatient (BNVA) | payer MEDICARE, SELFPAY | PROVIDERS: PCP Internal Medicine; Visit Provider Nurse Practitioner Family | DX: I21.4 Non-ST elevation (NSTEMI) myocardial infarction (principal); R91.1 Solitary pulmonary nodule; E78.00 Pure hypercholesterolemia, unspecified; Z87.891 Personal history of nicotine dependence | CPT/HCPCS: 99212 ==

== ENCOUNTER 2025-04-29 13:22 | Outpatient (AMB) | payer MEDICARE, SELFPAY ==
--- NOTE | 2025-04-29 13:32 | A.OFFVIS_ITS ---
Vital Signs 04/29/25 13:35 Height 5 ft 5 in Weight 179 lb 7.3 oz BMI 29.9 BP 110/50 L Blood Pressure Location Lt brachial Position Sitting Pulse 70 Pulse Source Pulse Oximeter Intake Visit Reasons: [facility] d/c 4 week f/up Processing Rep Required: No Accompanied by: Self / Same As Patient Allergies cortisone (CORTISONE) Allergy (Severe, Verified 04/04/25 14:20) RASH HIVES AND SWELLING OF THE TONGUE nitrofurantoin Allergy (Severe, Verified 04/04/25 14:20) tongue swelling Penicillins Allergy (Severe, Verified 04/04/25 14:20) ANAPHYLAXIS yeast, dried (yeast) Allergy (Severe, Verified 04/04/25 14:20) SHORTNESS OF BREATH amlodipine Allergy (Intermediate, Verified 04/04/25 14:20) swelling of feet empagliflozin (From Jardiance) Allergy (Intermediate, Verified 04/04/25 14:20) swollen tongue omeprazole (From Prilosec) Allergy (Intermediate, Verified 04/04/25 14:20) BLISTERS Sulfa (Sulfonamide Antibiotics) Allergy (Intermediate, Verified 04/04/25 14:20) Itching niacin (Niacin) Allergy (Mild, Verified 04/04/25 14:20) RASH tetracycline (Tetracycline) Allergy (Mild, Verified 04/04/25 14:20) RASH acetic acid (Acetic Acid) Allergy (Unknown, Verified 04/04/25 14:20) SHORTNESS OF BREATH FROM VINEGAR adhesive tape Allergy (Unknown, Verified 04/04/25 14:20) RASH Clindamycin HCl Allergy (Unknown, Verified 04/04/25 14:20) rash procaine (From NOVOCAIN) Allergy (Unknown, Verified 04/04/25 14:20) RASH,SWELLING OF TONGUE,BLISTERING cefixime (From Suprax) Adverse Reaction (Intermediate, Verified 04/04/25 14:20) Swelling in throat dulaglutide (From Trulicity) Adverse Reaction (Intermediate, Verified 04/04/25 14:20) swelling of tongue hydrochlorothiazide Adverse Reaction (Intermediate, Verified 04/04/25 14:20) hypercalcemia methenamine Adverse Reaction (Intermediate, Verified 04/04/25 14:20) Yeast Infection lorazepam (From Ativan) Adverse Reaction (Mild, Verified 04/04/25 14:20) VOMITING/NAUSEA morphine (MORPHINE) Adverse Reaction (Unknown, Verified 04/04/25 14:20) NAUSEA fosfomycin Allergy (Severe, Uncoded 04/04/25 14:20) tongue swelling jardiance Allergy (Severe, Uncoded 04/04/25 14:20) Yeast infection levofloxacin Allergy (Severe, Uncoded 04/04/25 14:20) Hives From AVELOX Allergy (Intermediate, Uncoded 04/04/25 14:20) SWELLING/RASH carrots, vinegar, yeast, chees Allergy (Unknown, Uncoded 04/04/25 14:20) Unknown SEASONAL ALLERGIES Allergy (Unknown, Uncoded 04/04/25 14:20) SNEEZING Medication List - Last Reconciled 04/29/25 by Dion Roque MD albuterol sulfate 90 mcg/actuation 1 puff PO Q4H PRN amlodipine 5 mg PO DAILY aspirin (Adult Low Dose Aspirin) 81 mg PO DAILY blood pressure monitor (Blood Pressure Kit) As directed blood sugar diagnostic (Accu-Chek Guide test strips) As directed check the BS TID compress.stocking,knee,reg,med As directed 20-30 mm HG cyanocobalamin (vitamin B-12) 1,000 mcg PO DAILY fenofibrate 160 mg PO DAILY fluticasone propionate 50 mcg/actuation 2 sprays intranasal DAILY 90 days gabapentin 100 mg PO DAILY 90 days insulin glargine (Lantus Solostar U-100 Insulin) 48 units (0.48 mL) subcut BEDTIME insulin lispro (Humalog KwikPen (U-100) Insulin) 10 u in am , 14 u noon and 6 u evening subcutaneously 3 times a day; or as directed 30 days lancets (Accu-Chek Fastclix Lancet Drum) 1 ea topical TID 90 days lansoprazole 30 mg PO DAILY lisinopril 40 mg PO DAILY magnesium oxide 400 mg PO BID metformin 1,000 mg PO BIDWMEAL 90 days metoprolol tartrate PO; 2 tabs in the AM, 1 tabs in the PM 90 days pen needle, diabetic (BD Ultra-Fine Micro Pen Needle) As directed inject4 x a day Insulin pen needle, diabetic (BD Marisela 2nd Gen Pen Needle) As directed rosuvastatin 40 mg PO DAILY spironolactone 25 mg PO BID HPI Comments Details: Alicia returns for follow-up regarding coronary artery disease. To recall, she had a myocardial infarction in 2004 and had LAD stent placed. Then had NSTEMI 2011 leading to another stent placement. Then she had chest pains in 2019 leading to one further cardiac catheterization but no new interventions. Most recently had another episode of chest pain and that led to [facility] admission. Small troponin leak, leading to diagnostic catheterization. However, no new findings and medical therapy was advised. She states that amlodipine decided. Otherwise, she states she feels okay. Many cardiovascular risk factors including diabetes, hypertension, dyslipidemia, smoking. However, she states she has not smoked in a few days. [facility] History Pulmonary nodule NSTEMI (non-ST elevated myocardial infarction) Breast cancer screening by mammogram Tobacco abuse Myocardial infarct COVID-19 Cough Skin rash Colon cancer screening Essential hypertension Mitral valve prolapse Diabetic neuropathy Type 2 diabetes mellitus with hyperglycemia Hip osteoarthritis Diabetic nephropathy Vitamin D deficiency COPD (chronic obstructive pulmonary disease) Osteoarthritis Barretts esophagus Hypercholesterolemia Coronary artery disease Surgical History H/O heart artery stent Cystocele History of parathyroidectomy History of hysterectomy History of cholecystectomy Family History Father CVD (cardiovascular disease) Dementia Heart valve replaced Mother Colon cancer Social History Housing: House Alcohol intake: never Patient Tobacco Use Status: Former Tobacco user Tobacco use type: Cigarette Cigarettes Per Day: 1 Years Smoked: 40 +/- quit 02/2024 e-Cigarette/Vaping Use: Never Used Second Hand Smoke Exposure: No service: No Current occupational status: retired Current occupation: right hand dominant Cognitive needs: No Hearing needs: No Vision needs: Yes Female Reproductive History Menstrual Age of Menarche: 9 Review of Systems Const Denies chills, Denies fatigue, Denies fever(s), Denies frequent falls, Denies weakness, Denies weight gain and Denies weight loss ENT Denies dizziness Card Denies chest pain, Denies leg edema, Denies lightheadedness, Denies palpitations, Denies dyspnea and Denies dyspnea on exertion Resp Denies cough, Denies dyspnea and Denies dyspnea on exertion GI Denies hematochezia Musc Denies abnormal gait, Denies muscle weakness, Denies numbness, Denies radiating pain into limb and Denies tingling Neuro Denies abnormal gait, Denies dizziness, Denies frequent falls, Denies numbness, Denies tingling and Denies weakness Endo Denies fatigue and Denies palpitations Physical Exam Vital Signs: Last Vital Signs Pulse 70 04/29/25 13:35 BP 110/50 L 04/29/25 13:35 BMI result Body Mass Index 29.9 Const General: comfortable and no acute distress Orientation/consciousness: patient oriented x3 HEENT Other: Unremarkable Head: Yes normal to inspection Neck Neck: Yes normal visual inspection Chest Chest palpation & inspection: normal inspection of the chest Resp Auscultation: clear to auscultation bilaterally Cardio Palpation: normal PMI Heart sounds: S1 normal heart sound present, S2 normal heart sound present, no gallops, no murmurs and no rubs GI Palpation (GI): Soft to palpation Back/Spine/Pelvis Other: unremarkable Skin General skin exam: no rashes or lesions noted Neuro General: patient oriented x3 Extrem General: Yes normal to inspection Psych Mental Status: mental status grossly normal Assessment & Plan Assessment & Plan (1) Atherosclerotic cardiovascular disease: Code(s): I25.10 - Atherosclerotic heart disease of [place] coronary artery without angina pectoris Category: Medical Plan: Cardiac catheterization from 02/2025-patent stent in the proximal LAD mid section; low to intermediate grade disease elsewhere. Thought to be similar to prior study from 2019. Echocardiogram [facility] [place]-02/2025- LVEF 65%. No wall motion abnormalities. No significant valvular findings. Myocardial perfusion imaging study from 09/2024 shows normal perfusion. Can continue aspirin, statins. Recent LDL from [facility] 51 mg/dL. (2) Essential hypertension: Code(s): I10 - Essential (primary) hypertension Category: Medical Plan: Currently on lisinopril and spironolactone. It seems amlodipine has been resumed at [facility]. Previously, she has had leg swelling. Advised to watch out for the same. (3) Type 2 diabetes mellitus with unspecified complications: Code(s): E11.8 - Type 2 diabetes mellitus with unspecified complications Category: Medical Plan: Not well controlled. Recent hemoglobin A1c at [facility]-9.2%. On insulin, Metformin. (4) Tobacco abuse: Code(s): Z72.0 - Tobacco use Category: Medical Plan: Strongly advised to quit. Plan Discussion Notes I discussed with the patient the importance of continuing her current medication regimen to manage her hypertension and prevent further cardiac events. We reviewed the potential side effects of amlodipine, particularly peripheral edema, and the need to monitor for this. The patient was advised to maintain smoking cessation to reduce cardiovascular risk. Patient was informed and verbally consented to the use of an ambient scribe for clinic note documentation during this visit. Medications: New amlodipine 5 mg PO DAILY 90 tabs 3RF Patient Instructions: - Continue taking metoprolol, lisinopril, and amlodipine as prescribed. - Monitor for any swelling in the feet or ankles and report it if it occurs. - Avoid smoking and maintain a smoke-free environment. Coding Level of Care Code Est Pt Level 4 (52563) Complex EM visit Add On G2211 Diagnoses Atherosclerotic cardiovascular disease I25.10 Essential hypertension I10 Type 2 diabetes mellitus with unspecified complications E11.8 Tobacco abuse Z72.0
[2025-04-29 13:35] VITALS: BP 110/50; PULSE 70; BMI 29.9
--- OUTSIDE RECORDS SUMMARY | 2025-04-29 14:32 | XMS_ITS | Patient Health Record ---
Author Organization [facility] Address [address] [place] [address] Care Team Providers Care Engineer Of System Development Name Role Phone Po William WELLS Primary Care Provider Lior Guerrier Jr Unavailable Allergies Allergen (clinical drug ingredient) Drug/Non Drug Allergy documented on EMR Reaction Allergy Type Onset Date Status Penicillin Unknown Drug Allergy Active Cortisone Unknown Drug Allergy Active tetracycline Tetracycline HCl Unknown Drug Allergy Active omeprazole Prilosec Unknown Drug Allergy Active Niacin Unknown Drug Allergy Active Reason For [...] Problem Status W/U Status Risk Notes Problem 052102186 Colon cancer screening (Z12.11) Active confirmed Problem [id number] Personal history of colonic polyps (Z86.010) Active confirmed Problem [id number] 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) Active confirmed Problem 213140233 Irritable bowel syndrome with diarrhea (K58.0) Active confirmed Problem Gastric polyp (93118993) Gastric polyp (K31.7) Active confirmed Problem Bernal esophagus (K22.70) Active confirmed Plan Of Treatment Future Test Test Name Order Date UPPER GI ENDOSCOPY 03/06/2013 COLONOSCOPY 03/06/2013 UPPER GI ENDOSCOPY 07/15/2015 COLONOSCOPY 07/15/2015 UPPER GI ENDOSCOPY 07/11/2022 COLONOSCOPY 07/11/2022 Insurance Providers Payer Name Payer Address Payer Phone Subscriber Number Group Number Insured Name Patient Relationship to Insured Coverage Start Date Coverage End Date [facility] Medicare Advantage Plan [address] [address] [place] [address] [phone] [id number] ROHIT LECHUGA Self - patient is the insured Medical (General) History Medical History History ICD Code Bernal's esophagus/GERD las t EGD 11/20/15 focal area of Bernal's, no dysplasia Colon polyps, colonoscopy , hyperplastic polyp, five-year followup for previous history of adenomas. Focal ileitis noted on previous exams as well, not treated Coronary artery disease, his tory of [place] x2 with stent placement, sees Dr. Jude asthma hypertension vertigo DM Diabetes mellitus type 2 covid x 2 2021 Surgical History Surgery Date(Month/Year) cholecystectomy parathyroidectomy right shoulder separation hysterectomy Bladder suspension Cystocele rectocele repair x3
== END 2025-04-29 14:20 | disposition home or self-care (01) ==
LOC: HO.HCS 13:22
PROVIDERS: PCP Internal Medicine; Visit Provider Internal Medicine
DX: I25.10 Atherosclerotic heart disease of native coronary artery without angina pectoris (principal); I10 Essential (primary) hypertension; E11.8 Type 2 diabetes mellitus with unspecified complications; Z72.0 Tobacco use
CPT/HCPCS: 99214; G2211

== ENCOUNTER → 2025-04-29 13:22 | Outpatient (BNVA) | payer MEDICARE, SELFPAY | PROVIDERS: PCP Internal Medicine; Visit Provider Internal Medicine | DX: I25.10 Atherosclerotic heart disease of native coronary artery without angina pectoris (principal); I10 Essential (primary) hypertension; I25.2 Old myocardial infarction; Z95.5 Presence of coronary angioplasty implant and graft; E11.8 Type 2 diabetes mellitus with unspecified complications; Z79.4 Long term (current) use of insulin; Z72.0 Tobacco use; Z79.82 Long term (current) use of aspirin | CPT/HCPCS: 99212 ==

== ENCOUNTER 2025-06-10 14:41 | Outpatient (AMB) | payer MEDICARE, SELFPAY ==
--- NOTE | 2025-06-10 14:45 | MHC.PC.OV ---
Vital Signs 06/10/25 14:48 Height 5 ft 5 in Weight 181 lb 4 oz BMI 30.2 BP 136/52 L Blood Pressure Location Lt brachial Position Sitting Pulse 70 Pulse Source Pulse Oximeter Pulse Oximetry (%) 97 Oxygen Delivery Method Room Air Intake Visit Reasons: PHYSICAL - see comments Hydrologic Engineer Required: No Accompanied by: Self / Same As Patient Allergies cortisone (CORTISONE) Allergy (Severe, Verified 06/10/25 15:16) RASH HIVES AND SWELLING OF THE TONGUE nitrofurantoin Allergy (Severe, Verified 06/10/25 15:16) tongue swelling Penicillins Allergy (Severe, Verified 06/10/25 15:16) ANAPHYLAXIS yeast, dried (yeast) Allergy (Severe, Verified 06/10/25 15:16) SHORTNESS OF BREATH amlodipine Allergy (Intermediate, Verified 06/10/25 15:16) swelling of feet empagliflozin (From Jardiance) Allergy (Intermediate, Verified 06/10/25 15:16) swollen tongue omeprazole (From Prilosec) Allergy (Intermediate, Verified 06/10/25 15:16) BLISTERS Sulfa (Sulfonamide Antibiotics) Allergy (Intermediate, Verified 06/10/25 15:16) Itching niacin (Niacin) Allergy (Mild, Verified 06/10/25 15:16) RASH tetracycline (Tetracycline) Allergy (Mild, Verified 06/10/25 15:16) RASH acetic acid (Acetic Acid) Allergy (Unknown, Verified 06/10/25 15:16) SHORTNESS OF BREATH FROM VINEGAR adhesive tape Allergy (Unknown, Verified 06/10/25 15:16) RASH Clindamycin HCl Allergy (Unknown, Verified 06/10/25 15:16) rash procaine (From NOVOCAIN) Allergy (Unknown, Verified 06/10/25 15:16) RASH,SWELLING OF TONGUE,BLISTERING cefixime (From Suprax) Adverse Reaction (Intermediate, Verified 06/10/25 15:16) Swelling in throat dulaglutide (From Trulicity) Adverse Reaction (Intermediate, Verified 06/10/25 15:16) swelling of tongue hydrochlorothiazide Adverse Reaction (Intermediate, Verified 06/10/25 15:16) hypercalcemia methenamine Adverse Reaction (Intermediate, Verified 06/10/25 15:16) Yeast Infection lorazepam (From Ativan) Adverse Reaction (Mild, Verified 06/10/25 15:16) VOMITING/NAUSEA morphine (MORPHINE) Adverse Reaction (Unknown, Verified 06/10/25 15:16) NAUSEA fosfomycin Allergy (Severe, Uncoded 06/10/25 15:16) tongue swelling jardiance Allergy (Severe, Uncoded 06/10/25 15:16) Yeast infection levofloxacin Allergy (Severe, Uncoded 06/10/25 15:16) Hives From AVELOX Allergy (Intermediate, Uncoded 06/10/25 15:16) SWELLING/RASH carrots, vinegar, yeast, chees Allergy (Unknown, Uncoded 06/10/25 15:16) Unknown SEASONAL ALLERGIES Allergy (Unknown, Uncoded 06/10/25 15:16) SNEEZING Medication List - Last Reconciled 06/10/25 by Elis Ortiz PA-C albuterol sulfate 90 mcg/actuation 1 puff PO Q4H PRN amlodipine 5 mg PO DAILY aspirin (Adult Low Dose Aspirin) 81 mg PO DAILY blood pressure monitor (Blood Pressure Kit) As directed blood sugar diagnostic (Accu-Chek Guide test strips) As directed check the BS TID compress.stocking,knee,reg,med As directed 20-30 mm HG cyanocobalamin (vitamin B-12) 1,000 mcg PO DAILY fenofibrate 160 mg PO DAILY fluticasone propionate 50 mcg/actuation 2 sprays intranasal DAILY 90 days gabapentin 100 mg PO DAILY 90 days insulin glargine (Lantus Solostar U-100 Insulin) 48 units (0.48 mL) subcut BEDTIME insulin lispro (Humalog KwikPen (U-100) Insulin) 10 u in am , 14 u noon and 6 u evening subcutaneously 3 times a day; or as directed 30 days lancets (Accu-Chek Fastclix Lancet Drum) 1 ea topical TID 90 days lansoprazole 30 mg PO DAILY lisinopril 40 mg PO DAILY magnesium oxide 400 mg PO BID metformin 1,000 mg PO BIDWMEAL 90 days metoprolol tartrate PO; 2 tabs in the AM, 1 tabs in the PM 90 days pen needle, diabetic (BD Ultra-Fine Micro Pen Needle) As directed inject4 x a day Insulin pen needle, diabetic (BD Marisela 2nd Gen Pen Needle) As directed rosuvastatin 40 mg PO DAILY spironolactone 25 mg PO BID Tobacco use date assessed: 06/10/25 Fall risk assessment: 2 + Falls in past year Last assessed Fall Risk: 06/10/25 Dental Screening Dental Screen Date: 06/10/25 Did you have a dental visit in the last 12 months?: No Did you have a dental problem in the last 6 months where you did not have access to dental care?: No Was dental information given to patient?: No HPI PHYSICAL - see comments HPI Details 74 year old female with past medical history of uncontrolled diabetes mellitus, hypertension hypercholesterolemia, Barretts esophagus, coronary artery disease, COPD, NSTEMI and generalized anxiety disorder last seen 11/[address] Colón coming in for annual exam. In review of the notes, patient was seen by cardiology 04/2025 continued on medications and last LDL 51 started on amlodipine. Presenting for management of multiple chronic conditions including diabetes, hypertension, and chronic kidney disease. The patient has been managing diabetes with adjustments made by her superintendent menagerie, Dr. Erickson, leading to improved blood sugar levels. She is currently on a new medication regimen, which includes a small white pill taken once daily, although the exact name is not recalled. Chronic Kidney Disease Stage 3A Diagnosed following blood work, the patient is scheduled to see a employment educational coord and is seeking nutritional guidance due to the complexity of managing kidney disease alongside diabetes and food allergies. The patient has been advised to undergo cataract surgery, pending adequate glycemic control, with an A1c below 8 being a prerequisite for surgery. The patient has a history of bladder prolapse, having undergone multiple cystoscopies, and is considering a referral to a new urologist. The patient recently quit smoking, having previously relapsed due to stress at home. colonoscopy: 2021 repeat in 10 years eye doctor: yearly Eye and Lasik mammogram: due in August 2025 and scheduled DEXA: ordered today vaccines: UTD PFSH Medical History Pulmonary nodule NSTEMI (non-ST elevated myocardial infarction) Breast cancer screening by mammogram Tobacco abuse Myocardial infarct COVID-19 Cough Skin rash Colon cancer screening Essential hypertension Mitral valve prolapse Diabetic neuropathy Type 2 diabetes mellitus with hyperglycemia Hip osteoarthritis Diabetic nephropathy Vitamin D deficiency COPD (chronic obstructive pulmonary disease) Osteoarthritis Barretts esophagus Hypercholesterolemia Coronary artery disease Surgical History H/O heart artery stent Cystocele History of parathyroidectomy History of hysterectomy History of cholecystectomy Family History Father CVD (cardiovascular disease) Dementia Heart valve replaced Mother Colon cancer Social History Housing: House Alcohol intake: never Patient Tobacco Use Status: Former Tobacco user Tobacco use type: Cigarette Cigarettes Per Day: 1 Years Smoked: 40 +/- quit 02/2024 e-Cigarette/Vaping Use: Never Used Second Hand Smoke Exposure: No service: No Current occupational status: retired Current occupation: right hand dominant Cognitive needs: No Hearing needs: No Vision needs: Yes Female Reproductive History Menstrual Age of Menarche: 9 Questionnaire PHQ-9 Over the last 2 weeks, how often have you been bothered by any of the following problems? 1. Little interest or pleasure in doing things: more than half the days 2. Feeling down, depressed, or hopeless: several days 3. Trouble falling or staying asleep, or sleeping too much: not at all 4. Feeling tired or having little energy: several days 5. Poor appetite or overeating: not at all 6. Feeling bad about yourself - or that you are a failure or have let yourself or your family down: not at all 7. Trouble concentrating on things, such as reading the newspaper or watching television: not at all 8. Moving or speaking so slowly that other people could have noticed. Or the opposite - being so fidgety or restless that you have been moving around a lot more than usual: not at all 9. Thoughts that you would be better off or of hurting yourself in some way: not at all Total score: 4 Source: Developed by Drs. Michelet Roman, Kelly Bynum, Clement Malloy and colleagues, with an educational debra from [employer]. Thrive Questionnaire Date Thrive assessed: 06/10/25 TALON-7 AMB Questionnaire TALON-7 Date TALON - 7 assessed: 06/10/25 Feeling nervous, anxious, or on edge: 0 = Not at all Not being able to stop or control worryin = Not at all Worrying too much about different things: 0 = Not at all Trouble relaxin = Not at all Being so restless that it is hard to sit still: 0 = Not at all Becoming easily annoyed or irritable: 0 = Not at all Feeling afraid as if something awful might happen: 0 = Not at all Total TALON-7 score (0-4 normal; 5-9 mild; 10-14 moderate; 15-21 severe): 0 Source: Developed by Drs. Michelet Roman, Kelly Bynum, Clement Malloy and colleagues, with an educational debra from [employer]. Review of Systems Const Denies body aches, Denies fatigue, Denies fever(s), Denies frequent falls, Denies headache(s) and Denies weakness Eyes Reports no additional complaints and Denies change in vision ENT Denies dysphagia, Denies dizziness, Denies facial pain, Denies headache(s), Denies nasal congestion and Denies odynophagia Card Denies chest pain, Denies syncope, Denies irregular heart rhythm, Denies leg edema, Denies lightheadedness and Denies dyspnea Resp Denies cough and Denies dyspnea GI Denies constipation, Denies dysphagia, Denies dyspepsia, Reports diarrhea, Denies nausea, Denies odynophagia and Denies vomiting Denies urinary frequency, Denies dysuria, Denies urinary hesitancy and Denies urinary urgency Musc Denies back pain and Denies myalgias Skin/Breast Reports system reviewed and no additional complaints, except as documented Neuro Denies dizziness, Denies syncope, Denies frequent falls, Denies headache(s) and Denies weakness Psych Reports no additional complaints Endo Denies fatigue Physical exam (Primary Care) Vital Signs: Last Vital Signs Pulse 70 06/10/25 14:48 BP 136/52 L 06/10/25 14:48 Pulse Ox 97 06/10/25 14:48 Oxygen Delivery Method Room Air 06/10/25 14:48 BMI result Body Mass Index 30.2 Tobacco/Smoking Status: Tobacco use Status Tobacco use date assessed 06/10/25 06/10/25 14:56 Patient Tobacco Use Status Former Tobacco user 06/10/25 14:56 Tobacco use type Cigarette 06/10/25 14:56 e-Cigarette/Vaping Use Never Used 08/12/25 14:56 PHQ-9: PHQ-9 Score PHQ-9: Total score 4 06/10/25 17:19 Thrive Assessment: Date of Thrive Assessment Date Thrive assessed 06/10/25 06/10/25 14:56 Const General: cooperative, healthy appearing, comfortable and no acute distress Orientation/consciousness: patient oriented x3 HENMT Head: Yes normocephalic Ears: hearing grossly normal bilaterally, external ears normal, TM's normal bilaterally and EAC's normal General nose exam: Normal external nose present Face and sinus: Yes normal facial exam and Yes sinuses nontender Mouth: Normal oral and palatal mucosa present and tongue normal Throat: Yes posterior oropharynx normal Eyes General: appearance normal, both eyes and all related structures Conjunctivae: conjunctivae normal Pupils: Equal, round and reactive pupils present EOM: EOMs intact bilaterally and No Nystagmus present Neck Neck: Yes normal visual inspection, Yes full ROM and Yes no lymphadenopathy Chest Chest palpation & inspection: normal inspection of the chest Resp Effort & Inspection: normal respiratory effort Auscultation: clear to auscultation bilaterally, no crackles, no rales, no rhonchi, no wheezes and breath sounds present Cardio Rate: regular rate Rhythm: regular rhythm Peripheral pulses: radial pulses present and dorsalis pedis present GI Inspection: Yes normal to inspection and No Abdominal wall edema Palpation (GI): Soft to palpation, not firm and nontender Auscultation: normal bowel sounds Rectal Exam - Female: deferred General: Yes no CVA tenderness Back/Spine/Pelvis Back: no CVA tenderness Skin General skin exam: no rashes or lesions noted Neuro General: patient oriented x3 Cranial nerves: Yes Equal, round and reactive pupils present, Yes Midline tongue present, Yes Ability to bilaterally elevate shoulders present and No Nystagmus present Gait exam (Neuro): Normal gait present Extrem General: Yes normal to inspection, Yes full ROM, No no pedal edema and No edema Psych Speech and movement: Normal speech and movement present Affect: normal affect Insight: Good insight present (Psych) Judgement: Good judgement present (Psych) Coding Level of Care Code Est Pt Prev Care >65y(93361) Diagnoses Annual physical exam Z00.00 Generalized anxiety disorder F41.1 Essential hypertension I10 Coronary artery disease involving [place] coronary artery of [place] heart without angina pectoris I25.10 Associated angina: without angina Coronary Disease-Associated Artery/Lesion type: [place] artery [place] vs. transplanted heart: [place] heart NSTEMI (non-ST elevated myocardial infarction) I21.4 Hypercholesterolemia E78.00 Type 2 diabetes mellitus with hyperglycemia, without long-term current use of insulin E11.65 Diabetes mellitus vermin exterminator insulin use: without mcfp use Bernal's esophagus without dysplasia K22.70 Bernal's esophagus type: without dysplasia Panlobular emphysema J43.1 COPD type: emphysema Emphysema type: panlobular Prolapse of female pelvic organs N81.9 Assessment & Plan Assessment & Plan (1) Annual physical exam: Code(s): Z00.00 - Encounter for general adult medical examination without abnormal findings Category: Medical Plan: Patient is up-to-date on all recommended routine screenings and vaccinations for her age. Blood work is up-to-date and has been reviewed with the patient today. Healthy diet and regular exercise is encouraged. (2) Generalized anxiety disorder: Code(s): F41.1 - Generalized anxiety disorder Category: Medical Plan: She is not currently on medical management for her anxiety and feels good without medication or counseling services. (3) Essential hypertension: Code(s): I10 - Essential (primary) hypertension Category: Medical Plan: Continue on current blood pressure medication. Avoid salt intake and encourage healthy diet and regular exercise. (4) Coronary artery disease: Comment: Stent placement January 2012 Code(s): I25.10 - Atherosclerotic heart disease of [place] coronary artery without angina pectoris Category: Medical Qualifiers: Associated angina: without angina Coronary Disease-Associated Artery/Lesion type: [place] artery [place] vs. transplanted heart: [place] heart Qualified Code(s): I25.10 - Atherosclerotic heart disease of [place] coronary artery without angina pectoris Plan: Advised good control of the blood pressure, blood sugar and cholesterol. She is currently on high-dose rosuvastatin 40 mg, metoprolol and daily aspirin. Last LDL within goal and currently working with endocrinology for better control of the blood sugars. Continue to follow with Cardiology (5) NSTEMI (non-ST elevated myocardial infarction): Comment: 02/2025 Code(s): I21.4 - Non-ST elevation (NSTEMI) myocardial infarction Category: Medical Plan: See above (6) Hypercholesterolemia: Code(s): E78.00 - Pure hypercholesterolemia, unspecified Category: Medical Plan: Avoid foods that are high in cholesterol such as red meat, fried foods, eggs and baked goods. Triglyceride goal of less than 150 and LDL goal of less than 70. Last LDL 18 on [facility] blood work (7) Type 2 diabetes mellitus with hyperglycemia: Comment: December 2016 eye and lasik - [facility] Endo Code(s): E11.65 - Type 2 diabetes mellitus with hyperglycemia Category: Medical Qualifiers: Diabetes mellitus vermin exterminator insulin use: without mcfp use Qualified Code(s): E11.65 - Type 2 diabetes mellitus with hyperglycemia Plan: Decrease the amount of carbohydrates such as pasta, bread, rice, and potatoes and limit the amount of sweets. Although fruits are generally healthy they should be eaten in moderation as they are still high in sugar. Hemoglobin A1c goal of less than 7%. She is following with [facility] and is currently taking sliding scale of insulin and Invokana. (8) Barretts esophagus: Code(s): K22.70 - Bernal's esophagus without dysplasia Category: Medical Qualifiers: Bernal's esophagus type: without dysplasia Qualified Code(s): K22.70 - Bernal's esophagus without dysplasia Plan: Avoid trigger foods such as citrus, tomato products, soda, caffeine, spicy foods and other foods that may be irritating to your stomach. Avoid laying flat 3-4 hours after eating and elevate the head of the bed 30 degrees to prevent acid from moving into the esophagus. (9) COPD (chronic obstructive pulmonary disease): Code(s): J44.9 - Chronic obstructive pulmonary disease, unspecified Category: Medical Qualifiers: COPD type: emphysema Emphysema type: panlobular Qualified Code(s): J43.1 - Panlobular emphysema Plan: Feels good on current inhalers. Recently stopped smoking advised to abstain from cigarettes. (10) Prolapse of female pelvic organs: Code(s): N81.9 - Female genital prolapse, unspecified Category: Medical Plan: Referral was placed to Urogynecology today as patient feels pressure when urinating is concerned about recurrent prolapse. Plan The patient will continue to manage her Type 2 Diabetes Mellitus with the current medication regimen, and she is advised to maintain regular follow-ups with her superintendent menagerie to ensure optimal glycemic control. For Chronic Kidney Disease Stage 3A, the patient is scheduled to see a employment educational coord and will seek nutritional guidance to manage her condition effectively. Hypertension management will continue with amlodipine, and the patient is advised to monitor for any changes in symptoms such as leg swelling. For bladder prolapse, a referral to a new urologist is recommended, and the patient is advised to consider urogynecology for specialized care. Osteoarthritis management includes discussing the use of topical NSAIDs with her employment educational coord, and exploring alternative pain relief options such as menthol creams or arnica gel. The patient is commended for quitting smoking and is encouraged to maintain a smoke-free environment to support her health. This note was constructed using voice recognition software. While every effort has been made to ensure accuracy and crib pad maker, still areas may have been included sometimes these areas may affect the content or meeting of the given symptoms. Total time spent caring for the patient today was 30 minutes. This includes time spent before the visit reviewing the chart, time spent during the visit, and time spent after the visit and documentation. Patient was informed and verbally consented to the use of an ambient scribe for clinic note documentation during this visit. Orders: Orders XR DEXA axial skeleton 06/10/25 Z78.0 - Asymptomatic menopausal state Referrals Urogynecology Referral N81.9 - Female genital prolapse, unspecified
[2025-06-10 14:48] VITALS: BP 136/52; PULSE 70; O2SAT 97; BMI 30.2
--- OUTSIDE RECORDS SUMMARY | 2025-06-10 15:36 | XMS_ITS | Patient Health Record ---
Author Organization [facility] Address [address] [place] [address] Care Team Providers Care Manager Product Marketing Name Role Phone Po William WELLS Primary [...] Problem Status W/U Status Risk Notes Problem [id number] Colon cancer screening (Z12.11) Active confirmed Problem [id number] Personal history of colonic polyps (Z86.010) Active confirmed Problem [id number] 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) Active confirmed Problem [id number] Irritable bowel syndrome with diarrhea (K58.0) Active confirmed Problem Gastric polyp (17106768) Gastric polyp (K31.7) Active confirmed Problem Bernal esophagus (018625473) Bernal esophagus (K22.70) Active confirmed Plan Of Treatment Future Test Test Name Order Date UPPER GI ENDOSCOPY 03/06/2013 COLONOSCOPY 03/06/2013 UPPER GI ENDOSCOPY 07/15/2015 COLONOSCOPY 07/15/2015 UPPER GI ENDOSCOPY 07/11/2022 COLONOSCOPY 07/11/2022 Insurance Providers Payer Name Payer Address Payer Phone Subscriber Number Group Number Insured Name Patient Relationship to Insured Coverage Start Date Coverage End Date [facility] Medicare Advantage Plan [address] [address] [place] [address] [id number] ROHIT LECHUGA Self - patient is the insured Medical (General) History Medical History History ICD Code Bernal's esophagus/GERD las t EGD 11/20/15 focal area of Bernal's, no dysplasia Colon polyps, colonoscopy , hyperplastic polyp, five-year followup for previous history of adenomas. Focal ileitis noted on previous exams as well, not treated Coronary artery disease, his tory of [place] x2 with stent placement, sees Dr. Roque asthma hypertension vertigo DM Diabetes mellitus type 2 covid x 2 2021 Surgical History Surgery Date(Month/Year) cholecystectomy parathyroidectomy right shoulder separation hysterectomy Bladder suspension Cystocele rectocele repair x3
--- OUTSIDE RECORDS SUMMARY | 2025-06-10 15:36 | XMS_ITS | Clinical Summary ---
Author Organization [facility] Address [address] [address] Phone Care Team Providers Care Digital Marketing Assistant Name Role Phone William Colón MD Primary Care Provider [phone] Allergies Active Allergy Reactions Criticality Noted Date Comments Amlodipine Swelling 01/17/2025 Feet Moxifloxacin Hives,Rash Low 01/17/2025 Cefixime 01/17/2025 Clindamycin Hcl Rash Low 01/17/2025 Hydrocortisone Hives,Swelling,Rash Low 01/17/2025 Fosfomycin Tromethamine 01/17/2025 Hydrochlorothiazide Medium 01/17/2025 hypercalcemia Empagliflozin Swelling 01/17/2025 Yeast infection Levofloxacin Hives 01/17/2025 Lorazepam Nausea and/or Vomiting 01/17/2025 Methenamine 01/17/2025 Yeast infection Morphine Nausea and/or Vomiting 01/17/2025 Niacin Rash Low 01/17/2025 Nitrofurantoin Swelling 01/17/2025 Tongue Omeprazole Rash with Blisters High 01/17/2025 Penicillins Anaphylaxis High 01/17/2025 Procaine 01/17/2025 Sulfa (Sulfonamide Antibiotics) Itching 01/17/2025 Adhesive 01/17/2025 Tetracyclines Rash Low 01/17/2025 Dulaglutide Swelling 01/17/2025 Tongue Yeast, Dried 01/17/2025 Medications ACCU-CHEK GUIDE TEST STRIPS Strp strips USE DIRECTED TO CHECK BLOOD GLUCOSE THREE TIMES DAILY 5 Active cyanocobalamin , vitamin B-12, 1000 MCG tablet Take 1 tablet by mouth every morning. Active fluticasone propionate (FLONASE) 50 mcg/actuation nasal spray 2 sprays by Nasal route daily. Active gabapentin (NEURONTIN) 100 MG capsule Take 1 capsule by mouth every morning. 5 Active LANTUS SOLOSTAR U-100 INSULIN 100 unit/mL (3 mL) InPn injection pen INJECT 48 UNITS SUBCUTANEOUS EVERY NIGHT AT BEDTIME 5 Active ACCU-CHEK FASTCLIX LANCET DRUM Misc 1 each 4 (four) times a day before meals and nightly. 5 Active lansoprazole (PREVACID) 30 MG capsule Take 1 capsule by mouth every morning. 5 Active magnesium oxide (MAG-OX) 400 mg (241.3 mg elemental) tablet Take 1 tablet by mouth 2 (two) times a day. Active metFORMIN (GLUCOPHAGE) 1000 MG tablet Take 1,000 mg by mouth 2 (two) times a day with meals. 5 Active metoprolol tartrate (LOPRESSOR) 50 MG tablet TAKE 2 TABLETS BY MOUTH EVERY MORNING AND 1 TABLET BY MOUTH EVERY EVENING Active simethicone 125 mg Cap Take 125 mg by mouth 4 (four) times a day as needed. Active fenofibrate (LOFIBRA) 160 MG tablet Take 1 tablet by mouth every morning. 5 Active lisinopril (PRINIVIL,ZEST RIL) 40 MG tablet Take 1 tablet by mouth every morning. 5 Active albuterol 90 mcg/actuation inhaler 1 puff every 4 (four) hours as needed. 5 Active spironolactone (ALDACTONE) 25 MG tablet Take 1 tablet by mouth 2 (two) times a day. 5 Active aspirin 81 MG EC tablet Take 81 mg by mouth daily. Active calcium carbonate (CALCIUM 600 ORAL) Take by mouth. Activ e cholecalcifero l (VITAMIN D3) 2,000 unit tablet Take 1,000 Units by mouth daily. Active insulin pen needles, disposable, 32 gauge x 5/32 Ndle 1 each by Miscellaneous route as needed. Active HUMALOG KWIKPEN INSULIN 100 unit/mL kwikpen Inject 10 Units under the skin 3 (three) times a day with meals. 10 units am 14 unit noon 6 units pm 15 mL 5 Active amLODIPine (NORVASC) 5 MG tablet Take 5 mg by mouth daily. Active pioglitazone (ACTOS) 15 MG tabletIndicati ons:Type 2 diabetes mellitus with hyperglycemia, with long-term current use of insulin Take 1 tablet (15 mg total) by mouth daily. 90 tablet 1 Active Active Problems Problem Noted Date Diagnosed Date Type 2 diabetes mellitus wit h both eyes affected by mild nonproliferative retinopathy without macular edema, with long-term current use of insulin 05/08/2025 Type 2 diabetes mellitus wit h diabetic microalbuminuria, with long-term current use of insulin 05/08/2025 Type 2 diabetes mellitus wit h stage 3a chronic kidney disease, with long-term current use of insulin 05/08/2025 Type 2 diabetes mellitus wit h diabetic polyneuropathy, with long-term current use of insulin 01/17/2025 Assessment & Plan (01/17/2025 12:24 PM EDT): Uncontrolled. Hemoglobin A1c is 8.2%. Fasting glucose levels are elevated. But she is changing her Lantus administration based on her evening glucose. She should not do this. She needs to be consistent with the same dose of Lantus so she should increase her Lantus to 50 units at bedtime because her glucose levels are elevated. However she prefers to stay at 48 units. She states that if she does not drop the Lantus that she could develop hypoglycemia in the middle of the night around 2:00 in the morning. So that she may benefit from a continuous glucose monitor to see was happening to her overnight. She was advised to maintain the glucose between 70 and 120 mg/dL in the morning. However having said this she may not feel well with her glucose below 100 mg/dL in the morning or maybe 90 mg/dL. So we need to determine what glucose she tolerates in the morning that is in the normal reference range. So in her case she does feel symptomatic below 90 so she should try to aim for a fasting glucose between 90 and 120 mg/dL in the morning. As for her Premeal sugars, meaning throughout the day it should be between 70 and 180. We already established that she does not feel well with glucose below 90 so maybe she should maintain her glucose during the day between 90 and 180. She also is having hypoglycemic symptoms around lunchtime which is 1 PM. Sometimes for brunch she only has cold cuts sometimes she may have a sandwich so if she is using 10 units at that time then she is going to develop hypoglycemia. She tends to skip a regular meal for lunch and just has crackers which is no good she is better off eating a salad or having another sandwich for lunch. And for dinner she seems to be eating well but she is having hyperglycemia at bedtime so again I think that this may be due to her snack of crackers in the evening. Unfortunately her snacks are not very good she should consider snacks such as carrots celery tomatoes, cucumbers. She can use nuts. She also states that she tends to have fruits and the fruits are not bad because she only has 5 grapes but she tends to eat bananas because of the magnesium and there is other choices to use over bananas and if you eat a banana as usually half a banana. If she is going to eat a banana she should eat the green to banana which has less sugar but once it arrives it becomes more sweets and has more glucose. She is also having fluids but she says she cannot really eat a lot of fruits because of the acidity. And also fruits tend to have glucose. Lastly I really do not like her insulin correction scale she is on set doses maybe she should just use the correction scale as opposed to set doses because she is already monitoring her glucose consistently. I would like to change her correction scale because she is having hypoglycemic episodes and furthermore she is having high glucose levels so we could start with a correction scale where if her glucose is 100-150 she will administer 2 units and increase by 2 units every 50 mg/dL and she should only do this before breakfast lunch and dinner. She should continue metformin. Type 2 diabetes mellitus wit h hyperglycemia, with long-term current use of insulin 01/17/2025 Assessment & Plan (05/08/2025 12:36 PM EDT): Uncontrolled. Her hemoglobin A1c increased to 9.0% and I expected that this may happen that is because I changed the correction scale and actually lowered it in order to prevent hypoglycemia. She has occasional. She has occasional lower glucose levels in the 70 mg/dL then not true hypoglycemia but she is symptomatic below her glucose of 90 mg/dL so she will feel as if she is having hypoglycemic event. 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 She has no history of congestive heart failure so she should do well with this medication. I expect her glucose levels to improve but she still may not be controlled. So again we are trying to gradually improve glycemic control and not at be extreme in order to prevent episodes of hypoglycemia. We discussed that she could not tolerate GLP-1 agonist such as Trulicity. This is unfortunate because I wanted her prescribed Mounjaro which has a GLP and GIP combination and is better tolerated then other GLP-1 agonist but this combination has Trulicity so I do not want to try it. She has not tried other GLP-1 agonist such as Ozempic and she is wary of trying these type of medications so we decided to go a different route with the pioglitazone and continue adjusting the correction scale. Eventually we may want to increase the dose of Lantus but I think that the main problem now is the postprandial hyperglycemia. Hyperlipidemia LDL goal <50 01/17/2025 Assessment & Plan (05/08/2025 12:33 PM EDT): Controlled. LDL 18 continue rosuvastatin 40 mg no changes required. Assessment & Plan (01/17/2025 12:22 PM EDT): I do not have a lipid panel. She should continue her statin. I will request lipid panel. 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, with long-term current use of insulin; Type 2 diabetes mellitus with hyperglycemia, with long-term current use of insulin; Type 2 diabetes mellitus with diabetic microalbuminuria, with long-term current use of insulin; Type 2 diabetes mellitus with stage 3a chronic kidney disease, with long-term current use of insulin 04/24/2025 9:33 AM EDT - 04/24/2025 11:59 PM EDT Hospital Encounter [facility] [place] [address] Roderick Clay DO Discharge Disposition: Home or Self Care from Last 3 Months Family History Medical History Relation Comments Coronary artery disease Father Dementia Father Colon cancer Mother Relation Status Comments Father Alive Mother Social History Tobacco Use Types Packs/Day Years Used Date Smoking Tobacco: Some Days Cigarettes Smokeless Tobacco: Never Alcohol Use Standard Drinks/Week Comments Not Currently 0 (1 standard drink = 0.6 oz pur e alcohol) 2 times year mix drinks Education Answer Date Recorded Are you interested in more education? Not on tamir e 09/05/2024 Are you concerned about learning? Not on file 09/05/2024 No 09/05/2024 No 09/05/2024 Digital Access Answer Date Recorded No 09/05/2024 No 09/05/2024 Reliable internet access at home? Not on file 09/05/2024 Device with a working camera? Not on file Comments Unknown Sex and Gender Information Value Date Recorded Sex Assigned at Not on file Legal Sex Female 10:37 PM EDT Gender Identity Not on file Sexual Orientation Not on file Last Filed Vital Signs Vital Sign Reading Time Taken Comments Blood Pressure 140/78 05/08/2025 11:52 AM EDT Pulse 80 05/08/2025 11:52 AM EDT Temperature 36.4 C (97.5 F) 05/08/2025 11:52 AM EDT Respiratory Rate - - Oxygen Saturation 97% 05/08/2025 11:52 AM EDT Inhaled Oxygen Concentration - - Weight 81.2 kg (179 lb) 05/08/2025 11:52 AM EDT Height 162 cm (5' 3.78 ) 05/08/2025 11:52 AM EDT Body Mass Index 30.94 05/08/2025 11:52 AM EDT Plan of Treatment Upcoming Encounters Date Type Department Care Team (Late st Contact Info) Description 08/22/2025 11:50 AM EDT Office Visit [facility] [address] Roderick Clay DO [address] [place] [address] Health Maintenance Due Date Last Done Comments Adult Td,Tdap Booster 1949 DEPRESSION SCREENING 1961 SMOKING Hx and SMOKELESS TOBACCO SCREENING 1962 HEPATITIS C SCREENING 1967 COLOGUARD 1994 COLONOSCOPY 1994 COLORECTAL CANCER SCREENING 1994 FIT TEST 1994 FOBT 1994 SIGMOIDOSCOPY 1994 VIRTUAL COLONOSCOPY 1994 ZOSTER VACCINES (1 of 2) 1999 OSTEOPOROSIS SCREENING INITI AL (ONE-TIME) 2014 PNEUMOCOCCAL VACCINES (50+ years) (2 of 2 - PCV) 03/06/2016 03/06/2015 RSV VACCINE (1 - 1-dose 75+ series) 2024 COVID-19 VACCINE (1 - 2023-2 5 season) 2024 DIABETIC EYE EXAM 01/17/2025 HEMOGLOBIN A1C 07/25/2025 04/24/2025, 01/17/2025 BLOOD PRESSURE 11/08/2025 05/08/2025 CREATININE LEVEL 04/24/2026 04/24/2025 LIPID PANEL 04/24/2026 04/24/2025 POTASSIUM LEVEL 04/24/2026 04/24/2025 HEPATITIS A VACCINES Aged Out No long er eligible based on patient's age to complete this topic HIB VACCINES Aged Out No longer eligi ble based on patient's age to complete this topic MENINGOCOCCAL VACCINES (ACWY) Aged Out No longer eligible based on patient's age to complete this topic MENINGOCOCCAL VACCINES (B) Aged Out N o longer eligible based on patient's age to complete this topic Medical Devices Not on file Procedures Procedure Name Priority Date/Time Associated Diagnosis Comments MICROALBUMIN/CREATININ E RATIO, RANDOM URINE Routine 04/24/2025 9:52 AM EDT Type 2 diabetes mellitus with diabetic polyneuropathy, with long-term current use of insulin HEMOGLOBIN A1C Routine 04/24/2025 9:39 AM EDT Type 2 diabetes mellitus with diabetic polyneuropathy, with long-term current use of insulin Type 2 diabetes mellitus with hyperglycemia, with long-term current use of insulin LIPID PANEL Routine 04/24/2025 9:39 AM EDT Type 2 diabetes mellitus with diabetic polyneuropathy, with long-term current use of insulin Hyperlipidemia LDL goal <50 COMPREHENSIVE METABOLIC PANEL Routine 04/24/2025 9:39 AM EDT Type 2 diabetes mellitus with diabetic polyneuropathy, with long-term current use of insulin from Last 3 Months Results * (ABNORMAL) Microalbumin/creatinine ratio, random urine (04/24/2025 9:52 AM EDT) URINE MICROALBUMIN 5.2(H) 0 - 2.3 mg/dL [facility] URINE CREATININE 150 mg/dL [facility] MICROALB/CRE RATIO 34.7(H) 0 - 20 mg/g Cre [facility] Urine (Urine) 04/24/2025 9:5 2 AM EDT 04/24/2025 9:54 AM EDT Roderick Clay DO URINE ORDERABLES Final Result Performing Organization Address City/State/[facility] Co de Phone Number [address] [address] * (ABNORMAL) Comprehensive metabolic panel (04/24/2025 9:39 AM EDT) SODIUM 139 133 - 146 mmol/L [facility] POTASSIUM 4.7 3.3 - 5.1 mmol/L [facility] CHLORIDE 102 96 - 108 mmol/L [facility] CO2 26 21 - 35 mmol/L [facility] BUN 24(H) 6 - 19 mg/dL [facility] CREATININE 1.20 0.5 - 1.5 mg/dL [facility] GLUCOSE 188(H) 70 - 99 mg/dL [facility] ALBUMIN 4.6 3.9 - 4.8 g/dL [facility] TOTAL PROTEIN 7.2 6.5 - 8.0 g/dL [facility] CALCIUM 9.9 8.4 - 10.3 mg/dL [facility] ALKALINE PHOSPHATASE 62 39 - 117 U/L [facility] TOTAL BILIRUBIN 0.3 0.0 - 1.2 mg/dL [facility] AST 17 0 - 37 U/L [facility] ALT 18 0 - 40 U/L [facility] GLOBULIN 2.6 1 - 4.8 g/dL [facility] EGFR 47(L) >59 mL/min/1.7 3m2 [facility] Comment:Estimated glomerular filtration rate calculated using the CKD-EPI refit equation. ANION GAP 16 10 - 20 mmol/L [facility] Blood 04/24/2025 9:39 AM EDT 04/24/2025 9:47 AM EDT [facility] LAB BLOOD ORDERABLES Final Resul t Performing Organization Address City/[facility] Co de Phone Number [address] [address] * (ABNORMAL) Hemoglobin A1c (04/24/2025 9:39 AM EDT) HEMOGLOBIN A1C 9.0(H) 4.3 - 5.8 % [facility] Blood 04/24/2025 9:39 AM EDT 04/24/2025 9:47 AM EDT [facility] LAB BLOOD ORDERABLES Final Resul t Performing Organization Address City/[facility]/ZIP Co de Phone Number [address] [address] * (ABNORMAL) Lipid panel (04/24/2025 9:39 AM EDT) HDL 28 mg/dL [facility] Comment: Interpretation <40 mg/dL: Low HDL cholesterol (major risk factor for CHD) Greater than or equal to 60 mg/dL: High HDL cholesterol ( negative risk factor for CHD) HDL - cholesterol is affected by a number of factors, e.g. smoking, excerise, hormones, sex and age. CHOLESTEROL 103 0 - 240 mg/dL [facility] TRIGLYCERIDES 283(H) 30 - 160 mg/dL [facility] LDL 18(L) 50 - 129 mg/dL [facility] Comment: LDL levels in terms of risk for coronary heart disease: <100 mg/dL: Optimal 100-129 mg/dL: Near or above optimal 130-159 mg/dL: Borderline high 160-189 mg/dL: High >190 mg/dL: Very High CARDIAC RISK RATIO 3.7 3.3 - 4.4 [facility] Blood 04/24/2025 9:39 AM EDT 04/24/2025 9:47 AM EDT us Roderick Clay DO LAB BLOOD ORDERABLES Final Resul t Performing Organization Address City/State/[facility] Co de Phone Number [facility] [address] [place] [address] from Last 3 Months Insurance MEDICARE REPLACEMENT MEDICARE REPLACEMENT MEDICARE REPLACEMENT MEDICARE REPLACEMENT MEDICARE REPLACEMENT [place] [id number] MEDICARE REPLACEMENT MEDICARE REPLACEMENT MEDICARE REPLACEMENT [place] [id number] [facility] MEDICARE REPLACEMENT Care Teams Digital Marketing Assistant Relationship Specialty Start Date End Date William Colón MD [address] [place] [address] Drive [address] [place] [id number] PCP - General Internal Medicine 06/21/21 Additional Source Comments The information contained in this document represents components of the legal health record. It is not the complete legal health record.[facility]
== END 2025-06-10 16:01 | disposition home or self-care (01) ==
LOC: HO.HMCH 14:42
PROVIDERS: PCP Internal Medicine
DX: Z00.00 Encounter for general adult medical examination without abnormal findings (principal); I25.10 Atherosclerotic heart disease of native coronary artery without angina pectoris; E11.65 Type 2 diabetes mellitus with hyperglycemia; J43.1 Panlobular emphysema; F41.1 Generalized anxiety disorder; I10 Essential (primary) hypertension; E78.00 Pure hypercholesterolemia, unspecified; K22.70 Barrett's esophagus without dysplasia; N81.9 Female genital prolapse, unspecified

== ENCOUNTER → 2025-06-10 14:41 | Outpatient (BNVA) | payer MEDICARE, SELFPAY | PROVIDERS: PCP Internal Medicine | DX: Z00.00 Encounter for general adult medical examination without abnormal findings (principal); F41.1 Generalized anxiety disorder; I10 Essential (primary) hypertension; I25.10 Atherosclerotic heart disease of native coronary artery without angina pectoris; I21.4 Non-ST elevation (NSTEMI) myocardial infarction; E78.00 Pure hypercholesterolemia, unspecified; E11.65 Type 2 diabetes mellitus with hyperglycemia; K22.70 Barrett's esophagus without dysplasia; J43.1 Panlobular emphysema; N81.9 Female genital prolapse, unspecified | CPT/HCPCS: 99397 ==

== ENCOUNTER 2025-07-08 09:47 | Outpatient (AMB) | payer MEDICARE, SELFPAY ==
--- NOTE | 2025-07-08 09:56 | A.OFFPC_ITS ---
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: No Accompanied by: Self / Same As Patient Allergies cortisone (CORTISONE) Allergy (Severe, Verified 07/08/25 10:11) RASH HIVES AND SWELLING OF THE TONGUE nitrofurantoin Allergy (Severe, Verified 07/08/25 10:11) tongue swelling Penicillins Allergy (Severe, Verified 07/08/25 10:11) ANAPHYLAXIS yeast, dried (yeast) Allergy (Severe, Verified 07/08/25 10:11) SHORTNESS OF BREATH amlodipine Allergy (Intermediate, Verified 07/08/25 10:11) swelling of feet empagliflozin (From Jardiance) Allergy (Intermediate, Verified 07/08/25 10:11) swollen tongue omeprazole (From Prilosec) Allergy (Intermediate, Verified 07/08/25 10:11) BLISTERS Sulfa (Sulfonamide Antibiotics) Allergy (Intermediate, Verified 07/08/25 10:11) Itching niacin (Niacin) Allergy (Mild, Verified 07/08/25 10:11) RASH tetracycline (Tetracycline) Allergy (Mild, Verified 07/08/25 10:11) RASH acetic acid (Acetic Acid) Allergy (Unknown, Verified 07/08/25 10:11) SHORTNESS OF BREATH FROM VINEGAR adhesive tape Allergy (Unknown, Verified 07/08/25 10:11) RASH Clindamycin HCl Allergy (Unknown, Verified 07/08/25 10:11) rash procaine (From NOVOCAIN) Allergy (Unknown, Verified 07/08/25 10:11) RASH,SWELLING OF TONGUE,BLISTERING cefixime (From Suprax) Adverse Reaction (Intermediate, Verified 07/08/25 10:11) Swelling in throat dulaglutide (From Trulicity) Adverse Reaction (Intermediate, Verified 07/08/25 10:11) swelling of tongue hydrochlorothiazide Adverse Reaction (Intermediate, Verified 07/08/25 10:11) hypercalcemia methenamine Adverse Reaction (Intermediate, Verified 07/08/25 10:11) Yeast Infection lorazepam (From Ativan) Adverse Reaction (Mild, Verified 07/08/25 10:11) VOMITING/NAUSEA morphine (MORPHINE) Adverse Reaction (Unknown, Verified 07/08/25 10:11) NAUSEA fosfomycin Allergy (Severe, Uncoded 07/08/25 10:11) tongue swelling jardiance Allergy (Severe, Uncoded 07/08/25 10:11) Yeast infection levofloxacin Allergy (Severe, Uncoded 07/08/25 10:11) Hives From AVELOX Allergy (Intermediate, Uncoded 07/08/25 10:11) SWELLING/RASH carrots, vinegar, yeast, chees Allergy (Unknown, Uncoded 07/08/25 10:11) Unknown SEASONAL ALLERGIES Allergy (Unknown, Uncoded 07/08/25 10:11) SNEEZING Medication List - Last Reconciled 07/08/25 by Elis Ortiz PA-C albuterol sulfate 90 mcg/actuation 1 puff PO Q4H PRN amlodipine 5 mg PO DAILY aspirin (Adult Low Dose Aspirin) 81 mg PO DAILY blood pressure monitor (Blood Pressure Kit) As directed blood sugar diagnostic (Accu-Chek Guide test strips) As directed check the BS TID compress.stocking,knee,reg,med As directed 20-30 mm HG cyanocobalamin (vitamin B-12) 1,000 mcg PO DAILY fenofibrate 160 mg PO DAILY fluticasone propionate 50 mcg/actuation 2 sprays intranasal DAILY 90 days gabapentin 100 mg PO DAILY 90 days insulin glargine (Lantus Solostar U-100 Insulin) 48 units (0.48 mL) subcut BEDTIME insulin lispro (Humalog KwikPen (U-100) Insulin) 10 u in am , 14 u noon and 6 u evening subcutaneously 3 times a day; or as directed 30 days lancets (Accu-Chek Fastclix Lancet Drum) 1 ea topical TID 90 days lansoprazole 30 mg PO DAILY lisinopril 40 mg PO DAILY magnesium oxide 400 mg PO BID metformin 1,000 mg PO BIDWMEAL 90 days metoprolol tartrate PO; 2 tabs in the AM, 1 tabs in the PM 90 days pen needle, diabetic (BD Ultra-Fine Micro Pen Needle) As directed inject4 x a day Insulin pen needle, diabetic (BD Marisela 2nd Gen Pen Needle) As directed rosuvastatin 40 mg PO DAILY spironolactone 25 mg PO BID Tobacco use date assessed: 07/08/25 Fall risk assessment: 1 Fall in past year Last assessed Fall Risk: 07/08/25 Dental Screening Dental Screen Date: 07/08/25 Did you have a dental visit in the last 12 months?: No Did you have a dental problem in the last 6 months where you did not have access to dental care?: No Was dental information given to patient?: No HPI [facility] 07/24 rt & 08/07 lt HPI Details 75 year old female with past medical his tory of uncontrolled diabetes mellitus, hypertension hypercholesterolemia, Barretts esophagus, coronary artery disease, COPD, NSTEMI and generalized anxiety disorder last seen 05/2025 coming in for pre op. She is scheduled to have cataract surgery with [facility] 07/24/25 right and 08/07/2025 left. diabetes mellitus: Follows with [facility] endocrinology and currently on insulin A1c in the office 8.3% - given patient is a brittle diabetic this is an acceptable range for her hypertension: Blood pressure at goal today History of NSTEMI: ordered for EKG and blood work prior to surgery Patient has had surgery and anesthesia in the past without complication. She does have history of NSTEMI and DM. [facility] Medical History Pulmonary nodule NSTEMI (non-ST elevated myocardial infarction) Breast cancer screening by mammogram Tobacco abuse Myocardial infarct COVID-19 Cough Skin rash Colon cancer screening Essential hypertension Mitral valve prolapse Diabetic neuropathy Type 2 diabetes mellitus with hyperglycemia Hip osteoarthritis Diabetic nephropathy Vitamin D deficiency COPD (chronic obstructive pulmonary disease) Osteoarthritis Barretts esophagus Hypercholesterolemia Coronary artery disease Surgical History H/O heart artery stent Cystocele History of parathyroidectomy History of hysterectomy History of cholecystectomy Family History Father CVD (cardiovascular disease) Dementia Heart valve replaced Mother Colon cancer Social History Housing: House Alcohol intake: never Patient Tobacco Use Status: Former Tobacco user Tobacco use type: Cigarette Cigarettes Per Day: 1 Years Smoked: 40 +/- quit 02/2024 Packs per year/per ci.00 e-Cigarette/Vaping Use: Never Used Second Hand Smoke Exposure: No service: No Current occupational status: retired Current occupation: right hand dominant Cognitive needs: No Hearing needs: No Vision needs: Yes Female Reproductive History Menstrual Age of Menarche: 9 Questionnaire PHQ-9 Over the last 2 weeks, how often have you been bothered by any of the following problems? 1. Little interest or pleasure in doing things: more than half the days 2. Feeling down, depressed, or hopeless: several days 3. Trouble falling or staying asleep, or sleeping too much: not at all 4. Feeling tired or having little energy: several days 5. Poor appetite or overeating: not at all 6. Feeling bad about yourself - or that you are a failure or have let yourself or your family down: not at all 7. Trouble concentrating on things, such as reading the newspaper or watching television: not at all 8. Moving or speaking so slowly that other people could have noticed. Or the opposite - being so fidgety or restless that you have been moving around a lot more than usual: not at all 9. Thoughts that you would be better off or of hurting yourself in some way: not at all Total score: 4 05254 - PHQ-9 Billing: Yes Source: Developed by Drs. Michelet Roman, Kelly Bynum, Clement Malloy and colleagues, with an educational debra from [employer] Thrive Questionnaire Date Thrive assessed: 07/08/25 I am a: Patient What is your living situation today?: I have a steady place to live Within the past 12 months, did the food you bought not last and you didn't have the money to get more?: Sometimes True Within the past 12 months, did you worry whether your food would run out before you got money to buy more?: Often true Do you have trouble paying for medicines?: Yes Do you have trouble getting transportation to medical appointments?: No Do you have trouble paying your heating and electricity bill?: Yes Do you have trouble taking care of your child, family member or friend?: Yes Do you have trouble with day-to-day activities such as bathing, preparing meals, shopping, managing finances, etc.?: Yes Are you currently unemployed and looking for a job?: No Are you interested in more education?: No Please select the resources that you would like help with: None THRIVE Score: 3 AUDIT C Alcohol Use Questionnaire (AUDIT-C) 1. How often do you have a drink containing alcohol?: Never 3. How often do you have six or more drinks on one occasion?: Never Total Score: 0 TALON-7 AMB Questionnaire TALON-7 Date TALON - 7 assessed: 07/08/25 Feeling nervous, anxious, or on edge: 0 = Not at all Not being able to stop or control worryin = Not at all Worrying too much about different things: 0 = Not at all Trouble relaxin = Not at all Being so restless that it is hard to sit still: 0 = Not at all Becoming easily annoyed or irritable: 0 = Not at all Feeling afraid as if something awful might happen: 0 = Not at all Total TALON-7 score (0-4 normal; 5-9 mild; 10-14 moderate; 15-21 severe): 0 Source: Developed by Drs. Michelet Roman, Kelly Bynum, Clement Malloy and colleagues, with an educational debra from [employer] Review of Systems Const Denies body aches, Denies chills, Denies fever(s), Denies headache(s) and Denies poor appetite Eyes Reports no additional complaints ENT Denies dysphagia, Denies dizziness, Denies headache(s) and Denies odynophagia Card Denies chest pain, Denies syncope, Denies edema, Denies irregular heart rhythm, Denies lightheadedness and Reports dyspnea Resp Denies cough and Reports dyspnea GI Denies abdominal pain, Denies dysphagia, Denies nausea, Denies odynophagia and Denies vomiting Reports no additional complaints Musc Reports no additional complaints and Denies abnormal gait Skin/Breast Reports system reviewed and no additional complaints, except as documented Neuro Denies abnormal gait, Denies dizziness, Denies syncope and Denies headache(s) Psych Reports no additional complaints Physical exam (Primary Care) Vital Signs: Last Vital Signs Pulse 78 07/08/25 09:58 BP 130/62 07/08/25 09:58 Pulse Ox 96 07/08/25 09:58 Oxygen Delivery Method Room Air 07/08/25 09:58 BMI result Body Mass Index 30.8 Tobacco/Smoking Status: Tobacco use Status Tobacco use date assessed 07/08/25 07/08/25 10:00 Patient Tobacco Use Status Former Tobacco user 07/08/25 10:00 Tobacco use type Cigarette 07/08/25 10:00 e-Cigarette/Vaping Use Never Used 07/08/25 10:00 PHQ-9: PHQ-9 Score PHQ-9: Total score 4 07/08/25 10:50 Thrive Assessment: Date of Thrive Assessment Date Thrive assessed 07/08/25 07/08/25 10:00 Const General: cooperative, healthy appearing, comfortable and no acute distress Orientation/consciousness: patient oriented x3 HENMT Head: Yes normocephalic Ears: hearing grossly normal bilaterally General nose exam: Normal external nose present Eyes General: appearance normal, both eyes and all related structures Conjunctivae: conjunctivae normal Neck Neck: Yes full ROM and Yes no lymphadenopathy Resp Effort & Inspection: normal respiratory effort Auscultation: clear to auscultation bilaterally, no crackles, no rales, no rhonchi and no wheezes Cardio Rate: regular rate Rhythm: regular rhythm Skin General skin exam: no rashes or lesions noted Neuro General: patient oriented x3 Gait exam (Neuro): Normal gait present Extrem Other: Intact strength, sensation, pulses in bilateral lower extremities. No calf or l eg swelling, redness, warmth or tenderness to palpation. General: Yes normal to inspection, Yes full ROM and No edema Psych Affect: normal affect Attitude: cooperative Insight: Good insight present (Psych) Judgement: Good judgement present (Psych) Results AMB Hemoglobin A1c AMB Hemoglobin A1c 8.3 % Last Edit by MACHELLE Martinez on 07/08/25 10:50 Results Reviewed Results Reviewed: Laboratory Last Values Hgb A1c (Clinic) 8.3 % (4.0-6.0) H 07/08/25 10:36 Coding Level of Care Code Est Pt Level 4 (96030) Diagnoses Pre-op exam Z01.818 Leg swelling M79.89 Additional Codes PHQ-9 - 19472 - PHQ-9 Billing: Yes ([id number]) Assessment & Plan Assessment & Plan (1) Pre-op exam: Code(s): Z01.818 - Encounter for other preprocedural examination Category: Medical Plan: Regarding preop clearance, the patient is at moderate risk for proposed surgery due to age and comorbidities. Her A1c is above typical goal of less than 8% for surgery however given patient is a brittle diabetic 8.3 is acceptable for this patient. Discussed with the patient elevated sugars can increase the risk of delayed wound healing and risk for infection. Reviewed with the patient that no surgery is completely free of risk and that this examination is to assist the surgeon in reviewing informed consent. Advised patient she may take all medications as prescribed up until the day of the procedure. Question if patient is taking SGLT2 if so this needs to be held 4 days prior to surgery. EKG and blood work ordered and plan to add addendum to this note once clearance has been given. (2) Leg swelling: Code(s): M79.89 - Other specified soft tissue disorders Category: Medical Plan: Patient complaining of bilateral leg swelling since starting on the amlodipine. She discontinued the amlodipine 1 week ago and blood pressure has remained stable. She continues to have leg swelling but it has been improving over the last several days and on exam today swelling is gone. She states the swelling will typically worsen throughout the day. Plan to obtain chest x-ray and BNP given cardiac history. Patient to continue to monitor leg swelling at this time likely will start to improve after discontinuation of amlodipine. Low suspicion for DVT at this time as there is no calf swelling, pain, redness and no visible leg swelling on exam. Reviewed red flag symptoms and when to present for re-evaluation Plan This note was constructed using voice recognition software. While every effort has been made to ensure accuracy and payroll and benefits manager, still areas may have been included sometimes these areas may affect the content or meeting of the given symptoms. Total time spent caring for the patient today was 20 minutes. This includes time spent before the visit reviewing the chart, time spent during the visit, and time spent after the visit and documentation. Orders: Orders B Type Natriuretic Peptide Today M79.89 - Other specified soft tissue disorders AMB Hemoglobin A1c Today E11.65 - Type 2 diabetes mellitus with hyperglycemia Comprehensive Met. Panel Today Z00.00 - Encounter for general adult medical examination without abnormal findings, Z01.818 - Encounter for other preprocedural examination Complete Blood Count Auto Diff Today Z00.00 - Encounter for general adult medical examination without abnormal findings, Z01.818 - Encounter for other preprocedural examination ECG 12 lead EKG Today Z01.818 - Encounter for other preprocedural examination XR chest 2V Today M79.89 - Other specified soft tissue disorders, R06.02 - Shortness of breath
[2025-07-08 09:58] VITALS: BP 130/62; PULSE 78; O2SAT 96; BMI 30.8
--- OUTSIDE RECORDS SUMMARY | 2025-07-08 11:31 | XMS_ITS | Patient Health Record ---
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 Role Phone Po William WELLS Primary [...] Problem Status W/U Status Risk Notes Problem 519724005 Colon cancer screening (Z12.11) Active confirmed Problem 091829015 Personal history of colonic polyps (Z86.010) Active confirmed Problem 084782807 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) Active confirmed Problem [id number] Irritable bowel syndrome with diarrhea (K58.0) Active confirmed Problem Gastric polyp (32607794) Gastric polyp (K31.7) Active confirmed Problem Bernal esophagus (634387880) Bernal esophagus (K22.70) Active confirmed Plan Of Treatment Future Test Test Name Order Date UPPER GI ENDOSCOPY 03/06/2013 COLONOSCOPY 03/06/2013 UPPER GI ENDOSCOPY 07/15/2015 COLONOSCOPY 07/15/2015 UPPER GI ENDOSCOPY 07/11/2022 COLONOSCOPY 07/11/2022 Insurance Providers Payer Name Payer Address Payer Phone Subscriber Number Group Number Insured Name Patient Relationship to Insured Coverage Start Date Coverage End Date [facility] Medicare Advantage Plan [address] [address] [place] [address] [id number] ROHIT LECHUGA Self - patient is the insured Medical (General) History Medical History History ICD Code Bernal's esophagus/GERD las t EGD 11/20/15 focal area of Bernal's, no dysplasia Colon polyps, colonoscopy , hyperplastic polyp, five-year followup for previous history of adenomas. Focal ileitis noted on previous exams as well, not treated Coronary artery disease, his tory of [place] x2 with stent placement, sees Dr. Roque asthma hypertension vertigo DM Diabetes mellitus type 2 covid x 2 2021 Surgical History Surgery Date(Month/Year) cholecystectomy parathyroidectomy right shoulder separation hysterectomy Bladder suspension Cystocele rectocele repair x3
--- OUTSIDE RECORDS SUMMARY | 2025-07-08 11:31 | XMS_ITS | Clinical Summary ---
Author Organization [facility] Address [address] [address] Phone Care Team Providers Care Resource Engineer Name Role Phone iWlliam Colón MD Primary Care Provider [phone] Allergies Active Allergy Reactions Criticality Noted Date [...] TO CHECK BLOOD GLUCOSE THREE TIMES DAILY 12/31/19 25 Active cyanocobalami n, vitamin B-12, 1000 MCG tablet Take 1 tablet by mouth every morning. 11/18/19 25 Active fluticasone propionate (FLONASE) 50 mcg/actuation nasal spray 2 sprays by Nasal route daily. 12/26/19 25 Active gabapentin (NEURONTIN) 100 MG capsule Take 1 capsule by mouth every morning. 12/27/19 25 Active ACCU-CHEK FASTCLIX LANCET DRUM Misc 1 each 4 (four) times a day before meals and nightly. 12/31/19 25 Active lansoprazole (PREVACID) 30 MG capsule Take 1 capsule by mouth every morning. 11/15/19 25 Active magnesium oxide (MAG-OX) 400 mg (241.3 mg elemental) tablet Take 1 tablet by mouth 2 (two) times a day. 11/15/19 25 Active metFORMIN (GLUCOPHAGE) 1000 MG tablet Take 1,000 mg by mouth 2 (two) times a day with meals. 11/14/19 25 Active metoprolol tartrate (LOPRESSOR) 50 MG tablet TAKE 2 TABLETS BY MOUTH EVERY MORNING AND 1 TABLET BY MOUTH EVERY EVENING 11/03/19 25 Active simethicone 125 mg Cap Take 125 mg by mouth 4 (four) times a day as needed. Active fenofibrate (LOFIBRA) 160 MG tablet Take 1 tablet by mouth every morning. 11/24/19 25 Active lisinopril (PRINIVIL,ZES TRIL) 40 MG tablet Take 1 tablet by mouth every morning. 11/14/19 25 Active albuterol 90 mcg/actuation inhaler 1 puff every 4 (four) hours as needed. 01/10/20 25 Active spironolacton e (ALDACTONE) 25 MG tablet Take 1 tablet by mouth 2 (two) times a day. 11/17/19 25 Active aspirin 81 MG EC tablet Take 81 mg by mouth daily. Active calcium carbonate (CALCIUM 600 ORAL) Take by mouth. Activ e cholecalcifer ol (VITAMIN D3) 2,000 unit tablet Take 1,000 Units by mouth daily. Active insulin pen needles, disposable, 32 gauge x 5/32 Ndle 1 each by Miscellaneous route as needed. Active amLODIPine (NORVASC) 5 MG tablet Take 5 mg by mouth daily. Active pioglitazone (ACTOS) 15 MG tabletIndicat ions:Type 2 diabetes mellitus with hyperglycemia , with long-term current use of insulin Take 1 tablet (15 mg total) by mouth daily. 90 tablet 1 05/08/20 25 Active HUMALOG KWIKPEN INSULIN 100 unit/mL kwikpen INJECT 10 UNITS SUBCUTANEOUS EVERY MORNING, 14 UNITS AT NOON AND 6 UNITS EVERY EVENING 15 mL 06/19/20 25 Active LANTUS SOLOSTAR U-100 INSULIN 100 unit/mL (3 mL) InPn injection pen Inject 48 Units under the skin daily. 45 mL 06/26/20 25 Active LANTUS SOLOSTAR U-100 INSULIN 100 unit/mL (3 mL) InPn injection pen INJECT 48 UNITS SUBCUTANEOUS EVERY NIGHT AT BEDTIME 01/07/20 25 2024 Discontinued(R eorder) HUMALOG KWIKPEN INSULIN 100 unit/mL kwikpen Inject 10 Units under the skin 3 (three) times a day with meals. 10 units am 14 unit noon 6 units pm 15 mL 03/03/20 25 2024 Discontinued Active Problems Problem Noted Date Diagnosed Date [...] lunchtime which is 1 PM. 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 She has no history of congestive heart [...] Encounters Date Type Department Care Team Description 06/19/2025 Refill [facility] [address] [place] [address] [place] [address] Roderick Clay, DO Medication Refill 05/08/2025 12:10 PM EDT Office Visit [facility] [address] [place] [address] Roderick Clay DO Type 2 diabetes mellitus [...] 11:59 PM EDT Hospital Encounter [facility] [address] [place] [address] Roderick Clay DO Discharge Disposition: Home or [...] Upcoming Encounters Date Type Department Care Team ([facility] st Contact Info) Description 08/22/2025 11:50 AM EDT Office Visit [facility] [address] [place] [address] Roderick Clay DO [address] [place] [id number] Health Maintenance Due Date Last Done Comments Adult Td,Tdap Booster 1949 DEPRESSION SCREENING 1961 SMOKING Hx and SMOKELESS TOBACCO SCREENING 1962 HEPATITIS C SCREENING 1967 ZOSTER VACCINES (1 of 2) 1999 OSTEOPOROSIS SCREENING INITIAL (ONE-TIME) 2014 PNEUMOCOCCAL VACCINES (50+ years) (2 of 2 - PCV) 03/06/2016 03/06/2015 RSV VACCINE (1 - 1-dose 75+ series) 2024 DIABETIC EYE EXAM 01/17/2025 INFLUENZA VACCINE (#1) 2025 9, 10/16/2018, 09/26/2017, Additional history exists COVID-19 VACCINE ( season) 2025 HEMOGLOBIN A1C 07/25/2025 04/24/2025, 01/17/2025 BLOOD PRESSURE [...] URINE MICROALBUMIN 5.2(H) 0 - 2.3 mg/dL [facility] URINE CREATININE 150 mg/dL [facility] MICROALB/CRE RATIO 34.7(H) 0 - 20 mg/g Cre [facility] Urine (Urine) 04/24/2025 9:5 2 AM EDT 04/24/2025 9:54 AM EDT Roderick Clay DO URINE ORDERABLES Final Result [facility] [address] [place] [address] * (ABNORMAL) Comprehensive metabolic panel (04/24/2025 9:39 AM EDT) SODIUM 139 133 - 146 mmol/L [facility] POTASSIUM 4.7 3.3 - 5.1 mmol/L [facility] CHLORIDE 102 96 - 108 mmol/L [facility] CO2 26 21 - 35 mmol/L [facility] BUN 24(H) 6 - 19 mg/dL [facility] CREATININE 1.20 0.5 - 1.5 mg/dL [facility] GLUCOSE 188(H) 70 - 99 mg/dL [facility] ALBUMIN 4.6 3.9 - 4.8 g/dL [facility] TOTAL PROTEIN 7.2 6.5 - 8.0 g/dL [facility] CALCIUM 9.9 8.4 - 10.3 mg/dL [facility] ALKALINE PHOSPHATASE 62 39 - 117 U/L [facility] TOTAL BILIRUBIN 0.3 0.0 - 1.2 mg/dL [facility] AST 17 0 - 37 U/L [facility] ALT 18 0 - 40 U/L [facility] GLOBULIN 2.6 1 - 4.8 g/dL [facility] EGFR 47(L) >59 mL/min/1.7 3m2 [facility] Comment:Estimated glomerular filtration rate calculated using the CKD-EPI refit equation. ANION GAP 16 10 - 20 mmol/L [facility] Blood 04/24/2025 9:39 AM EDT 04/24/2025 9:47 AM EDT Roderick Clay LAB BLOOD ORDERABLES Final Resul t Performing Organization Address [facility]/ZIP Co de Phone Number [address] [address] * (ABNORMAL) Hemoglobin A1c (04/24/2025 9:39 AM EDT) HEMOGLOBIN A1C 9.0(H) 4.3 - 5.8 % [facility] Blood 04/24/2025 9:39 AM EDT 04/24/2025 9:47 AM EDT Roderick Clay LAB BLOOD ORDERABLES Final Resul t Performing Organization Address City/[facility]/ZIP Co de Phone Number [address] [address] * (ABNORMAL) Lipid panel (04/24/2025 9:39 AM EDT) HDL 28 mg/dL [facility] Comment: Interpretation <40 mg/dL: Low HDL cholesterol (major risk factor for CHD) Greater than or equal to 60 mg/dL: High HDL cholesterol ( negative risk factor for CHD) HDL - cholesterol is affected by a number of factors, e.g. smoking, excerise, hormones, sex and age. CHOLESTEROL 103 0 - 240 mg/dL [facility] TRIGLYCERIDES 283(H) 30 - 160 mg/dL [facility] LDL 18(L) 50 - 129 mg/dL [facility] Comment: LDL levels in terms of risk for coronary heart disease: <100 mg/dL: Optimal 100-129 mg/dL: Near or above optimal 130-159 mg/dL: Borderline high 160-189 mg/dL: High >190 mg/dL: Very High CARDIAC RISK RATIO 3.7 3.3 - 4.4 [facility] Blood 04/24/2025 9:39 AM EDT 04/24/2025 9:47 AM EDT Roderick Clay DO LAB BLOOD ORDERABLES Final Resul t Performing Organization Address City/State/[facility] Co de Phone Number [facility] [address] [place] [address] from Last [address] [place] [address] [place] [address] MEDICARE REPLACEMENT MEDICARE REPLACEMENT [place] [id number] MEDICARE REPLACEMENT MEDICARE REPLACEMENT MEDICARE REPLACEMENT MEDICARE REPLACEMENT [place] [id number] MEDICARE REPLACEMENT [place] [id number] MEDICARE REPL[place] [place] [address] MEDICARE REPLACEMENT [place] [id number] Care Teams Resource Engineer Relationship Specialty Start Date End Date William Colón MD [address] [place] [id number] PCP - General Internal Medicine 06/21/21 Additional Source Comments The information contained in this document represents components of the legal health record. It is not the complete legal health record.[facility]
== END 2025-07-08 11:04 | disposition home or self-care (01) ==
LOC: HO.HMCH 09:48
PROVIDERS: PCP Internal Medicine
DX: Z01.818 Encounter for other preprocedural examination (principal); M79.89 Other specified soft tissue disorders; E11.65 Type 2 diabetes mellitus with hyperglycemia

== ENCOUNTER → 2025-07-08 09:47 | Outpatient (BNVA) | payer MEDICARE, SELFPAY | PROVIDERS: PCP Internal Medicine | DX: Z01.818 Encounter for other preprocedural examination (principal); E11.65 Type 2 diabetes mellitus with hyperglycemia; I10 Essential (primary) hypertension; E78.00 Pure hypercholesterolemia, unspecified; I25.10 Atherosclerotic heart disease of native coronary artery without angina pectoris; J44.9 Chronic obstructive pulmonary disease, unspecified; F41.1 Generalized anxiety disorder; I25.2 Old myocardial infarction; M79.89 Other specified soft tissue disorders | CPT/HCPCS: 83036; 96127; 99212 ==

== ENCOUNTER 2025-07-10 14:31 | Outpatient (AMB) | payer MEDICARE, SELFPAY ==
[2025-07-10 14:36] VITALS: BP 124/54; PULSE 76; O2SAT 96; BMI 30.6
--- NOTE | 2025-07-10 14:36 | HO.NEPHOV ---
Vital Signs 07/10/25 14:36 Height 5 ft 5 in Weight 184 lb BMI 30.6 BP 124/54 L Blood Pressure Location Lt brachial Position Sitting Pulse 76 Pulse Source Pulse Oximeter Pulse Oximetry (%) 96 Oxygen Delivery Method Room Air Intake Visit Reasons: INP: Type 2 DM w/hyperglycemia Allergies cortisone (CORTISONE) Allergy (Severe, Verified 07/10/25 14:40) RASH HIVES AND SWELLING OF THE TONGUE nitrofurantoin Allergy (Severe, Verified 07/10/25 14:40) tongue swelling Penicillins Allergy (Severe, Verified 07/10/25 14:40) ANAPHYLAXIS yeast, dried (yeast) Allergy (Severe, Verified 07/10/25 14:40) SHORTNESS OF BREATH amlodipine Allergy (Intermediate, Verified 07/10/25 14:40) swelling of feet empagliflozin (From Jardiance) Allergy (Intermediate, Verified 07/10/25 14:40) swollen tongue omeprazole (From Prilosec) Allergy (Intermediate, Verified 07/10/25 14:40) BLISTERS Sulfa (Sulfonamide Antibiotics) Allergy (Intermediate, Verified 07/10/25 14:40) Itching niacin (Niacin) Allergy (Mild, Verified 07/10/25 14:40) RASH tetracycline (Tetracycline) Allergy (Mild, Verified 07/10/25 14:40) RASH acetic acid (Acetic Acid) Allergy (Unknown, Verified 07/10/25 14:40) SHORTNESS OF BREATH FROM VINEGAR adhesive tape Allergy (Unknown, Verified 07/10/25 14:40) RASH Clindamycin HCl Allergy (Unknown, Verified 07/10/25 14:40) rash procaine (From NOVOCAIN) Allergy (Unknown, Verified 07/10/25 14:40) RASH,SWELLING OF TONGUE,BLISTERING cefixime (From Suprax) Adverse Reaction (Intermediate, Verified 07/10/25 14:40) Swelling in throat dulaglutide (From Trulicity) Adverse Reaction (Intermediate, Verified 07/10/25 14:40) swelling of tongue hydrochlorothiazide Adverse Reaction (Intermediate, Verified 07/10/25 14:40) hypercalcemia methenamine Adverse Reaction (Intermediate, Verified 07/10/25 14:40) Yeast Infection lorazepam (From Ativan) Adverse Reaction (Mild, Verified 07/10/25 14:40) VOMITING/NAUSEA morphine (MORPHINE) Adverse Reaction (Unknown, Verified 07/10/25 14:40) NAUSEA fosfomycin Allergy (Severe, Uncoded 07/08/25 10:11) tongue swelling jardiance Allergy (Severe, Uncoded 07/08/25 10:11) Yeast infection levofloxacin Allergy (Severe, Uncoded 07/08/25 10:11) Hives From AVELOX Allergy (Intermediate, Uncoded 07/08/25 10:11) SWELLING/RASH carrots, vinegar, yeast, chees Allergy (Unknown, Uncoded 07/08/25 10:11) Unknown SEASONAL ALLERGIES Allergy (Unknown, Uncoded 07/08/25 10:11) SNEEZING Medication List - Last Reconciled 07/10/25 by Salvador Reeder MD albuterol sulfate 90 mcg/actuation 1 puff PO Q4H PRN aspirin (Adult Low Dose Aspirin) 81 mg PO DAILY blood pressure monitor (Blood Pressure Kit) As directed blood sugar diagnostic (Accu-Chek Guide test strips) As directed check the BS TID calcium carbonate 600 mg PO DAILY cholecalciferol (vitamin D3) 50 mcg PO DAILY compress.stocking,knee,reg,med As directed 20-30 mm HG cyanocobalamin (vitamin B-12) 1,000 mcg PO DAILY fenofibrate 160 mg PO DAILY fluticasone propionate 50 mcg/actuation 2 sprays intranasal DAILY 90 days gabapentin 100 mg PO DAILY 90 days insulin glargine (Lantus Solostar U-100 Insulin) 48 units (0.48 mL) subcut BEDTIME insulin lispro (Humalog KwikPen (U-100) Insulin) 10 u in am , 14 u noon and 6 u evening subcutaneously 3 times a day; or as directed 30 days lancets (Accu-Chek Fastclix Lancet Drum) 1 ea topical TID 90 days lansoprazole 30 mg PO DAILY lisinopril 40 mg PO DAILY magnesium oxide 400 mg PO BID metformin 1,000 mg PO BIDWMEAL 90 days metoprolol tartrate PO; 2 tabs in the AM, 1 tabs in the PM 90 days pen needle, diabetic (BD Ultra-Fine Micro Pen Needle) As directed inject4 x a day Insulin pen needle, diabetic (BD Marisela 2nd Gen Pen Needle) As directed pioglitazone 15 mg PO DAILY rosuvastatin 40 mg PO DAILY spironolactone 25 mg PO BID HPI Comments Details: The patient is a 75-year-old female referred for evaluation of chronic kidney disease stage 3A. Diagnosed during an endocrinology visit post-myocardial infarction in February. Diabetes mellitus for 20 years, poorly controlled for the last 10 years. She has been taking Ibuprofen twice a day regularly for arthritis of hips Hypertension managed with lisinopril, spironolactone, and metoprolol. Amlodipine discontinued due to peripheral edema. Bladder prolapse surgically repaired thrice, recurred, affecting urinary function. Contributing to kidney issues due to incomplete bladder emptying. Food allergies, seeking dietary guidance for diabetes and kidney management. Medical History: - Myocardial infarction - Diabetes mellitus - Chronic kidney disease stage 3A - Hypertension - Osteoarthritis - Peripheral edema - Bladder prolapse - Food allergies Surgical History: - Bladder prolapse repair (three times) Medications: - Lisinopril 40 mg for hypertension - Spironolactone 25 mg twice daily for hypertension - Metoprolol, 2 in the morning, 1 in the evening for hypertension - Ibuprofen for osteoarthritis Social History: - Former smoker, quit six years ago after smoking for 30 years, up to a pack a day - Limited physical activity due to age and health conditions - Dietary management complicated by food allergies and diabetes Diagnostic Results: - Labs: A1c 8.8%, 8.3% - Labs: Potassium normal - Labs: Magnesium low during episodes of leg swelling - Imaging: Ultrasound two years ago showed residual urine PFSH Medical History Pulmonary nodule NSTEMI (non-ST elevated myocardial infarction) Breast cancer screening by mammogram Tobacco abuse Myocardial infarct COVID-19 Cough Skin rash Colon cancer screening Essential hypertension Mitral valve prolapse Diabetic neuropathy Type 2 diabetes mellitus with hyperglycemia Hip osteoarthritis Diabetic nephropathy Vitamin D deficiency COPD (chronic obstructive pulmonary disease) Osteoarthritis Barretts esophagus Hypercholesterolemia Coronary artery disease Surgical History H/O heart artery stent Cystocele History of parathyroidectomy History of hysterectomy History of cholecystectomy Family History Father CVD (cardiovascular disease) Dementia Heart valve replaced Mother Colon cancer Social History Housing: House Alcohol intake: never Patient Tobacco Use Status: Former Tobacco user Tobacco use type: Cigarette Cigarettes Per Day: 1 Years Smoked: 40 +/- quit 02/2024 e-Cigarette/Vaping Use: Never Used Second Hand Smoke Exposure: No service: No Current occupational status: retired Current occupation: right hand dominant Cognitive needs: No Hearing needs: No Vision needs: Yes Female Reproductive History Menstrual Age of Menarche: 9 Physical Exam Vital Signs: Last Vital Signs Pulse 76 07/10/25 14:36 BP 124/54 L 07/10/25 14:36 Pulse Ox 96 07/10/25 14:36 Oxygen Delivery Method Room Air 07/10/25 14:36 BMI result Body Mass Index 30.6 Const General: comfortable Nutritional Appearance: well nourished Orientation/consciousness: patient oriented x3 HEENT Head: No normal to inspection Mouth: moist mucous membranes Neck Neck: Yes supple and Yes no JVD Resp Auscultation: clear to auscultation bilaterally, no rales and rub present Cardio Jugular venous distension: no JVD Palpation: no palpable S3 and no palpable S4 Heart sounds: no rubs GI Palpation (GI): Soft to palpation and nontender Percussion: No Fluid wave present General: Yes no CVA tenderness Back/Spine/Pelvis Back: no CVA tenderness Skin General skin exam: no rashes or lesions noted Neuro General: patient oriented x3 Extrem General: Yes no pedal edema and No clubbing Results Reviewed Nephrology Results: Renal US 02/20/23 Assessment & Plan Assessment & Plan (1) Essential hypertension: Code(s): I10 - Essential (primary) hypertension Category: Medical (2) CKD (chronic kidney disease): Code(s): N18.9 - Chronic kidney disease, unspecified Category: Medical Plan CKD 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 Panel Today I10 - Essential (primary) hypertension, N18.9 - Chronic kidney disease, unspecified US renal BI Today N18.9 - Chronic kidney disease, unspecified Protein, 24 Hr Urine Group Today N18.9 - Chronic kidney disease, unspecified Complete Blood Count no Diff Today I10 - Essential (primary) hypertension, N18.9 - Chronic kidney disease, unspecified Total Protein Urine Random Today I10 - Essential (primary) hypertension, N18.9 - Chronic kidney disease, unspecified UA and rflx microscopic Today I10 - Essential (primary) hypertension, N18.9 - Chronic kidney disease, unspecified Creatinine Urine Today I10 - Essential (primary) hypertension, N18.9 - Chronic kidney disease, unspecified Coding Level of Care Code New Pt Level 4 (31001) Diagnoses Essential hypertension I10 CKD (chronic kidney disease) N18.9
--- OUTSIDE RECORDS SUMMARY | 2025-07-10 18:14 | XMS_ITS | Patient Health Record ---
Author Organization [facility] Address [address] [place] [address] Care Team Providers Care Wage And Hour Investigator Name Role Phone Po William WELLS Primary Care Provider iLor Guerrier Jr Unavailable Allergies Allergen (clinical drug [...] Problem Status W/U Status Risk Notes Problem 575009068 Colon cancer screening (Z12.11) Active confirmed Problem 708081136 Personal history of colonic polyps (Z86.010) Active confirmed Problem 116303790 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) Active confirmed Problem 533777737 Irritable bowel syndrome with diarrhea (K58.0) Active confirmed Problem Gastric polyp (84131408) Gastric polyp (K31.7) Active confirmed Problem Bernal esophagus (419064901) Bernal esophagus (K22.70) Active confirmed Plan Of Treatment Future Test Test Name Order Date UPPER GI ENDOSCOPY 03/06/2013 COLONOSCOPY 03/06/2013 UPPER GI ENDOSCOPY 07/15/2015 COLONOSCOPY 07/15/2015 UPPER GI ENDOSCOPY 07/11/2022 COLONOSCOPY 07/11/2022 Insurance Providers Payer Name Payer Address Payer Phone Subscriber Number Group Number Insured Name Patient Relationship to Insured Coverage Start Date Coverage End Date [facility] Medicare Advantage Plan [address] [address] [place] [address] [id number] ROHIT LECHUGA Self - patient is the insured Medical (General) History Medical History History ICD Code Bernal's esophagus/GERD las t EGD 11/20/15 focal area of Bernal's, no dysplasia Colon polyps, colonoscopy , hyperplastic polyp, five-year followup for previous history of adenomas. Focal ileitis noted on previous exams as well, not treated Coronary artery disease, his tory of [place] x2 with stent placement, sees Dr. Roque asthma hypertension vertigo DM Diabetes mellitus type 2 covid x 2 2021 Surgical History Surgery Date(Month/Year) cholecystectomy parathyroidectomy right shoulder separation hysterectomy Bladder suspension Cystocele rectocele repair x3
--- OUTSIDE RECORDS SUMMARY | 2025-07-10 18:14 | XMS_ITS | Clinical Summary ---
Author Organization [facility] Address [address] [address] Phone Care Team Providers Care Accounts Receivable Accountant Name Role Phone William Colón MD Primary Care Provider [phone] Allergies Active Allergy Reactions Criticality Noted Date [...] 15 mg daily which is an insulin torch brazer. She has no history of congestive heart [...] Type Department Care Team Description 06/19/2025 Refill [facility] Endocrinology [address] [place] [address] [place] [address] Roderick Clay, DO Medication Refill 05/08/2025 12:10 PM EDT Office Visit [facility] [address] [place] [address] Roderick Clay DO Type 2 diabetes mellitus [...] PM EDT Hospital Encounter [facility] [address] [place] [address] Roderick Caly DO Discharge Disposition: Home or Self Care [...] Upcoming Encounters Date Type Department Care Team ([facility] st Contact Info) Description 08/22/2025 11:50 AM EDT Office Visit [facility] [address] [place] [address] Roderick Clay DO [address] [place] [id number] [email or web address] Health Maintenance Due Date Last Done Comments [...] URINE MICROALBUMIN 5.2(H) 0 - 2.3 mg/dL [facility] URINE CREATININE 150 mg/dL [facility] MICROALB/CRE RATIO 34.7(H) 0 - 20 mg/g Cre [facility] Urine (Urine) 04/24/2025 9:5 2 AM EDT 04/24/2025 9:54 AM EDT Roderick Clay DO URINE ORDERABLES Final Result [facility] [address] [place] [address] * (ABNORMAL) Comprehensive metabolic panel (04/24/2025 9:39 AM EDT) SODIUM 139 133 - 146 mmol/L [facility] POTASSIUM 4.7 3.3 - 5.1 mmol/L [facility] CHLORIDE 102 96 - 108 mmol/L [facility] CO2 26 21 - 35 mmol/L [facility] BUN 24(H) 6 - 19 mg/dL [facility] CREATININE 1.20 0.5 - 1.5 mg/dL [facility] GLUCOSE 188(H) 70 - 99 mg/dL [facility] ALBUMIN 4.6 3.9 - 4.8 g/dL [facility] TOTAL PROTEIN 7.2 6.5 - 8.0 g/dL [facility] CALCIUM 9.9 8.4 - 10.3 mg/dL [facility] ALKALINE PHOSPHATASE 62 39 - 117 U/L [facility] TOTAL BILIRUBIN 0.3 0.0 - 1.2 mg/dL [facility] AST 17 0 - 37 U/L [facility] ALT 18 0 - 40 U/L [facility] GLOBULIN 2.6 1 - 4.8 g/dL [facility] EGFR 47(L) >59 mL/min/1.7 3m2 [facility] Comment:Estimated glomerular filtration rate calculated using the CKD-EPI refit equation. ANION GAP 16 10 - 20 mmol/L [facility] Blood 04/24/2025 9:39 AM EDT 04/24/2025 9:47 AM EDT Roderick Clay LAB BLOOD ORDERABLES Final Resul t Performing Organization Address [facility]/ZIP Co de Phone Number [address] [address] * (ABNORMAL) Hemoglobin A1c (04/24/2025 9:39 AM EDT) HEMOGLOBIN A1C 9.0(H) 4.3 - 5.8 % [facility] Blood 04/24/2025 9:39 AM EDT 04/24/2025 9:47 AM EDT Roderick Clay LAB BLOOD ORDERABLES Final Resul t Performing Organization Address City/[facility]/ZIP Co de Phone Number [address] [address] * (ABNORMAL) Lipid panel (04/24/2025 9:39 AM EDT) HDL 28 mg/dL [facility] Comment: Interpretation <40 mg/dL: Low HDL cholesterol (major risk factor for CHD) Greater than or equal to 60 mg/dL: High HDL cholesterol ( negative risk factor for CHD) HDL - cholesterol is affected by a number of factors, e.g. smoking, excerise, hormones, sex and age. CHOLESTEROL 103 0 - 240 mg/dL [facility] TRIGLYCERIDES 283(H) 30 - 160 mg/dL [facility] LDL 18(L) 50 - 129 mg/dL [facility] Comment: LDL levels in terms of risk for coronary heart disease: <100 mg/dL: Optimal 100-129 mg/dL: Near or above optimal 130-159 mg/dL: Borderline high 160-189 mg/dL: High >190 mg/dL: Very High CARDIAC RISK RATIO 3.7 3.3 - 4.4 C [facility] Blood 04/24/2025 9:39 AM EDT 04/24/2025 9:47 AM EDT Roderick Clay DO LAB BLOOD ORDERABLES Final Resul t Performing Organization Address City/State/[facility] Co de Phone Number [facility] [address] [place] [address] from Last [address] [place] [address] [address] [place] [address] MEDICARE REPLACEMENT MEDICARE REPLACEMENT [place] [id number] MEDICARE REPLACEMENT MEDICARE REPLACEMENT MEDICARE REPLACEMENT MEDICARE REPLACEMENT [place] [id number] MEDICARE REPLACEMENT [place] [id number] MEDICARE REPL[place] [address] [place] [address] MEDICARE REPLACEMENT [place] [id number] Care Teams Accounts Receivable Accountant Relationship Specialty Start Date End Date William Colón MD [address] [place] [id number] PCP - General Internal Medicine 06/21/21 Additional Source Comments The information contained in this document represents components of the legal health record. It is not the complete legal health record.[facility]
== END 2025-07-10 15:13 | disposition home or self-care (01) ==
LOC: HO.HKA 14:32
PROVIDERS: PCP Internal Medicine; Visit Provider Internal Medicine Hypertension Specialist
DX: I12.9 Hypertensive chronic kidney disease with stage 1 through stage 4 chronic kidney disease, or unspecified chronic kidney disease (principal); N18.9 Chronic kidney disease, unspecified
CPT/HCPCS: 99204

== ENCOUNTER → 2025-07-10 14:31 | Outpatient (BNVA) | payer MEDICARE, SELFPAY | PROVIDERS: PCP Internal Medicine; Visit Provider Internal Medicine Hypertension Specialist | DX: I10 Essential (primary) hypertension (principal); N18.31 Chronic kidney disease, stage 3a; E11.22 Type 2 diabetes mellitus with diabetic chronic kidney disease | CPT/HCPCS: 99202 ==

== ENCOUNTER 2025-07-11 11:33 | Outpatient (REF) | payer MEDICARE, SELFPAY ==
--- NOTE | ~2025-07-11 | XR_ITS ---
EXAMINATION: XR CHEST 2 VIEWS HISTORY: M79.89 - Other specified soft tissue disorders COMPARISON: Comparison is made with the prior examination dated 03/17/2024. FINDINGS: PA and lateral views of the chest are submitted. The lungs are expanded and clear. There is no pleural effusion, pneumothorax, or pulmonary vascular congestion. The heart is normal in size. There is calcification of the aortic knob. There is degenerative disc disease of the spine. XR/XR chest 2V IMPRESSION: No acute cardiopulmonary abnormality. Electronically signed by: Michelet Caldwell MD 07/11/2025 12:18 PM EDT
--- NOTE | 2025-07-11 11:37 | ECG_ITS ---
Test Reason : pre op Blood Pressure : */* mmHG Vent. Rate : 64 BPM Atrial Rate : 64 BPM P-R Int : 158 ms QRS Dur : 124 ms QT Int : 440 ms P-R-T Axes : -6 54 48 degrees QTcB Int : 453 ms Normal sinus rhythm Right bundle branch block Abnormal ECG When compared with ECG of 17-Mar-2024 23:26, T wave inversion no longer evident in Anterior leads Referred By: Elis Ortiz Electronically Signed By: CARLITO EGAN MD
[2025-07-11 11:53] LABS: MANUAL DIFF FLAG NO
[2025-07-11 13:01] LABS: Hematocrit 34.5 % (37.0-47.0); Hemoglobin 12.0 g/dl (12.0-16.0); Imm Gran Abs Auto 0.01 X10*3/uL (0.00-0.03); Imm Gran Pct Auto 0.1 % (0.0-0.4); Lymphocytes Absolute Auto 1.5 X10*3/uL (1.2-4.9); Mean Corpuscular HGB Conc 34.8 g/dl (31.0-35.0); Mean Corpuscular Hemoglobin 31.0 pg (27.0-33.0); Mean Corpuscular Volume 89.1 fL (80.0-98.0); NRBC Abs Auto 0.000 X10*3/uL (0.0-0.012); NRBC Pct Auto 0.0 /100WBC (0.0-0.2); Platelet Count 261 X10*3/uL (160-400); Red Blood Count 3.87 X10*6/uL (4.20-5.50); White Blood Count 7.6 X10*3/uL (4.8-10.8)
[2025-07-11 13:54] LABS: Alanine Aminotransferase 24 U/L (0-31); Albumin Level 4.9 g/dL (3.5-5.0); Alkaline Phosphatase 53 U/L (39-117); Anion Gap 16 (12-20); Aspartate Amino Transferase 28 U/L (5-31); Blood Urea Nitrogen 26 mg/dL (9-16); Calcium 9.6 mg/dL (8.4-10.2); Carbon Dioxide 23 mmol/L (22-29); Chloride 107 mmol/L (96-108); Cholesterol 115 mg/dL (<200); Estimated Glomerular Filt Rate 41; HDL Cholesterol 35 mg/dL (>40); Magnesium 1.6 mg/dL (1.6-2.6); Potassium 4.5 mmol/L (3.3-5.1); Sodium 141 mmol/L (135-145); Total Protein 7.3 g/dL (6.5-8.0); Triglycerides 187 mg/dL (<150)
[2025-07-11 14:04] LABS: Free T4 (Free Thyroxine) 1.04 ng/dL (0.71-1.85); Thyroid Stimulating Hormone 1.03 uIU/mL (0.32-4.0)
[2025-07-11 14:12] LABS: Folate 7.4 ng/mL (> or = 4.0); Vitamin B12 834 pg/mL (200-900)
== END 2025-07-11 11:34 | disposition home or self-care (01) ==
LOC: HO.XRAY 11:33
PROVIDERS: PCP Internal Medicine
DX: Z01.818 Encounter for other preprocedural examination (principal); Z01.810 Encounter for preprocedural cardiovascular examination; E11.65 Type 2 diabetes mellitus with hyperglycemia; E78.00 Pure hypercholesterolemia, unspecified; M79.89 Other specified soft tissue disorders; R06.02 Shortness of breath; Z13.21 Encounter for screening for nutritional disorder
CPT/HCPCS: 36415; 71046; 80053; 80061; 82306; 82607; 82746; 83735; 84439; 84443; 85025; 93005

== ENCOUNTER → 2025-07-11 11:37 | Outpatient (BNV) | payer MEDICARE, SELFPAY | PROVIDERS: PCP Internal Medicine; Visit Provider Internal Medicine Cardiovascular Disease | DX: I45.10 Unspecified right bundle-branch block (principal) | CPT/HCPCS: 93010 ==

== ENCOUNTER → 2025-07-11 12:01 | Outpatient (BNV) | payer MEDICARE, SELFPAY | PROVIDERS: PCP Internal Medicine; Visit Provider Radiology Diagnostic Radiology | DX: Z01.818 Encounter for other preprocedural examination (principal) | CPT/HCPCS: 71046 ==

== ENCOUNTER 2025-07-17 13:40 | Outpatient (REF) | payer MEDICARE, SELFPAY ==
[2025-07-17 14:29] LABS: Total Volume 24 Hour Urine 850 mL
[2025-07-17 15:33] LABS: Creatinine, mg/dL 92.45
--- OUTSIDE RECORDS SUMMARY | 2025-07-17 15:39 | XMS_ITS | Clinical Summary ---
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 She has no history of congestive heart [...] Type Department Care Team Description 06/19/2025 Refill [facility] Endocrinology [address] [place] [address] [place] [address] Roderick Clay, DO Medication Refill 05/08/2025 12:10 PM EDT Office Visit [facility] [address] [place] [address] Roderick Clay DO Type 2 diabetes mellitus [...] PM EDT Hospital Encounter [facility] [address] [place] [address] Roderick Clay DO Discharge Disposition: Home or [...] Upcoming Encounters Date Type Department Care Team ([facility] st Contact Info) Description 08/22/2025 11:50 AM EDT Office Visit [facility] [address] [place] [address] Roderick Clay DO [address] [place] [id number] [email or web address] Health Maintenance Due Date Last Done Comments [...] URINE MICROALBUMIN 5.2(H) 0 - 2.3 mg/dL [facility] URINE CREATININE 150 mg/dL [facility] MICROALB/CRE RATIO 34.7(H) 0 - 20 mg/g Cre [facility] Urine (Urine) 04/24/2025 9:5 2 AM EDT 04/24/2025 9:54 AM EDT Roderick Clay DO URINE ORDERABLES Final Result [facility] [address] [place] [address] * (ABNORMAL) Comprehensive metabolic panel (04/24/2025 9:39 AM EDT) SODIUM 139 133 - 146 mmol/L [facility] POTASSIUM 4.7 3.3 - 5.1 mmol/L [facility] CHLORIDE 102 96 - 108 mmol/L [facility] CO2 26 21 - 35 mmol/L [facility] BUN 24(H) 6 - 19 mg/dL [facility] CREATININE 1.20 0.5 - 1.5 mg/dL [facility] GLUCOSE 188(H) 70 - 99 mg/dL [facility] ALBUMIN 4.6 3.9 - 4.8 g/dL [facility] TOTAL PROTEIN 7.2 6.5 - 8.0 g/dL [facility] CALCIUM 9.9 8.4 - 10.3 mg/dL [facility] ALKALINE PHOSPHATASE 62 39 - 117 U/L [facility] TOTAL BILIRUBIN 0.3 0.0 - 1.2 mg/dL [facility] AST 17 0 - 37 U/L [facility] ALT 18 0 - 40 U/L [facility] GLOBULIN 2.6 1 - 4.8 g/dL [facility] EGFR 47(L) >59 mL/min/1.7 3m2 [facility] Comment:Estimated glomerular filtration rate calculated using the CKD-EPI refit equation. ANION GAP 16 10 - 20 mmol/L [facility] Blood 04/24/2025 9:39 AM EDT 04/24/2025 9:47 AM EDT Roderick Clay LAB BLOOD ORDERABLES Final Resul t Performing Organization Address [facility]/ZIP Co de Phone Number [address] [address] * (ABNORMAL) Hemoglobin A1c (04/24/2025 9:39 AM EDT) HEMOGLOBIN A1C 9.0(H) 4.3 - 5.8 % [facility] Blood 04/24/2025 9:39 AM EDT 04/24/2025 9:47 AM EDT Roderick Clay LAB BLOOD ORDERABLES Final Resul t Performing Organization Address City/[facility]/ZIP Co de Phone Number [address] [address] * (ABNORMAL) Lipid panel (04/24/2025 9:39 AM EDT) HDL 28 mg/dL [facility] Comment: Interpretation <40 mg/dL: Low HDL cholesterol (major risk factor for CHD) Greater than or equal to 60 mg/dL: High HDL cholesterol ( negative risk factor for CHD) HDL - cholesterol is affected by a number of factors, e.g. smoking, excerise, hormones, sex and age. CHOLESTEROL 103 0 - 240 mg/dL [facility] TRIGLYCERIDES 283(H) 30 - 160 mg/dL [facility] LDL 18(L) 50 - 129 mg/dL [facility] Comment: LDL levels in terms of risk for coronary heart disease: <100 mg/dL: Optimal 100-129 mg/dL: Near or above optimal 130-159 mg/dL: Borderline high 160-189 mg/dL: High >190 mg/dL: Very High CARDIAC RISK RATIO 3.7 3.3 - 4.4 C [facility] Blood 04/24/2025 9:39 AM EDT 04/24/2025 9:47 AM EDT Roderick Clay DO LAB BLOOD ORDERABLES Final Resul t Performing Organization Address City/State/[facility] Co de Phone Number [facility] [address] [place] [address] from Last [address] [place] [address] [address] [place] [address] MEDICARE REPLACEMENT MEDICARE REPLACEMENT [place] [id number] MEDICARE REPLACEMENT MEDICARE REPLACEMENT MEDICARE REPLACEMENT MEDICARE REPLACEMENT [place] [id number] MEDICARE REPLACEMENT [place] [id number] MEDIC[place] [address] [place] [address] MEDICARE REPLACEMENT [place] [id number] Care Teams Band Sewer Relationship Specialty Start Date End Date William Colón MD [address] [place] [address] PCP - General Internal Medicine 06/21/21 Additional Source Comments The information contained in this document represents components of the legal health record. It is not the complete legal health record.[facility]
== END 2025-07-17 13:41 | disposition home or self-care (01) ==
LOC: HO.LNP 13:40
PROVIDERS: Visit Provider Internal Medicine Hypertension Specialist
DX: N18.9 Chronic kidney disease, unspecified (principal)
CPT/HCPCS: 84156

== ENCOUNTER 2025-07-25 14:12 | Outpatient (REF) | payer MEDICARE, SELFPAY ==
--- NOTE | ~2025-07-25 | US_ITS ---
EXAMINATION: US KIDNEY BILATERAL HISTORY: N18.9 - Chronic kidney disease, unspecified TECHNIQUE: Real-time grayscale ultrasound imaging of the kidneys was performed and images were reviewed. COMPARISON: Comparison is made with the prior examination dated 02/20/2023. FINDINGS: Right kidney: The right kidney measures 11.5 x 4.3 x 5.6 cm. Renal parenchymal echotexture and thickness are normal. There is an upper pole cyst measuring 1.3 x 1.4 x 1.4 cm. There is no hydronephrosis or renal calculi. Left Kidney: The left kidney measures 11.5 x 5.3 x 5.3 cm. Renal parenchymal echotexture and thickness are normal. There are no masses. There is no hydronephrosis or renal calculi. US/US renal BI IMPRESSION: 1.4 cm right upper pole renal cyst. Otherwise unremarkable renal ultrasound. Electronically signed by: Michelet Caldwell MD 07/25/2025 02:41 PM EDT
--- OUTSIDE RECORDS SUMMARY | 2025-07-25 15:18 | XMS_ITS | Patient Health Record ---
Author Organization [facility] Address [address] [place] [address] Care Team Providers Care Patent Law Specialist Name Role Phone Po William WELLS Primary Care Provider Lior Guerrier Jr Unavailable Allergies Allergen (clinical drug ingredient) Drug/Non Drug Allergy documented on EMR Reaction Allergy Type Onset Date Status Cortisone Unknown Drug Allergy Active tetracycline Tetracycline HCl Unknown Drug Allergy Active omeprazole Prilosec Unknown Drug Allergy Active niacin Niacin Unknown Drug Allergy Active Penicillin Unknown Drug Allergy Active Reason For Referral [...] Problem Status W/U Status Risk Notes Problem 876959277 Colon cancer screening (Z12.11) Active confirmed Problem 962012257 Personal history of colonic polyps (Z86.010) Active confirmed Problem 623684412 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) Active confirmed Problem 103929496 Irritable bowel syndrome with diarrhea (K58.0) Active confirmed Problem Gastric polyp (15943708) Gastric polyp (K31.7) Active confirmed Problem Bernal esophagus (910398548) Bernal esophagus (K22.70) Active confirmed Plan Of Treatment Future Test Test Name Order Date UPPER GI ENDOSCOPY 03/06/2013 COLONOSCOPY 03/06/2013 UPPER GI ENDOSCOPY 07/15/2015 COLONOSCOPY 07/15/2015 UPPER GI ENDOSCOPY 07/11/2022 COLONOSCOPY 07/11/2022 Insurance Providers Payer Name Payer Address Payer Phone Subscriber Number Group Number Insured Name Patient Relationship to Insured Coverage Start Date Coverage End Date [facility] Medicare Advantage Plan [address] [address] [place] [address] [phone] [id number] ROHIT LECHUGA Self - patient is the insured Medical (General) History Medical History History ICD Code Bernal's esophagus/GERD las t EGD 11/20/15 focal area of Bernal's, no dysplasia Colon polyps, colonoscopy , hyperplastic polyp, five-year followup for previous history of adenomas. Focal ileitis noted on previous exams as well, not treated Coronary artery disease, his tory of PA x2 with stent placement, sees Dr. Roque asthma hypertension vertigo DM Diabetes mellitus type 2 covid x 2 2021 Surgical History Surgery Date(Month/Year) cholecystectomy parathyroidectomy right shoulder separation hysterectomy Bladder suspension Cystocele rectocele repair x3
--- OUTSIDE RECORDS SUMMARY | 2025-07-25 15:18 | XMS_ITS | Clinical Summary ---
Author Organization [facility] Address [address] [address] Phone Care Team Providers Care Mainspring Winder And Oiler Name Role Phone William Colón MD Primary Care Provider [phone] Allergies Active Allergy Reactions Criticality Noted Date [...] GLUCOSE THREE TIMES DAILY 12/31/19 25 Active cyanocobalamin , vitamin B-12, 1000 MCG [...] mouth every morning. 11/24/19 25 Active lisinopril (PRINIVIL,ZEST RIL) 40 MG tablet Take 1 tablet by mouth every morning. 11/14/19 25 Active albuterol 90 mcg/actuation inhaler 1 puff every 4 (four) hours as needed. 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 She has no history of congestive heart [...] Type Department Care Team Description 06/19/2025 Refill [facility] Endocrinology [address] [place] [address] [place] [address] Roderick Clay, DO Medication Refill 05/08/2025 12:10 PM EDT Office Visit [facility] [address] [place] [address] [place] [address] Roderick Clay, DO Type 2 diabetes mellitus with diabetic [...] PM EDT Hospital Encounter [facility] [address] [place] [address] Roderick Clay DO Discharge Disposition: Home or [...] 11:50 AM EDT Office Visit [facility] [address] [place] [address] Roderick Clay DO [address] [place] [address] [email or web address] Health Maintenance Due Date Last Done Comments [...] URINE MICROALBUMIN 5.2(H) 0 - 2.3 mg/dL [facility] URINE CREATININE 150 mg/dL [facility] MICROALB/CRE RATIO 34.7(H) 0 - 20 mg/g Cre [facility] Urine (Urine) 04/24/2025 9:5 2 AM EDT 04/24/2025 9:54 AM EDT Roderick Clay DO URINE ORDERABLES Final Result Performing Organization Address City/State/[facility] Co de Phone Number [address] [address] * (ABNORMAL) Comprehensive metabolic panel (04/24/2025 9:39 AM EDT) SODIUM 139 133 - 146 mmol/L [facility] POTASSIUM 4.7 3.3 - 5.1 mmol/L [facility] CHLORIDE 102 96 - 108 mmol/L [facility] CO2 26 21 - 35 mmol/L [facility] BUN 24(H) 6 - 19 mg/dL [facility] CREATININE 1.20 0.5 - 1.5 mg/dL [facility] GLUCOSE 188(H) 70 - 99 mg/dL [facility] ALBUMIN 4.6 3.9 - 4.8 g/dL [facility] TOTAL PROTEIN 7.2 6.5 - 8.0 g/dL [facility] CALCIUM 9.9 8.4 - 10.3 mg/dL [facility] ALKALINE PHOSPHATASE 62 39 - 117 U/L [facility] TOTAL BILIRUBIN 0.3 0.0 - 1.2 mg/dL [facility] AST 17 0 - 37 U/L [facility] ALT 18 0 - 40 U/L [facility] GLOBULIN 2.6 1 - 4.8 g/dL [facility] EGFR 47(L) >59 mL/min/1.7 3m2 [facility] Comment:Estimated glomerular filtration rate calculated using the CKD-EPI refit equation. ANION GAP 16 10 - 20 mmol/L [facility] Blood 04/24/2025 9:39 AM EDT 04/24/2025 9:47 AM EDT [facility] BLOOD ORDERABLES Final Resul t Performing Organization Address City/[facility] Co de Phone Number [address] [address] * (ABNORMAL) Hemoglobin A1c (04/24/2025 9:39 AM EDT) HEMOGLOBIN A1C 9.0(H) 4.3 - 5.8 % [facility] Blood 04/24/2025 9:39 AM EDT 04/24/2025 9:47 AM EDT [facility] LAB BLOOD ORDERABLES Final Resul t Performing Organization Address City/[facility]/ZIP Co de Phone Number [address] [address] * (ABNORMAL) Lipid panel (04/24/2025 9:39 AM EDT) HDL 28 mg/dL [facility] Comment: Interpretation <40 mg/dL: Low HDL cholesterol (major risk factor for CHD) Greater than or equal to 60 mg/dL: High HDL cholesterol ( negative risk factor for CHD) HDL - cholesterol is affected by a number of factors, e.g. smoking, excerise, hormones, sex and age. CHOLESTEROL 103 0 - 240 mg/dL [facility] TRIGLYCERIDES 283(H) 30 - 160 mg/dL [facility] LDL 18(L) 50 - 129 mg/dL [facility] Comment: LDL levels in terms of risk for coronary heart disease: <100 mg/dL: Optimal 100-129 mg/dL: Near or above optimal 130-159 mg/dL: Borderline high 160-189 mg/dL: High >190 mg/dL: Very High CARDIAC RISK RATIO 3.7 3.3 - 4.4 C [facility] Blood 04/24/2025 9:39 AM EDT 04/24/2025 9:47 AM EDT Roderick Clay DO LAB BLOOD ORDERABLES Final Resul t Performing Organization Address City/State/[facility] Co de Phone Number [address] [address] from Last 3 Months Insurance MEDICARE REPLACEMENT [facility] MEDICARE REPLACEMENT MEDICARE REPLACEMENT MEDICARE REPLACEMENT MEDICARE REPLACEMENT MEDICARE REPLACEMENT MEDICARE REPLACEMENT MEDICARE REPLACEMENT [facility] MEDICARE REPLACEMENT Care Teams Mainspring Winder And Oiler Relationship Specialty Start Date End Date William Colón MD [address] [place] [address] [address] [place] [phone] PCP - General Internal Medicine 06/21/21 Additional Source Comments The information contained in this document represents components of the legal health record. It is not the complete legal health record.[facility]
== END 2025-07-25 14:13 | disposition home or self-care (01) ==
LOC: HO.US 14:12
PROVIDERS: PCP Internal Medicine; Visit Provider Internal Medicine Hypertension Specialist
DX: N18.9 Chronic kidney disease, unspecified (principal)
CPT/HCPCS: 76775

== ENCOUNTER → 2025-07-25 14:15 | Outpatient (BNV) | payer MEDICARE, SELFPAY | PROVIDERS: PCP Internal Medicine; Visit Provider Radiology Diagnostic Radiology | DX: N28.1 Cyst of kidney, acquired (principal) | CPT/HCPCS: 76775 ==

== ENCOUNTER 2025-08-05 14:01 | Outpatient (AMB) | payer MEDICARE, SELFPAY ==
[2025-08-05 14:05] VITALS: BP 152/70; PULSE 77; O2SAT 96; BMI 31.1
--- NOTE | 2025-08-05 14:05 | HO.NEPHOV ---
Vital Signs 08/05/25 14:05 08/05/25 14:26 Height 5 ft 5 in Weight 187 lb BMI 31.1 BP 152/70 H 138/70 Blood Pressure Location Rt brachial Rt brachial Position Sitting Sitting Pulse 77 Pulse Source Pulse Oximeter Pulse Oximetry (%) 96 Oxygen Delivery Method Room Air Intake Visit Reasons: 4wk f/u w/labs confirmed Documentation Designer Required: No Accompanied by: Self / Same As Patient Allergies cortisone (CORTISONE) Allergy (Severe, Verified 08/05/25 14:07) RASH HIVES AND SWELLING OF THE TONGUE nitrofurantoin Allergy (Severe, Verified 08/05/25 14:07) tongue swelling Penicillins Allergy (Severe, Verified 08/05/25 14:07) ANAPHYLAXIS yeast, dried (yeast) Allergy (Severe, Verified 08/05/25 14:07) SHORTNESS OF BREATH amlodipine Allergy (Intermediate, Verified 08/05/25 14:07) swelling of feet empagliflozin (From Jardiance) Allergy (Intermediate, Verified 08/05/25 14:07) swollen tongue omeprazole (From Prilosec) Allergy (Intermediate, Verified 08/05/25 14:07) BLISTERS Sulfa (Sulfonamide Antibiotics) Allergy (Intermediate, Verified 08/05/25 14:07) Itching niacin (Niacin) Allergy (Mild, Verified 08/05/25 14:07) RASH tetracycline (Tetracycline) Allergy (Mild, Verified 08/05/25 14:07) RASH acetic acid (Acetic Acid) Allergy (Unknown, Verified 08/05/25 14:07) SHORTNESS OF BREATH FROM VINEGAR adhesive tape Allergy (Unknown, Verified 08/05/25 14:07) RASH Clindamycin HCl Allergy (Unknown, Verified 08/05/25 14:07) rash procaine (From NOVOCAIN) Allergy (Unknown, Verified 08/05/25 14:07) RASH,SWELLING OF TONGUE,BLISTERING cefixime (From Suprax) Adverse Reaction (Intermediate, Verified 08/05/25 14:07) Swelling in throat dulaglutide (From Trulicity) Adverse Reaction (Intermediate, Verified 08/05/25 14:07) swelling of tongue hydrochlorothiazide Adverse Reaction (Intermediate, Verified 08/05/25 14:07) hypercalcemia methenamine Adverse Reaction (Intermediate, Verified 08/05/25 14:07) Yeast Infection lorazepam (From Ativan) Adverse Reaction (Mild, Verified 08/05/25 14:07) VOMITING/NAUSEA morphine (MORPHINE) Adverse Reaction (Unknown, Verified 08/05/25 14:07) NAUSEA fosfomycin Allergy (Severe, Uncoded 07/08/25 10:11) tongue swelling jardiance Allergy (Severe, Uncoded 07/08/25 10:11) Yeast infection levofloxacin Allergy (Severe, Uncoded 07/08/25 10:11) Hives From AVELOX Allergy (Intermediate, Uncoded 07/08/25 10:11) SWELLING/RASH carrots, vinegar, yeast, chees Allergy (Unknown, Uncoded 07/08/25 10:11) Unknown SEASONAL ALLERGIES Allergy (Unknown, Uncoded 07/08/25 10:11) SNEEZING Medication List - Last Reconciled 08/05/25 by Salvador Reeder MD albuterol sulfate 90 mcg/actuation 1 puff PO Q4H PRN aspirin (Adult Low Dose Aspirin) 81 mg PO DAILY blood pressure monitor (Blood Pressure Kit) As directed blood sugar diagnostic (Accu-Chek Guide test strips) As directed check the BS TID calcium carbonate 600 mg PO DAILY cholecalciferol (vitamin D3) 50 mcg PO DAILY compress.stocking,knee,reg,med As directed 20-30 mm HG cyanocobalamin (vitamin B-12) 1,000 mcg PO DAILY fenofibrate 160 mg PO DAILY fluticasone propionate 50 mcg/actuation 2 sprays intranasal DAILY 90 days gabapentin 100 mg PO DAILY 90 days insulin glargine (Lantus Solostar U-100 Insulin) 48 units (0.48 mL) subcut BEDTIME insulin lispro (Humalog KwikPen (U-100) Insulin) 10 u in am , 14 u noon and 6 u evening subcutaneously 3 times a day; or as directed 30 days lancets (Accu-Chek Fastclix Lancet Drum) 1 ea topical TID 90 days lansoprazole 30 mg PO DAILY lisinopril 40 mg PO DAILY magnesium oxide 400 mg PO BID metformin 1,000 mg PO BIDWMEAL 90 days metoprolol tartrate PO; 2 tabs in the AM, 1 tabs in the PM 90 days pen needle, diabetic (BD Ultra-Fine Micro Pen Needle) As directed inject4 x a day Insulin pen needle, diabetic (BD Marisela 2nd Gen Pen Needle) As directed pioglitazone 15 mg PO DAILY rosuvastatin 40 mg PO DAILY spironolactone 25 mg PO BID HPI Comments Details: The patient is a 75-year-old female referred for evaluation of chronic kidney disease stage 3A. Diagnosed during an endocrinology visit post-myocardial infarction in February. Diabetes mellitus for 20 years, poorly controlled for the last 10 years. She has been taking Ibuprofen twice a day regularly for arthritis of hips 08/05/25 - The patient is a 75-year-old female presenting with management of chronic kidney disease, evaluation of peripheral edema, and addressing medication-related side effects. - Tobacco use disorder: Resumed smoking three to four cigarettes daily for stress relief. - Diarrhea: Frequent episodes linked to lansoprazole use, affecting urine collection. - Hypomagnesemia: Low magnesium levels due to lansoprazole, requiring supplementation. - Peripheral edema: Swelling in feet and toes, possibly related to pioglitazone. - Hypertension: Managed with lisinopril, complicated by ibuprofen use. Takes 800 mg everyday - Chronic kidney disease: Low kidney function, advised to maintain hydration and avoid nephrotoxins. - Hip pain: Significant pain limiting mobility, advised against ibuprofen. - Simple renal cyst: Ultrasound showed a simple cyst, no obstruction or stones. [facility] Medical History Pulmonary nodule NSTEMI (non-ST elevated myocardial infarction) Breast cancer screening by mammogram Tobacco abuse Myocardial infarct COVID-19 Cough Skin rash Colon cancer screening Essential hypertension Mitral valve prolapse Diabetic neuropathy Type 2 diabetes mellitus with hyperglycemia Hip osteoarthritis Diabetic nephropathy Vitamin D deficiency COPD (chronic obstructive pulmonary disease) Osteoarthritis Barretts esophagus Hypercholesterolemia Coronary artery disease Surgical History H/O heart artery stent Cystocele History of parathyroidectomy History of hysterectomy History of cholecystectomy Family History Father CVD (cardiovascular disease) Dementia Heart valve replaced Mother Colon cancer Social History Housing: House Alcohol intake: never Patient Tobacco Use Status: Former Tobacco user Tobacco use type: Cigarette Cigarettes Per Day: 1 Years Smoked: 40 +/- quit 02/2024 e-Cigarette/Vaping Use: Never Used Second Hand Smoke Exposure: No service: No Current occupational status: retired Current occupation: right hand dominant Cognitive needs: No Hearing needs: No Vision needs: Yes Female Reproductive History Menstrual Age of Menarche: 9 Physical Exam Vital Signs: Last Vital Signs Pulse 77 08/05/25 14:05 BP 138/70 08/05/25 14:26 Pulse Ox 96 08/05/25 14:05 Oxygen Delivery Method Room Air 08/05/25 14:05 BMI result Body Mass Index 31.1 Results Reviewed Results Reviewed: Jun 2025 USG Right kidney: The right kidney measures 11.5 x 4.3 x 5.6 cm. Renal parenchymal echotexture and thickness are normal. There is an upper pole cyst measuring 1.3 x 1.4 x 1.4 cm. There is no hydronephrosis or renal calculi. Left Kidney: The left kidney measures 11.5 x 5.3 x 5.3 cm. Renal parenchymal echotexture and thickness are normal. There are no masses. There is no hydronephrosis or renal calculi. Nephrology Results: Hgb, (12.0-16.0) 12.0 g/dl 07/11/25 WBC, (4.8-10.8) 7.6 X10*3/uL 07/11/25 Plt Count, (160-400) 261 X10*3/uL 07/11/25 Sodium, (135-145) 141 mmol/L 07/11/25 Potassium, (3.3-5.1) 4.5 mmol/L 07/11/25 Chloride, (96-108) 107 mmol/L 07/11/25 Carbon Dioxide, (22-29) 23 mmol/L 07/11/25 BUN, (9-16) 26 mg/dL H 07/11/25 Creatinine, (0.5-1.4) 1.26 mg/dL 07/11/25 Calcium, (8.4-10.2) 9.6 mg/dL 07/11/25 Renal US 07/25/25 Assessment & Plan Assessment & Plan (1) Essential hypertension: Code(s): I10 - Essential (primary) hypertension Category: Medical (2) CKD (chronic kidney disease): Code(s): N18.9 - Chronic kidney disease, unspecified Category: Medical Plan CKD 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 She will discuss with sales account representative No protienuria Orders: Orders Basic Metabolic Panel 3 Months N18.9 - Chronic kidney disease, unspecified Coding Level of Care Code Est Pt Level 4 (69819) Diagnoses Essential hypertension I10 CKD (chronic kidney disease) N18.9
[2025-08-05 14:26] VITALS: BP 138/70
--- OUTSIDE RECORDS SUMMARY | 2025-08-05 17:16 | XMS_ITS | Clinical Summary ---
Author Organization [facility] Address [address] [address] Phone Care Team Providers Care Recycling Sorter Name Role Phone William Colón MD Primary Care Provider [phone] Allergies Active Allergy Reactions Criticality Noted Date [...] capsule by mouth every morning. 5 Active ACCU-CHEK FASTCLIX LANCET DRUM Misc [...] AND 1 TABLET BY MOUTH EVERY EVENING 5 Active simethicone 125 mg Cap Take 125 [...] total) by mouth daily. 90 tablet 1 5 Active HUMALOG KWIKPEN INSULIN 100 unit/mL kwikpen INJECT 10 UNITS SUBCUTANEOUS EVERY MORNING, 14 UNITS AT NOON AND 6 UNITS EVERY EVENING 15 mL 5 Active LANTUS SOLOSTAR U-100 INSULIN 100 unit/mL (3 mL) InPn injection pen Inject 48 Units under the skin daily. 45 mL 5 Active Active Problems Problem Noted Date Diagnosed [...] 15 mg daily which is an insulin production scheduler. She has no history of congestive heart [...] Type Department Care Team Description 06/19/[address] [facility] Endocrinology [address] [place] [address] [place] [address] Roderick Clay DO Medication Refill 05/08/2025 12:10 PM EDT [facility] [place] [address] Roderick Clay DO Type 2 diabetes mellitus [...] disease, with long-term current use of insulin from Last 3 Months Family History Medical [...] 11:50 AM EDT Office Visit [facility] Endocrinology [address] [place] [address] [place] [address] Roderick Clay DO [address] [place] [address] Health Maintenance Due Date Last Done Comments [...] 09/26/2017, Additional history exists COVID-19 VACCINE ( - season) 2025 HEMOGLOBIN A1C 07/25/2025 04/24/2025, 01/17/2025 [...] Procedure Name Priority Date/Time Associated Diagnosis Comments HEMOGLOBIN A1C Routine 04/24/2025 9:39 AM EDT [...] use of insulin from Last 3 Months or Most Recently Relevant to Health Maintenance Results * (ABNORMAL) Comprehensive metabolic panel (04/24/2025 9:39 AM EDT) SODIUM 139 133 - 146 mmol/L [facility] POTASSIUM 4.7 3.3 - 5.1 mmol/L [facility] CHLORIDE 102 96 - 108 mmol/L [facility] CO2 26 21 - 35 mmol/L [facility] BUN 24(H) 6 - 19 mg/dL [facility] CREATININE 1.20 0.5 - 1.5 mg/dL [facility] GLUCOSE 188(H) 70 - 99 mg/dL [facility] ALBUMIN 4.6 3.9 - 4.8 g/dL [facility] TOTAL PROTEIN 7.2 6.5 - 8.0 g/dL [facility] CALCIUM 9.9 8.4 - 10.3 mg/dL [facility] ALKALINE PHOSPHATASE 62 39 - 117 U/L [facility] TOTAL BILIRUBIN 0.3 0.0 - 1.2 mg/dL [facility] AST 17 0 - 37 U/L [facility] ALT 18 0 - 40 U/L [facility] GLOBULIN 2.6 1 - 4.8 g/dL [facility] EGFR 47(L) >59 mL/min/1.7 3m2 [facility] Comment:Estimated glomerular filtration rate calculated using the CKD-EPI refit equation. ANION GAP 16 10 - 20 mmol/L [facility] Blood 04/24/2025 9:39 AM EDT 04/24/2025 9:47 AM EDT us Roderick Clay DO LAB BLOOD ORDERABLES Final Resul t [facility] [address] [place] [address] * (ABNORMAL) Hemoglobin A1c (04/24/2025 9:39 AM EDT) HEMOGLOBIN A1C 9.0(H) 4.3 - 5.8 % [facility] Blood 04/24/2025 9:39 AM EDT 04/24/2025 9:47 AM EDT us Roderick Clay DO LAB BLOOD ORDERABLES Final Resul t Performing Organization Address [facility] Co de Phone Number [address] [address] * (ABNORMAL) Lipid panel (04/24/2025 9:39 AM EDT) HDL 28 mg/dL [facility] Comment: Interpretation <40 mg/dL: Low HDL cholesterol (major risk factor for CHD) Greater than or equal to 60 mg/dL: High HDL cholesterol ( negative risk factor for CHD) HDL - cholesterol is affected by a number of factors, e.g. smoking, excerise, hormones, sex and age. CHOLESTEROL 103 0 - 240 mg/dL [facility] TRIGLYCERIDES 283(H) 30 - 160 mg/dL [facility] LDL 18(L) 50 - 129 mg/dL [facility] Comment: LDL levels in terms of risk for coronary heart disease: <100 mg/dL: Optimal 100-129 mg/dL: Near or above optimal 130-159 mg/dL: Borderline high 160-189 mg/dL: High >190 mg/dL: Very High CARDIAC RISK RATIO 3.7 3.3 - 4.4 C [facility] Blood 04/24/2025 9:39 AM EDT 04/24/2025 9:47 AM EDT us Roderick Clay DO LAB BLOOD ORDERABLES Final Resul t Performing Organization Address City/[facility]/ZIP Co de Phone Number [address] [address] from Last 3 Months or Most Recently Relevant to Health Maintenance Insurance [facility] MEDICARE REPLACEMENT MEDICARE REPLACEMENT MEDICARE REPLACEMENT MEDICARE REPLACEMENT MEDICARE REPLACEMENT MEDICARE REPLACEMENT MEDICARE REPLACEMENT MEDICARE REPLACEMENT MEDICARE REPLACEMENT Care Teams Recycling Sorter Relationship Specialty Start Date End Date William Colón MD [address] [place] [id number] PCP - General Internal Medicine 06/21/21 Additional Source Comments The information contained in this document represents components of the legal health record. It is not the complete legal health record.[facility]
--- OUTSIDE RECORDS SUMMARY | 2025-08-05 17:16 | XMS_ITS | Patient Health Record ---
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 [address] [place] [address] [id number] ROHIT LECHUGA Self - patient is the insured Medical (General) History Medical History History ICD Code Bernal's esophagus/GERD las t EGD 11/20/15 focal area of Bernal's, no dysplasia Colon polyps, colonoscopy , hyperplastic polyp, five-year followup for previous history of adenomas. Focal ileitis noted on previous exams as well, not treated Coronary artery disease, his tory of [place] x2 with stent placement, sees Dr. Roque asthma hypertension vertigo DM Diabetes mellitus type 2 covid x 2 2021 Surgical History Surgery Date(Month/Year) cholecystectomy parathyroidectomy right shoulder separation hysterectomy Bladder suspension Cystocele rectocele repair x3
== END 2025-08-05 16:40 | disposition home or self-care (01) ==
LOC: HO.HKA 14:02
PROVIDERS: PCP Internal Medicine; Visit Provider Internal Medicine Hypertension Specialist
DX: I12.9 Hypertensive chronic kidney disease with stage 1 through stage 4 chronic kidney disease, or unspecified chronic kidney disease (principal); N18.9 Chronic kidney disease, unspecified
CPT/HCPCS: 99214

== ENCOUNTER → 2025-08-05 14:01 | Outpatient (BNVA) | payer MEDICARE, SELFPAY | PROVIDERS: PCP Internal Medicine; Visit Provider Internal Medicine Hypertension Specialist | DX: E11.22 Type 2 diabetes mellitus with diabetic chronic kidney disease (principal); N18.31 Chronic kidney disease, stage 3a; I12.9 Hypertensive chronic kidney disease with stage 1 through stage 4 chronic kidney disease, or unspecified chronic kidney disease; Z79.4 Long term (current) use of insulin; R60.9 Edema, unspecified; Z79.82 Long term (current) use of aspirin; Z72.0 Tobacco use | CPT/HCPCS: 99212 ==

== ENCOUNTER 2025-09-11 10:54 | Outpatient (REF) | payer MEDICARE, SELFPAY ==
--- NOTE | ~2025-09-11 | MM_ITS ---
EXAMINATION: DXA BONE DENSITY AXIAL HISTORY: Z78.0 - Asymptomatic menopausal state TECHNIQUE: [employer]icus Dual energy absorptiometry (DEXA) of the lumbar spine, total left hip, and femoral neck was performed. COMPARISON: Comparison is made with the prior examination most recent June 2023 FINDINGS: The bone mineral density of the lumbar spine is 1.192 g/cm2, corresponding to a T-score of 0.2, and a Z-score of 1.4. This is indicative of normal bone mineral density. This represents a BMD change of -6.1% compared to the prior exam. This is statistically significant. The bone mineral density of the left total hip is 0.971 g/cm2, corresponding to a T-score of -0.3, and a Z-score of 1.1. This is indicative of normal bone mineral density. This represents a BMD change of -3.3% compared to the prior exam. This is not statistically significant. The bone mineral density of the left femoral neck is 0.923 g/cm2, corresponding to a T-score of -0.8, and a Z-score of 0.8. This is indicative of normal bone mineral density. This represents a BMD change of 3.6% compared to the prior exam. FRACTURE RISK: The FRAX index suggests a ten year probability of major osteoporotic fracture of 9.5%, and of hip fracture 2.2%. MM/XR DEXA axial skeleton IMPRESSION: Based on bone mineral density, and according to World Health Organization (WHO) criteria, the diagnosis is consistent with normal bone mineral density based on lowest T score of -0.8 in the left femoral neck. Treatment Recommendations: NOF guidelines recommend consideration for treatment in postmenopausal women and men age 50 and older presenting with the following: -A hip or vertebral (clinical or morphometric) fracture. -T-score less than or equal to -2.5 at the femoral neck or spine after appropriate evaluation to exclude secondary causes. -Low bone mass at the hip or spine and a 10-year fracture probability by FRAX of greater than or equal to 3% for hip fracture or greater than or equal to 20% for major osteoporotic fracture based on the [place] adapted WHO algorithm. Other Recommendations: All treatment decisions require clinical judgment and consideration of individual patient factors, including patient preferences, comorbidities, previous drug use, risk factors not captured in the FRAX model (e.g. frailty, falls, vitamin D deficiency, increased bone turnover, interval significant decline in bone density) and possible under or overestimation of fracture risk by FRAX. Additional medical evaluation for secondary cause of low bone mineral density may be appropriate. FUTURE SCAN RECOMMENDATION: People with diagnosed cases of osteoporosis or at high risk for fracture should have regular bone mineral density tests. For patients eligible for Medicare, routine testing is allowed once every 2 years. The testing frequency can be increased to one year for patients who have rapidly progressing disease, those who are receiving or discontinuing medical therapy to restore bone mass, or have additional risk factors. Statistically, 68% of repeat scans fall within 1 SD (+/- 0.010 g/cm2 for AP spine L1-L4) and 1 SD (+/- 0.012 g/cm2 for femur total) FRAX is a trademark of the [employer]'s [place] [facility], a World Health Organization (WHO) Collaborating Center. Electronically signed by: Marjan Back MD 09/11/2025 11:37 AM KRISTEN
--- OUTSIDE RECORDS SUMMARY | 2025-09-11 13:36 | XMS_ITS | Clinical Summary ---
Author Organization [facility] Address [address] [address] Phone Care Team Providers Care Manager Career Name Role Phone William Colón MD Primary Care Provider [phone] Allergies Active Allergy Reactions Criticality Noted Date [...] Take 5 mg by mouth daily. Active LANTUS SOLOSTAR U-100 INSULIN 100 unit/mL (3 mL) InPn injection penIndications :Type 2 diabetes mellitus with hyperglycemia, with long-term current use of insulin Inject 40 Units under the skin daily. 45 mL 08/22/20 25 Active HUMALOG KWIKPEN INSULIN 100 unit/mL kwikpenIndicat ions:Type 2 diabetes mellitus with hyperglycemia, with long-term current use of insulin Use 3 times a day before meals based on correction scale 100-150 =6 units 151-200 = 8 units 201-250 =10 units 251-300 =12 units 301-350 =14 units 351-400 =16 units greater than 400 =18 units 15 mL 08/22/20 25 Active pioglitazone (ACTOS) 15 MG tabletIndicati ons:Type 2 diabetes mellitus with hyperglycemia, with long-term current use of insulin Take 1 tablet (15 mg total) by mouth daily. 90 tablet 1 08/22/20 25 Active pioglitazone (ACTOS) 15 MG tabletIndicati ons:Type 2 diabetes mellitus with hyperglycemia, with long-term current use of insulin Take 1 tablet (15 mg total) by mouth daily. 90 tablet 1 05/08/20 25 025 Discontin ued(Reord er) HUMALOG KWIKPEN INSULIN 100 unit/mL kwikpen INJECT 10 UNITS SUBCUTANEOUS EVERY MORNING, 14 UNITS AT NOON AND 6 UNITS EVERY EVENING 15 mL 06/19/20 25 025 Discontin ued(Reord er) LANTUS SOLOSTAR U-100 INSULIN 100 unit/mL (3 mL) InPn injection pen Inject 48 Units under the skin daily. 45 mL 06/26/20 25 025 Discontin ued(Reord er) Active Problems [...] lunchtime which is 1 PM. Sometimes for [employer] she only has cold cuts sometimes she [...] use of insulin 01/17/2025 Assessment & Plan (08/22/2025 12:20 PM EDT): She has had significant improvement in the hemoglobin A1c is 7.4% which is actually okay for her age but I have to look at the glucose levels and she has very high glucose in the evening. So we need to fix that. We can do this by increasing the correction scale by 2 units. But she does develop low glucose overnight and if her sugars are below 169 mg/dL in the evening she has to eat otherwise she develops hypoglycemia overnight. So I am going to decrease the Lantus from 48 units to 40. Unfortunately I cannot increase pioglitazone because she has edema. But she is willing to continue using pioglitazone at the lowest dose 15 mg daily. This medication is an insulin commercial loan underwriter and it has helped her insulin work better. So I will not discontinue it. She will continue on metformin. I have informed her that after making these changes if she finds that she is still going low overnight that she can decrease the Lantus to 35 units. Preferably we would like to keep the fasting glucose above 90 mg/dL since she is symptomatic below 90. I also informed that if she finds that after breakfast she is going too low with the new correction scale that I may have to just give her lower correction scale for breakfast and lunch and just use a higher 1 for dinner. For now we just can stick to the current correction scale that I just adjusted. So the new correction scale was 100-150 = 6 units increasing by 2 units every 50 mg/dL. Assessment & Plan (05/08/2025 12:36 PM EDT): [...] 15 mg daily which is an insulin commercial loan underwriter. She has no history of congestive heart [...] LDL goal <50 01/17/2025 Assessment & Plan (08/22/2025 12:21 PM EDT): Controlled last LDL 18 mg/dL on rosuvastatin 40. Assessment & Plan (05/08/2025 12:33 PM EDT): Controlled. LDL 18 continue rosuvastatin 40 mg no changes required. Assessment & Plan (01/17/2025 12:22 PM EDT): I do not have a lipid panel. She should continue her statin. I will request lipid panel. Encounters Date Type Department Care Team Description 08/22/2025 11:50 AM EDT Office Visit [facility] [address] [place] [address] [place] [address] Roderick Clay, Type 2 diabetes mellitus with diabetic polyneuropathy, with long-term current use of insulin (Primary Dx); Hyperlipidemia LDL goal <50; Type 2 diabetes mellitus with hyperglycemia, with long-term current use of insulin; Type 2 diabetes mellitus with both eyes affected by mild nonproliferative retinopathy without macular edema, with long-term current use of insulin; Type 2 diabetes mellitus with diabetic microalbuminuria, with long-term current use of insulin 08/19/2025 10:38 AM EDT - 08/19/2025 11:59 PM EDT Hospital Encounter [facility] [address] [place] [address] Roderick Clay DO Discharge Disposition: Home or Self Care 08/14/2025 Telephone [facility] [address] [place] [address] [place] [address] Chaya Valdez RN Medication Problem (RE: Pioglitazone) 06/19/2025 Refill [facility] [address] [place] [address] Roderick Clay DO Medication Refill from Last 3 Months Family History Medical [...] Sign Reading Time Taken Comments Blood Pressure 130/60 08/22/2025 11:47 AM EDT Pulse 71 08/22/2025 11:47 AM EDT Temperature 36.4 C (97.5 F) 05/08/2025 11:52 AM EDT Respiratory Rate - - Oxygen Saturation 99% 08/22/2025 11:47 AM EDT Inhaled Oxygen Concentration - - Weight 86.2 kg (190 lb) 08/22/2025 11:47 AM EDT Height 162 cm (5' 3.78 ) 05/08/2025 11:52 AM EDT Body Mass Index 32.84 05/08/2025 11:52 AM EDT Plan of Treatment Upcoming Encounters Date Type Department Care Team (Late st Contact Info) Description 11/27/2025 11:50 AM EST Office Visit [facility] [address] [place] [address] [phone] Roderick Clay DO [address] [place] [id number] [email or web address] Health Maintenance Due Date Last Done Comments [...] VACCINE ( - season) 2025 HEMOGLOBIN A1C 02/17/2026 08/19/2025, 06/2 03/2025, 01/17/2025 BLOOD PRESSURE 02/20/2026 08/22/2025 CREATININE LEVEL 04/24/2026 04/24/2025 LIPID PANEL 04/24/2026 04/24/2025 POTASSIUM LEVEL 04/24/2026 04/24/2025 HEPATITIS A VACCINES Aged Out No long er eligible based on patient's age to complete this topic HIB VACCINES Aged Out No longer eligi ble based on patient's age to complete this topic IPV VACCINES Aged Out No longer eligi ble [...] Date/Time Associated Diagnosis Comments HEMOGLOBIN A1C Routine 08/19/2025 10:46 AM EDT Type 2 diabetes mellitus with hyperglycemia, with long-term current use of insulin LIPID PANEL Routine 04/24/2025 9:39 AM EDT Type 2 diabetes mellitus with diabetic polyneuropathy, with long-term current use of insulin Hyperlipidemia LDL goal <50 COMPREHENSIVE METABOLIC PANEL (CMP) Routine 04/24/2025 9:39 AM EDT Type 2 diabetes mellitus with diabetic polyneuropathy, with long-term current use of insulin from Last 3 Months or Most Recently Relevant to Health Maintenance Results * (ABNORMAL) Hemoglobin A1c (08/19/2025 10:46 AM EDT) HEMOGLOBIN A1C 7.4(H) 4.3 - 5.8 % [facility] Blood 08/19/2025 10:4 6 AM EDT 08/19/2025 10:54 AM EDT Roderick Clay DO LAB BLOOD BKR ORDERABLES Final R esult [facility] [address] [place] [address] * (ABNORMAL) Comprehensive metabolic panel (04/24/2025 9:39 AM EDT) SODIUM 139 133 - 146 mmol/L [facility] POTASSIUM 4.7 3.3 - 5.1 mmol/L [facility] CHLORIDE 102 96 - 108 mmol/L [facility] CO2 26 21 - 35 mmol/L [facility] BUN 24(H) 6 - 19 mg/dL [facility] CREATININE 1.20 0.5 - 1.5 mg/dL [facility] GLUCOSE 188(H) 70 - 99 mg/dL [facility] ALBUMIN 4.6 3.9 - 4.8 g/dL [facility] TOTAL PROTEIN 7.2 6.5 - 8.0 g/dL [facility] CALCIUM 9.9 8.4 - 10.3 mg/dL [facility] ALKALINE PHOSPHATASE 62 39 - 117 U/L [facility] TOTAL BILIRUBIN 0.3 0.0 - 1.2 mg/dL [facility] AST 17 0 - 37 U/L [facility] ALT 18 0 - 40 U/L [facility] GLOBULIN 2.6 1 - 4.8 g/dL [facility] EGFR 47(L) >59 mL/min/1.7 3m2 [facility] Comment:Estimated glomerular filtration rate calculated using the CKD-EPI refit equation. ANION GAP 16 10 - 20 mmol/L [facility] Blood 04/24/2025 9:39 AM EDT 04/24/2025 9:47 AM EDT us Roderick Clay DO LAB BLOOD BKR ORDERABLES Final R esult [facility] [address], [place] [id number] * (ABNORMAL) Lipid panel (04/24/2025 9:39 AM EDT) HDL 28 mg/dL [facility] Comment: Interpretation <40 mg/dL: Low HDL cholesterol (major risk factor for CHD) Greater than or equal to 60 mg/dL: High HDL cholesterol ( negative risk factor for CHD) HDL - cholesterol is affected by a number of factors, e.g. smoking, excerise, hormones, sex and age. CHOLESTEROL 103 0 - 240 mg/dL [facility] TRIGLYCERIDES 283(H) 30 - 160 mg/dL [facility] LDL 18(L) 50 - 129 mg/dL [facility] Comment: LDL levels in terms of risk for coronary heart disease: <100 mg/dL: Optimal 100-129 mg/dL: Near or above optimal 130-159 mg/dL: Borderline high 160-189 mg/dL: High >190 mg/dL: Very High CARDIAC RISK RATIO 3.7 3.3 - 4.4 C [facility] Blood 04/24/2025 9:39 AM EDT 04/24/2025 9:47 AM EDT us Roderick Clay DO LAB BLOOD BKR ORDERABLES Final R esult [address] [address] from Last 3 Months or Most Recently Relevant to Health Maintenance Insurance MEDICARE REPLACEMENT MEDICARE REPLACEMENT [place] [id number] MEDICARE REPLACEMENT MEDICARE REPLACEMENT MEDICARE REPLACEMENT MEDICARE REPLACEMENT MEDICARE REPLACEMENT MEDICARE REPLACEMENT [place] [address] Care Teams Manager Career Relationship Specialty Start Date End Date William Colón MD [address] [place] [address] Drive [address] [place] [phone] PCP - General Internal Medicine 06/21/21 Additional Source Comments The information contained in this document represents components of the legal health record. It is not the complete legal health record.[facility]
--- OUTSIDE RECORDS SUMMARY | 2025-09-11 13:36 | XMS_ITS | Patient Health Record ---
Author Organization [facility] Address [address] [place] [address] Care Team Providers Care Technical Instructor Name Role Phone Po William WELLS Primary [...] at 5:00 p.m. 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) Active confirmed Problem Irritable bowel syndrome with diarrhea (073028101) Irritable bowel syndrome with diarrhea (K58.0) Active confirmed Problem Gastric polyp (08258067) Gastric polyp (K31.7) Active confirmed Problem Bernal esophagus (148652049) Bernal esophagus (K22.70) Active confirmed Plan Of Treatment Future Test Test Name Order Date UPPER GI ENDOSCOPY 03/06/2013 COLONOSCOPY 03/06/2013 UPPER GI ENDOSCOPY 07/15/2015 COLONOSCOPY 07/15/2015 UPPER GI ENDOSCOPY 07/11/2022 COLONOSCOPY 07/11/2022 Insurance Providers Payer Name Payer Address Payer Phone Subscriber Number Group Number Insured Name Patient Relationship to Insured Coverage Start Date Coverage End Date [facility] Medicare Advantage Plan [address] [address] [place] [address] [id number] ROHIT LECHUGA Self - patient is the insured Medical (General) History Medical History History ICD Code Bernal's esophagus/GERD las t EGD 11/20/15 focal area of Bernal's, no dysplasia Colon polyps, colonoscopy , hyperplastic polyp, five-year followup for previous history of adenomas. Focal ileitis noted on previous exams as well, not treated Coronary artery disease, his tory of [place] x2 with stent placement, sees Dr. Roque asthma hypertension vertigo DM Diabetes mellitus type 2 covid x 2 2021 Surgical History Surgery Date(Month/Year) cholecystectomy parathyroidectomy right shoulder separation hysterectomy Bladder suspension Cystocele rectocele repair x3
== END 2025-09-11 10:55 | disposition home or self-care (01) ==
LOC: HO.MAMMO 10:54
PROVIDERS: PCP Internal Medicine
DX: Z12.31 Encounter for screening mammogram for malignant neoplasm of breast (principal); Z13.820 Encounter for screening for osteoporosis; Z78.0 Asymptomatic menopausal state
CPT/HCPCS: 77063; 77067; 77080

== ENCOUNTER → 2025-09-11 11:00 | Outpatient (BNV) | payer MEDICARE, SELFPAY | PROVIDERS: PCP Internal Medicine; Visit Provider Radiology Diagnostic Radiology | DX: E28.39 Other primary ovarian failure (principal) | CPT/HCPCS: 77080 ==

== ENCOUNTER 2025-09-16 15:53 | Outpatient (AMB) | payer MEDICARE, SELFPAY ==
[2025-09-16 15:58] VITALS: BP 138/64; PULSE 83; TEMP 36.2; O2SAT 95; BMI 31.2
--- NOTE | 2025-09-16 15:58 | A.OFFPC_ITS ---
Vital Signs 09/16/25 15:58 Height 5 ft 5 in Weight 187 lb 6 oz BMI 31.2 BP 138/64 Blood Pressure Location Lt brachial Position Sitting Pulse 83 Pulse Source Pulse Oximeter Temp 97.1 F Temp Source Temporal Artery Scan Pulse Oximetry (%) 95 Oxygen Delivery Method Room Air Intake Visit Reasons: f/u CAD w/ Po Allergies cortisone (CORTISONE) Allergy (Severe, Verified 09/16/25 16:04) RASH HIVES AND SWELLING OF THE TONGUE nitrofurantoin Allergy (Severe, Verified 09/16/25 16:04) tongue swelling Penicillins Allergy (Severe, Verified 09/16/25 16:04) ANAPHYLAXIS yeast, dried (yeast) Allergy (Severe, Verified 09/16/25 16:04) SHORTNESS OF BREATH amlodipine Allergy (Intermediate, Verified 09/16/25 16:04) swelling of feet empagliflozin (From Jardiance) Allergy (Intermediate, Verified 09/16/25 16:04) swollen tongue omeprazole (From Prilosec) Allergy (Intermediate, Verified 09/16/25 16:04) BLISTERS Sulfa (Sulfonamide Antibiotics) Allergy (Intermediate, Verified 09/16/25 16:04) Itching niacin (Niacin) Allergy (Mild, Verified 09/16/25 16:04) RASH tetracycline (Tetracycline) Allergy (Mild, Verified 09/16/25 16:04) RASH acetic acid (Acetic Acid) Allergy (Unknown, Verified 09/16/25 16:04) SHORTNESS OF BREATH FROM VINEGAR adhesive tape Allergy (Unknown, Verified 09/16/25 16:04) RASH Clindamycin HCl Allergy (Unknown, Verified 09/16/25 16:04) rash procaine (From NOVOCAIN) Allergy (Unknown, Verified 09/16/25 16:04) RASH,SWELLING OF TONGUE,BLISTERING cefixime (From Suprax) Adverse Reaction (Intermediate, Verified 09/16/25 16:04) Swelling in throat dulaglutide (From Trulicity) Adverse Reaction (Intermediate, Verified 09/16/25 16:04) swelling of tongue hydrochlorothiazide Adverse Reaction (Intermediate, Verified 09/16/25 16:04) hypercalcemia methenamine Adverse Reaction (Intermediate, Verified 09/16/25 16:04) Yeast Infection lorazepam (From Ativan) Adverse Reaction (Mild, Verified 09/16/25 16:04) VOMITING/NAUSEA morphine (MORPHINE) Adverse Reaction (Unknown, Verified 09/16/25 16:04) NAUSEA fosfomycin Allergy (Severe, Uncoded 09/16/25 16:04) tongue swelling jardiance Allergy (Severe, Uncoded 09/16/25 16:04) Yeast infection levofloxacin Allergy (Severe, Uncoded 09/16/25 16:04) Hives From AVELOX Allergy (Intermediate, Uncoded 09/16/25 16:04) SWELLING/RASH carrots, vinegar, yeast, chees Allergy (Unknown, Uncoded 09/16/25 16:04) Unknown SEASONAL ALLERGIES Allergy (Unknown, Uncoded 09/16/25 16:04) SNEEZING Medication List - Last Reconciled 09/16/25 by William Colón MD albuterol sulfate 90 mcg/actuation 1 puff PO Q4H PRN aspirin (Adult Low Dose Aspirin) 81 mg PO DAILY blood pressure monitor (Blood Pressure Kit) As directed blood sugar diagnostic (Accu-Chek Guide test strips) As directed check the BS TID calcium carbonate 600 mg PO DAILY cholecalciferol (vitamin D3) 50 mcg PO DAILY compress.stocking,knee,reg,med As directed 20-30 mm HG cyanocobalamin (vitamin B-12) 1,000 mcg PO DAILY fenofibrate 160 mg PO DAILY fluticasone propionate 50 mcg/actuation 2 sprays intranasal DAILY 90 days gabapentin 100 mg PO DAILY 90 days insulin glargine (Lantus Solostar U-100 Insulin) 48 units (0.48 mL) subcut BEDTIME insulin lispro (Humalog KwikPen (U-100) Insulin) 10 u in am , 14 u noon and 6 u evening subcutaneously 3 times a day; or as directed 30 days lancets (Accu-Chek Fastclix Lancet Drum) 1 ea topical TID 90 days lansoprazole 30 mg PO DAILY lisinopril 40 mg PO DAILY magnesium oxide 400 mg PO BID metformin 1,000 mg PO BIDWMEAL 90 days metoprolol tartrate PO; 2 tabs in the AM, 1 tabs in the PM 90 days pen needle, diabetic (BD Ultra-Fine Micro Pen Needle) As directed inject4 x a day Insulin pen needle, diabetic (BD Marisela 2nd Gen Pen Needle) As directed pioglitazone 15 mg PO DAILY rosuvastatin 40 mg PO DAILY spironolactone 25 mg PO BID Tobacco use date assessed: 09/16/25 Fall risk assessment: 2 + Falls in past year Last assessed Fall Risk: 09/16/25 Dental Screening Dental Screen Date: 09/16/25 Did you have a dental visit in the last 12 months?: No Did you have a dental problem in the last 6 months where you did not have access to dental care?: No Was dental information given to patient?: Patient has dentist HPI f/u CAD w/ Po HPI Details did not get cataract due to novocaine problem with allergy. [facility] Medical History (Updated 09/16/25 @ 16:39 by William Colón MD) CKD (chronic kidney disease) Pulmonary nodule NSTEMI (non-ST elevated myocardial infarction) Breast cancer screening by mammogram Tobacco abuse Myocardial infarct COVID-19 Cough Skin rash Colon cancer screening Essential hypertension Mitral valve prolapse Diabetic neuropathy Type 2 diabetes mellitus with hyperglycemia Hip osteoarthritis Diabetic nephropathy Vitamin D deficiency COPD (chronic obstructive pulmonary disease) Osteoarthritis Barretts esophagus Hypercholesterolemia Coronary artery disease Surgical History H/O heart artery stent Cystocele History of parathyroidectomy History of hysterectomy History of cholecystectomy Family History Father CVD (cardiovascular disease) Dementia Heart valve replaced Mother Colon cancer Social History Housing: House Alcohol intake: never Patient Tobacco Use Status: Former Tobacco user Tobacco use type: Cigarette Cigarettes Per Day: 1 Years Smoked: 40 +/- quit 02/2024 e-Cigarette/Vaping Use: Never Used Second Hand Smoke Exposure: No service: No Current occupational status: retired Current occupation: right hand dominant Cognitive needs: No Hearing needs: No Vision needs: Yes Female Reproductive History Menstrual Age of Menarche: 9 Questionnaire PHQ-9 Over the last 2 weeks, how often have you been bothered by any of the following problems? 1. Little interest or pleasure in doing things: more than half the days 2. Feeling down, depressed, or hopeless: several days 3. Trouble falling or staying asleep, or sleeping too much: not at all 4. Feeling tired or having little energy: several days 5. Poor appetite or overeating: not at all 6. Feeling bad about yourself - or that you are a failure or have let yourself or your family down: not at all 7. Trouble concentrating on things, such as reading the newspaper or watching television: not at all 8. Moving or speaking so slowly that other people could have noticed. Or the opposite - being so fidgety or restless that you have been moving around a lot more than usual: not at all 9. Thoughts that you would be better off or of hurting yourself in some way: not at all Total score: 4 Source: Developed by Drs. Michelet Roman, Kelly Bynum, Clement Malloy and colleagues, with an educational debra from [employer]. Thrive Questionnaire Date Thrive assessed: 09/16/25 I am a: Patient What is your living situation today?: I have a steady place to live Within the past 12 months, did the food you bought not last and you didn't have the money to get more?: Often true Within the past 12 months, did you worry whether your food would run out before you got money to buy more?: Often true Do you have trouble paying for medicines?: Yes Do you have trouble getting transportation to medical appointments?: No Do you have trouble paying your heating and electricity bill?: Yes Do you have trouble taking care of your child, family member or friend?: Yes Do you have trouble with day-to-day activities such as bathing, preparing meals, shopping, managing finances, etc.?: Yes Are you currently unemployed and looking for a job?: No Are you interested in more education?: No Please select the resources that you would like help with: Paying for medicine Currently or been in a relationship where the following occur: No concerns reported THRIVE Score: 3 AUDIT C Alcohol Use Questionnaire (AUDIT-C) 1. How often do you have a drink containing alcohol?: Never 3. How often do you have six or more drinks on one occasion?: Never Total Score: 0 TALON-7 AMB Questionnaire TALON-7 Date TALON - 7 assessed: 07/08/25 Feeling nervous, anxious, or on edge: 1 = Several days Not being able to stop or control worryin = Several days Worrying too much about different things: 1 = Several days Trouble relaxin = Several days Being so restless that it is hard to sit still: 0 = Not at all Becoming easily annoyed or irritable: 1 = Several days Feeling afraid as if something awful might happen: 0 = Not at all Total TALON-7 score (0-4 normal; 5-9 mild; 10-14 moderate; 15-21 severe): 5 Source: Developed by Drs. Michelet Roman, Kelly Bynum, Clement Malloy and colleagues, with an educational debra from [employer]. Physical exam (Primary Care) Vital Signs: Last Vital Signs Temp 97.1 F 09/16/25 15:58 Pulse 83 09/16/25 15:58 BP 138/64 09/16/25 15:58 Pulse Ox 95 09/16/25 15:58 Oxygen Delivery Method Room Air 09/16/25 15:58 BMI result Body Mass Index 31.2 Tobacco/Smoking Status: Tobacco use Status Tobacco use date assessed 09/16/25 09/16/25 16:06 Patient Tobacco Use Status Former Tobacco user 09/16/25 16:06 Tobacco use type Cigarette 09/16/25 16:06 e-Cigarette/Vaping Use Never Used 09/16/25 16:06 PHQ-9: PHQ-9 Score PHQ-9: Total score 4 09/16/25 16:26 Thrive Assessment: Date of Thrive Assessment Date Thrive assessed 09/16/25 09/16/25 16:06 Currently or been in a relationship where the following occur: No concerns reported Const General: alert and awake HENMT Head: Yes normocephalic Ears: external ears normal and TM's normal bilaterally Face and sinus: Yes normal facial exam Mouth: moist mucous membranes Throat: Yes tonsils normal Eyes Conjunctivae: conjunctivae normal Pupils: Equal, round and reactive pupils present and Pupil accommodation reflex normal Direct Ophthalmoscopy: normal light reflex Neck Neck: No lymphadenopathy Thyroid: Thyroid normal Chest Chest palpation & inspection: normal inspection of the chest Resp Effort & Inspection: normal respiratory effort and no audible wheezes Auscultation: clear to auscultation bilaterally, no crackles, no wheezes and lung sounds not diminished Cardio Rate: regular rate Rhythm: regular rhythm Peripheral pulses: radial pulses present and dorsalis pedis present GI Palpation (GI): no masses Auscultation: normal bowel sounds and normoactive bowel sounds Rectal Exam - Female: deferred Skin General skin exam: no rashes or lesions noted Rashes: no rashes Neuro General: deep tendon reflexes 2+ bilaterally Cranial nerves: Yes Equal, round and reactive pupils present, Yes Midline tongue present and Yes Ability to bilaterally elevate shoulders present Cognition (Neuro): normal cognition Gait exam (Neuro): Normal gait present Motor exam (neuro): 5/5 motor strength present throughout Deep tendon reflexes (DTR's): Right brachioradialis reflex intensity grade: 2+, Left brachioradialis reflex intensity grade: 2+, Right patellar reflex intensity grade: 2+ and Left patellar reflex intensity grade: 2+ Extrem General: No edema Office Procedures Flu Questionnaire Does the patient have a severe egg allergy?: No Does the patient have severe life threatening allergies?: No Does the patient have a fever or illness today?: No Has the patient ever had Guillain-Linden Syndrome?: No Has the patient ever had any past reaction to a flu shot?: No Immunizations Fluarix [id number] (PF) 45 mcg (15 mcg x 3)/0.5 mL IM syringe Performing Provider: William Colón MD [facility] Administered by: Rosette Perez CMA on 09/16/25 16:13 Dose Route Admin Location Dispensed Lot Number Expiration Date [facility] [employer] 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 0.5 mL IM Right Deltoid 0.5 mL [id number] 04/28/26 [id number] [employer] VIS Given Date VIS Provided VIS Publication Date 09/16/25 Single Vaccine 24 Eligibility Eligibility Date Funding Source Not [facility] Eligible 09/16/25 Private Coding Level of Care Code Est Pt Level 4 (66439) Complex EM visit Add On G2211 Diagnoses Type 2 diabetes mellitus with hyperglycemia, without long-term current use of insulin E11.65 Diabetes mellitus retirement insulin use: without exterminator use Coronary artery disease involving [place] coronary artery of [place] heart without angina pectoris I25.10 Associated angina: without angina Coronary Disease-Associated Artery/Lesion type: [place] artery Platinum vs. transplanted heart: [place] heart Essential hypertension I10 Hypercholesterolemia E78.00 Generalized anxiety disorder F41.1 Bernal's esophagus without dysplasia K22.70 Bernal's esophagus type: without dysplasia Stage 3a chronic kidney disease N18.31 Mixed stress and urge urinary incontinence N39.46 Panlobular emphysema J43.1 COPD type: emphysema Emphysema type: panlobular Tobacco abuse Z72.0 Labial cyst N90.7 Assessment & Plan Assessment & Plan (1) Type 2 diabetes mellitus with hyperglycemia: Comment: December 2016 eye and lasik - [facility] Code(s): E11.65 - Type 2 diabetes mellitus with hyperglycemia Category: Medical Qualifiers: Diabetes mellitus exterminator insulin use: without retirement use Qualified Code(s): E11.65 - Type 2 diabetes mellitus with hyperglycemia Plan: Decrease the amount of carbohydrate intake, pasta, bread, rice and potatoes are all sugar and that is aside from all the sweet stuff, remember that fruits are good but they are Sweet also. Patient is being seen by Endocrinology in [facility] on Lantus Humalog metformin and pioglitazone (2) Coronary artery disease: Comment: Stent placement January 2012 Code(s): I25.10 - Atherosclerotic heart disease of [place] coronary artery without angina pectoris Category: Medical Qualifiers: Associated angina: without angina Coronary Disease-Associated Artery/Lesion type: [place] artery Platinum vs. transplanted heart: [place] heart Qualified Code(s): I25.10 - Atherosclerotic heart disease of [place] coronary artery without angina pectoris Plan: Control the cholesterol, weight, blood pressure, diabetes continue with aspirin 81 mg once a day (3) Essential hypertension: Code(s): I10 - Essential (primary) hypertension Category: Medical Plan: Continue with blood pressure medication. Decrease salt intake and exercise on lisinopril at 40 mg once a day metoprolol tartrate spironolactone twice a day (4) Hypercholesterolemia: Code(s): E78.00 - Pure hypercholesterolemia, unspecified Category: Medical Plan: Avoid fried foods, chicken skin, eggs, butter margarine, pastries and meat. Be it pork or beef they have a lot of cholesterol LDL goal of less than 70 and triglyceride of less than 150 with last blood work 51 patient is on fenofibrate and rosuvastatin 40 mg once a day (5) Generalized anxiety disorder: Code(s): F41.1 - Generalized anxiety disorder Category: Medical Plan: Continue with magnesium gabapentin (6) Barretts esophagus: Code(s): K22.70 - Bernal's esophagus without dysplasia Category: Medical Qualifiers: Bernal's esophagus type: without dysplasia Qualified Code(s): K22.70 - Bernal's esophagus without dysplasia Plan: Stop smoking! Avoid the foods that causes that usually spicy foods, tomato products, juices, coffee, soda and foods that your sensitive to. After eating do not lie down, allow 3-4 hours before in lie down. And keep the head of bed above 30 degrees to avoid the acid from going up. (7) Stage 3a chronic kidney disease: Comment: Diabetic hypertensive kidney disease Code(s): N18.31 - Chronic kidney disease, stage 3a Category: Medical Plan: Patient was advised to stop all NSAIDs, keep well hydrated (8) Mixed stress and urge urinary incontinence: Code(s): N39.46 - Mixed incontinence Category: Medical Plan: Patient follows up with urology has been given the option of shots or pessary or lid urethral sling (9) COPD (chronic obstructive pulmonary disease): Code(s): J44.9 - Chronic obstructive pulmonary disease, unspecified Category: Medical Qualifiers: COPD type: emphysema Emphysema type: panlobular Qualified Code(s): J43.1 - Panlobular emphysema Plan: Patient is strongly advised to stop smoking patient point continue with albuterol inhaler and controller (10) Tobacco abuse: Code(s): Z72.0 - Tobacco use Category: Medical Plan: Patient is strongly advised to stop smoking. 2-3 weeks ago last smoke. (11) Labial cyst: Code(s): N90.7 - Vulvar cyst Category: Medical Plan History of Present Illness The patient is a 75-year-old obese female presenting for management and review of multiple chronic conditions. Her medical history includes coronary artery disease, Bernal's esophagus, hypercholesterolemia, COPD, diabetes mellitus, hypertension, generalized anxiety disorder, osteopenia, tobacco use, and chronic kidney disease. Regarding her coronary artery disease, she underwent a cardiac catheterization in February 2025 which showed a stent in the proximal LAD and intermediate grade disease elsewhere. A subsequent echocardiogram revealed an ejection fraction of 65% and normal perfusion. For her diabetes mellitus, she is followed by endocrinology and is managed with Lantus, Humalog, metformin, and pioglitazone. Her hemoglobin A1c in June was 8.3%, an improvement from previous values over 9% and 11%. Due to episodes of hypoglycemia, her Lantus dose was reduced from 48 to 40 units nightly, and she now reports her blood sugar levels are in the 200s during the day. The patient has stage 3A chronic kidney disease, attributed to diabetic and hypertensive kidney disease, and is followed by nephrology. Her creatinine in June was 1.26, an increase from 0.99 in November. She has been advised to stop all NSAIDs. A renal ultrasound in June showed a right upper pole renal cyst but was otherwise negative. She reports lower extremity edema that began after starting pioglitazone. She has a history of significant leg swelling while on amlodipine, which has since been discontinued. The current swelling is considered manageable. She has bilateral cataracts and had planned for surgery, but it was canceled due to an allergy to Novocaine. She has decided to postpone the surgery, which would need to be done in a hospital setting, and will seek an updated eyeglass prescription. The patient follows up with urology for mixed urinary incontinence. Treatment options including a urodynamic study, Bulkamid injection, or a midurethral sling have been discussed, and she has declined a pessary. She reports a new concern of a recurrent lesion on her right labia which has been present for approximately four years. She describes it as a lump that grows, becomes hard, and then falls off, recurring larger each time. Regarding health maintenance, her last colonoscopy was in July 2022 and her mammogram was in August 2025. A bone density scan in June 2023 was normal. She received her flu shot today and completed the shingles vaccine series last month, having had shingles twice in the . She is a current smoker, though she has cut back significantly to about one cigarette every few weeks or month. Health Maintenance The patient received her influenza vaccine today. It was noted she has already completed her two-part shingles vaccination series. Social History - Tobacco Use: The patient is a current smoker but reports her use is infrequent, stating she may have one cigarette and then not smoke again for a month. - Her last cigarette was two to three weeks ago. - Family and Social Support: The patient's sister visited from [place] for two weeks in June. - She mentions her 11-year-old autistic grandson, who sometimes aggravates a shoulder injury. Review of Systems - Constitutional: Reports feeling shaky recently. - Eyes: Reports bilateral cataracts. - Cardiovascular: Reports intermittent lower extremity swelling which has improved. - Genitourinary: Reports mixed (urge and stress) urinary incontinence. - Reports a recurrent, sometimes painful lesion on the right labia. - Musculoskeletal: Reports a shoulder injury causing pain. Physical Exam - Constitutional: Obese female. - Lower Extremities: Inspection reveals no current swelling. - Skin: Examination of the feet reveals hyperpigmented patches (blotches) on the dorsum, consistent with chronic stasis changes. Results - Labs (from July 11): - CBC: Normal. - Electrolytes: Normal. - Creatinine: 1.26. - Hemoglobin A1c: 8.3%. - Liver function tests: Normal. - LDL cholesterol: 43 mg/dL. - Triglycerides: 187 mg/dL. - Vitamin D: Low. - Thyroid, B12, and folic acid: Normal. - Imaging and Procedures: - Renal Ultrasound (June): Showed a right upper pole renal cyst, otherwise negative. - Cardiac Catheterization (February 2025): Revealed a stent in the proximal LAD and intermediate grade disease elsewhere. - Echocardiogram: EF of 65% with normal perfusion. - Colonoscopy (July 2022): Completed. - Mammogram (August 2025): Completed. - Bone Density Scan (June 2023): Normal. Plan Patient was informed and verbally consented to the use of an ambient scribe for clinic note documentation during this visit. 1. Diabetes Mellitus, Type 2 The patient will continue to follow up with her vendor management specialist, Dr. Stewart. She will continue her current regimen of Lantus, Humalog, metformin, and pioglitazone. The patient was advised to contact her vendor management specialist before her next visit to discuss her elevated blood sugars during the day since her Lantus dose was decreased. 2. Coronary Artery Disease Continue aspirin 81 mg once a day. 3. Hypertension Continue current antihypertensive regimen of lisinopril 40 mg daily, metoprolol tartrate, and spironolactone twice a day. 4. Hypercholesterolemia The patient's LDL goal is less than 70 mg/dL and triglyceride goal is less than 150 mg/dL. Her last LDL was 43 mg/dL, which is at goal. Continue fenofibrate and rosuvastatin 40 mg once a day. 5. Chronic Kidney Disease, Stage 3A The patient was strongly advised to stop all NSAID use and to remain well- hydrated. 6. Tobacco Use The patient was strongly advised to stop smoking. 7. Chronic Obstructive Pulmonary Disease Continue with albuterol inhaler as needed. 8. Mixed Urinary Incontinence Patient will continue to follow up with urology. She is aware of her treatment options, including injections or a midurethral sling, but is deferring any procedures at this time. 9. Bilateral Cataracts The patient is deferring cataract surgery due to a Novocaine allergy that would require a hospital-based procedure. She plans to get an updated eyeglass prescription after . 10. Recurrent Labial Lesion A referral will be sent for the patient to be evaluated by gynecology for a recurrent lesion on her right labia. 11. Bernal's Esophagus/Gerd A prescription for lansoprazole will be resent as the patient reported it was denied by the pharmacy. Discussion Notes I reviewed the patient's extensive medical history and recent lab results from June. We discussed her diabetes management, noting that while her HbA1c has improved to 8.3%, her recent reduction in Lantus has led to higher daytime blood sugars; I advised her to discuss this with her vendor management specialist. I explained that her kidney function has declined, with her creatinine increasing to 1.26, and reinforced the importance of avoiding all NSAIDs and maintaining good hydration. We talked about her lower extremity swelling, which is likely a side effect of pioglitazone, and she confirmed a past history of severe swelling with amlodipine. The patient feels the current symptoms are manageable. The patient raised a new concern about a recurrent lesion on her labia, and I advised that a gynecology consultation is the most appropriate next step. I will place a referral for this. We discussed her decision to defer cataract surgery due to her Novocaine allergy, which would require a hospital-based procedure. I strongly advised her to continue her efforts to quit smoking completely. We also reviewed her vaccination status, confirming she is up to date on her flu and shingles shots. Patient Instructions - Continue your current medications for your heart, blood pressure, and cholesterol, including aspirin, rosuvastatin, lisinopril, and metoprolol. - Do not take any [id number] pain relievers like ibuprofen (Advil, Motrin) or naproxen (Aleve), as they can harm your kidneys. - Make sure to drink plenty of water to help your kidney function. - Contact your diabetes doctor (vendor management specialist) to discuss your blood sugars, which have been running high during the day. - We will send a referral for you to see a liner installer to have the recurring spot on your labia examined. - It is very important that you stop smoking completely. - We confirmed you received your flu shot today and that you are up to date on your shingles vaccine. - We will re-send the prescription for lansoprazole for your acid reflux. Orders: Orders Influenza [id number] Immunization Today Z23 - Encounter for immunization Referrals [employer] Referral N90.7 - Vulvar cyst Medications: Refilled lansoprazole 30 mg PO DAILY 90 caps 3RF M77.11 - Lateral epicondylitis, right elbow
== END 2025-09-16 16:52 | disposition home or self-care (01) ==
LOC: HO.HMCH 15:53
PROVIDERS: PCP Internal Medicine; Visit Provider Internal Medicine
DX: E11.65 Type 2 diabetes mellitus with hyperglycemia (principal); I25.10 Atherosclerotic heart disease of native coronary artery without angina pectoris; I10 Essential (primary) hypertension; E78.00 Pure hypercholesterolemia, unspecified; F41.1 Generalized anxiety disorder; K22.70 Barrett's esophagus without dysplasia; N18.31 Chronic kidney disease, stage 3a; N39.46 Mixed incontinence; J43.1 Panlobular emphysema; Z72.0 Tobacco use; N90.7 Vulvar cyst; Z23 Encounter for immunization

== ENCOUNTER → 2025-09-16 15:53 | Outpatient (BNVA) | payer MEDICARE, SELFPAY | PROVIDERS: PCP Internal Medicine; Visit Provider Internal Medicine | DX: Z23 Encounter for immunization (principal); E11.65 Type 2 diabetes mellitus with hyperglycemia; I25.10 Atherosclerotic heart disease of native coronary artery without angina pectoris; E78.00 Pure hypercholesterolemia, unspecified; F41.1 Generalized anxiety disorder; K22.70 Barrett's esophagus without dysplasia; N39.46 Mixed incontinence; J43.1 Panlobular emphysema; N90.7 Vulvar cyst; I12.9 Hypertensive chronic kidney disease with stage 1 through stage 4 chronic kidney disease, or unspecified chronic kidney disease; E11.22 Type 2 diabetes mellitus with diabetic chronic kidney disease; N18.31 Chronic kidney disease, stage 3a; Z87.891 Personal history of nicotine dependence | CPT/HCPCS: 90471; 90656; 99212 ==

== ENCOUNTER 2025-10-02 14:14 | Outpatient (REF) | payer MEDICARE, SELFPAY ==
--- OUTSIDE RECORDS SUMMARY | 2025-10-02 21:37 | XMS_ITS | Encounter Summary ---
Author Organization [facility] Address [address] [place] [address] Phone Care Team Providers Care Entry Level Account Manager Name Role Phone William Colón MD Primary Care Provider [phone] Reason for Visit * Reason Onset Date Comments Medication Problem 08/14/2025 RE: Pioglitaz one Encounter Details Date Type Department Care Team ([facility] Contact Info) Description 08/14/2025 Telephone [facility] [address] [place], [place] [phone] Chaya Valdez RN [address] [place], [place] [phone] Medication Problem (RE: Pioglitazone) Social History Tobacco Use Types Packs/Day Years [...] on file Sexual Orientation Not on file documented as of this encounter Progress Notes * Chaya Valdez, GEMINI - 10/02/2025 4:57 PM EST Patient hadn't returned my call. I called her back to follow up. Patient states she is still on thePioglitazone. Reports still has a little bit of swelling, but not as bad as it was. She wants to stay on it. She did follow up with DR. Colón and also has seen radar signal processing engineer, Dr. Roque, took her off of Amlodipine, which he said that could be part of the cause of the swelling, and since swelling has improved. She wants to stay on Pioglitazone. FYI * Chaya Valdez RN - 08/15/2025 3:13 PM EDT Call placed to patient, no answer, left message to return call to nurse. * Roderick Clay DO - 08/14/2025 5:22 PM EDT Please tell her to stop the pioglitazone it can be associated with fluid retention. It seems like she is having a bad case of it. Symptoms should really resolve after discontinuing the medication. * Chaya Valdez RN - 08/14/2025 12:04 PM EDT Pt left a voicemail, stating that she is on Pioglitazone that Dr. Clay Rx'ed and started to develop bilateral feet/leg swelling, blistered looking bubbles around eyes and bridge of nose. She met with another specialist that told her to contact you and get off of this medication. She has upcomingvisit with you on 08/22. Her call back number is P#[phone] documented in this encounter Plan of Treatment Upcoming Encounters Date Type Department Care Team (Late st Contact Info) Description 11/27/2025 11:50 AM EST Office Visit [facility] [address] [place] [address] Roderick Clay, DO [address] [place] [address] [email or web address] documented as of this encounter Visit Diagnoses Not on filedocumented in this encounter Care Teams Entry Level Account Manager Relationship Specialty Start Date End Date Eldon, William Justin MD [address] [place] [address] [place] [phone] PCP - General Internal Medicine 06/21/21 documented as of this encounter Additional Source Comments The information contained in this document represents components of the legal health record. It is not the complete legal health record.[facility]
--- OUTSIDE RECORDS SUMMARY | 2025-10-02 21:37 | XMS_ITS | Patient Health Record ---
Author Organization [facility] Address [address] [place] [address] Care Team Providers Care Recreational Therapy Technician Name Role Phone Po William WELLS Primary Care Provider Lior Guerrier Jr Unavailable [phone] Allergies Allergen (clinical drug ingredient) Drug/Non Drug Allergy documented on EMR Reaction Allergy Type Onset Date Status niacin Niacin Unknown Drug Allergy Active omeprazole Prilosec Unknown Drug Allergy Active tetracycline Tetracycline HCl Unknown Drug Allergy Active Cortisone Unknown Drug Allergy Active Penicillin Unknown Drug Allergy Active Reason For Referral No Information Medications Medication SIG (Take, Route, Frequency, Duration) Notes Start Date End Date Status Spironolactone 25 MG Tablet 1 tablet Ora lly Twice a day Active Fenofibrate 160 MG Tablet TK 1 T PO QD W F Oral Once a day Active Lisinopril 40 MG Tablet 1 tablet Orally Once a day Active Lantus SoloStar 100 UNIT/ML Solution Pen-injector 1 Subcutaneous QD A ctive Aspir-81 81 MG Tablet Delayed Release 1 tablet Orally Once a day Active ProAir HFA 108 (90 Base) MCG/ACT Aerosol Solution 2 puffs as needed Inhalation every 4 hrs/prn Active Calcium + D3 600-200 MG-UNIT Tablet 1 Orally BID Active MiraLax (colon prep) 17 GM/SCOOP Powder mixed with Gatorade or Crystal Light Orally begin at 5:00 p.m. the day before the procedure; Duration: 1 day 07/11/2022 Active Albuterol Sulfate (2.5 MG/3ML) 0.083% Nebulization Solution 3 ml Inhalation Three times a day Active Advair Diskus 100-50 MCG/DOSE Aerosol Powder Breath Activated 1 puff Inhalation Twice a day/prn Active Atorvastatin Calcium 80 MG Tablet 1 tablet Orally Once a day Active Metoprolol Tartrate 50 MG Tablet 1 tablet Orally Twice a day Active Janumet 50-500 MG Tablet 1 tablet with m eals Orally Twice a day Active Vitamin D 1000 UNIT Tablet 1 tablet Oral ly Once a day Active Lansoprazole 30 MG Unspecified 1 CAPSULE ONCE A DAY ORALLY 30 [...] stop date) Current Smoker NA - NA Social History Tobacco Use: Social Info Question Answer Notes Tobacco Use/Smoking Patient is a current smoker Additional Details Category Social Info Options Details Miscellaneous: Marital status: Occupation: Retired Problems Problem Type SNOMED Code ICD Code Onset Dates Problem Status W/U Status Risk Notes Problem Colon cancer screening (090764896) Colon cancer screening (Z12.11) Active confirmed Problem History of polyp of colon (situation) (963362294) Personal history of colonic polyps (Z86.010) Active confirmed Problem Bernal's esophagus (566956240) 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) Active confirmed Problem Irritable bowel syndrome with diarrhea (736169846) Irritable bowel syndrome with diarrhea (K58.0) Active confirmed Problem Gastric polyp (19072167) Gastric polyp (K31.7) Active confirmed Problem Bernal esophagus (757257117) Bernal esophagus (K22.70) Active confirmed Plan Of Treatment Future Test Test Name Order Date UPPER GI ENDOSCOPY 03/06/2013 COLONOSCOPY 03/06/2013 UPPER GI ENDOSCOPY 07/15/2015 COLONOSCOPY 07/15/2015 UPPER GI ENDOSCOPY 07/11/2022 COLONOSCOPY 07/11/2022 Insurance Providers Payer Name Payer Address Payer Phone Subscriber Number Group Number Insured Name Patient Relationship to Insured Coverage Start Date Coverage End Date [employer] Medicare Advantage Plan [address] [address] [place] [address] [id number] ROHIT LECHUGA Self - patient is the insured Medical (General) History Medical History History ICD Code Bernal's esophagus/GERD las t EGD 11/20/15 focal area of Bernal's, no dysplasia Colon polyps, colonoscopy , hyperplastic polyp, five-year followup for previous history of adenomas. Focal ileitis noted on previous exams as well, not treated Coronary artery disease, his tory of PR x2 with stent placement, sees Dr. Roque asthma hypertension vertigo DM Diabetes mellitus type 2 covid x 2 2021 Surgical History Surgery Date(Month/Year) cholecystectomy parathyroidectomy right shoulder separation hysterectomy Bladder suspension Cystocele rectocele repair x3
--- OUTSIDE RECORDS SUMMARY | 2025-10-02 21:38 | XMS_ITS | Encounter Summary ---
Author Organization [facility] Address [address] [place] [address] Phone Care Team Providers Care Manufacturing Director Name Role Phone William Colón MD Primary Care Provider [phone] Reason for Visit * Reason Comments Medication Refill Encounter Details Date Type Department Care Team (Late st Contact Info) Description 09/27/2025 Refill [facility] [address] [place] [address] [place], [place] [phone] Roderick Clay DO [address] [place] [address] [email or web address] Medication Refill Social History Tobacco Use Types Packs/Day Years [...] as of this encounter Progress Notes * Leah Isaacs MA - 09/29/2025 9:09 AM EST Rx Care Gap Status - Instructions for Clinical Staff (prescriber discretion applies): > Mismatch review guide > N/a - No action needed Visit Info Last visit: 08/22/2025 Roderick Clay DO - Endocrinology [facility] > Requested f/u: Return in about 3 months (around 11/22/2025) for Diabetes. Upcoming visit: 11/27/2025 Roderick Clay DO - Endocrinology [facility] ACTIONS TAKEN BY Leah Isaacs MA - Criteria met. Diabetes Rx Protocol (on Diabetes Registry) - insulin lispro Criteria met; renew for up to 12 months. Visit in the past 14 months: Yes Clinical criteria: - BMP within past year: Yes - A1c within past 6 months: Yes - Lipid panel within past year: Yes (LDL 18 on 04/24/2025) - Urine microalbumin within past year or on ARI/ARB: Yes Lab Results Component Value Date SODIUM 139 04/24/2025 POTASSIUM 4.7 04/24/2025 CHLORIDE 102 04/24/2025 CO2 26 04/24/2025 BUN 24 (H) 04/24/2025 CREATININE 1.20 04/24/2025 EGFR 47 (L) 04/24/2025 Lab Results Component Value Date CREATININE 1.20 04/24/2025 EGFR 47 (L) 04/24/2025 Lab Results Component Value Date Hemoglobin A1c 8.2 (*) 01/17/2025 HEMOGLOBIN A1C 7.4 (H) 08/19/2025 MICROALB/CRE RATIO 34.7 (H) 04/24/2025 URINE MICROALBUMIN 5.2 (H) 04/24/2025 Lab Results Component Value Date LDL 18 (L) 04/24/2025 HDL 28 04/24/2025 CARDIAC RISK RATIO 3.7 04/24/2025 TRIGLYCERIDES 283 (H) 04/24/2025 CHOLESTEROL 103 04/24/2025 documented in this encounter Plan of Treatment Upcoming Encounters Date Type Department Care Team (Late st Contact Info) Description 11/27/2025 11:50 AM EST Office Visit [facility] [address] [place] [address] [place] [address] Roderick Clay DO [address] [place] [id number] [email or web address] documented as of this encounter Visit Diagnoses Diagnosis Type 2 diabetes mellitus with hyperglycemia, with long-term current use of insulin documented in this encounter Care Teams Manufacturing Director Relationship Specialty Start Date End Date William Colón MD [address] [place] [address] [address] [place] [phone] PCP - General Internal Medicine 06/21/21 documented as of this encounter Additional Source Comments The information contained in this document represents components of the legal health record. It is not the complete legal health record.[facility]
== END 2025-10-02 14:15 | disposition home or self-care (01) ==
LOC: HO.LNP 14:14
PROVIDERS: PCP Internal Medicine; Visit Provider Obstetrics & Gynecology
DX: N90.89 Other specified noninflammatory disorders of vulva and perineum (principal)
CPT/HCPCS: 56605; 88304; 88305; 88312; 88341; 88342; 99202

== ENCOUNTER 2025-10-02 14:14 | Outpatient (AMB) | payer MEDICARE, SELFPAY ==
[2025-10-02 14:40] VITALS: BP 140/80; BMI 31.1
--- NOTE | 2025-10-02 14:40 | A.OFFVIS_ITS ---
Vital Signs 10/02/25 14:40 Height 5 ft 5 in Weight 187 lb BMI 31.1 BP 140/80 H Intake Visit Reasons: vulvar cyst Compensator Required: No Information Interpreted: non-clinical & clinical Mail Examiner: Mail Examiner Present (Vonnie CARTY) Accompanied by: Self / Same As Patient Allergies cortisone (CORTISONE) Allergy (Severe, Verified 10/02/25 14:42) RASH HIVES AND SWELLING OF THE TONGUE nitrofurantoin Allergy (Severe, Verified 10/02/25 14:42) tongue swelling Penicillins Allergy (Severe, Verified 10/02/25 14:42) ANAPHYLAXIS yeast, dried (yeast) Allergy (Severe, Verified 10/02/25 14:42) SHORTNESS OF BREATH amlodipine Allergy (Intermediate, Verified 10/02/25 14:42) swelling of feet empagliflozin (From Jardiance) Allergy (Intermediate, Verified 10/02/25 14:42) swollen tongue omeprazole (From Prilosec) Allergy (Intermediate, Verified 10/02/25 14:42) BLISTERS Sulfa (Sulfonamide Antibiotics) Allergy (Intermediate, Verified 10/02/25 14:42) Itching niacin (Niacin) Allergy (Mild, Verified 10/02/25 14:42) RASH tetracycline (Tetracycline) Allergy (Mild, Verified 10/02/25 14:42) RASH acetic acid (Acetic Acid) Allergy (Unknown, Verified 10/02/25 14:42) SHORTNESS OF BREATH FROM VINEGAR adhesive tape Allergy (Unknown, Verified 10/02/25 14:42) RASH Clindamycin HCl Allergy (Unknown, Verified 10/02/25 14:42) rash procaine (From NOVOCAIN) Allergy (Unknown, Verified 10/02/25 14:42) RASH,SWELLING OF TONGUE,BLISTERING cefixime (From Suprax) Adverse Reaction (Intermediate, Verified 10/02/25 14:42) Swelling in throat dulaglutide (From Trulicity) Adverse Reaction (Intermediate, Verified 10/02/25 14:42) swelling of tongue hydrochlorothiazide Adverse Reaction (Intermediate, Verified 10/02/25 14:42) hypercalcemia methenamine Adverse Reaction (Intermediate, Verified 10/02/25 14:42) Yeast Infection lorazepam (From Ativan) Adverse Reaction (Mild, Verified 10/02/25 14:42) VOMITING/NAUSEA morphine (MORPHINE) Adverse Reaction (Unknown, Verified 10/02/25 14:42) NAUSEA fosfomycin Allergy (Severe, Uncoded 10/02/25 14:42) tongue swelling jardiance Allergy (Severe, Uncoded 10/02/25 14:42) Yeast infection levofloxacin Allergy (Severe, Uncoded 10/02/25 14:42) Hives From AVELOX Allergy (Intermediate, Uncoded 10/02/25 14:42) SWELLING/RASH carrots, vinegar, yeast, chees Allergy (Unknown, Uncoded 10/02/25 14:42) Unknown SEASONAL ALLERGIES Allergy (Unknown, Uncoded 10/02/25 14:42) SNEEZING Post menopausal: Yes HPI Comments Details: The patient is presenting complaining of a right mons pubic lesion over the last 5 years, the lesion is a nonhealing sore with crust formation that falls off every now and then and then forms again [facility] Medical History CKD (chronic kidney disease) Pulmonary nodule NSTEMI (non-ST elevated myocardial infarction) Breast cancer screening by mammogram Tobacco abuse Myocardial infarct COVID-19 Cough Skin rash Colon cancer screening Essential hypertension Mitral valve prolapse Diabetic neuropathy Type 2 diabetes mellitus with hyperglycemia Hip osteoarthritis Diabetic nephropathy Vitamin D deficiency COPD (chronic obstructive pulmonary disease) Osteoarthritis Barretts esophagus Hypercholesterolemia Coronary artery disease Surgical History H/O heart artery stent Cystocele History of parathyroidectomy History of hysterectomy History of cholecystectomy Family History Father CVD (cardiovascular disease) Dementia Heart valve replaced Mother Colon cancer Social History Housing: House Alcohol intake: never Patient Tobacco Use Status: Former Tobacco user Tobacco use type: Cigarette Cigarettes Per Day: 1 Years Smoked: 40 +/- quit 02/2024 e-Cigarette/Vaping Use: Never Used Second Hand Smoke Exposure: No service: No Current occupational status: retired Current occupation: right hand dominant Cognitive needs: No Hearing needs: No Vision needs: Yes Female Reproductive History Menstrual Age of Menarche: 9 Review of Systems Const All systems reviewed & are unremarkable except as noted in HPI and below Physical Exam Vital Signs: Last Vital Signs BP 140/80 H 10/02/25 14:40 BMI result Body Mass Index 31.1 General: Yes no CVA tenderness External Female Exam: No normal external appearance (Right mons pubis 2 cm lesion with crust on top and ulcer underneath it) and normal appearance of the urethra Speculum Exam - Vagina: normal appearance of the vagina, normal palpation, no lesions and no masses Speculum Exam - Cervix: normal appearance of the cervix, normal palpation, no lesions, no masses and nontender Bimanual exam- vagina & uterus: normal bimanual exam, normal palpation, uterine size normal, normal palpation, uterine shape normal, No Cervical tenderness present and non-tender Bimanual Exam- Adnexa, other: normal adnexae Back/Spine/Pelvis Back: no CVA tenderness Office Procedures RUBBER FLAP TUBER MACHINE OPERATOR Biopsy Before the procedure was started d/w patient the procedure, alternatives ( do nothing, medical rx), & all the risks associated with the procedure ( bleeding , infection, vulvar scarring, painful intercourse, injury to vessels, possible need for transfusion with all its risks) then patient signed the consent. Preop dx: Recurrent right mons pubis lesion Op: Recurrent right mons pubis lesion biopsy Post op: Same Anesthesia: None, the patient is allergic Procedure: Using betadine the area was scrubbed and draped in the usual manner. using punch biopsy forceps and pickup the right mons pubis lesion was biopsied. Pressure was used for hemostasis. The patient tolerated the procedure well. Discharge Instructions: The patient was instructed to schedule an appointment in 2 weeks for follow-up and to call if temp>100.4, area of the biopsy redness or pain, nausea/vomiting. This note was generated with a voice recognition program. Some errors may have been overlooked during the review of this note. Sometimes these errors may affect the content or meaning of a given sentence. 35282-Liwdic of Vulva/Perineum Procedure code (CPT) selection complete Assessment & Plan Assessment & Plan (1) Lesion of female perineum: Comment: Right mons pubis recurrent lesion Code(s): N90.9 - Noninflammatory disorder of vulva and perineum, unspecified Category: Medical Plan: Discussed with the patient the finding on pelvic exam, recommended vulvar biopsy Orders: Orders AMB RUBBER FLAP TUBER MACHINE OPERATOR Biopsy Today N90.9 - Noninflammatory disorder of vulva and perineum, unspecified Coding Level of Care Code New Pt Level 3 (71342) Procedure Only Diagnoses Lesion of female perineum N90.9 CPT Codes RUBBER FLAP TUBER MACHINE OPERATOR Biopsy - CPT: 95007-Qciiqy of Vulva/Perineum ([id number])
== END 2025-10-02 15:44 | disposition home or self-care (01) ==
LOC: HO.HWS 14:14
PROVIDERS: PCP Internal Medicine; Visit Provider Obstetrics & Gynecology
DX: N90.9 Noninflammatory disorder of vulva and perineum, unspecified (principal)
CPT/HCPCS: 56605; 99203

== ENCOUNTER 2025-10-09 10:02 | Outpatient (AMB) | payer MEDICARE, SELFPAY ==
--- NOTE | 2025-10-09 10:03 | MHC.OFFVIS ---
Intake Visit Reasons: BX Follow up Pararescue Manager Required: No Information Interpreted: non-clinical & clinical Allergies cortisone (CORTISONE) Allergy (Severe, Verified 10/09/25 10:03) RASH HIVES AND SWELLING OF THE TONGUE nitrofurantoin Allergy (Severe, Verified 10/09/25 10:03) tongue swelling Penicillins Allergy (Severe, Verified 10/09/25 10:03) ANAPHYLAXIS yeast, dried (yeast) Allergy (Severe, Verified 10/09/25 10:03) SHORTNESS OF BREATH amlodipine Allergy (Intermediate, Verified 10/09/25 10:03) swelling of feet empagliflozin (From Jardiance) Allergy (Intermediate, Verified 10/09/25 10:03) swollen tongue omeprazole (From Prilosec) Allergy (Intermediate, Verified 10/09/25 10:03) BLISTERS Sulfa (Sulfonamide Antibiotics) Allergy (Intermediate, Verified 10/09/25 10:03) Itching niacin (Niacin) Allergy (Mild, Verified 10/09/25 10:03) RASH tetracycline (Tetracycline) Allergy (Mild, Verified 10/09/25 10:03) RASH acetic acid (Acetic Acid) Allergy (Unknown, Verified 10/09/25 10:03) SHORTNESS OF BREATH FROM VINEGAR adhesive tape Allergy (Unknown, Verified 10/09/25 10:03) RASH Clindamycin HCl Allergy (Unknown, Verified 10/09/25 10:03) rash procaine (From NOVOCAIN) Allergy (Unknown, Verified 10/09/25 10:03) RASH,SWELLING OF TONGUE,BLISTERING cefixime (From Suprax) Adverse Reaction (Intermediate, Verified 10/09/25 10:03) Swelling in throat dulaglutide (From Trulicity) Adverse Reaction (Intermediate, Verified 10/09/25 10:03) swelling of tongue hydrochlorothiazide Adverse Reaction (Intermediate, Verified 10/09/25 10:03) hypercalcemia methenamine Adverse Reaction (Intermediate, Verified 10/09/25 10:03) Yeast Infection lorazepam (From Ativan) Adverse Reaction (Mild, Verified 10/09/25 10:03) VOMITING/NAUSEA morphine (MORPHINE) Adverse Reaction (Unknown, Verified 10/09/25 10:03) NAUSEA fosfomycin Allergy (Severe, Uncoded 10/09/25 10:03) tongue swelling jardiance Allergy (Severe, Uncoded 10/09/25 10:03) Yeast infection levofloxacin Allergy (Severe, Uncoded 10/09/25 10:03) Hives From AVELOX Allergy (Intermediate, Uncoded 10/09/25 10:03) SWELLING/RASH carrots, vinegar, yeast, chees Allergy (Unknown, Uncoded 10/09/25 10:03) Unknown SEASONAL ALLERGIES Allergy (Unknown, Uncoded 10/09/25 10:03) SNEEZING Post menopausal: Yes HPI Comments Details: The patient is schedule telehealth visit to discuss the results of her mons pubis biopsy. Doing well with no complaints. The pathology showed the following: Right mons pubis, biopsy: High grade squamous intraepithelial lesion, at least (CORBIN 2-3). Comment: The specimen is transected at the base; a more advanced deeper lesion cannot be ruled out [facility] Medical History CKD (chronic kidney disease) Pulmonary nodule NSTEMI (non-ST elevated myocardial infarction) Breast cancer screening by mammogram Tobacco abuse Myocardial infarct COVID-19 Cough Skin rash Colon cancer screening Essential hypertension Mitral valve prolapse Diabetic neuropathy Type 2 diabetes mellitus with hyperglycemia Hip osteoarthritis Diabetic nephropathy Vitamin D deficiency COPD (chronic obstructive pulmonary disease) Osteoarthritis Barretts esophagus Hypercholesterolemia Coronary artery disease Surgical History H/O heart artery stent Cystocele History of parathyroidectomy History of hysterectomy History of cholecystectomy Family History Father CVD (cardiovascular disease) Dementia Heart valve replaced Mother Colon cancer Social History Housing: House Alcohol intake: never Patient Tobacco Use Status: Former Tobacco user Tobacco use type: Cigarette Cigarettes Per Day: 1 Years Smoked: 40 +/- quit 02/2024 e-Cigarette/Vaping Use: Never Used Second Hand Smoke Exposure: No service: No Current occupational status: retired Current occupation: right hand dominant Cognitive needs: No Hearing needs: No Vision needs: Yes Female Reproductive History Menstrual Age of Menarche: 9 Review of Systems Const All systems reviewed & are unremarkable except as noted in HPI and below Reports as per HPI and Reports no additional complaints GI Reports no additional complaints Reports no additional complaints Telehealth Telehealth Telehealth Platform: [facility] Location of provider rendering services: practice address Location of patient: address on file Patient Identification confirmed using: Name, : Yes Telehealth method: video Patient verbally consented to treatment: Yes Patient verbally consented to billing insurance company: Yes Patient informed of any privacy concerns related to visit: Yes Minutes spent on Phone/Video with Pt.: 4 Assessment & Plan Assessment & Plan (1) 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 Instructed the patient to call our office back in case a referral appointment is not scheduled, missed or canceled so that we will assist on rescheduling another appointment, the patient verbalized understanding agreed with the plan. I spent a total of 20 minutes reviewing the chart, talking to the patient via video and documenting in the medical record. 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
== END 2025-10-09 11:06 | disposition home or self-care (01) ==
LOC: HO.HWS 10:02
PROVIDERS: PCP Internal Medicine; Visit Provider Obstetrics & Gynecology
DX: D07.1 Carcinoma in situ of vulva (principal)
CPT/HCPCS: 99213

== ENCOUNTER 2025-10-25 15:18 | Emergency (ER) | payer MEDICARE, SELFPAY ==
[2025-10-25 15:45] VITALS: BP 188/84; PULSE 78; RESP 18; TEMP 36.8; O2SAT 96; BMI 33.2
--- NOTE | 2025-10-25 15:49 | ED.GENADULT ---
HPI - General Adult General Chief complaint: General Medical Stated complaint: swollen neck Related Data Home Medications ?Medication ?Instructions ?Recorded ?Confirmed aspirin 81 mg tablet,delayed 81 mg PO DAILY 03/02/21 09/16/25 release (Adult Low Dose Aspirin) pen needle, diabetic 32 gauge x #50 ea 09/21/22 09/16/25 (BD Marisela 2nd Gen Pen Needle) calcium carbonate 600 mg PO DAILY 07/10/25 09/16/25 cholecalciferol (vitamin D3) 50 50 mcg PO DAILY 07/10/25 09/16/25 mcg (2,000 unit) capsule pioglitazone 15 mg tablet 15 mg PO DAILY 07/10/25 09/16/25 Previous Rx's ?Medication ?Instructions ?Recorded blood pressure monitor (Blood #1 ea 05/23/23 Pressure Kit) pen needle, diabetic 32 gauge x #400 ea 10/09/2311/02 (BD Ultra-Fine Micro Pen Needle) insulin lispro 100 unit/mL See Rx Instructions subcut TID 30 05/10/24 subcutaneous pen (Humalog #15 mL (U-100) Insulin) metoprolol tartrate 50 mg tablet See Rx Instructions PO .COMPLEX 90 09/02/24 days #270 tabs metformin 1,000 mg tablet 1,000 mg PO BIDWMEAL 90 days #180 11/14/24 tabs compress.stocking,knee,reg,med #12 ea 12/26/24 fluticasone propionate 50 2 spray intranasal DAILY 90 days 12/26/24 mcg/actuation nasal #3 ea spray,suspension lancets (Accu-Chek Fastclix Lancet 1 ea topical TID 90 days #306 ea 12/26/24 Drum) cyanocobalamin (vitamin B-12) 1,000 mcg PO DAILY #90 tabs 02/12/25 1,000 mcg tablet spironolactone 25 mg tablet 25 mg PO BID #180 tabs 02/12/25 albuterol sulfate 90 mcg/actuation 1 puff PO Q4H PRN shortness of 03/20/25 aerosol inhaler breath or wheezing #18 grams blood sugar diagnostic (Accu-Chek #300 ea 03/28/25 Guide test strips) gabapentin 100 mg capsule 100 mg PO DAILY 90 days #90 caps 04/04/25 rosuvastatin 40 mg tablet 40 mg PO DAILY #90 tabs 04/04/25 magnesium oxide 400 mg PO BID #90 caps 06/17/25 insulin glargine 100 unit/mL (3 48 unit (0.48 mL) subcut BEDTIME 06/27/25 mL) subcutaneous pen (Lantus #15 mL Solostar U-100 Insulin) fenofibrate 160 mg tablet 160 mg PO DAILY #90 tabs 08/20/25 lisinopril 40 mg tablet 40 mg PO DAILY #90 tabs 08/25/25 lansoprazole 30 mg capsule,delayed 30 mg PO DAILY #90 caps 09/16/25 release Allergies Allergy/AdvReac Type Severity Reaction Status Date / Time cortisone (CORTISONE) Allergy Severe RASH HIVES Verified 10/25/25 15:46 AND SWELLING OF THE TONGUE nitrofurantoin Allergy Severe tongue Verified 10/25/25 15:46 swelling Penicillins Allergy Severe ANAPHYLAXIS Verified 10/25/25 15:46 yeast, dried (yeast) Allergy Severe SHORTNESS Verified 10/25/25 15:46 OF BREATH amlodipine Allergy Intermediate swelling Verified 10/25/25 15:46 of feet empagliflozin (From Allergy Intermediate swollen Verified 10/25/25 15:46 Jardiance) tongue omeprazole (From Prilosec) Allergy Intermediate BLISTERS Verified 10/25/25 15:46 Sulfa (Sulfonamide Allergy Intermediate Itching Verified 10/25/25 15:46 Antibiotics) niacin (Niacin) Allergy Mild RASH Verified 10/25/25 15:46 tetracycline (Tetracycline) Allergy Mild RASH Verified 10/25/25 15:46 acetic acid (Acetic Acid) Allergy Unknown SHORTNESS Verified 10/25/25 15:46 OF BREATH FROM VINEGAR adhesive tape Allergy Unknown RASH Verified 10/25/25 15:46 Clindamycin HCl Allergy Unknown rash Verified 10/25/25 15:46 procaine (From NOVOCAIN) Allergy Unknown RASH,SWELLING Verified 10/25/25 15:46 OF TONGUE,BLISTERING cefixime (From Suprax) AdvReac Intermediate Swelling Verified 10/25/25 15:46 in throat dulaglutide (From Trulicity) AdvReac Intermediate swelling Verified 10/25/25 15:46 of tongue hydrochlorothiazide AdvReac Intermediate hypercalcem Verified 10/25/25 15:46 ia methenamine AdvReac Intermediate Yeast Verified 10/25/25 15:46 Infection lorazepam (From Ativan) AdvReac Mild VOMITING/NA Verified 10/25/25 15:46 USEA morphine (MORPHINE) AdvReac Unknown NAUSEA Verified 10/25/25 15:46 fosfomycin Allergy Severe tongue Uncoded 10/09/25 10:03 swelling jardiance Allergy Severe Yeast Uncoded 10/09/25 10:03 infection levofloxacin Allergy Severe Hives Uncoded 10/09/25 10:03 From AVELOX Allergy Intermediate SWELLING/RA Uncoded 10/09/25 10:03 SH carrots, vinegar, yeast, Allergy Unknown Unknown Uncoded 10/09/25 10:03 chees SEASONAL ALLERGIES Allergy Unknown SNEEZING Uncoded 10/09/25 10:03 PMFSH Past Medical History Medical History CKD (chronic kidney disease) Pulmonary nodule NSTEMI (non-ST elevated myocardial infarction) Breast cancer screening by mammogram Tobacco abuse Myocardial infarct COVID-19 Cough Skin rash Colon cancer screening Essential hypertension Mitral valve prolapse Diabetic neuropathy Type 2 diabetes mellitus with hyperglycemia Hip osteoarthritis Diabetic nephropathy Vitamin D deficiency COPD (chronic obstructive pulmonary disease) Osteoarthritis Barretts esophagus Hypercholesterolemia Coronary artery disease Surgical History H/O heart artery stent Cystocele History of parathyroidectomy History of hysterectomy History of cholecystectomy Family History Family History Father CVD (cardiovascular disease) Dementia Heart valve replaced Mother Colon cancer Social History Social History Housing: House Alcohol intake: never Patient Tobacco Use Status: Former Tobacco user Tobacco use type: Cigarette Cigarettes Per Day: 1 Years Smoked: 40 +/- quit 02/2024 e-Cigarette/Vaping Use: Never Used Second Hand Smoke Exposure: No Advance Directives: No Advance Directives Information Provided: No Do you have a plan to hurt others: No Plan service: No Current occupational status: retired Current occupation: right hand dominant Cognitive needs: No Hearing needs: No Vision needs: Yes Physical Exam ED Vital Signs: Vital Signs - 24 hr 10/25/25 15:45 Temperature 98.2 F Pulse Rate 78 Respiratory Rate 18 Blood Pressure 188/84 H Pulse Oximetry 96 Oxygen Delivery Method Room Air BMI result Body Mass Index 33.2 Course Course Course Narrative: RME, this is a rapid medical exam performed by Cecilio Greco please refer to primary provider for complete H&P- 75-year-old female presents for evaluation of a sore throat in his stiff neck. His symptoms started 4 days ago and she reports that her symptoms are worse. Plan for labs, viral swabs and strep testing Medical Decision Making Lab Data 10/25/25 16:36 10/25/25 16:36 Labs: Lab Results 10/25/25 10/25/25 Range/Units 16:36 16:37 WBC 10.0 (4.8-10.8) X10*3/uL RBC 4.07 L (4.20-5.50) X10*6/uL Hgb 12.2 (12.0-16.0) g/dl Hct 36.8 L (37.0-47.0) % MCV 90.4 (80.0-98.0) fL MCH 30.0 (27.0-33.0) pg MCHC 33.2 (31.0-35.0) g/dl RDW 12.6 (11.0-16.0) % Plt Count 240 (160-400) X10*3/uL MPV 11.2 (9.4-12.3) fL Immature Gran % (Auto) 0.2 (0.0-0.4) % Neut % (Auto) 68.9 (45-73) % Lymph % (Auto) 19.9 L (20-40) % [place] % (Auto) 8.9 (2-11) % Eos % (Auto) 1.5 (0-4) % Baso % (Auto) 0.6 (0-2) % Lymph # (Auto) 2.0 (1.2-4.9) X10*3/uL [place] # (Auto) 0.9 (0.1-1.2) X10*3/uL Eos # (Auto) 0.2 (0.0-0.4) X10*3/uL Baso # (Auto) 0.1 (0.0-0.2) X10*3/uL Abs Immat Gran (auto) 0.02 (0.00-0.03) X10*3/uL Absolute Neuts (auto) 6.9 (2.0-8.3) x10*3/uL Absolute Nucleated RBC 0.000 (0.0-0.012) X10*3/uL Nucleated RBC % (auto) 0.0 (0.0-0.2) /100WBC Sodium 141 (135-145) mmol/L Potassium 4.3 (3.3-5.1) mmol/L Chloride 107 (96-108) mmol/L Carbon Dioxide 25 (22-29) mmol/L Anion Gap 13 (12-20) BUN 14 (9-16) mg/dL Creatinine 0.72 (0.5-1.4) mg/dL Estim Creat Clear Calc 71.2 Estimated GFR > 60 Random Glucose 112 (60-115) mg/dL Calcium 9.8 (8.4-10.2) mg/dL Total Bilirubin 0.2 (0.0-1.0) mg/dL AST 16 (5-31) U/L ALT 17 (0-31) U/L Alkaline Phosphatase 67 (39-117) U/L Total Protein 7.0 (6.5-8.0) g/dL Albumin 4.7 (3.5-5.0) g/dL Influenza Type A (PCR) NEGATIVE (Negative) Influenza Type B (PCR) NEGATIVE (Negative) RSV RNA Qual (PCR) NEGATIVE (Negative) SARS-CoV-2 RNA (RT-PCR) NEGATIVE (Negative) S. pyogenes GrpA RENATA Negative (Negative) Discharge Plan Discharge Clinical Impression: Neck swelling Patient Disposition: Left W/O Completing Treatment Prescriptions: No Action metformin 1,000 mg tablet 1,000 mg PO BIDWMEAL 90 Days Qty: 180 3RF cyanocobalamin (vitamin B-12) 1,000 mcg tablet 1,000 mcg PO DAILY Qty: 90 3RF spironolactone 25 mg tablet 25 mg PO BID Qty: 180 2RF albuterol sulfate 90 mcg/actuation HFA aerosol inhaler 1 puff PO Q4H PRN (Reason: shortness of breath or wheezing) Qty: 18 3RF (DME) Accu-Chek Guide test strips Strip See Rx Instructions .Route Qty: 300 3RF Rx Instructions: As directed check the BS TID magnesium oxide 400 mg magnesium capsule 400 mg PO BID Qty: 90 2RF insulin glargine [Lantus Solostar U-100 Insulin] 100 unit/mL (3 mL) insulin pen 48 unit subcut BEDTIME Qty: 15 3RF Rx Instructions: or as directed fenofibrate 160 mg tablet 160 mg PO DAILY Qty: 90 2RF lisinopril 40 mg tablet 40 mg PO DAILY Qty: 90 2RF (DME) pen needle, diabetic [BD Ultra-Fine Micro Pen Needle] 32 gauge x 1/4 needle See Rx Instructions .Route Qty: 400 3RF Rx Instructions: As directed inject4 x a day Insulin (DME) blood pressure monitor [Blood Pressure Kit] Kit See Rx Instructions .ROUTE .MEDSUPPLY Qty: 1 0RF Rx Instructions: As directed insulin lispro [Humalog KwikPen Insulin] 100 unit/mL insulin pen See Rx Instructions subcut TID 30 Days Qty: 15 4RF Rx Instructions: 10 u in am , 14 u noon and 6 u evening subcutaneously 3 times a day; or as directed aspirin [Adult Low Dose Aspirin] 81 mg tablet,delayed release (DR/EC) 81 mg PO DAILY (DME) pen needle, diabetic [BD Marisela 2nd Gen Pen Needle] 32 gauge x 5/32 needle See Rx Instructions .ROUTE DAILY Qty: 50 Rx Instructions: As directed metoprolol tartrate 50 mg tablet See Rx Instructions PO .COMPLEX 90 Days Qty: 270 2RF Rx Instructions: PO; 2 tabs in the AM, 1 tabs in the PM lancets [Accu-Chek Fastclix Lancet Drum] Misc 1 ea topical TID 90 Days Qty: 306 3RF fluticasone propionate 50 mcg/actuation spray,suspension 2 spray intranasal DAILY 90 Days Qty: 3 3RF Rx Instructions: administer into each nostril (DME) compress.stocking,knee,reg,med Misc See Rx Instructions .Route Qty: 12 0RF Rx Instructions: As directed 20-30 mm HG gabapentin 100 mg capsule 100 mg PO DAILY 90 Days Qty: 90 3RF rosuvastatin 40 mg tablet 40 mg PO DAILY Qty: 90 0RF calcium carbonate 600 mg calcium (1,500 mg) tablet 600 mg PO DAILY cholecalciferol (vitamin D3) 50 mcg (2,000 unit) capsule 50 mcg PO DAILY pioglitazone 15 mg tablet 15 mg PO DAILY lansoprazole 30 mg capsule,delayed release(DR/EC) 30 mg PO DAILY Qty: 90 3RF Discharge Date/Time: 10/25/25 19:58
[2025-10-25 16:53] LABS: MANUAL DIFF FLAG NO
[2025-10-25 16:54] LABS: Hematocrit 36.8 % (37.0-47.0); Hemoglobin 12.2 g/dl (12.0-16.0); Imm Gran Abs Auto 0.02 X10*3/uL (0.00-0.03); Imm Gran Pct Auto 0.2 % (0.0-0.4); Lymphocytes Absolute Auto 2.0 X10*3/uL (1.2-4.9); Mean Corpuscular HGB Conc 33.2 g/dl (31.0-35.0); Mean Corpuscular Hemoglobin 30.0 pg (27.0-33.0); Mean Corpuscular Volume 90.4 fL (80.0-98.0); NRBC Abs Auto 0.000 X10*3/uL (0.0-0.012); NRBC Pct Auto 0.0 /100WBC (0.0-0.2); Platelet Count 240 X10*3/uL (160-400); Red Blood Count 4.07 X10*6/uL (4.20-5.50); White Blood Count 10.0 X10*3/uL (4.8-10.8)
[2025-10-25 17:03] LABS: IDNOW Serial# 152EDE1D; Strep A Nucleic Acid Negative (Negative)
[2025-10-25 17:09] LABS: Alanine Aminotransferase 17 U/L (0-31); Albumin Level 4.7 g/dL (3.5-5.0); Alkaline Phosphatase 67 U/L (39-117); Anion Gap 13 (12-20); Aspartate Amino Transferase 16 U/L (5-31); Blood Urea Nitrogen 14 mg/dL (9-16); Calcium 9.8 mg/dL (8.4-10.2); Carbon Dioxide 25 mmol/L (22-29); Chloride 107 mmol/L (96-108); Creatinine Clr Calc Pharmacy 71.2; Estimated Glomerular Filt Rate > 60; Potassium 4.3 mmol/L (3.3-5.1); Sodium 141 mmol/L (135-145); Total Protein 7.0 g/dL (6.5-8.0)
[2025-10-25 17:33] LABS: Resp Syncy Virus RNA Qual PCR NEGATIVE (Negative); SARS COV2 PCR INHOUSE NEGATIVE (Negative)
--- OUTSIDE RECORDS SUMMARY | 2025-10-25 19:50 | XMS_ITS | Encounter Summary ---
Author Organization [facility] Address [address] [address] Phone Care Team Providers Care Printed Circuit Boards Router Name Role Phone William oClón MD Primary Care Provider [phone] Reason for Visit * Reason Comments Medication Refill Encounter Details Date Type Department Care Team (Late st Contact Info) Description 10/20/2025 Refill [facility] [address] [place] [address] Roderick Clay DO [address] [place] [address] [email or web address] Medication Refill Social History Tobacco Use Types [...] Progress Notes * Leah Isaacs MA - 10/20/2025 1:24 PM EST Rx Care Gap Status - Instructions for Clinical Staff (prescriber discretion applies): > Mismatch review guide > N/a - No action needed Visit Info Last visit: 08/22/2025 Roderick Clay DO - Endocrinology [facility] > Requested f/u: Return in about 3 months (around 11/22/2025) for Diabetes. Upcoming visit: 12/31/2025 Roderick Clay DO - Endocrinology [facility] ACTIONS TAKEN BY Leah Isaacs MA - Criteria met. Diabetes Rx Protocol (on Diabetes Registry) - pioglitazone HCl Criteria met; renew for up to 12 [...] Care Team (Late st Contact Info) Description 12/31/2025 12:10 PM EST Office Visit [facility] [address] [place] [address] [place] [address] Roderick Clay DO [address] [place] [id number] [email or web address] documented as of this encounter Visit Diagnoses Diagnosis Type 2 diabetes mellitus with hyperglycemia, with long-term current use of insulin documented in this encounter Care Teams Printed Circuit Boards Router Relationship Specialty Start Date End Date William Colón MD [address] [place] [address] [place] [phone] PCP - General Internal Medicine 06/21/21 documented as of this encounter Additional Source Comments The information contained in this document represents components of the legal health record. It is not the complete legal health record.[facility]
--- OUTSIDE RECORDS SUMMARY | 2025-10-25 19:50 | XMS_ITS | Patient Health Record ---
Author Organization [facility] Address [address] [place] [address] Care Team Providers Care Etl Informatica Architect Name Role Phone Po William WELLS Primary Care Provider Lior Guerrier Jr Unavailable [phone] Allergies Allergen (clinical drug ingredient) Drug/Non Drug [...] Status Risk Notes Problem Colon cancer screening (458256027) Colon cancer screening (Z12.11) Active confirmed Problem History of polyp of colon (situation) (943031802) Personal history of colonic polyps (Z86.010) Active confirmed Problem Bernal's esophagus (442542374) 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) Active confirmed Problem Irritable bowel syndrome with diarrhea (612601510) Irritable bowel syndrome with diarrhea (K58.0) Active confirmed Problem Gastric polyp (53546080) Gastric polyp (K31.7) Active confirmed Problem Bernal esophagus (775530979) Bernal esophagus (K22.70) Active confirmed Plan Of Treatment Future Test Test Name Order Date UPPER GI ENDOSCOPY 03/06/2013 COLONOSCOPY 03/06/2013 UPPER GI ENDOSCOPY 07/15/2015 COLONOSCOPY 07/15/2015 UPPER GI ENDOSCOPY 07/11/2022 COLONOSCOPY 07/11/2022 Insurance Providers Payer Name Payer Address Payer Phone Subscriber Number Group Number Insured Name Patient Relationship to Insured Coverage Start Date Coverage End Date AAR Medicare Advantage Plan [address] [address] [place] [address] [id number] ROHIT LECHUGA Self - patient is the insured Medical (General) History Medical History History ICD Code Bernal's esophagus/GERD las t EGD 11/20/15 focal area of Bernal's, no dysplasia Colon polyps, colonoscopy , hyperplastic polyp, five-year followup for previous history of adenomas. Focal ileitis noted on previous exams as well, not treated Coronary artery disease, his tory of [place] x2 with stent placement, sees Dr. Roque asthma hypertension vertigo DM Diabetes mellitus type 2 covid x 2 2021 Surgical History Surgery Date(Month/Year) cholecystectomy parathyroidectomy right shoulder separation hysterectomy Bladder suspension Cystocele rectocele repair x3
--- OUTSIDE RECORDS SUMMARY | 2025-10-25 19:50 | XMS_ITS | Clinical Summary ---
Author Organization [facility] Address [address] [address] Phone Care Team Providers Care Data Control Assistant Name Role Phone William Colón MD Primary Care Provider [phone] Allergies Active Allergy Reactions Criticality Noted Date [...] INSULIN 100 unit/mL (3 mL) InPn injection penIndication s:Type 2 diabetes mellitus with hyperglycemia , with long-term current use of insulin Inject 40 Units under the skin daily. 45 mL 08/22/20 25 Active HUMALOG KWIKPEN INSULIN 100 unit/mL kwikpenIndica tions:Type 2 diabetes mellitus with hyperglycemia , with long-term current use of insulin INJECT 10 UNITS SUBCUTANEOUS EVERY MORNING, 14 UNITS AT NOON AND 6 UNITS EVERY EVENING 15 mL 09/29/20 25 Active pioglitazone (ACTOS) 15 MG tabletIndicat ions:Type 2 diabetes mellitus with hyperglycemia , with long-term current use of insulin TAKE 1 TABLET(15 MG) BY MOUTH DAILY 90 tablet 10/20/20 25 Active HUMALOG KWIKPEN INSULIN 100 unit/mL kwikpenIndica tions:Type 2 diabetes mellitus with hyperglycemia , with long-term current use of insulin Use 3 times a day before meals based on correction scale 100-150 =6 units 151-200 = 8 units 201-250 =10 units 251-300 =12 units 301-350 =14 units 351-400 =16 units greater than 400 =18 units 15 mL 08/22/20 25 025 Discontinued pioglitazone (ACTOS) 15 MG tabletIndicat ions:Type 2 diabetes mellitus with hyperglycemia , with long-term current use of insulin Take 1 tablet (15 mg total) by mouth daily. 90 tablet 1 08/22/20 25 025 Discontinued Active Problems Problem Noted Date Diagnosed [...] mg daily. This medication is an insulin finished goods stock clerk and it has helped her insulin work [...] 15 mg daily which is an insulin finished goods stock clerk. She has no history of congestive heart [...] Encounters Date Type Department Care Team Description 10/20/2025 Refill [facility]ology [facility] [address] [place] [address] [place] [address] Roderick Clay, DO Medication Refill 09/27/2025 Refill [facility] Endocrinology [address] [place] [address] Obed, Roderikc, DO Medication Refill 08/22/2025 11:50 AM EDT Office Visit [facility] Endocrinology [address] [place] [address] Roderick Clay DO Type 2 diabetes mellitus [...] 11:59 PM EDT Hospital Encounter [facility] [address] [place] [address] Roderick Clay DO Discharge Disposition: Home or Self Care 08/14/2025 Telephone [facility] Endocrinology [address] [place] [address] Chaya Valdez, spa director/finance Problem (RE: Pioglitazone) from Last 3 Months Family History Medical [...] Description 12/31/2025 12:10 PM EST Office Visit [facility] [address] [place] [phone] Roderick Clay DO [address] [place] [phone] [email or web address] Health Maintenance Due Date Last Done Comments [...] HEMOGLOBIN A1C 7.4(H) 4.3 - 5.8 % [facility] Blood 08/19/2025 10:4 6 AM EDT 08/19/2025 10:54 AM EDT Roderick Clay DO LAB BLOOD BKR ORDERABLES Final R esult [address] [address] * (ABNORMAL) Comprehensive metabolic panel (04/24/2025 9:39 AM EDT) SODIUM 139 133 - 146 mmol/L [facility] POTASSIUM 4.7 3.3 - 5.1 mmol/L [facility] CHLORIDE 102 96 - 108 mmol/L [facility] CO2 26 21 - 35 mmol/L [facility] BUN 24(H) 6 - 19 mg/dL [facility] CREATININE 1.20 0.5 - 1.5 mg/dL [facility] GLUCOSE 188(H) 70 - 99 mg/dL [facility] ALBUMIN 4.6 3.9 - 4.8 g/dL [facility] TOTAL PROTEIN 7.2 6.5 - 8.0 g/dL [facility] CALCIUM 9.9 8.4 - 10.3 mg/dL [facility] ALKALINE PHOSPHATASE 62 39 - 117 U/L [facility] TOTAL BILIRUBIN 0.3 0.0 - 1.2 mg/dL [facility] AST 17 0 - 37 U/L [facility] ALT 18 0 - 40 U/L [facility] GLOBULIN 2.6 1 - 4.8 g/dL [facility] EGFR 47(L) >59 mL/min/1.7 3m2 [facility] Comment:Estimated glomerular filtration rate calculated using the CKD-EPI refit equation. ANION GAP 16 10 - 20 mmol/L [facility] Blood 04/24/2025 9:39 AM EDT 04/24/2025 9:47 AM EDT us Roderick Clay DO LAB BLOOD BKR ORDERABLES Final R esult [facility] [address] [place] [address] * (ABNORMAL) Lipid panel (04/24/2025 9:39 AM EDT) HDL 28 mg/dL [facility] Comment: Interpretation <40 mg/dL: Low HDL cholesterol (major risk factor for CHD) Greater than or equal to 60 mg/dL: High HDL cholesterol ( negative risk factor for CHD) HDL - cholesterol is affected by a number of factors, e.g. smoking, excerise, hormones, sex and age. CHOLESTEROL 103 0 - 240 mg/dL [facility] TRIGLYCERIDES 283(H) 30 - 160 mg/dL [facility] LDL 18(L) 50 - 129 mg/dL [facility] Comment: LDL levels in terms of risk for coronary heart disease: <100 mg/dL: Optimal 100-129 mg/dL: Near or above optimal 130-159 mg/dL: Borderline high 160-189 mg/dL: High >190 mg/dL: Very High CARDIAC RISK RATIO 3.7 3.3 - 4.4 C [facility] Blood 04/24/2025 9:39 AM EDT 04/24/2025 9:47 AM EDT us Roderick Schmidto DO LAB BLOOD BKR ORDERABLES Final R esult [address] [address] from Last 3 Months or Most Recently Relevant to Health Maintenance Insurance MEDICARE REPLACEMENT MEDICARE REPLACEMENT MEDICARE REPLACEMENT MEDICARE REPLACEMENT [place] [id number] [place] [address] MEDICARE REPLACEMENT [place] [id number] MEDICARE REPLACEMENT MEDICARE REPLACEMENT MEDICARE REPLACEMENT MEDICARE REPLACEMENT Care Teams Data Control Assistant Relationship Specialty Start Date End Date William Colón MD [address] [place] [address] [address] [place] [phone] PCP - General Internal Medicine 06/21/21 Additional Source Comments The information contained in this document represents components of the legal health record. It is not the complete legal health record.[facility]
--- OUTSIDE RECORDS SUMMARY | 2025-10-25 19:50 | XMS_ITS | Clinical Summary ---
Author Organization [facility] Address [address] [place] [phone] Phone Care Team Providers Care Weight Calculator Name Role Phone Unavailable Primary Care Provider Unavailabl e Social History Tobacco Use Types Packs/Day Years Used Date Smoking Tobacco: Never Assessed Comments Unknown Sex and Gender Information Value Date Recorded Sex Assigned at Not on file Legal Sex Female 1:22 AM EST Gender Identity Not on file Sexual Orientation Not on file Plan of Treatment Upcoming Encounters Date Type Department Care Team (Late st Contact Info) Description 10/29/2025 1:00 PM EST Office Visit Gynecologic Oncology - [address] [phone] Carly Lizarraga MD [address] [place] [address] [phone] Health Maintenance Due Date Last Done Comments DTaP,Tdap,and Td Vaccines (1 - Tdap) 1968 Pneumococcal Vaccine: 50+ Ye ars (1 of 1 - PCV) 1999 Zoster Vaccines (1 of 2) 1999 RSV Immunization Adult Patie nts (1 - 1-dose 75+ series) 2024 Depression Screening 10/30/2024 COVID-19 Vaccine (1 - 2024-2 6 season) 2025 Influenza Vaccine (#1) 2025 Falls Risk Assessment 10/14/2025 Hepatitis C Screening 10/14/2025 Medicare Annual Wellness Visit 10/14/2025 Osteoporosis Screening (Bone Density Screening) 10/14/2025 Social Influencers of Health Screening 10/14/2025 HIB Vaccines Aged Out No longer eligi ble based on patient's age to complete this topic HPV Vaccines Aged Out No longer eligi ble based on patient's age to complete this topic Hepatitis A Vaccines Aged Out No long er eligible based on patient's age to complete this topic Hepatitis B Vaccines Aged Out No long er eligible based on patient's age to complete this topic IPV Vaccines Aged Out No longer eligi ble based on patient's age to complete this topic MMR Vaccines Aged Out No longer eligi ble based on patient's age to complete this topic Meningococcal ACWY Vaccine Aged Out N o longer eligible based on patient's age to complete this topic Meningococcal B Vaccine Aged Out No l onger eligible based on patient's age to complete this topic RSV Immunization Patients Un dinah 20 months Aged Out No longer eligible b ased on patient's age to complete this topic Varicella Vaccines Aged Out No longer eligible based on patient's age to complete this topic Insurance [employer] MEDICARE
== END 2025-10-25 19:58 | disposition left against medical advice (07) ==
PROVIDERS: Physician Assistant; Emergency Provider Emergency Medicine; PCP Internal Medicine
DX: R22.1 Localized swelling, mass and lump, neck (principal); J02.9 Acute pharyngitis, unspecified; E11.9 Type 2 diabetes mellitus without complications; I10 Essential (primary) hypertension; E78.00 Pure hypercholesterolemia, unspecified; J44.9 Chronic obstructive pulmonary disease, unspecified; Z03.818 Encounter for observation for suspected exposure to other biological agents ruled out; Z79.84 Long term (current) use of oral hypoglycemic drugs; Z79.4 Long term (current) use of insulin; Z79.899 Other long term (current) drug therapy; Z79.82 Long term (current) use of aspirin; Z79.02 Long term (current) use of antithrombotics/antiplatelets
CPT/HCPCS: 36415; 80053; 85025; 87637; 87651; 99281; 99283